=== PATIENT | female | born 1970 | race Caucasian/White ===

== ENCOUNTER 2017-04-10 01:55 | Observation (INO) ==
[2017-04-10 02:21] LABS: Bilirubin,Urine Negative (Negative); Blood,Urine Small (Negative); Color,Urine Yellow (Yellow); Glucose,Urine (UA) Normal (Normal); Ketones,Urine Negative (Negative); Leukocyte Esterase,Urine Negative (Negative); Nitrite,Urine Negative (Negative); Protein,Urine 30 mg/dL (Neg-Trace); Specific Gravity,Urine > 1.030 (1.010-1.025); Urobilinogen,Urine Normal (Normal)
[2017-04-10 02:23] LABS: Bacteria,Urine Moderate per hpf (None-Few); Hyaline Casts,Urine None Seen per lpf (None-Few); RBC,Urine 0-3 per hpf (0-3); Squamous Epithelial Cell,Urine Many per lpf (None-Few)
[2017-04-10 02:28] LABS: Clarity,Urine Hazy (Clear)
[2017-04-10 02:36] LABS: Calcium Oxalate Crystals,Urine Present
[2017-04-10 03:03] LABS: Basophils % 0.1 %; Eosinophils % 0.1 %; Hematocrit 42.7 % (35.3-44.9); Hemoglobin 14.6 g/dL (11.5-15.4); Immature Granulocytes % 0.5 % (0-4); Lymphocytes # 1.1 K/mcL (0.6-4.6); Lymphocytes % 7.9 %; Mean Corpuscular HGB Conc 34.2 g/dL (31.6-35.5); Mean Corpuscular Hemoglobin 31.7 pg (28.0-33.3); Mean Corpuscular Volume 92.8 fL (83.0-100.0); Mean Platelet Volume 10.5 fL (9.4-12.4); Monocytes # 0.6 K/mcL (0.0-1.3); Monocytes % 4.2 %; Neutrophils # 12.3 K/mcL (1.6-8.9); Platelet Count 249 K/mcL (140-400); Red Cell Distribution Width 12.9 % (11.5-14.5); Segmented Neutrophils % 87.2 %
[2017-04-10 03:20] LABS: BUN/Creatinine Ratio 25 (6-26); Blood Urea Nitrogen 19 mg/dL (6-20); Calcium 9.4 mg/dL (8.6-10.3); Carbon Dioxide 24 mEq/L (23-29); Chloride 109 mEq/L (98-107); Glucose 115 mg/dL (70-105); Osmolality,Calculated 293 (280-300); Potassium 3.5 mEq/L (3.5-5.1); Sodium 140 mEq/L (136-145); eGFR For African Americans > 60 (> 60); eGFR For Non-African Americans > 60 (> 60)
[2017-04-10 03:21] LABS: Albumin/Globulin Ratio 1.3 (1.1-2.2); Bilirubin,Direct 0.1 mg/dL (0.0-0.2); Bilirubin,Indirect 0.4 mg/dL (0.0-1.2); Bilirubin,Total 0.5 mg/dL (0.3-1.0); Globulin 3.1 g/dL (2.4-3.5); Total Protein 7.1 g/dL (6.4-8.9)
--- NOTE | 2017-04-10 04:51 | Emergency Department Note ---
Disposition Clinical Impression: Chest pain Disposition: Admitted As Inpatient Condition: Fair Referrals: Edyta Melgar CNP [Primary Care Provider] - Forms: ED Satisfaction Letter Time of Disposition: 05:32 Chest Pain HPI - General Chief Complaint: ED Chest Pain Stated Complaint: CP/epigastric pain Time Seen by Provider: 04/10/17 04:16 Source: patient Limitations: no limitations Vital Signs Reviewed: Yes Nursing Notes Reviewed: Yes - History of Present Illness HPI Narrative: Patient presenting to the ED today with the chief complaint of chest pain. Patient reports that the pain started several hours ago and has been consistent. States it feels like a knife is stabbing her in the chest and twisting and radiating through to her back. Pain radiates into her right arm and right jaw. States that she diaphoretic and nauseated with this as well. Had a few episodes of vomiting. He reports no previous history of coronary artery disease, but did have a heart catheter many years ago after a syncopal episode and collapsed while at work. She states that she twice while on the table and had to be defibrillated. She reports that recently she has been on a Medrol Dosepak for a allergic reaction, rash that has since resolved. Severity scale (1-10): 10 - Related Data Allergies Allergy/AdvReac Type Severity Reaction Status Date / Time Sulfa (Sulfonamide AdvReac See Verified 04/10/17 02:02 Antibiotics) Comments All systems ED: reviewed and negative except as stated. Constitutional: Denies: fever Cardiovascular: Reports: chest pain. Denies: dyspnea on exertion Respiratory: Denies: cough Gastrointestinal: Reports: abdominal pain (Epigastric and some right upper quadrant), nausea, vomiting Musculoskeletal: Reports: back pain (Radiating from her chest to her mid back) Neurological: Denies: headache Psychiatric: Reports: anxiety Chest Pain PMH - Past Medical History Medical history: Reports: no medical history Psychiatric history: Reports: no psych history - Social History Smoking Status: Never smoker Alcohol use: Reports: none Drug use: Reports: none Physical Exam - General Limitations: no limitations General appearance: alert, in no apparent distress - Head Head exam: atraumatic, normocephalic, normal inspection - Eye Eye exam: Present: normal appearance, PERRL, EOMI - ENT ENT exam: normal exam, normal oropharynx, mucous membranes moist - Neck Neck exam: Present: normal inspection, full ROM, trachea midline - Chest Chest inspection: Present: normal inspection, symmetric chest wall rise - Respiratory Respiratory exam: Present: normal lung sounds bilaterally - Cardiovascular Cardiovascular exam: Present: regular rate, normal rhythm, normal heart sounds - Abdominal Exam Abdominal exam: Present: soft, Non-Tender. Absent: tenderness, distention, guarding, rebound, rigidity, tenderness at McBurney's Point - Extremities Exam Extremities exam: Present: normal inspection, full ROM. Absent: tenderness, pedal edema - Expanded Lower Extremity Exam Hip/Pelvis exam: Present: pelvis stable - Back Exam Back exam: Present: normal inspection, full ROM. Absent: tenderness - Neurological Exam Neurological exam: Present: alert, oriented X3 - Psychiatric Psychiatric exam: Present: normal affect, normal mood - Skin Skin exam: Present: warm, dry, intact, normal color Course Course Narrative: Patient presenting the ED with a concerning story of chest pain. Distal having pain currently and her EKG is normal. We will try nitroglycerin and give her aspirin. Will admit to the hospitalist for further workup. Vital Signs Temperature 99.7 F H 04/10/17 01:56 Pulse Rate 92 04/10/17 01:56 Respiratory Rate 20 04/10/17 01:56 Blood Pressure 124/75 04/10/17 01:56 O2 Sat by Pulse Oximetry 96 04/10/17 01:56 Temperature 99.7 F H 04/10/17 01:56 Pulse Rate 82 04/10/17 05:53 Respiratory Rate 16 04/10/17 05:53 Blood Pressure 117/79 04/10/17 05:53 O2 Sat by Pulse Oximetry 95 04/10/17 05:53 Oxygen Delivery Oxygen Delivery Room Air Chest Pain - Medical Records Medical records reviewed: Yes I reviewed the patient's medical records. - Lab Data Lab results reviewed: Yes I reviewed the patient's lab results. Result diagrams: 04/10/17 02:52 04/10/17 02:52 Lab Results 04/10/17 04/10/17 04/10/17 Range/Units 02:00 02:51 02:52 WBC (4.3-11.1) K/mcL RBC (3.82-4.97) M/mcL Hgb (11.5-15.4) g/dL Hct (35.3-44.9) % MCV (83.0-100.0) fL MCH (28.0-33.3) pg MCHC (31.6-35.5) g/dL RDW (11.5-14.5) % Plt Count (140-400) K/mcL MPV (9.4-12.4) fL Immature Gran % (0-4) % Seg Neutrophils % % Lymphocytes % % Monocytes % % Eosinophils % % Basophils % % Neutrophils # (1.6-8.9) K/mcL Lymphocytes # (0.6-4.6) K/mcL Monocytes # (0.0-1.3) K/mcL Eosinophils # (0.0-0.6) K/mcL Basophils # (0.0-0.2) K/mcL Sodium (136-145) mEq/L Potassium (3.5-5.1) mEq/L Chloride (98-107) mEq/L Carbon Dioxide (23-29) mEq/L BUN (6-20) mg/dL Creatinine (0.60-1.20) mg/dL Est GFR ( Amer) (> 60) Est GFR (Non-Af Amer) (> 60) BUN/Creatinine Ratio (6-26) Glucose (70-105) mg/dL Calculated Osmolality (280-300) Calcium (8.6-10.3) mg/dL Total Bilirubin 0.5 (0.3-1.0) mg/dL Direct Bilirubin 0.1 (0.0-0.2) mg/dL Indirect Bilirubin 0.4 (0.0-1.2) mg/dL AST 15 (13-39) Units/L ALT 18 (7-52) Units/L Alkaline Phosphatase 60 (34-104) Units/L Troponin I < 0.03 (< 0.04) ng/mL Serum Total Protein 7.1 (6.4-8.9) g/dL Albumin 4.0 (3.5-5.7) g/dL Globulin 3.1 (2.4-3.5) g/dL Albumin/Globulin Ratio 1.3 (1.1-2.2) Lipase 26 (11-82) Units/L Urine Color Yellow (Yellow) Urine Clarity Hazy A (Clear) Urine pH 6.0 (5.0-8.0) pH Units Ur Specific [place] > 1.030 H (1.010-1.025) Urine Protein 30 H (Neg-Trace) mg/dL Urine Glucose (UA) Normal (Normal) mg/dL Urine Ketones Negative (Negative) mg/dL Urine Blood Small H (Negative) Urine Nitrite Negative (Negative) Urine Bilirubin Negative (Negative) Urine Urobilinogen Normal (Normal) mg/dL Ur Leukocyte Esterase Negative (Negative) Urine Microscopic RBC 0-3 (0-3) per hpf Urine Microscopic WBC 5-15 H (0-3) per hpf Ur Squamous Epith Cells Many H (None-Few) per lpf Calcium Oxalate Crystal Present Urine Bacteria Moderate H (None-Few) per hpf Hyaline Casts None Seen (None-Few) per lpf Ur Culture Indicated? NO (NO) 04/10/17 04/10/17 Range/Units 02:52 02:52 WBC 14.1 H (4.3-11.1) K/mcL RBC 4.60 (3.82-4.97) M/mcL Hgb 14.6 (11.5-15.4) g/dL Hct 42.7 (35.3-44.9) % MCV 92.8 (83.0-100.0) fL MCH 31.7 (28.0-33.3) pg MCHC 34.2 (31.6-35.5) g/dL RDW 12.9 (11.5-14.5) % Plt Count 249 (140-400) K/mcL MPV 10.5 (9.4-12.4) fL Immature Gran % 0.5 (0-4) % Seg Neutrophils % 87.2 % Lymphocytes % 7.9 % Monocytes % 4.2 % Eosinophils % 0.1 % Basophils % 0.1 % Neutrophils # 12.3 H (1.6-8.9) K/mcL Lymphocytes # 1.1 (0.6-4.6) K/mcL Monocytes # 0.6 (0.0-1.3) K/mcL Eosinophils # 0.0 (0.0-0.6) K/mcL Basophils # 0.0 (0.0-0.2) K/mcL Sodium 140 (136-145) mEq/L Potassium 3.5 (3.5-5.1) mEq/L Chloride 109 H (98-107) mEq/L Carbon Dioxide 24 (23-29) mEq/L BUN 19 (6-20) mg/dL Creatinine 0.76 (0.60-1.20) mg/dL Est GFR ( Amer) > 60 (> 60) Est GFR (Non-Af Amer) > 60 (> 60) BUN/Creatinine Ratio 25 (6-26) Glucose 115 H (70-105) mg/dL Calculated Osmolality 293 (280-300) Calcium 9.4 (8.6-10.3) mg/dL Total Bilirubin (0.3-1.0) mg/dL Direct Bilirubin (0.0-0.2) mg/dL Indirect Bilirubin (0.0-1.2) mg/dL AST (13-39) Units/L ALT (7-52) Units/L Alkaline Phosphatase (34-104) Units/L Troponin I (< 0.04) ng/mL Serum Total Protein (6.4-8.9) g/dL Albumin (3.5-5.7) g/dL Globulin (2.4-3.5) g/dL Albumin/Globulin Ratio (1.1-2.2) Lipase (11-82) Units/L Urine Color (Yellow) Urine Clarity (Clear) Urine pH (5.0-8.0) pH Units Ur Specific [place] (1.010-1.025) Urine Protein (Neg-Trace) mg/dL Urine Glucose (UA) (Normal) mg/dL Urine Ketones (Negative) mg/dL Urine Blood (Negative) Urine Nitrite (Negative) Urine Bilirubin (Negative) Urine Urobilinogen (Normal) mg/dL Ur Leukocyte Esterase (Negative) Urine Microscopic RBC (0-3) per hpf Urine Microscopic WBC (0-3) per hpf Ur Squamous Epith Cells (None-Few) per lpf Calcium Oxalate Crystal Urine Bacteria (None-Few) per hpf Hyaline Casts (None-Few) per lpf Ur Culture Indicated? (NO) - Radiology Data Radiology results reviewed: Yes I reviewed the patient's radiology results. Chest X-Ray 04/10/17 02:03 IMPRESSION: No acute cardiopulmonary pathology. No focal airspace consolidation. D/ / John Anderson MD / John Anderson MD Interpreting Provider: John Anderson MD - EKG Data EKG attestation: Yes I reviewed and interpreted this EKG. EKG results narrative: Sinus rhythm, rate 81, FL interval 168, QRS 104, QTC 414, normal axis, no acute ischemic changes Heart Score - Score History: Highly Suspicious EKG: Normal Age: 45-65 Risk Factors: 1-2 risk factors Troponin: Less than normal limit HEART Score Total: 4 S.B.ALaura. - S.Wallace.Jaime Situation: Demographics, MOA Background: Presenting Complaint, Relevant PMH, Meds, & Allergies Assessment: Vital Signs, Course and respsone to treatment, Exam Concerns, Patient/Family Expectation, Pertinant Lab Results, Outstanding Labs Recommendation: Recommendation based on pending studies, treatments, or consults S.B.A.RYris Report Given to: Dr. Gauri Salas Repor Time: 05:39 Attestation Statement - Attestation Attestation: I, Real Pearl MD, personally evaluated this patient and discussed their management with the resident physician. I reviewed the resident's note and agree with the documented findings, medical decision making, and plan of care. 46-year-old female presents to the emergency department with a complaint of chest pain that started about 7 PM this evening. She states the pain started in the epigastric area and radiated up into the chest in the substernal region. The pain radiates to the right shoulder and down the right arm. Also radiates to the right jaw. She complains of nausea and vomiting associated with the pain. No shortness of breath. No diaphoresis. On examination patient is a well-developed well-nourished well-appearing female in no acute distress. She is alert and oriented 3. There is no cyanosis or diaphoresis. Chest is nontender to palpation. Breath sounds are clear and equal bilaterally. Heart regular rate and rhythm. Abdomen is soft and nontender with normal bowel sounds. Labs reviewed. Chest x-ray negative. No acute changes on EKG. The hospitalist, Dr. Astorga, was consulted and accepted the admission of the patient.
[2017-04-10] MEDS: Nitroglycerin 0.4 MG TAB.SUBL SL PRN ×4 (05:46→19:55)
[2017-04-10] MEDS ORDERED: Aspirin 325 MG TABLET PO ONE (06:43)
[2017-04-10] MEDS ORDERED: Naloxone 0.4 MG/ML INJ IVP PRN (07:23)
[2017-04-10] MEDS ORDERED: Ondansetron 4 MG/2 ML VIAL IVP PRN (07:23)
[2017-04-10] MEDS ORDERED: *HR* Morphine 2 MG/ML SYRINGE IVP PRN (07:23)
--- NOTE | 2017-04-10 07:52 | Internal Med History&Physical ---
Date of Encounter: 04/10/17 Time of Encounter: 07:40 Assessment and Plan (1) Chest pain Current visit: Yes Status: Acute Atypical chest pain - rule out ACS Continue Aspirin, Simvastatin, Nitro PRN EKG - sinus rhythm with no acute ST-T changes Troponin - 0.03 Chest x-ray - no acute cardiopulmonary process Echocardiogram - pending Stress test - pending Cardiac telemetry, labs in a.m., monitor closely Qualifiers: Chest pain type: unspecified Qualified Code(s): R07.9 - Chest pain, unspecified (2) GERD (gastroesophageal reflux disease) Current visit: Yes Status: Chronic Add Pepcid, Protonix Qualifiers: Esophagitis presence: without esophagitis Qualified Code(s): K21.9 - Gastro -esophageal reflux disease without esophagitis (3) DVT prophylaxis Current visit: Yes Status: Acute Heparin subcutaneous Internal Medicine - H&P: HPI Chief complaint: Chest pain Admitted From: Emergency Dept Plans for Post Hospital Care: Home History of present illness: Ms. Will is a 46 year old female with past medical history of GERD and ?h/o SVT. Patient presents to the ED with complaints of chest pain. Examined in the room. Patient is awake and alert. Not in any distress. Able to provide all history. Family is at bedside. Patient states she developed substernal chest pain and epigastric pain about 12 hours prior to arrival in the ED. Her chest pain radiated to her right arm and right side of neck. Describes it as a burning and pressure type of pain. Rates it 7 out of 10. Improved after nitroglycerin given in the ED. Patient also complains of associated shortness of breath. Denies palpitations or diaphoresis. Denies headache or dizziness. She did have multiple episodes of vomiting and several episodes of diarrhea. Patient states her symptoms may have initially started about 2 days ago, when she developed some vomiting and diarrhea. She also had an allergy reaction about 2 days ago, and was started on Prednisone by her primary care physician. No other associated symptoms. No other acute complaints at present. Initial workup in the ED is negative. Troponin is within normal limits. EKG shows normal sinus rhythm. Patient will need echocardiogram and stress test. Aspirin has been given in the ED. Patient and family explaining about condition and plan of care in detail. They understood and agreed. No unanswered questions. CODE STATUS full code. Past Med Surg Social Fam HX - Past Medical History Medical history: no medical history Psychiatric history: no psych history - Past Surgical History Surgical History: cholecystectomy, hysterectomy - Social History Smoking Status: Never smoker Alcohol use: none Drug use: none - Family History Father Hx Family Cardiac Disorders: Yes (SD) Internal Medicine - H&P: Meds Ascorbic Acid [Vitamin C] 500 mg PO DAILY 04/10/17 [History] Cholecalciferol (D-3) [Vitamin D] 1,000 unit PO DAILY 04/10/17 [History] Cyanocobalamin (Vitamin B-12) [Vitamin B12] 1,000 mcg PO DAILY 04/10/17 [History ] Loratadine [Allergy Relief] 10 mg PO DAILY 04/10/17 [History] PredniSONE [Deltasone] See Taper PO AD 04/10/17 [History] Vitamin E (Dl,Tocopheryl Acet) [Vitamin E] 400 unit PO DAILY 04/10/17 [History] 3 Allergy/AdvReac Type Severity Reaction Status Date / Time Sulfa (Sulfonamide AdvReac Hives Verified 04/10/17 08:34 Antibiotics) All Systems PM: A 10-system review of systems was performed and is negative for pertinent findings except as documented above in the HPI. - Constitutional Constitutional: fatigue, no fever(s), no weakness - EENT Eyes: no blurry vision - Cardiovascular Cardiovascular ROS IM: chest pain, dyspnea, dyspnea on exertion, no edema, no lightheadedness, no orthopnea, no palpitations, no syncope - Respiratory Respiratory: dyspnea, dyspnea on exertion, no cough, no hemoptysis, no wheezing , no chest congestion - Gastrointestinal Gastrointestinal: abdominal pain, diarrhea, nausea, vomiting, no bloating, no constipation, no heartburn, no hematemesis, no hematochezia - Genitourinary Genitourinary: no dysuria - Neurological Neurological ROS: no abnormal gait, no confusion, no dizziness, no loss of vision, no numbness, no tingling - Constitutional Vitals: Temp Pulse Resp BP Pulse Ox 99.1 F 95 15 147/90 96 04/10/17 06:55 04/10/17 06:55 04/10/17 06:55 04/10/17 06:55 04/10/17 06:55 General appearance: Present: cooperative, A&O X 3, pleasant, no acute distress, obese, answers questions appropriately - Head Head exam: Present: atraumatic - Eye Eye exam: Present: EOMI - ENT ENT exam: Present: mucous membranes moist - Respiratory Respiratory exam: Present: CTAB. Absent: accessory muscle use, chest wall tenderness, rales, respiratory distress, wheezes, tachypnea - Cardiovascular Cardiovascular exam: Present: RRR, +S1, +S2 - GI/Abdominal GI/Abdominal exam: Present: soft, tenderness (Mild epigastric tenderness). Absent: distended, firm, guarding - Extremities Exam Extremities exam: Present: radial pulses palpable and symmetrical. Absent: calf tenderness, cyanotic, pedal edema - Neurological Exam Neurological exam: Present: alert, oriented X3, no focal deficits. Absent: facial droop, speech deficit - Skin Skin exam: Present: rash (over back) Internal Med - H&P Results - Labs CBC & Chem 7: 04/10/17 02:52 04/10/17 02:52
[2017-04-10] MEDS: *HR* Heparin 5,000 UNIT/ML VIAL SQ SCH ×2 (09:44→19:54)
[2017-04-10] MEDS: Acetaminophen 325 MG TABLET PO PRN (09:45)
[2017-04-10] MEDS: predniSONE 20 MG TABLET PO SCH (11:08)
[2017-04-10] MEDS: Loratadine 10 MG TABLET PO SCH (11:08)
[2017-04-10] MEDS: Ascorbic Acid 500 MG TABLET PO SCH (11:11)
[2017-04-10] MEDS: Cyanocobalamin (B-12) 1,000 MCG TABLET PO SCH (11:12)
[2017-04-10] MEDS: Cholecalciferol (D-3) 1,000 UNIT TABLET PO SCH (11:12)
[2017-04-10] MEDS: Famotidine 20 MG/2 ML VIAL IVP SCH ×2 (11:14→19:55)
--- NOTE | 2017-04-10 20:20 | Electrocardiograph Report ---
[place] [id number] Test Date: 2017-04-10 Pat Name: Shanell Will Department: 102 Room: 3B Gender: F [employer] Machine: : [id number] Requested By: Real Pearl Order Number: [id number] Reading MD: Gil Masters MD Measurements Intervals [place] Rate: 81 P: 41 KS: 168 QRS: 20 QRSD: 104 T: 26 QT: 376 QTc: 414 Interpretive Statements SINUS RHYTHM Electronically Signed On 04-10-2017 20:19:18 EST by Gil Masters MD
[2017-04-11] MEDS: *HR* Heparin 5,000 UNIT/ML VIAL SQ SCH ×2 (05:25→17:51)
[2017-04-11] MEDS: Famotidine 20 MG/2 ML VIAL IVP SCH ×2 (05:25→17:51)
[2017-04-11] MEDS ORDERED: Regadenoson 0.4 MG/5 ML SYRINGE IVP ONE (06:24)
[2017-04-11] MEDS ORDERED: Aspirin 81 MG TAB.CHEW PO SCH (09:00)
[2017-04-11] MEDS: Ascorbic Acid 500 MG TABLET PO SCH (09:20)
[2017-04-11] MEDS: predniSONE 20 MG TABLET PO SCH (09:20)
[2017-04-11] MEDS: Cyanocobalamin (B-12) 1,000 MCG TABLET PO SCH (09:20)
[2017-04-11] MEDS: Loratadine 10 MG TABLET PO SCH (09:20)
[2017-04-11] MEDS: Cholecalciferol (D-3) 1,000 UNIT TABLET PO SCH (09:20)
--- NOTE | 2017-04-11 13:02 | Cardiology Consult Note ---
<Pavel Earl R - Last Filed: 04/11/17 13:21> Date of Encounter: 04/11/17 Time of Encounter: 13:06 Assessment and Plan (1) Abnormal stress test Current Visit: Yes Status: Acute Stress test showed small sized, moderate intensity reversible defect involving apical lateral and apical inferior segments suggestive of ischemia. Small sized , mild intensity, reversible basal inferior defect possibly due to ischemia. Given symptoms of chest pain with radiation to right arm/shoulder/neck and into back, relieved with nitro, recommend [facility] further evaluate. R/B/S discussed. Pt agrees to proceed. Risk factors for CAD include obesity, family hx. Echo LVEF 60-65%. Normal LV chamber size, wall thickness and function. Mild LVDD. No significant valvular dysfunction. [facility] today. (2) Chest pain Current Visit: Yes Status: Acute Troponins negative x 3. No ekg changes. Abnormal stress test with plan as above. [facility] today. Qualifiers: Chest pain type: unspecified Qualified Code(s): R07.9 - Chest pain, unspecified Discussion w patient/family: The assessment and plan as outlined above was discussed with the patient and/or family members who expressed understanding and agreement. All questions were answered. Thank you for involving us in the care of your patient. Please call with any questions. I will discuss all the above with Dr. Abreu and make changes as necessary. History of Present Illness Consult date: 04/11/17 Requesting physician: Nilson Mejia Consult reason: abnormal stress Chief complaint: chest pain History of present illness: Ms. Will is a 46 year old female with past medical history of GERD and possible hx of SVT. Patient presents to the ED with complaints of chest pain. Patient states she developed midsternal chest pain Caroline night while lying in bed, radiated into her back, right arm/shoulder and neck, described as aching. It improved after nitroglycerin was given in the ED. Has had one more episode while inpt, relieved with nitro. Patient also complains of associated shortness of breath and vomiting, also had diarrhea. Patient states her symptoms may have initially started about 2 days ago, around the same time she noticed a bite on the back of her leg and an intermittent rash--was started on Prednisone by her primary care physician. Troponin negative x 3. Echo EF preserved, normal wall motion. Stress test showed small sized, moderate intensity reversible defect involving apical lateral and apical inferior segments suggestive of ischemia. Small sized, mild intensity, reversible basal inferior defect possibly due to ischemia. Cardiology consulted for further recommendations. Pt reports having LHC ~2003 without intervention. Past Med Surg Social Fam HX - Past Medical History Medical history: no medical history Psychiatric history: no psych history - Past Surgical History Surgical History: cholecystectomy, hysterectomy - Social History Smoking Status: Never smoker Alcohol use: none Drug use: none - Family History Father Hx Family Cardiac Disorders: Yes ([place]) Medications and Allergies Ascorbic Acid [Vitamin C] 500 mg PO DAILY 04/10/17 [History] Cholecalciferol (D-3) [Vitamin D] 1,000 unit PO DAILY 04/10/17 [History] Cyanocobalamin (Vitamin B-12) [Vitamin B12] 1,000 mcg PO DAILY 04/10/17 [History ] Loratadine [Allergy Relief] 10 mg PO DAILY 04/10/17 [History] PredniSONE [Deltasone] See Taper PO AD 04/10/17 [History] Vitamin E (Dl,Tocopheryl Acet) [Vitamin E] 400 unit PO DAILY 04/10/17 [History] 3 Allergy/AdvReac Type Severity Reaction Status Date / Time Sulfa (Sulfonamide AdvReac Hives Verified 04/10/17 08:34 Antibiotics) All Systems Review: A 10-system review of systems was performed and is negative for pertinent findings except as documented above in the HPI. - Cardiovascular Cardiovascular: as per HPI, chest pain at rest, dyspnea at rest, radiating jaw, neck or arm pain - Gastrointestinal Gastrointestinal: diarrhea, nausea - Integumentary Integumentary: rash Physical Examination Vital Signs, Last 4 Hours Temp Pulse Resp BP Pulse Ox 04/11/17 11:37 98.0 F 88 14 108/70 96 04/11/17 09:23 94 Vital Signs Temp Pulse Resp BP Pulse Ox 04/11/17 11:37 98.0 F 88 14 108/70 96 04/11/17 09:23 94 04/11/17 06:41 99.1 F 74 16 115/72 94 04/11/17 03:11 98.2 F 68 16 102/54 96 04/10/17 22:01 98.5 F 84 16 111/69 94 04/10/17 20:08 86 112/70 12/20/17 19:21 98.3 F 88 16 116/70 95 04/10/17 15:25 98.4 F 104 17 118/71 94 Intake and Output 04/10/17 04/11/17 04/11/17 23:59 07:59 15:59 Intake Total 120 / 120 1120 / 1120 Balance 120 / 120 1120 / 1120 Intake: Oral 120 / 120 1120 / 1120 Other: Meal Breakfast Percent of Meal Consumed 100% Weight 112.718 kg Patient Weight 04/11/17 23:59 Weight 112.718 kg General: Conversant, No Apparent Distress HEENT: Atraumatic, Normocephaly, Mucus Membranes Moist Neck: No JVD, Normal carotid pulses Cardiac: Reg Rate and Rhythm, Normal S1 and S2, No Murmur Lungs: Normal Breath Sounds, No Wheeze, Rales, Rhonchi Neuro: Alert and responsive, No focal deficits noted Abdomen: Soft, Non-Tender Skin: No rashes noted on visualized skin Musculoskeletal: No Chest Wall Tenderness Extremities: No Clubbing, No Cyanosis, No Edema, Normal Pulses Results 04/10/17 02:52 04/10/17 02:52 Lab Results 04/10/17 12:47 Troponin I < 0.03 Impressions Echocardiogram 04/10/17 07:26 Impressions: LVEF 60-65%. Normal LV chamber size, wall thickness and function. Mild left ventricular diastolic dysfunction. Normal right ventricular structure and function. No evidence of pulmonary hypertension. No significant valvular dysfunction. Left Ventricular Wall Motion: Rest Echo Findings All wall segments showed normal motion. Findings: Study Quality * Technically adequate exam. ECG Findings * Normal sinus rhythm. Left Ventricle * LVEF 60-65%. * Normal LV chamber size, wall thickness and function. * Mild left ventricular diastolic dysfunction. Right Ventricle * Normal right ventricular structure and function. Left Atrium * Normal left atrial size. Right Atrium * Normal right atrial size. Interatrial Septum * Interatrial septum not well evaluated. Aortic Valve * Trileaflet aortic valve with normal function. * No aortic stenosis. * No aortic regurgitation. Mitral Valve * Normal mitral valve structure and function. * No mitral regurgitation. * No mitral stenosis. Tricuspid Valve * Normal tricuspid valve structure and function. * Trace tricuspid regurgitation. * No evidence of pulmonary hypertension. Pulmonic Valve * Pulmonic valve not well visualized. Aorta * Normally sized aortic root. Pericardium * The pericardium appears normal. IVC * Normal IVC dimensions and inspiratory collapse. Pulmonary Artery * Normal visualized portions of the main pulmonary artery. Active Medications Acetaminophen (Tylenol) 650 mg PO Q6HR PRN PRN Reason: Mild Pain (1-3) Stop: 10/10/17 07:24 Last Admin: 04/10/17 09:45 Dose: 650 mg Ascorbic Acid (Vitamin C) 500 mg PO DAILY [facility] Stop: 10/10/17 10:16 Last Admin: 04/11/17 09:20 Dose: 500 mg Aspirin (Aspirin) 81 mg PO DAILY [facility] Stop: 10/11/17 09:01 Last Admin: 04/11/17 09:20 Dose: 81 mg Cyanocobalamin (Vitamin B12) 1,000 mcg PO DAILY [facility] Stop: 10/10/17 10:16 Last Admin: 04/11/17 09:20 Dose: 1,000 mcg Diphenhydramine HCl (Benadryl) 25 mg PO Q8HR PRN PRN Reason: Allergic Reaction Stop: 10/10/17 10:29 Famotidine (Pepcid) 20 mg IVP Q12HR [facility] PRN Reason: Protocol Stop: 10/10/17 10:31 Last Admin: 04/11/17 05:25 Dose: Not Given Heparin Sodium (Porcine) (Heparin) 5,000 unit SQ Q12HCO [facility] Stop: 10/10/17 07:31 Last Admin: 04/11/17 05:25 Dose: Not Given Loratadine (Claritin) 10 mg PO DAILY [facility] PRN Reason: Protocol Stop: 10/10/17 10:16 Last Admin: 04/11/17 09:20 Dose: 10 mg Morphine Sulfate (Morphine Sulfate) 2 mg IVP Q4HR PRN PRN Reason: Severe Pain (7-10) Stop: 10/10/17 07:24 Naloxone HCl (Narcan) 0.4 mg IVP Q2MIN PRN PRN Reason: Opioid Reversal Stop: 10/10/17 07:24 Nitroglycerin (Nitroglycerin) 0.4 mg SL Q5MIN PRN PRN Reason: Chest Pain Stop: 10/10/17 05:16 Last Admin: 04/10/17 19:55 Dose: 0.4 mg Omeprazole (Prilosec) 40 mg PO DAILY@0630 [facility] PRN Reason: Protocol Stop: 10/10/17 10:31 Last Admin: 04/11/17 09:19 Dose: 40 mg Ondansetron HCl (Zofran) 4 mg IVP Q8HR PRN PRN Reason: Nausea And Vomiting Stop: 10/10/17 07:24 Prednisone (Prednisone) 20 mg PO DAILY [facility] Stop: 10/10/17 10:31 Last Admin: 04/11/17 09:20 Dose: 20 mg Simvastatin (Zocor) 20 mg PO HS [facility] PRN Reason: Protocol Stop: 10/10/17 07:31 Last Admin: 04/10/17 19:55 Dose: Not Given Vitamin D (Vitamin D) 1,000 unit PO DAILY [facility] Stop: 10/10/17 10:16 Last Admin: 04/11/17 09:20 Dose: 1,000 unit Vitamin E (Vitamin E) 400 unit PO DAILY [facility] Stop: 10/10/17 10:16 Last Admin: 04/11/17 09:20 Dose: 400 unit - Imaging and Cardiology Stress Test: report reviewed Echo: report reviewed - EKG Interpretation EKG results cardiology: personally reviewed Consult Discharge Plan - Plan Referrals: Edyta Melgar CNP [Primary Care Provider] - 04/17/17 4:00 pm <Yolanda Abreu - Last Filed: 04/11/17 17:08> Date of Encounter: 04/11/17 - Attending Attestation I examined this patient and my medical decision-making was reviewed with the UPPER TRIMMER. I agree with the documented findings, disposition and treatment plan as described. Ms. Will presents with complaints of chest pain which appears atypical. Troponins have been negative. Echo demonstrated normal LV systolic function. She had an EKG that was not indicative of ischemia. Stress testing showed a small size, moderate intensity reversible defect involving the apical lateral and apical inferior segment suggestive of ischemia. Also possibly an inferior basal defect due to ischemia. Cardiovascular risk factors include family history and obesity. We discussed these findings with the patient. Given the presence of multiple perfusion abnormalities on stress testing in addition to patient's symptoms and risk factors, we have recommended pursuing a left heart catheterization. The risks, benefits and alternatives of the procedure were discussed extensively with the patient and her . The patient expressed understanding of the potential risks and verbalized agreement to proceed. Renal function is normal. Hgb and platelets are normal. Assessment and Plan Discussion w patient/family: The assessment and plan as outlined above was discussed with the patient and/or family members who expressed understanding and agreement. All questions were answered. Thank you for involving us in the care of your patient. Please call with any questions. History of Present Illness History of present illness: Ms. Will is a 46 year old female All Systems Review: A 10-system review of systems was performed and is negative for pertinent findings except as documented above in the HPI. Physical Examination Vital Signs, Last 4 Hours Temp Pulse Resp BP Pulse Ox 04/11/17 15:57 98.2 F 83 16 133/80 93 Results 04/10/17 02:52 04/10/17 02:52
--- NOTE | 2017-04-11 16:07 | Internal Med Progress Note ---
Date of Encounter: 04/11/17 Time of Encounter: 15:00 - Assessment and plan (1) Chest pain Current Visit: Yes Status: Acute Assessment and plan: Atypical chest pain - rule out ACS - denies shortness of breath, mild substernal chest pain present Continue Aspirin, Simvastatin, Nitro PRN EKG - sinus rhythm with no acute ST-T changes Troponin - 0.03 Chest x-ray - no acute cardiopulmonary process Echocardiogram - LVEF 60-65%, mild LV diastolic dysfunction, normal RV structure and function, no significant valvular dysfunction Stress test - reversible defect involving the apical lateral and apical inferior segments suggestive of ischemia Lipid panel - reviewed Cardiology consult - [facility] today Cardiac telemetry, labs in a.m., monitor closely Qualifiers: Chest pain type: unspecified Qualified Code(s): R07.9 - Chest pain, unspecified (2) GERD (gastroesophageal reflux disease) Current Visit: Yes Status: Chronic Assessment and plan: Continue Protonix, Pepcid Qualifiers: Esophagitis presence: without esophagitis Qualified Code(s): K21.9 - Gastro -esophageal reflux disease without esophagitis (3) DVT prophylaxis Current Visit: Yes Status: Acute Assessment and plan: Heparin subcutaneous - Time Spent With Patient 25 - 35 minutes - Subjective Interval history: Examined this afternoon. Patient is awake and alert. Not in any distress. Complains of mild chest pain which radiates to her back at times. Denies shortness of breath. No fever. Hemodynamically stable. No other acute complaints. Echocardiogram shows LVEF 60-65% with mild LV diastolic dysfunction and no other significant abnormality. Stress test done this morning, and patient has reversible defect involving the apical lateral and apical inferior segments suggestive of ischemia. Cardiology has evaluated the patient. [facility] today. - Constitutional Vitals: Temp Pulse Resp BP Pulse Ox 98.2 F 83 16 133/80 93 04/11/17 15:57 04/11/17 15:57 04/11/17 15:57 04/11/17 15:57 04/11/17 15:57 General appearance: Present: cooperative, A&O X 3, pleasant, no acute distress, obese, answers questions appropriately - Head Head exam: Present: atraumatic - Eye Eye exam: Present: EOMI - ENT ENT exam: Present: mucous membranes moist - Respiratory Respiratory exam: Present: CTAB. Absent: accessory muscle use, chest wall tenderness, rales, respiratory distress, rhonchi, wheezes, tachypnea - Cardiovascular Cardiovascular exam: Present: RRR, +S1, +S2 - GI/Abdominal GI/Abdominal exam: Present: soft. Absent: distended, firm, guarding, tenderness - Extremities Exam Extremities exam: Present: radial pulses palpable and symmetrical. Absent: calf tenderness, cyanotic, pedal edema - Neurological Exam Neurological exam: Present: alert, oriented X3, no focal deficits. Absent: facial droop, speech deficit Internal Medicine: Result - Labs CBC & Chem 7: 04/10/17 02:52 04/10/17 02:52 Consult Discharge Plan - Plan Referrals: Edyta Melgar CNP [Primary Care Provider] - 04/17/17 4:00 pm
--- NOTE | 2017-04-11 17:27 | Pre-Sedation Evaluation ---
Pre-sedation evaluation - Pre-sedation checklist Date of procedure: 04/11/17 Procedure: [facility] Recent Vitals: Last Vital Signs Temp 98.2 F 04/11/17 15:57 Pulse 83 04/11/17 15:57 Resp 16 04/11/17 15:57 BP 133/80 04/11/17 15:57 Pulse Ox 93 04/11/17 15:57 H&P (including ROS) documented in medical record: Yes Previous reaction to sedatives/anesthetics: No Dietary Status: NPO after Midnight Airway Assessment: Patient can open mouth completely, TMJ function normal ASA Classification *see protocol: CLASS II-Mild systemic disease Plan of Care: Pt appropriate candidate for procedure/moderate/conscious sedation , Risks/benefits of procedure/sedation discussed w/ patient/family
[2017-04-11] MEDS ORDERED: Verapamil 5 MG/2 ML VIAL ONE (17:29)
[2017-04-11] MEDS ORDERED: *HR* Heparin 10,000 UNIT/10 ML VIAL ONE (17:30)
[2017-04-11] MEDS ORDERED: 0.9 % Sodium Chloride 1,000 ML ONE ×2 (17:30→18:18)
[2017-04-11] MEDS ORDERED: Nitroglycerin 1,000 MCG/10 ML VIAL IV ONE (17:30)
[2017-04-11] MEDS ORDERED: *HR* Midazolam HCl 2 MG/2 ML VIAL ONE ×3 (18:17→18:41)
[2017-04-11] MEDS ORDERED: *HR* FentaNYL (PF) 100 MCG/2 ML VIAL ONE (18:17)
--- NOTE | 2017-04-11 18:32 | Electrocardiograph Report ---
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
--- NOTE | 2017-04-11 19:11 | Event Note ---
Date of Encounter: 04/11/17 Time of Encounter: 19:00 - Cardiology Event Note Minimal CAD Normal EF. Can be discharged home 10pm tonight if no other issues.
--- NOTE | 2017-04-11 19:42 | Invasive Diagnostic Lab Proc ---
Name: Shanell Will Date of Study: 04/11/2017 Date: 1970 Ht: 68.1in Medical Record#: [id number] Age: 46 Wt: 246.92lb Gender: Female BSA: 2.24 Order #: [id number] BMI: 37.42 Physicians Procedure Physician: Gil Masters MD, [facility] Referring MD: Referring MD: Indications Indication Abnormal Test - Stress Procedures Performed Procedure L HRT ARTERY/VENTRICLE ANGIO Pre-Procedure Checklist Informed consent is complete signed and on chart. H&P is on chart. ID band is on and ID verified with patient. Patient NPO for procedure The procedure was described for the patient and questions were answered. ECG is on chart. Plan of Care Patient will tolerate the procedure without complications. Adequate level of comfort will be maintained. Hemodynamics will remain stable Patient will recover from procedure without complications. Respiratory function will be maintained. Cardiac rhythm will remain stable. Patient temperature will be maintained. Patient and/or family have verbalized understanding of the procedure. Patient Education Chief Complaint/Reason for Test: Cardiac Cath Developmental Category: Adult (18-64 years) Developmentally Appropriate for Age: Yes Learning Barriers: None Education Needs: Procedure Education Method: Verbal Information Taught: Cardiac Cath Educational Evaluation: Able to repeat information Intravenous Access Time IV Size Location DC'd Fluid/Drip Rate Units RN 20g 1 /" Patent On Arrival Lt Antecubital 0.9NaCl 25 ml/hr Allergies SULFA Vital Signs Time BP (mmHg) HR (bpm) O2 Sat. RR (bpm) LOC 06:29 PM / % 5 = Fully awake and oriented or at pre-proc level 06:29 PM / % 4 = Oriented but drowsy 06:45 PM / % 4 = Oriented but drowsy 07:00 PM / % 4 = Oriented but drowsy 07:15 PM / % 5 = Fully awake and oriented or at pre-proc level 06:23 PM 143 / 89 83 94 % 10 06:28 PM 142 / 86 86 95 % 11 06:33 PM 139 / 77 91 97 % 12 06:38 PM 129 / 70 111 95 % 13 06:43 PM 134 / 94 88 93 % 15 06:48 PM 143 / 85 85 93 % 18 06:53 PM 140 / 93 88 95 % 22 06:58 PM 146 / 89 88 94 % 14 07:03 PM 140 / 88 90 95 % 18 07:08 PM 142 / 85 80 97 % 14 07:13 PM 135 / 89 73 96 % 19 07:18 PM 132 / 84 78 98 % 13 07:23 PM 144 / 92 72 97 % 32 07:16 PM / % 4 = Oriented but drowsy Procedural Medications Time Medication Dose Units Method Given By 06:21 PM Oxygen 2 L/min nasal cannula Vicky Lizarraga RN 06:21 PM Versed 2 mg Intravenous Vicky Lizarraga RN 06:21 PM Fentanyl 50 mcg Intravenous Vicky Lizarraga RN 06:34 PM Versed 2 mg Intravenous Vicky Lizarraga RN 06:34 PM Fentanyl 25 mcg Intravenous Vicky Lizarraga RN 06:34 PM Lidocaine 2% 0.5 ml Subcutaneous Gil Masters MD, [facility] 06:40 PM Lidocaine 2% 19 ml Subcutaneous Gil Masters MD, [facility] 06:41 PM Versed 2 mg Intravenous Vicky Lizarraga RN 06:41 PM Fentanyl 25 mcg Intravenous Vicky Lizarraga RN 06:46 PM Lidocaine 2% 10 ml Subcutaneous Gil Masters MD, [facility] 06:53 PM Lidocaine 2% 20 ml Subcutaneous Gil Masters MD, [facility] ASA Classification: CLASS II- Mild systemic disease (i.e. well-controlled diabetes, hypertension, asthma, cigarette smoking) Zoya Score Preprocedure Postprocedure Activity 2- Moves 4 extremities sustained head lift Activity 2- Moves 4 extremities sustained head lift Circulation 2- SBP +/= 20 points of pre-anesthetic level Circulation 2- SBP +/= 20 points of pre-anesthetic level Consciousness 2- Awake and alert oriented x 3 Consciousness 2- Awake and alert oriented x 3 O2 Saturation 2- Able to maintain O2 satruation of 92% on room air O2 Saturation 2- Able to maintain O2 satruation of 92% on room air Respiratory 2- Able to deep breathe and cough well Respiratory 2- Able to deep breathe and cough well Total Score 10 Total Score 10 Contrast Agent: Isovue Diagnostic Contrast: 57 ml Total Contrast: 57 ml Fluoro Dose: 115 mGy Procedure Log Time Note Enter By 06:20 PM Pt arrived to [facility] 2 at 18:20 tsites 06:21 PM Time: 18:21 Oxygen on at 2 L/min per nasal cannula by Vicky Lizarraga RN tsites 06:21 PM Physican paged/called 18:21. tsites 06:21 PM Physican responded and notified patient is ready 18:21 tsites 06:21 PM Physician arrived 18:21 tsites 06:21 PM Meet and greet completed tsites 06: PM Sign in performed according to hospital policy. tsites 06:21 PM Procedure start 18:21 tsites 06:21 PM Time: 18:21LOC: 5 = Fully awake and oriented or at pre-proc level tsites 06: PM Time: 18:21 Versed 2 mg Intravenous Given by Vicky Lizarraga RN tsites 06: PM Time: 18:21 Fentanyl 50 mcg Intravenous Given by Vicky Lizarraga RN tsites 06: PM Time: 18:21 Patient comfortable and pain free: Yes tsites 06:22 PM CathStat 06:23 PM Vitals capture started with the following parameters, Patient=Adult, Interval=5 min, Initial Ozlfcjpx=530 mmHg, Deflation Rate=5 mmHg, Cuff placed on Right Leg 06:23 PM HR=83 bpm, GMOI=625/89 mmhg, SpO2=94.0 %, Resp=10 B/min, Comment=nsr 06:28 PM Patient charges- Angio tray pack, Navilyst 3mm J, Pulse Oximetry and ACIST tubing and transducer tsites 06:28 PM Case Delayed no, inpatient tsites 06:28 PM HR=86 bpm, HZGN=423/86 mmhg, SpO2=95.0 %, Resp=11 B/min, Comment=nsr 06:31 PM Pressure channel 1 zero failed. 06:32 PM Pressure channel 1 zero failed. 06:32 PM Pressure channel 1 zero failed. 06:32 PM Pressure channel 1 zeroed. 06:32 PM Clinical Presentation: Unstable angina tsites 06:33 PM HR=91 bpm, FOFA=553/77 mmhg, SpO2=97.0 %, Resp=12 B/min, Comment=nsr 06:34 PM Time out performed according to hospital policy tsites 06:34 PM Time: 18:34 Versed 2 mg Intravenous Given by Vicky Lizarraga RN tsites 06:34 PM Time: 18:34 Fentanyl 25 mcg Intravenous Given by Vicky Lizarraga RN tsites 06:34 PM Time: 18:34 0.5 ml Lidocaine 2% to right radial Subcutaneous Given by Gil Masters MD, [facility] tsites 06:35 PM Access obtained by percutaneous puncture. 6Fr 11cm Terumo Glidesheath sheath placed in right Radial artery. [id number] tsites 06:37 PM 0.035 150cm VSI Kimo-Torque wire [id number] tsites 06:38 PM KG=828 bpm, RXHZ=907/70 mmhg, SpO2=95.0 %, Resp=13 B/min, Comment=nsr 06:39 PM unable to advance wire, will access groin tsites 06:40 PM Time: 18:40 19 ml Lidocaine 2% to right groin Subcutaneous Given by Gil Masters MD, [facility] tsites 06:41 PM Time: 18:41 Versed 2 mg Intravenous Given by Vicky Lizarraga RN tsites 06:41 PM Time: 18:41 Fentanyl 25 mcg Intravenous Given by Vicky Lizarraga RN tsites 06:43 PM HR=88 bpm, QLYM=616/94 mmhg, SpO2=93.0 %, Resp=15 B/min, Comment=nsr 06:44 PM Unsuccessful access attempt # 1 into the right Femoral artery. Manual pressure applied to achieve hemostasis.. tsites 06:45 PM Time: 18:29LOC: 4 = Oriented but drowsy tsites 06:45 PM Time: 18:29 Patient comfortable and pain free: Yes tsites 06:46 PM Time: 18:46 10 ml Lidocaine 2% to right groin Subcutaneous Given by Gil Masters MD, [facility] tsites 06:46 PM Unsuccessful access attempt # 2 into the right Femoral artery. Manual pressure applied to achieve hemostasis.. tsites 06:47 PM ultrasound used to obtain access tsites 06:48 PM HR=85 bpm, VHOG=724/85 mmhg, SpO2=93.0 %, Resp=18 B/min 06:52 PM unsuccessful with right groin. will attempt left groin tsites 06:53 PM Time: 18:53 20 ml Lidocaine 2% to left groin Subcutaneous Given by Gil Masters MD, [facility] tsites 06:53 PM HR=88 bpm, WPPX=864/93 mmhg, SpO2=95.0 %, Resp=22 B/min, Comment=nsr 06:57 PM Access obtained by percutaneous puncture. 5Fr 10cm Terumo [place] sheath placed in left Femoral artery. [id number] tsites 06:57 PM 5Fr FL 4 catheter inserted over the wire DNC tsites 06:57 PM Recorded Pressure: Ao, HR=85, Condition=Condition 1 (Aorta) Ao 126/89/106 06:57 PM LCA angiography performed in multiple views. tsites 06:58 PM Catheter removed tsites 06:58 PM 5Fr FR 4 catheter inserted over the wire DNC tsites 06:58 PM HR=88 bpm, DNOL=020/89 mmhg, SpO2=94.0 %, Resp=14 B/min, Comment=nsr 06:59 PM Recorded Pressure: Ao, HR=91, Condition=Condition 1 (Aorta) Ao 132/90/109 06:59 PM RCA angiography performed in multiple views. tsites 07:00 PM Recorded Pressure: LV, HR=94, Condition=Condition 1 (Left Ventricle) LV 143/4/15 07:00 PM Time: 18:45 Patient comfortable and pain free: Yes tsites 07:00 PM Time: 18:45LOC: 4 = Oriented but drowsy tsites 07:00 PM Catheter selectively placed in left ventricle tsites 07:00 PM Bolus angiogram of left Ventricle complete: 10 ml/sec for a total of 30 mls tsites 07:00 PM Recorded Pressure: LV, Ao, HR=94, Condition=Condition 1 (Left Ventricle) LV 142/2/16, (Aorta) Ao 144/90/115 07:01 PM Recorded Pressure: Ao, HR=87, Condition=Condition 1 (Aorta) Ao 122/97/110 07:01 PM Coronary Dominance: right tsites 07:01 PM Lesion found in Mid RCA. Pre Stenosis: 15 Pre CARRIE Flow: tsites 07:01 PM Catheter removed tsites 07:03 PM Bolus angiogram of left Femoral complete: 4 ml/sec for a total of 7 mls tsites 07:03 PM HR=90 bpm, KDGM=855/88 mmhg, SpO2=95.0 %, Resp=18 B/min, Comment=nsr 07:04 PM Procedure completed at 19:04 tsites 07:05 PM Sign out completed: Radiation Dose 115 mGy Fluoro Time: 1.0 Isovue 370 - 200ml contrast 57 ml given by Gil Masters MD, [facility]. Complications: NoneCardiac Rehab Consult needed: NoConfirmed administered medications: Yes tsites 07:05 PM Isovue 370 - 200ml,1 Bottle(s) used. tsites 07:05 PM Arterial sheath pulled, Vasc Band closure device used and was Successful S/N. to rt wrist tsites 07:05 PM Arterial sheath pulled using manual compression and V+ Pad for 15 minutes by Vicky Lizarraga RN tsites 07:06 PM 15 ml air in Vasc Band. tsites 07:06 PM Estimated Blood Loss: minimal tsites 07:06 PM Post ECG NSR tsites 07:08 PM HR=80 bpm, YUBC=725/85 mmhg, SpO2=97.0 %, Resp=14 B/min 07:10 PM Post Blood Pressure 142/85 tsites 07:10 PM 19:10 Post Pulses Bilateral DP & PT 2+ tsites 07:11 PM Information taught Cardiac Cath and Vasc Band tsites 07:11 PM Education needs Procedure, Plan of Care, and Responsibilities of Patient in Care tsites 07:11 PM Learning barriers :None tsites 07:11 PM Education Methods Verbal tsites 07:11 PM Education evaluation Able to repeat information tsites 07:11 PM Site status No bleeding/hematoma - Rt Wrist as reported by Sites, Angie RT (R) at 19:11 tsites 07:11 PM Plavix, Effient or Brilinta given No tsites 07:11 PM Delay to floor No tsites 07:11 PM Family placed in consult room. tsites 07:11 PM Complications: None tsites 07:11 PM Fluoro Time: 1 tsites 07:13 PM HR=73 bpm, NBFY=551/89 mmhg, SpO2=96.0 %, Resp=19 B/min, Comment=nsr 07:15 PM Time: 19:00 Patient comfortable and pain free: Yes tsites 07:16 PM Time: 19:15LOC: 5 = Fully awake and oriented or at pre-proc level tsites 07:18 PM HR=78 bpm, MOSK=585/84 mmhg, SpO2=98.0 %, Resp=13 B/min, Comment=nsr 07:23 PM HR=72 bpm, QDZD=276/92 mmhg, SpO2=97.0 %, Resp=32 B/min 07:25 PM Vitals capture stopped. 07:33 PM Time: 19:16LOC: 4 = Oriented but drowsy tsites 07:33 PM Time: 19:15 Patient comfortable and pain free: Yes tsites 07:34 PM Site status No bleeding/hematoma - Lt Groin as reported by Vicky Lizarraga RN at 19:33 tsites Complications Complication None None Hemodynamics Pressures Site Systolic/A Wave Diastolic/V Wave Mean AO 126 89 106 AO 132 90 109 LV 143 4 15 LV 142 2 16 AO 144 90 115 AO 122 97 110 Post Procedure Information Blood Pressure: 142/85 mmHg Rhythm: NSR Post procedural instructions were given Closure Device Time Device Success/Fail 04/11/2017 7:06:00 PM Mechanical Compression Successful 04/11/2017 7:34:00 PM Manual Compression Successful Site Checks Time Location Status Staff Sheath In? Note 07:11 PM Rt Wrist No bleeding/hematoma Sites, Angie RT (R) 07:33 PM Lt Groin No bleeding/hematoma Vicky Lizarraga RN Pulses Time Site Pre-Procedure Post-Procedure Note Bilateral DP & PT 2+ Bilateral radial 2+ 7:10:00 PM Bilateral DP & PT 2+ Updated by Angie Uche RT (R) on 04/11/2017 7:34:45 PM Angie Uche RT electronically signed on 04/11/2017 7:35:11 PM with status of Final
[2017-04-11] MEDS: Acetaminophen 325 MG TABLET PO PRN (20:27)
[2017-04-12] MEDS: *HR* Heparin 5,000 UNIT/ML VIAL SQ SCH (06:14)
[2017-04-12] MEDS: Famotidine 20 MG/2 ML VIAL IVP SCH (06:15)
[2017-04-12] MEDS: Acetaminophen 325 MG TABLET PO PRN (06:19)
[2017-04-12 07:10] VITALS: BP 118/77
--- NOTE | 2017-04-12 08:34 | Discharge Summary ---
Date of Encounter: 04/12/17 Time of Encounter: 08:15 - Discharge Diagnosis (1) Chest pain Priority: Primary Status: Acute Comments: Atypical chest pain - rule out ACS - symptoms now resolved Continue Aspirin, Simvastatin, Nitro PRN EKG - sinus rhythm with no acute ST-T changes Troponin - 0.03 Chest x-ray - no acute cardiopulmonary process Echocardiogram - LVEF 60-65%, mild LV diastolic dysfunction, normal RV structure and function, no significant valvular dysfunction Stress test - reversible defect involving the apical lateral and apical inferior segments suggestive of ischemia Lipid panel - reviewed Cardiology consult - [facility] revealed minimal CAD with normal EF Stable for discharge today, advised to return if symptoms worsen Follow-up with PCP Qualifiers: Chest pain type: unspecified Qualified Code(s): R07.9 - Chest pain, unspecified (2) GERD (gastroesophageal reflux disease) Priority: Primary Status: Chronic Comments: Continue Protonix Qualifiers: Esophagitis presence: without esophagitis Qualified Code(s): K21.9 - Gastro -esophageal reflux disease without esophagitis - Discharge Medications Prescriptions: Nitroglycerin 0.4 mg SL Q5MIN PRN #14 tab.subl PRN Reason: Chest Pain Aspirin 81 mg PO DAILY #30 tab.chew Simvastatin [Zocor] 10 mg PO HS #30 tablet Home Medications: Ascorbic Acid [Vitamin C] 500 mg PO DAILY 04/10/17 [History] Cholecalciferol (D-3) [Vitamin D] 1,000 unit PO DAILY 04/10/17 [History] Cyanocobalamin (Vitamin B-12) [Vitamin B12] 1,000 mcg PO DAILY 04/10/17 [History ] Loratadine [Allergy Relief] 10 mg PO DAILY 04/10/17 [History] PredniSONE [Deltasone] See Taper PO AD 04/10/17 [History] Vitamin E (Dl,Tocopheryl Acet) [Vitamin E] 400 unit PO DAILY 04/10/17 [History] Aspirin 81 mg PO DAILY #30 tab.chew 04/12/17 [Rx] Nitroglycerin 0.4 mg SL Q5MIN PRN #14 tab.subl 04/12/17 [Rx] Simvastatin [Zocor] 10 mg PO HS #30 tablet 04/12/17 [Rx] Allergies/Adverse Reactions: 3 Allergy/AdvReac Type Severity Reaction Status Date / Time Sulfa (Sulfonamide AdvReac Hives Verified 04/10/17 08:34 Antibiotics) Procedures/tests Complete & Pending: Procedures Performed prior 72 hours Category Date Time Status CL Cardiac Catheterization [CL] Routine [employer] 04/11/17 14:00 Ordered NM lana perf SPECT multi [NM] Routine Exams 04/10/17 07:26 Taken ECG 12 lead ECG [ECG] Routine Y 04/10/17 07:23 Ordered EKG [ECG 12 lead ECG] [ECG] Routine Y 04/11/17 10:22 Completed EV echocardiogram Routine Y 04/10/17 07:26 Completed SP pharm nuclear stress Routine Y 04/10/17 07:26 Completed Date of admission: 04/10/17 06:06 Primary care physician: Edyta Melgar CNP Consults: 04/11/17 11:49 Consult to Cardiology [CONS] Routine Comment: Consulting Provider: Cardiology Vandana Reason for Consult: abnormal stress test Call Completed: Yes Anticipated date of discharge: 04/12/17 - Patient Status Disposition: Home, Self-Care Condition: Good Functional capacity at discharge: independent ambulation Overall status at discharge: patient is back to baseline - Discharge Instructions Follow Up With: Edyta Melgar CNP [Primary Care Provider] - 04/17/17 4:00 pm Additional Instructions: - Continue all meds as per discharge instructions - Continue home dose of prednisone and loratadine for rash - Return if symptoms worsen - Follow up with PCP - Diet and Activity Activity: increase activity as tolerated, resume usual activities as tolerated Diet: advance to your usual diet Hospital course: Ms. Will is a 46 year old female with past medical history of GERD and ?h/o SVT. Patient presented to the ED with complaints of chest pain. Patient stated that her chest pain initially radiated to right arm and right side of neck. She described it as a burning and pressure type of pain. She also complained of multiple episodes of vomiting and diarrhea. Patient has been on prednisone which was prescribed by her primary care physician for a allergic reaction that started a few days prior to admission. Initial workup including EKG was within normal limits. Normal sinus rhythm with no acute ST-T changes. Troponin is within normal limits. Chest x-ray does not show any acute cardiopulmonary process. Echocardiogram revealed LVEF 60-65% with mild LV diastolic dysfunction and no significant valvular dysfunction. Stress test revealed small sized moderate intensity reversible defect involving the apical lateral and apical inferior segments suggestive of ischemia. Cardiology was consulted. Patient underwent LHC which revealed minimal CAD with a normal EF. Patient tolerated procedure well and had no complications. Patient has been advised to continue aspirin and simvastatin on discharge. Advised to return if symptoms worsen. At the time of discharge patient denies any complaints. She denies chest pain or shortness of breath. States she feels better and wants to go home today. She is tolerating oral diet well and ambulating well. Left groin cath site looks okay with no bleeding or tenderness, distal pulses palpable. Right groin and right radial attempted cath site looked okay with no bleeding or tenderness, distal pulses palpable. No other acute events or complications during her stay in the hospital. Patient has also been advised to continue her home dose of prednisone which is prescribed by PCP. Patient has been explained about her condition and plan of care in detail. She understood and agreed. No unanswered questions. Advised to return if symptoms worsen. Follow up with PCP. - Time Spent with Patient Total time spent providing and/or coordinating discharge services: Less than 30 minutes - Constitutional Vitals: Temp Pulse Resp BP Pulse Ox 97.7 F 83 20 118/77 95 04/12/17 07:07 04/12/17 07:07 04/12/17 07:07 04/12/17 07:07 04/12/17 07:07 General appearance: Present: cooperative, A&O X 3, pleasant, no acute distress, obese, answers questions appropriately - Head Head exam: Present: atraumatic - Eye Eye exam: Present: EOMI - ENT ENT exam: Present: mucous membranes moist - Respiratory Respiratory exam: Present: CTAB. Absent: accessory muscle use, chest wall tenderness, rales, respiratory distress, rhonchi, wheezes, tachypnea - Cardiovascular Cardiovascular exam: Present: RRR, +S1, +S2 - GI/Abdominal GI/Abdominal exam: Present: soft. Absent: distended, firm, guarding, tenderness - Extremities Exam Extremities exam: Present: radial pulses palpable and symmetrical. Absent: calf tenderness, cyanotic, pedal edema Additional comments: Right radial attempted cath site looks okay, no bleeding or bruising, minimal tenderness. Left groin catheter site with no bleeding or tenderness, distal pulses palpable Right groin attempted cath site with no bleeding or tenderness, distal pulses palpable - Neurological Exam Neurological exam: Present: alert, oriented X3, no focal deficits. Absent: facial droop, speech deficit
== END 2017-04-12 09:10 | disposition home or self-care (01) ==
LOC: 3BNU 01:55 → EMEROO 01:55 → 3BNU 06:34
PROVIDERS: ADMIT Family Medicine; ATTEND Registered Nurse

== ENCOUNTER 2017-08-09 08:56 | Inpatient (IN) ==
[2017-08-09] MEDS ORDERED: cefOXitin 2,000 MG in Water for inj. (sterile) 20 ML 10 ML IVP ONE (09:12)
[2017-08-09] MEDS ORDERED: Plasma-Lyte A (PH 7.4) 1,000 ML IVC SCH (09:15)
[2017-08-09] MEDS ORDERED: *HR* Propofol 200 MG/20 ML VIAL IVP ONE (09:41)
[2017-08-09] MEDS ORDERED: Ondansetron 4 MG/2 ML VIAL ONE (09:41)
[2017-08-09] MEDS ORDERED: *HR* FentaNYL (PF) 100 MCG/2 ML VIAL ONE ×2 (09:41→14:55)
[2017-08-09] MEDS ORDERED: *HR* Rocuronium Bromide 50 MG/5 ML VIAL ONE (09:41)
[2017-08-09] MEDS ORDERED: Neostigmine Methylsulfate 3 MG/3 ML SYRINGE ONE (09:41)
[2017-08-09] MEDS ORDERED: Lidocaine -MPF 2% 2 ML VIAL ONE (09:41)
[2017-08-09] MEDS ORDERED: *HR* Midazolam HCl 5 MG/5 ML VIAL IVP ONE (09:44)
[2017-08-09] MEDS ORDERED: *HR* Succinylcholine 200 MG/10 ML VIAL IVP ONE (09:49)
[2017-08-09] MEDS ORDERED: Famotidine 20 MG/2 ML VIAL IVP ONE (10:01)
[2017-08-09] MEDS ORDERED: Pregabalin 75 MG CAPSULE PO ONE (10:04)
[2017-08-09] MEDS ORDERED: Acetaminophen IV 1,000 MG/100 ML INFUS..BTL IVPB ONE ×2 (10:04→16:46)
[2017-08-09] MEDS ORDERED: *HR* LORazepam 1 MG TABLET PO ONE (10:04)
[2017-08-09] MEDS ORDERED: MORPHINE SUL Oral CONC 10 MG/0.5 ML ORAL.SYG SL PRN (10:05)
[2017-08-09] MEDS ORDERED: *HR* Promethazine 25 MG/ML VIAL IVP PRN (10:05)
[2017-08-09] MEDS ORDERED: *HR* HYDROcodone/Acet 10/325 mg TABLET PO PRN (10:05)
[2017-08-09] MEDS ORDERED: *HR* OxyCODONE Immed Rel 5 MG TABLET PO PRN (10:05)
[2017-08-09] MEDS ORDERED: *HR* HYDROmorphone 2 MG TABLET PO PRN (10:05)
[2017-08-09] MEDS ORDERED: *HR* Labetalol 20 MG/4 ML SYRINGE IVP PRN (10:05)
[2017-08-09] MEDS ORDERED: Scopolamine Patch 1.5 MG PATCH.TD72 TD ONE (10:07)
--- NOTE | 2017-08-09 10:14 | Anesthesia Evaluation PreOp ---
Date of Encounter: 08/09/17 Time of Encounter: 10:09 - Past History Planned Operation: [employer] Cardiac History: Hyperlipidemia (maintained on Pravastatin,), Arrhythmia (Hx of palpitations [ST & SVT noted on Event monitor 06/2017 - NO medications]), Other ( Cardiac Cath 03/2017 - clean cath 03/2017. Maintained on baby ASA) Pulmonary History: KYLE Dx (Dx recently no CPAP machine yet [CPAP = 7mm Hg]) MANAGER BEAUTY History: Other (Anxiety/depression ?) Other Medical History: Thyroid (Hypothyroidism - TSH now WNL; levels fluctuate and pt NOT on any medications), GERD (maintained on Famotidine) Anesthesia History: No Prior Anesthetic Complications, Past Anesthesia (Bee, Tubal, T&A, Partial Hyster, Sinus surgery, Cardiac cath 03/2017, EGD) Alcohol Use: none Drug use: none Medications and Allergies Cholecalciferol (D-3) [Vitamin D] 1,000 unit PO DAILY 04/10/17 [History] Vitamin E (Dl,Tocopheryl Acet) [Vitamin E] 400 unit PO DAILY 04/10/17 [History] Aspirin 81 mg PO DAILY #30 tab.chew 04/12/17 [Rx] Nitroglycerin 0.4 mg SL Q5MIN PRN #14 tab.subl 04/12/17 [Rx] Famotidine [Heartburn Prevention] 20 mg PO DAILY 06/17/17 [History] Pravastatin Sodium [Pravachol] 20 mg PO DAILY 06/17/17 [History] Ascorbic Acid [Vitamin C] 100 mg PO DAILY 08/09/17 [History] Loratadine [Claritin] 10 mg PO DAILY 08/09/17 [History] 3 Allergy/AdvReac Type Severity Reaction Status Date / Time Sulfa (Sulfonamide Allergy Anaphylaxis Verified 08/09/17 09:33 Antibiotics) - Meds/Allergy Pre-op Review Medications Reviewed: Yes Allergies Reviewed: Yes Beta Blockers on Current Med List: No Anesthesia Results - Labs Laboratory Tests 04/17/17 07/18/17 07/18/17 17:00 10:55 10:55 WBC 5.3 Hgb 14.4 Hct 42.7 Plt Count 184 Sodium 137 Potassium 3.7 Chloride 105 Carbon Dioxide 24 BUN 23 H Creatinine 0.75 Est GFR (Non-Af Amer) > 60 Glucose 136 H Laboratory Tests 06/14/17 09:18 TSH 2.953 - Imaging EKG: image reviewed Additional studies: ECHO 03/2017 EV/EV echocardiogram Impressions: LVEF 60-65%. Normal LV chamber size, wall thickness and function. Mild left ventricular diastolic dysfunction. Normal right ventricular structure and function. No evidence of pulmonary hypertension. No significant valvular dysfunction. Left Ventricular Wall Motion: Rest Echo Findings All wall segments showed normal motion. Findings: Study Quality * Technically adequate exam. ECG Findings * Normal sinus rhythm. Left Ventricle * LVEF 60-65%. * Normal LV chamber size, wall thickness and function. * Mild left ventricular diastolic dysfunction. Right Ventricle * Normal right ventricular structure and function. Left Atrium * Normal left atrial size. Right Atrium * Normal right atrial size. Interatrial Septum * Interatrial septum not well evaluated. Aortic Valve * Trileaflet aortic valve with normal function. * No aortic stenosis. * No aortic regurgitation. Mitral Valve * Normal mitral valve structure and function. * No mitral regurgitation. * No mitral stenosis. Tricuspid Valve * Normal tricuspid valve structure and function. * Trace tricuspid regurgitation. * No evidence of pulmonary hypertension. Pulmonic Valve * Pulmonic valve not well visualized. Aorta * Normally sized aortic root. Pericardium * The pericardium appears normal. IVC * Normal IVC dimensions and inspiratory collapse. Pulmonary Artery * Normal visualized portions of the main pulmonary artery. CARDIAC CATH 03/2017 Lesion Findings/Interventions * Left Main Coronary Artery The LMCA is angiographically free of disease. * Left Anterior Descending The LAD is angiographically free of disease. The 1st Diagonal is angiographically free of disease. * Circumflex The Circumflex is angiographically free of disease. The 1st Marginal is angiographically free of disease. * Right Coronary Artery There is a 15% stenosis in the Mid RCA. Left iliofemoral angiography - no significant disease Anesthesia Exam O2 Sat Height 1.7 m Height 1.7 m Height 1.7 m Weight 108.862 kg Weight 108.862 kg Weight 108.862 kg O2 Sat by Pulse Oximetry 94 Vital Signs Temp Pulse Resp BP Pulse Ox 98.5 F 87 18 119/81 94 08/09/17 09:38 08/09/17 09:38 08/09/17 09:38 08/09/17 09:38 08/09/17 09:38 Height: 5'7" Weight: 340# bmi = 38 NPO (# of Hours): mNOC - HEENT Pupil (Motor): Pupils equal, EOMI Mallampati: II Teeth: Normal Oral Opening: Greater than 3 - MANAGER BEAUTY LOC: Oriented MANAGER BEAUTY Motor: Normal RUE, Normal LUE, Normal RLE, Normal LLE, Normal Face MANAGER BEAUTY Sensory: Normal: RUE, LUE, RLE, LLE, Face - Cardiac Rhythm: Regular Murmur: None - Pulmonary Breath Sounds: bilateral Clear Respiratory Effort: Symmetrical Anesthesia Assess/Plan ASA Score: 3 (Obesity, Chol, intemmittent Hypothyroidism, GERD, KYLE, Palpitations) Modified Shailesh Scale for Level of Consciousness: Cooperative, oriented, and tranquil Anesthetic Plan: General Monitoring Plan: Standard Monitors Recovery Plan: PACU Anes Supervising Prov Stmt: Pt seen/evaluated, R&B Discussed, questions answered and consent obtained. Jackie Byrnes MD
--- NOTE | 2017-08-09 11:50 | History & Physical Report ---
Date of Encounter: 08/09/17 Time of Encounter: 11:49 24 Hour HP Update - Instructions Instructions: If the History and Physical is less than 30 days old and was completed prior to A.M. admission and or procedure and has NOT been updated on calendar day of procedure please complete this update prior to performing procedure. - Update Patient reports changes in Medical Condition: No Changes in examination, assessment, or condition: No Changes in Medication: No Preop tests/diagnostics Reviewed: Yes Surgery Remains Indicated: Yes Consent for Planned Operative Procedure(s) Verified: Yes - Pre-Operative Checklist Preoperative Checklist Indicated: Yes Prophylactic Antibiotic Ordered: Yes Home Medications Include Beta Alfonzo: No
--- NOTE | 2017-08-09 11:56 | Discharge Summary ---
Outpatient Proc Discharge Plan - Plan Additional Instructions: Surgical instructions: #1 may shower starting 08/10/17, no tub bath for 2 weeks #2 wash incisions with soap and water and pat dry daily #3 no lifting, pushing, pulling more than 15 pounds for the next 4 weeks #4 no driving until off narcotics for 24 hours and able to safely react in the car #5 may climb stairs Follow-up appointment: Sunday, August 20, 2017 with Sonia Joe CNP in the outpatient surgical office (Medical office building, [address]) [place] [facility] Diet After Saravanan Fundoplication Surgery This diet information is for patients who have recently had Saravanan Fundoplication Surgery to correct reflux disease or to repair various types of hernias, such as hiatal hernia and intrathoracic stomach. This diet may also be used for other gastrointestinal surgeries, such as Heller myotomy and repair of achalasia. The diet will help control diarrhea, excess gas and swallowing problems, which may occur after this type of surgery. Important Steps to Keep Your Stomach From Stretching Eat small, frequent meals (six to eight per day). This will help you consume the majority of the nutrients you need without causing your stomach to feel full or distended. Drinking large amounts of fluids with meals can stretch your stomach. You may drink fluids between meals as often as you like, but limit fluids to 1/2 cup (4 fluid ounces) with meals and one cup (8 fluid ounces) with snacks. Sit upright while eating and stay upright for 30 minutes after each meal. [place] can help food move through your digestive tract. Do not lie down after eating. Sit upright for 2 hours after your last meal or snack of the day. Eat very slowly. Take your time when eating. Take small bites and chew your food well to blaster helper in swallowing and digestion. Avoid crusty breads and sticky, gummy foods, such as bananas, fresh doughy breads, rolls and doughnuts. These types of foods become sticky and difficult to swallow. Toasted breads tend to be better tolerated. Lastly, if you eat sweets, consume them at the end of your meal to avoid a group of symptoms referred to as dumping syndrome. This describes the rapid emptying of foods from the stomach to the small intestine. Sweetened beverages, candy and desserts move more rapidly and dump quickly into the intestines. This can cause symptoms of nausea, weakness, cold sweats, cramps, diarrhea and dizzy spells. Important Steps to Avoid Gas Do not drink through a straw, chew gum, or chew tobacco. These actions cause you to swallow air, which will produce excess gas in your stomach. Chew with your mouth closed and chew your food thoroughly. Avoid foods that cause stomach gas and distention. The foods include corn, dried beans, peas, lentils, onions, broccoli, cauliflower, and any food item from the cabbage family. Do not drink carbonated drinks, alcohol, citrus, or tomato products. What Will I Be Able To Eat and Drink After Surgery After Saravanan Fundoplication Surgery, your diet will be advanced slowly by your surgeon. Generally, you will be on a thin/clear liquid diet for the first 10 days. Then you will advance to the full liquid diet for 4 days and eventually to a Saravanan soft diet for 7 days. After any surgery, protein consumption is important for healing. To get enough protein, drink 3-4 [place] Instant Breakfast, Ensure, or equivalent daily. Reminder: carbonated beverages (such as sodas, energy drinks, flavored carbonated water), and alcohol are not permitted for the 1st 6 to 8 weeks after surgery. After this time you may attempt to reintroduce them in small amounts. Please note: dairy products such as milk, ice cream, and putting may cause diarrhea and some people after surgery. He may need to avoid milk products. If so you may substitute them with lactose free beverages, such as soy, rice, lactate, or almond milk. Please be aware that each patient's tolerance to food is different. Your doctor will advance your diet depending on how well you progress after surgery. Thin Liquid Diet The first diet after Saravanan Fundoplication Surgery is the thin liquids diet. Follow this diet for postoperative days 1-10 08/10/2017 - 08/19/2017. Thin liquids include: Apple, Cranberry, or Grape Juice (no citrus juice) Chicken Broth Beef Broth Flavored Gelatin (Jell-O) Decaffeinated Tea or Coffee Popsicles or [place] Ice Caffeinated Beverages Will Be Permitted Based upon Tolerance Dairy Thin Milkshakes (strawberry or vanilla flavored- No chocolate) Drink 3-4 [place] instant breakfast, Ensure, or equivalent daily. May be mixed with dairy for thin milkshakes Full Liquid Diet Follow this diet for postoperative days 11-14 08/20/2017- 08/23/2017. Full liquid diet includes anything in the thin liquid diet plus: Milk, Soy, Rice, and [place] (No Chocolate) Cream of Wheat, Cream of Rice, Grits Strained Creamed Soups (No Tomato Water Broccoli) Vanilla and [place] Flavored Ice Cream Sherbet Vanilla and Butterscotch Pudding (No Chocolate or Coconut) Continue 3-4 [place] Instant Breakfast, Ensure, or an Equivalent Daily. Maybe Next with Dairy for Thin Milkshakes. Saravanan Soft Diet Follow this diet for postoperative days 15-20 08/24/2017- 08/30/2017. (If you are consuming enough protein, you may stop the protein supplements). See Saravanan Diet handout for more specific information Prescriptions: Ibuprofen [Motrin] 600 mg PO Q6HR #40 tab Ondansetron ODT [Zofran ODT] 4 mg SL Q6HR PRN #30 tab.rapdis PRN Reason: Nausea OxyCODONE/APAP 5/325 [Percocet 5/325 MG] 1 each PO Q6HR PRN 5 Days #20 tablet PRN Reason: Pain Docusate [Colace] 100 mg PO BID PRN #30 capsule PRN Reason: Constipation Home Medications: Cholecalciferol (D-3) [Vitamin D] 1,000 unit PO DAILY 04/10/17 [History] Vitamin E (Dl,Tocopheryl Acet) [Vitamin E] 400 unit PO DAILY 04/10/17 [History] Aspirin 81 mg PO DAILY #30 tab.chew 04/12/17 [Rx] Nitroglycerin 0.4 mg SL Q5MIN PRN #14 tab.subl 04/12/17 [Rx] Famotidine [Heartburn Prevention] 20 mg PO DAILY 06/17/17 [History] Pravastatin Sodium [Pravachol] 20 mg PO DAILY 06/17/17 [History] Ascorbic Acid [Vitamin C] 100 mg PO DAILY 08/09/17 [History] Docusate [Colace] 100 mg PO BID PRN #30 capsule 08/09/17 [Rx] Ibuprofen [Motrin] 600 mg PO Q6HR #40 tab 08/09/17 [Rx] Loratadine [Claritin] 10 mg PO DAILY 08/09/17 [History] Ondansetron ODT [Zofran ODT] 4 mg SL Q6HR PRN #30 tab.rapdis 08/09/17 [Rx] OxyCODONE/APAP 5/325 [Percocet 5/325 MG] 1 each PO Q6HR PRN 5 Days #20 tablet [Rx]
[2017-08-09] MEDS ORDERED: Dexamethasone 4 MG/ML VIAL ONE ×2 (12:16→15:29)
[2017-08-09] MEDS ORDERED: Lidocaine -MPF 4% 5 ML AMPUL ONE (12:51)
[2017-08-09] MEDS ORDERED: Ketorolac 30 MG/ML VIAL ONE (13:20)
[2017-08-09] MEDS ORDERED: *HR* OxyCODONE/APAP 5/325 TABLET PO PRN (13:22)
--- NOTE | 2017-08-09 13:22 | Operative Note ---
Date of procedure: 08/09/17 Pre-op diagnosis: reflux esophagitis Post-op diagnosis: same Procedure: Robotic Hiatal hernia repair with Saravanan fundoplication Anesthesia: MAYA Surgeon: Juno La Was there an psychiatric nursing assistant present: Yes Strip Cleaner: Jennie Acharya Estimated blood loss (cc): 5 Specimen: 0 Condition: stable Disposition: same day Procedure in Detail: After informed consent this patient was taken the operating room placed supine position. After adequate sedation anesthesia and was prepped and draped. A proper timeout was then performed. Two towel clamps were placed the umbilicus and a Veres needle was inserted. Incision was made between the umbilicus and subxiphoid port just left of the midline. Under direct visualization a 12 mm cannula was then placed into the abdomen. An 8 mm cannula was placed in left upper quadrant to individual 8 mm cannulas were placed in the right upper quadrant at the subxiphoid region and in the midclavicular line. Another 5 mm cannula was placed in the right lower quadrant. Once this port was placed a pretzel retractor was placed underneath of the left lobe of the liver and it was retracted anteriorly. An additional 5 mm cannulas placed in the left lower quadrant. Once all ports were in place robotic was docked over the patient's head. The stomach was delivered out of the hernia. A grasper was then able to identify the pars flaccida and it was opened with a vessel sealer. The right jaime was then identified and the peritoneum was incised again with the vessel sealer. Posterior to the stomach a window was created. The esophagus was easily identified with the lighted bougie. The hiatal hernia defect was then sutured with 0 Ethibond sutures in U stitch type fashion utilizing a pledget. At this point the short gastrics were taken down on the greater curvature stomach and fundus. The fundus was then passed through the retroesophageal window. 3 individual 0 Ethibond sutures were placed in U stitch type fashion in the fundus and the body of the stomach to create short floppy Saravanan was created. The bougie was removed and found to have no blood. Once completed the ports are removed and pneumoperitoneum was evacuated. The 12 mm cannula site was closed with an 0 Vicryl suture. Skin incisions were closed with 4-0 Vicryl suture and Dermabond.
[2017-08-09] MEDS ORDERED: *HR* PHENYLEPHRINE 1,000 MCG/10 ML SYRINGE IVP ONE (13:23)
[2017-08-09] MEDS ORDERED: Famotidine 20 MG/2 ML VIAL ONE (13:40)
[2017-08-09] MEDS ORDERED: *HR* EPINEPHrine 1 MG/ML AMPUL ONE (13:41)
[2017-08-09] MEDS ORDERED: Heparin 1,000 UNITS/500 mL 500 ML ONE (13:54)
[2017-08-09] MEDS ORDERED: *HR* Midazolam HCl 2 MG/2 ML VIAL ONE (13:58)
[2017-08-09 14:51] LABS: BUN/Creatinine Ratio 16 (6-26); Blood Urea Nitrogen 10 mg/dL (6-20); Calcium 6.8 mg/dL (8.6-10.3); Carbon Dioxide 17 mEq/L (23-29); Chloride 109 mEq/L (98-107); Glucose 228 mg/dL (70-105); Magnesium 1.5 mg/dL (1.6-2.6); Osmolality,Calculated 284 (280-300); Phosphorous 3.1 mg/dL (2.7-4.5); Potassium 4.3 mEq/L (3.5-5.1); Sodium 134 mEq/L (136-145); eGFR For African Americans > 60 (> 60); eGFR For Non-African Americans > 60 (> 60)
[2017-08-09] MEDS ORDERED: SUGAMMADEX SODIUM 500 MG/5 ML VIAL IV ONE (15:23)
[2017-08-09] MEDS ORDERED: Lacri-Lube 3.5 GM TUBE ONE (15:29)
[2017-08-09 15:44] LABS: Basophils % 0.2 %; Eosinophils # 0.4 K/mcL (0.0-0.6); Eosinophils % 1.8 %; Hematocrit 26.5 % (35.3-44.9); Immature Granulocytes % 3.7 % (0-4); Lymphocytes # 2.6 K/mcL (0.6-4.6); Lymphocytes % 11.1 %; Mean Corpuscular HGB Conc 32.1 g/dL (31.6-35.5); Mean Corpuscular Hemoglobin 31.6 pg (28.0-33.3); Mean Corpuscular Volume 98.5 fL (83.0-100.0); Mean Platelet Volume 10.9 fL (9.4-12.4); Monocytes # 0.4 K/mcL (0.0-1.3); Monocytes % 1.7 %; Platelet Count 124 K/mcL (140-400); Red Blood Count 2.69 M/mcL (3.82-4.97); Red Cell Distribution Width 13.3 % (11.5-14.5); Segmented Neutrophils % 81.5 %
[2017-08-09 15:45] LABS: Basophils # 0.1 K/mcL (0.0-0.2); Hemoglobin 8.5 g/dL (11.5-15.4); Neutrophils # 18.8 K/mcL (1.6-8.9)
[2017-08-09 15:47] LABS: VBG HCO3 17 mEq/L (21-27); VBG PCO2 72 mmHg (41-51); VBG PH 6.98 pH Units (7.32-7.42); VBG PO2 31 mmHg (25-50)
[2017-08-09 15:49] LABS: INR 1.5; Prothrombin Time 16.5 Seconds (9.4-12.1)
[2017-08-09] MEDS ORDERED: Ondansetron 4 MG/2 ML VIAL IVP PRN (16:06)
[2017-08-09] MEDS ORDERED: 0.9 % Sodium Chloride 1,000 ML IVC SCH (16:15)
--- NOTE | 2017-08-09 16:38 | Operative Note ---
Date of procedure: 08/09/17 Pre-op diagnosis: Hypotension Post-op diagnosis: other (Bleeding from the hepatic and splenic veins) Procedure: Expiratory laparotomy with oversewing of the hepatic and splenic veins Anesthesia: GETA Surgeon: Juno La Was there an certified surgical assistant present: Yes Field Sales Manager: Jennie Acharya Estimated blood loss (cc): 2,000 Specimen: 0 Condition: stable Disposition: same day Procedure in Detail: The patient had completed the release operation. I was then called back to the operating room due to an acute drop in her blood pressure. She was examined and found to be pale with white conjunctiva. At this point I was concerned that she had a postoperative hemorrhage. Therefore her abdomen was prepped and draped. A midline incision was made dissection was carried down through the subcutaneous days tissues and the linea alba was opened. There was significant blood within the abdomen. Multiple laparotomy packs were placed within the abdomen to pack the area. We continued to infuse crystalloid and ordered trauma blood due to her hypotension. This is being infused simultaneously. The packs were then removed and a Book[place]ter retractor had been placed. I was able to visualize the Saravanan fundoplication. The stomach was then rolled laterally and there was a 4 mm vein which was bleeding. This was oversewn with a 2-0 silk suture. Once that was completed packs were placed back within the abdomen. Clot had been evacuated. We allowed anesthesia to continue the resuscitation. Her blood pressure was then stabilized and began to increase with a systolic pressure around 90-100. 10 minutes elapsed and the packs were removed. There was no further bleeding identified. The spleen was inspected and found to be normal. The clot was evacuated from around the liver. Once this is completed the midline was closed with loop PDS suture 2. Skin aren used to close the skin. The patient was extubated in the operating room once her blood pressure was found to be reasonable. She was transferred to the ICU.
[2017-08-09] MEDS: Plasma-Lyte A (PH 7.4) 1,000 ML IVC SCH (17:23)
[2017-08-09] MEDS ORDERED: 0.9 % Sodium Chloride 250 ML ONE ×2 (17:35→19:23)
[2017-08-09] MEDS: Norepinephrine 4 MG in D5% in Water 250 ML IVC SCH (18:03)
[2017-08-09] MEDS: MORPHINE SUL Oral CONC 10 MG/0.5 ML ORAL.SYG PO PRN (23:33)
[2017-08-10] MEDS: *HR* FentaNYL (PF) 100 MCG/2 ML VIAL IVP PRN ×9 (00:10→19:35)
[2017-08-10 03:30] LABS: Hematocrit 44.8 % (35.3-44.9); Hemoglobin 15.6 g/dL (11.5-15.4); Immature Granulocytes % 0.8 % (0-4); Lymphocytes % 3.5 %; Mean Corpuscular HGB Conc 34.8 g/dL (31.6-35.5); Mean Corpuscular Hemoglobin 29.9 pg (28.0-33.3); Mean Platelet Volume 10.4 fL (9.4-12.4); Red Blood Count 5.21 M/mcL (3.82-4.97); Red Cell Distribution Width 15.7 % (11.5-14.5)
[2017-08-10 03:31] LABS: Basophils % 0.1 %; Lymphocytes # 0.8 K/mcL (0.6-4.6); Monocytes # 1.1 K/mcL (0.0-1.3); Monocytes % 4.6 %; Neutrophils # 21.6 K/mcL (1.6-8.9); Nucleated Red Blood Cells 0.1 /100 WBC (0); Platelet Count 93 K/mcL (140-400)
[2017-08-10 03:50] LABS: Platelet Estimate Decreased (Normal); Reactive Lymphocytes Present (Not Present)
[2017-08-10] MEDS ORDERED: 0.9 % Sodium Chloride 1,000 ML ONE (04:39)
[2017-08-10] MEDS: 0.9 % Sodium Chloride 1,000 ML IVC SCH ×4 (04:53→19:30)
[2017-08-10] MEDS: MORPHINE SUL Oral CONC 10 MG/0.5 ML ORAL.SYG PO PRN ×4 (06:40→23:55)
[2017-08-10] MEDS ORDERED: Pantoprazole 40 MG VIAL IVP SCH (09:00)
--- NOTE | 2017-08-10 09:50 | General Surgery Progress Note ---
Date of Encounter: 08/10/17 Time of Encounter: 08:15 Objective Vital Signs - Last 8 Hours Temp Pulse Resp BP Pulse Ox 08/10/17 09:10 136 16 113/86 95 08/10/17 07:57 98.5 F 08/10/17 07:33 130 16 119/89 95 08/10/17 06:00 132 22 109/83 96 08/10/17 05:00 134 20 116/88 97 08/10/17 04:36 98.7 F 08/10/17 04:00 98.9 F 133 24 107/85 97 08/10/17 03:00 133 24 115/84 96 08/10/17 02:00 123 18 112/86 98 Intake and Output 08/09/17 08/10/17 08/10/17 23:59 07:59 15:59 Intake Total 324 / 324 335 / 335 Output Total 2400 / 2400 434 / 434 Balance -2076 / -2076 -99 / -99 Intake: IV Fluids 124 / 124 Levophed 4 MG In Dextrose 5% 250 ML @ 5 MCG/MIN 19.05 mls/hr IVC CONT APRIL Rx#:[id number] Ofirmev 1,000 mg/100 ml 1,000 100 / 100 mg In 100 ml @ 400 mls/hr IVPB ONCE ONE Rx#:[id number] Oral 0 / 0 Blood Product 200 / 200 335 / 335 Rbcs Leuko Poor As-1 Unit 0 / 0 335 / 335 [id number] Rbcs Leuko Poor As-1 Unit 200 / 200 [id number] Output: Urine 0 / 0 Estimated Blood Loss 1999 Catheter 400 / 400 434 / 434 Urethral ([place]) 50 / 50 92 / 92 Other: Weight 112.1 kg Blood Glucose* 271 Patient Weight 08/10/17 23:59 Weight 112.1 kg - Labs 08/10/17 03:15 08/09/17 14:12 Diabetes panel 08/09/17 Range/Units 14:12 Sodium 134 L (136-145) mEq/L Potassium 4.3 (3.5-5.1) mEq/L Chloride 109 H (98-107) mEq/L Carbon Dioxide 17 L (23-29) mEq/L BUN 10 (6-20) mg/dL Creatinine 0.62 (0.60-1.20) mg/dL Glucose 228 H (70-105) mg/dL Calcium 6.8 L (8.6-10.3) mg/dL Calcium panel 08/09/17 Range/Units 14:12 Calcium 6.8 L (8.6-10.3) mg/dL Phosphorus 3.1 (2.7-4.5) mg/dL Pituitary panel 08/09/17 Range/Units 14:12 Sodium 134 L (136-145) mEq/L Potassium 4.3 (3.5-5.1) mEq/L Chloride 109 H (98-107) mEq/L Carbon Dioxide 17 L (23-29) mEq/L BUN 10 (6-20) mg/dL Creatinine 0.62 (0.60-1.20) mg/dL Glucose 228 H (70-105) mg/dL Calcium 6.8 L (8.6-10.3) mg/dL Adrenal panel 08/09/17 Range/Units 14:12 Sodium 134 L (136-145) mEq/L Potassium 4.3 (3.5-5.1) mEq/L Chloride 109 H (98-107) mEq/L Carbon Dioxide 17 L (23-29) mEq/L BUN 10 (6-20) mg/dL Creatinine 0.62 (0.60-1.20) mg/dL Glucose 228 H (70-105) mg/dL Calcium 6.8 L (8.6-10.3) mg/dL - VTE Documentation of Mechanical Device: Intermittent pneumatic compression device Consult Discharge Plan - Plan Additional Instructions: Surgical instructions: #1 may shower starting 08/10/17, no tub bath for 2 weeks #2 wash incisions with soap and water and pat dry daily #3 no lifting, pushing, pulling more than 15 pounds for the next 4 weeks #4 no driving until off narcotics for 24 hours and able to safely react in the car #5 may climb stairs Follow-up appointment: Sunday, August 20, 2017 with Sonia Joe CNP in the outpatient surgical office (Medical office building, [address]) [place] [facility] Diet After Saravanan Fundoplication Surgery This diet information is for patients who have recently had Saravanan Fundoplication Surgery to correct reflux disease or to repair various types of hernias, such as hiatal hernia and intrathoracic stomach. This diet may also be used for other gastrointestinal surgeries, such as Heller myotomy and repair of achalasia. The diet will help control diarrhea, excess gas and swallowing problems, which may occur after this type of surgery. Important Steps to Keep Your Stomach From Stretching Eat small, frequent meals (six to eight per day). This will help you consume the majority of the nutrients you need without causing your stomach to feel full or distended. Drinking large amounts of fluids with meals can stretch your stomach. You may drink fluids between meals as often as you like, but limit fluids to 1/2 cup (4 fluid ounces) with meals and one cup (8 fluid ounces) with snacks. Sit upright while eating and stay upright for 30 minutes after each meal. [place] can help food move through your digestive tract. Do not lie down after eating. Sit upright for 2 hours after your last meal or snack of the day. Eat very slowly. Take your time when eating. Take small bites and chew your food well to abrasive grader helper in swallowing and digestion. Avoid crusty breads and sticky, gummy foods, such as bananas, fresh doughy breads, rolls and doughnuts. These types of foods become sticky and difficult to swallow. Toasted breads tend to be better tolerated. Lastly, if you eat sweets, consume them at the end of your meal to avoid a group of symptoms referred to as dumping syndrome. This describes the rapid emptying of foods from the stomach to the small intestine. Sweetened beverages, candy and desserts move more rapidly and dump quickly into the intestines. This can cause symptoms of nausea, weakness, cold sweats, cramps, diarrhea and dizzy spells. Important Steps to Avoid Gas Do not drink through a straw, chew gum, or chew tobacco. These actions cause you to swallow air, which will produce excess gas in your stomach. Chew with your mouth closed and chew your food thoroughly. Avoid foods that cause stomach gas and distention. The foods include corn, dried beans, peas, lentils, onions, broccoli, cauliflower, and any food item from the cabbage family. Do not drink carbonated drinks, alcohol, citrus, or tomato products. What Will I Be Able To Eat and Drink After Surgery After Saravanan Fundoplication Surgery, your diet will be advanced slowly by your surgeon. Generally, you will be on a thin/clear liquid diet for the first 10 days. Then you will advance to the full liquid diet for 4 days and eventually to a Saravanan soft diet for 7 days. After any surgery, protein consumption is important for healing. To get enough protein, drink 3-4 [place] Instant Breakfast, Ensure, or equivalent daily. Reminder: carbonated beverages (such as sodas, energy drinks, flavored carbonated water), and alcohol are not permitted for the 1st 6 to 8 weeks after surgery. After this time you may attempt to reintroduce them in small amounts. Please note: dairy products such as milk, ice cream, and putting may cause diarrhea and some people after surgery. He may need to avoid milk products. If so you may substitute them with lactose free beverages, such as soy, rice, lactate, or almond milk. Please be aware that each patient's tolerance to food is different. Your doctor will advance your diet depending on how well you progress after surgery. Thin Liquid Diet The first diet after Saravanan Fundoplication Surgery is the thin liquids diet. Follow this diet for postoperative days 1-10 08/10/2017 - 08/19/2017. Thin liquids include: Apple, Cranberry, or Grape Juice (no citrus juice) Chicken Broth Beef Broth Flavored Gelatin (Jell-O) Decaffeinated Tea or Coffee Popsicles or [place] Ice Caffeinated Beverages Will Be Permitted Based upon Tolerance Dairy Thin Milkshakes (strawberry or vanilla flavored- No chocolate) Drink 3-4 [place] instant breakfast, Ensure, or equivalent daily. May be mixed with dairy for thin milkshakes Full Liquid Diet Follow this diet for postoperative days 11-14 08/20/2017- 08/23/2017. Full liquid diet includes anything in the thin liquid diet plus: Milk, Soy, Rice, and [place] (No Chocolate) Cream of Wheat, Cream of Rice, Grits Strained Creamed Soups (No Tomato Water Broccoli) Vanilla and [place] Flavored Ice Cream Sherbet Vanilla and Butterscotch Pudding (No Chocolate or Coconut) Continue 3-4 [place] Instant Breakfast, Ensure, or an Equivalent Daily. Maybe Next with Dairy for Thin Milkshakes. Saravanan Soft Diet Follow this diet for postoperative days 15-20 08/24/2017- 08/30/2017. (If you are consuming enough protein, you may stop the protein supplements). See Saravanan Diet handout for more specific information Referrals: Edyta Melgar, BEE TENDER [Primary Care Provider] -
[2017-08-10 10:02] LABS: INR 1.3
[2017-08-10 10:20] LABS: Albumin/Globulin Ratio 1.4 (1.1-2.2); Bilirubin,Total 0.9 mg/dL (0.3-1.0); Calcium 7.9 mg/dL (8.6-10.3); Globulin 2.1 g/dL (2.4-3.5); Potassium 4.8 mEq/L (3.5-5.1); Total Protein 5.1 g/dL (6.4-8.9)
[2017-08-10] MEDS ORDERED: Ondansetron 4 MG/2 ML VIAL IVP PRN (11:09)
--- NOTE | 2017-08-10 12:55 | General Surgery Progress Note ---
Date of Encounter: 08/10/17 Time of Encounter: 13:25 - Assessment and Plan (1) GERD (gastroesophageal reflux disease) Current Visit: No Status: Chronic Seems to be resuscitated. Still has incisional pain. WIll add toradol tomorrow if creatnine is below 1. Qualifiers: Esophagitis presence: without esophagitis Qualified Code(s): K21.9 - Gastro -esophageal reflux disease without esophagitis Subjective Patient reports: feels better (c/o pain at her upper incision) Objective Vital Signs - Last 8 Hours Temp Pulse Resp BP Pulse Ox 08/10/17 12:08 97.9 F 08/10/17 11:18 141 16 113/86 91 08/10/17 09:10 136 16 113/86 95 08/10/17 07:57 98.5 F 08/10/17 07:33 130 16 119/89 95 08/10/17 06:00 132 22 109/83 96 08/10/17 05:00 134 20 116/88 97 Intake and Output 08/09/17 08/10/17 08/10/17 23:59 07:59 15:59 Intake Total 324 / 324 335 / 335 1000 / 1000 Output Total 2400 / 2400 434 / 434 50 / 50 Balance -2076 / -2076 -99 / -99 950 / 950 Intake: IV Fluids 124 / 124 1000 / 1000 0.9 % Sodium Chloride 1,000 ML 1000 / 1000 @ 125 mls/hr IVC .Q8H [facility] Rx#: [id number] Levophed 4 MG In Dextrose 5% 24 / 24 250 ML @ 5 MCG/MIN 19.05 mls/hr IVC CONT APRIL Rx#:[id number] Ofirmev 1,000 mg/100 ml 1,000 100 / 100 mg In 100 ml @ 400 mls/hr IVPB ONCE ONE Rx#:[id number] Oral 0 / 0 Blood Product 200 / 200 335 / 335 Rbcs Leuko Poor As-1 Unit 0 / 0 335 / 335 [id number] Rbcs Leuko Poor As-1 Unit 200 / 200 [id number] Output: Urine 0 / 0 Estimated Blood Loss 1999 / 1999 Catheter 400 / 400 434 / 434 50 / 50 Urethral (Mahoney) 50 / 50 92 / 92 Other: Weight 112.1 kg Blood Glucose* 271 Patient Weight 08/10/17 23:59 Weight 112.1 kg - General physical appearance well developed, well nourished - Eyes PERRL - Respiratory other (poor effort) - Cardiovascular Cardiovascular exam: Present: tachycardia - Abdomen Abdomen: Present: tender, surgical scars Abdominal Tenderness: epigastic - Incision Incision: Present: clean and dry, intact - Neurologic CN 2-12 grossly intact, normal coordination, normal sensation - Labs 08/10/17 03:15 08/10/17 09:43 Diabetes panel 08/09/17 08/10/17 Range/Units 14:12 09:43 Sodium 134 L 135 L (136-145) mEq/L Potassium 4.3 4.8 (3.5-5.1) mEq/L Chloride 109 H 110 H (98-107) mEq/L Carbon Dioxide 17 L 19 L (23-29) mEq/L BUN 10 31 H (6-20) mg/dL Creatinine 0.62 1.29 H (0.60-1.20) mg/dL Glucose 228 H 174 H (70-105) mg/dL Calcium 6.8 L 7.9 L (8.6-10.3) mg/dL AST 114 H (13-39) Units/L ALT 93 H (7-52) Units/L Alkaline Phosphatase 46 (34-104) Units/L Albumin 3.0 L (3.5-5.7) g/dL Calcium panel 08/09/17 08/10/17 08/10/17 Range/Units 14:12 09:43 09:43 Calcium 6.8 L 7.9 L (8.6-10.3) mg/dL Phosphorus 3.1 3.6 (2.7-4.5) mg/dL Albumin 3.0 L (3.5-5.7) g/dL Pituitary panel 08/09/17 08/10/17 Range/Units 14:12 09:43 Sodium 134 L 135 L (136-145) mEq/L Potassium 4.3 4.8 (3.5-5.1) mEq/L Chloride 109 H 110 H (98-107) mEq/L Carbon Dioxide 17 L 19 L (23-29) mEq/L BUN 10 31 H (6-20) mg/dL Creatinine 0.62 1.29 H (0.60-1.20) mg/dL Glucose 228 H 174 H (70-105) mg/dL Calcium 6.8 L 7.9 L (8.6-10.3) mg/dL Adrenal panel 08/09/17 08/10/17 Range/Units 14:12 09:43 Sodium 134 L 135 L (136-145) mEq/L Potassium 4.3 4.8 (3.5-5.1) mEq/L Chloride 109 H 110 H (98-107) mEq/L Carbon Dioxide 17 L 19 L (23-29) mEq/L BUN 10 31 H (6-20) mg/dL Creatinine 0.62 1.29 H (0.60-1.20) mg/dL Glucose 228 H 174 H (70-105) mg/dL Calcium 6.8 L 7.9 L (8.6-10.3) mg/dL Total Bilirubin 0.9 (0.3-1.0) mg/dL AST 114 H (13-39) Units/L ALT 93 H (7-52) Units/L Alkaline Phosphatase 46 (34-104) Units/L Albumin 3.0 L (3.5-5.7) g/dL - VTE Documentation of Mechanical Device: Intermittent pneumatic compression device Consult Discharge Plan - Plan Additional Instructions: Surgical instructions: #1 may shower starting 08/10/17, no tub bath for 2 weeks #2 wash incisions with soap and water and pat dry daily #3 no lifting, pushing, pulling more than 15 pounds for the next 4 weeks #4 no driving until off narcotics for 24 hours and able to safely react in the car #5 may climb stairs Follow-up appointment: Sunday, August 20, 2017 with Sonia Joe CNP in the outpatient surgical office (Medical office building, [address]) [facility] Surgical Diet After Saravanan Fundoplication Surgery This diet information is for patients who have recently had Saravanan Fundoplication Surgery to correct reflux disease or to repair various types of hernias, such as hiatal hernia and intrathoracic stomach. This diet may also be used for other gastrointestinal surgeries, such as Heller myotomy and repair of achalasia. The diet will help control diarrhea, excess gas and swallowing problems, which may occur after this type of surgery. Important Steps to Keep Your Stomach From Stretching Eat small, frequent meals (six to eight per day). This will help you consume the majority of the nutrients you need without causing your stomach to feel full or distended. Drinking large amounts of fluids with meals can stretch your stomach. You may drink fluids between meals as often as you like, but limit fluids to 1/2 cup (4 fluid ounces) with meals and one cup (8 fluid ounces) with snacks. Sit upright while eating and stay upright for 30 minutes after each meal. [place] can help food move through your digestive tract. Do not lie down after eating. Sit upright for 2 hours after your last meal or snack of the day. Eat very slowly. Take your time when eating. 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 Avoid crusty breads and sticky, gummy foods, such as bananas, fresh doughy breads, rolls and doughnuts. These types of foods become sticky and difficult to swallow. Toasted breads tend to be better tolerated. Lastly, if you eat sweets, consume them at the end of your meal to avoid a group of symptoms referred to as dumping syndrome. This describes the rapid emptying of foods from the stomach to the small intestine. Sweetened beverages, candy and desserts move more rapidly and dump quickly into the intestines. This can cause symptoms of nausea, weakness, cold sweats, cramps, diarrhea and dizzy spells. Important Steps to Avoid Gas Do not drink through a straw, chew gum, or chew tobacco. These actions cause you to swallow air, which will produce excess gas in your stomach. Chew with your mouth closed and chew your food thoroughly. Avoid foods that cause stomach gas and distention. The foods include corn, dried beans, peas, lentils, onions, broccoli, cauliflower, and any food item from the cabbage family. Do not drink carbonated drinks, alcohol, citrus, or tomato products. What Will I Be Able To Eat and Drink After Surgery After Saravanan Fundoplication Surgery, your diet will be advanced slowly by your surgeon. Generally, you will be on a thin/clear liquid diet for the first 10 days. Then you will advance to the full liquid diet for 4 days and eventually to a Saravanan soft diet for 7 days. After any surgery, protein consumption is important for healing. To get enough protein, drink 3-4 [place] Instant Breakfast, Ensure, or equivalent daily. Reminder: carbonated beverages (such as sodas, energy drinks, flavored carbonated water), and alcohol are not permitted for the 1st 6 to 8 weeks after surgery. After this time you may attempt to reintroduce them in small amounts. Please note: dairy products such as milk, ice cream, and putting may cause diarrhea and some people after surgery. He may need to avoid milk products. If so you may substitute them with lactose free beverages, such as soy, rice, lactate, or almond milk. Please be aware that each patient's tolerance to food is different. Your doctor will advance your diet depending on how well you progress after surgery. Thin Liquid Diet The first diet after Saravanan Fundoplication Surgery is the thin liquids diet. Follow this diet for postoperative days 1-10 08/10/2017 - 08/19/2017. Thin liquids include: Apple, Cranberry, or Grape Juice (no citrus juice) Chicken Broth Beef Broth Flavored Gelatin (Jell-O) Decaffeinated Tea or Coffee Popsicles or [place] Ice Caffeinated Beverages Will Be Permitted Based upon Tolerance Dairy Thin Milkshakes (strawberry or vanilla flavored- No chocolate) Drink 3-4 [place] instant breakfast, Ensure, or equivalent daily. May be mixed with dairy for thin milkshakes Full Liquid Diet Follow this diet for postoperative days 11-14 08/20/2017- 08/23/2017. Full liquid diet includes anything in the thin liquid diet plus: Milk, Soy, Rice, and [place] (No Chocolate) Cream of Wheat, Cream of Rice, Grits Strained Creamed Soups (No Tomato Water Broccoli) Vanilla and [place] Flavored Ice Cream Sherbet Vanilla and Butterscotch Pudding (No Chocolate or Coconut) Continue 3-4 [place] Instant Breakfast, Ensure, or an Equivalent Daily. Maybe Next with Dairy for Thin Milkshakes. Saravanan Soft Diet Follow this diet for postoperative days 15-20 08/24/2017- 08/30/2017. (If you are consuming enough protein, you may stop the protein supplements). See Saravanan Diet handout for more specific information Referrals: Edyta Melgar, [employer]DAIN[employer] MINISTER [Primary Care Provider] -
[2017-08-10] MEDS: Plasma-Lyte A (PH 7.4) 1,000 ML IVC SCH (14:13)
[2017-08-10] MEDS: Norepinephrine 4 MG in D5% in Water 250 ML IVC SCH (14:13)
[2017-08-10] MEDS ORDERED: 0.9 % Sodium Chloride 2,000 ML ONE (15:55)
[2017-08-10 16:30] LABS: Mean Platelet Volume 11.5 fL (9.4-12.4); Red Cell Distribution Width 15.9 % (11.5-14.5)
[2017-08-10 16:32] LABS: Hematocrit 39.3 % (35.3-44.9); Hemoglobin 13.4 g/dL (11.5-15.4); Mean Corpuscular HGB Conc 34.1 g/dL (31.6-35.5); Mean Corpuscular Hemoglobin 29.8 pg (28.0-33.3); Mean Corpuscular Volume 87.3 fL (83.0-100.0)
[2017-08-10 16:42] LABS: Platelet Count 86 K/mcL (140-400)
[2017-08-10 16:46] LABS: Albumin 2.9 g/dL (3.5-5.7); Albumin/Globulin Ratio 1.4 (1.1-2.2); Bilirubin,Total 1.1 mg/dL (0.3-1.0); Calcium 7.3 mg/dL (8.6-10.3); Globulin 2.1 g/dL (2.4-3.5); Magnesium 1.6 mg/dL (1.6-2.6); Phosphorous 3.6 mg/dL (2.7-4.5); Potassium 4.9 mEq/L (3.5-5.1)
[2017-08-10 17:15] LABS: Lymphocytes # 2.3 K/mcL (0.6-4.6); Monocytes # 0.6 K/mcL (0.0-1.3); Neutrophils # 25.7 K/mcL (1.6-8.9); Platelet Estimate Decreased (Normal); Reactive Lymphocytes Present (Not Present)
[2017-08-10] MEDS: *HR* Metoprolol 5 MG/5 ML VIAL IVP PRN ×2 (18:11→23:44)
[2017-08-10] MEDS ORDERED: 0.45 % Sodium Chloride 500 ML IV.SOLN IVC ONE (22:00)
[2017-08-10 22:31] LABS: Hematocrit 42.2 % (35.3-44.9); Hemoglobin 14.7 g/dL (11.5-15.4)
[2017-08-11] MEDS: *HR* FentaNYL (PF) 100 MCG/2 ML VIAL IVP PRN ×3 (01:22→12:10)
[2017-08-11 01:26] LABS: Basophils % 0.2 %
[2017-08-11 01:28] LABS: Basophils # 0.1 K/mcL (0.0-0.2); Hematocrit 40.8 % (35.3-44.9); Hemoglobin 13.5 g/dL (11.5-15.4); Immature Granulocytes % 0.5 % (0-4); Lymphocytes # 1.3 K/mcL (0.6-4.6); Lymphocytes % 4.4 %; Mean Corpuscular HGB Conc 33.1 g/dL (31.6-35.5); Mean Corpuscular Volume 90.7 fL (83.0-100.0); Mean Platelet Volume 12.4 fL (9.4-12.4); Monocytes # 1.6 K/mcL (0.0-1.3); Monocytes % 5.7 %; Neutrophils # 25.2 K/mcL (1.6-8.9); Platelet Count 119 K/mcL (140-400); Red Cell Distribution Width 16.1 % (11.5-14.5); Segmented Neutrophils % 89.2 %
[2017-08-11 01:46] LABS: Albumin 2.9 g/dL (3.5-5.7); Albumin/Globulin Ratio 1.4 (1.1-2.2); Bilirubin,Total 1.3 mg/dL (0.3-1.0); Calcium 7.4 mg/dL (8.6-10.3); Globulin 2.1 g/dL (2.4-3.5); Potassium 5.2 mEq/L (3.5-5.1)
[2017-08-11 01:50] LABS: Platelet Estimate Normal (Normal)
[2017-08-11] MEDS: *HR* Metoprolol 5 MG/5 ML VIAL IVP PRN ×2 (05:14→12:10)
[2017-08-11 06:32] LABS: Hematocrit 38.2 % (35.3-44.9); Hemoglobin 13.1 g/dL (11.5-15.4)
[2017-08-11] MEDS: 0.9 % Sodium Chloride 1,000 ML IVC SCH ×3 (07:47→09:26)
--- NOTE | 2017-08-11 07:58 | Anesthesia Evaluation Post Op ---
Date of Encounter: 08/09/17 Time of Encounter: 16:00 - Vital Signs Vital Signs: Vital Signs (72 hours) 08/09/17 09:38 08/09/17 16:06 08/09/17 16:11 Temperature 98.5 F 94.4 F L 94.4 F L Pulse Rate 87 106 Respiratory Rate 18 20 Blood Pressure 119/81 101/60 O2 Sat by Pulse Oximetry 94 100 - Lungs Lungs: Clear Ascult./Percussion - Airway Airway: Intubated - Cardiovascular Regular Rate - Mental Status Mental Status: Asleep with brisk response to light stimulation - Pain Pain Scale used: Unable to assess - Nausea Vomiting Nausea Vomiting: Not Present - Hydration Hydration: NPO, Mahoney catheter Notes: 08/11/17 08:00 Upon initial attempt to extubate at end of procedure pt maintained appropriate SV but demonstrated an acute and decrease in BP & simultaneous brief drop in Pulse Ox witnessed by URIEL Tinsley. Immediately after this event, I entered the OR and began cooperative efforts w/ URIEL to treat and determine etiology of Hypotension which was resistant to initial interventions. Pt had not been extubated and appeared pale and tachycardic - but with well maintained O2 Sats and Equal Bilateral Breath sounds. Dr. La was summoned to return to OR and after brief discussion regarding the pts immediate post-op course made the decision to re-explore the abdomen as intra-abdominal bleeding seemed the most likely possibility. Upon re-entry of the abdomen, Pt was noted to have a significant amount of blood which Dr. La evacuated and stopped the bleeding at the source. Pt received 4units pRBCS Trauma Blood, 5 L crystalloid and 1 bottle of Albumin during the course of the re-exploration. At the conclusion of the re- exploration pt was strong and was able to meet extubation criteria prior to transport to ICU8. Jackie Byrnes MD - Discharge PostOp Status: Transfer Patient to floor Anes Supervising Prov Stmt: Pt remained stable immediately prior to extubation for >15 minutes and remained stable in the OR >10minutes after extubation. Pt was fully monitored and remained stable during transport to ICU8. Jackie Byrnes MD
[2017-08-11] MEDS: MORPHINE SUL Oral CONC 10 MG/0.5 ML ORAL.SYG PO PRN (08:43)
[2017-08-11] MEDS: Pantoprazole 40 MG VIAL IVP SCH (11:18)
--- NOTE | 2017-08-11 11:20 | General Surgery Progress Note ---
<Donald Woo - Last Filed: 08/11/17 15:31> Date of Encounter: 08/11/17 Time of Encounter: 10:30 - Assessment and Plan (1) GERD (gastroesophageal reflux disease) Current Visit: No Status: Chronic 46 yo F POD #2 s/p Saravanan Fundoplication and subsequent ex lap with oversewing of hepatic and splenic veins. Patient reports still having considerable pain. Patient is still HTN and Tachycardic, some work up by carmalachi in past with halter monitor in May per out patient records, no follow up with cards since then. Patient reprots Hx of Tachycardia and HTN Patient still has elevated Cr. and is Hyperkalemic today. Plan: Consult to Nephrology placed for assistance in managing patient's elevated creatinine, fluid and electrolyte balances. Tachycardia and HTN likely secondary to pain. Will start [employer] Will check TSH and free T4 for other possible causes of tachycardia, HTN Start IV protonix Pt allowed 250ccs clears per shift continue supportive care Continue IS continue metoprolol prn Qualifiers: Esophagitis presence: without esophagitis Qualified Code(s): K21.9 - Gastro -esophageal reflux disease without esophagitis (2) DVT prophylaxis Current Visit: No Status: Acute Start Heparin SQ Q8H Subjective Patient reports: still having pain, no bowel movement, afebrile Narrative: 46 yo F POD #2 s/p Saravanan Fundoplication and subsequent ex lap with oversewing of hepatic and splenic veins. Patient reports still having considerable pain. Mahoney in place. No BM or Flatus , but is burping. Patient is still HTN and Tachycardic Patient still has elevated Cr. and is Hyperkalemic today. Objective Vital Signs - Last 8 Hours Temp Pulse Resp BP Pulse Ox 08/11/17 10:05 137 24 109/71 93 08/11/17 09:23 130 24 104/60 94 08/11/17 07:47 98.0 F 08/11/17 07:35 98 F 126 24 110/70 95 08/11/17 06:00 124 20 104/54 93 08/11/17 05:00 142 20 95/71 91 08/11/17 04:26 99.3 F 08/11/17 04:00 141 22 88/59 91 Intake and Output 08/10/17 08/11/17 08/11/17 23:59 07:59 15:59 Intake Total 4720 / 4720 1000 / 1000 1240 / 1240 Output Total 120 / 120 82 / 82 60 / 60 Balance 4600 / 4600 918 / 918 1180 / 1180 Intake: IV Fluids 4000 / 4000 1000 / 1000 1000 / 1000 0.45% Sodium Chloride 1000 Ml 2000 / 2000 1000 / 1000 1000 Ml 1,000 ML @ 90 mls/hr IVC .Q11H7M APRIL Rx#:[id number] 0.9 % Sodium Chloride 1,000 ML 2000 / 2000 1000 / 1000 @ 500 mls/hr IVC .Q2H APRIL Rx#: [id number] Oral 720 / 720 240 / 240 Output: Urine 65 / 65 29 / 29 60 / 60 Catheter 55 / 55 53 / 53 Other: Weight 118.4 kg - General physical appearance well developed, well nourished, moderate pain - Eyes normal ocular movement - ENT normal nares - Neck Neck exam: trachea midline - Respiratory normal expansion, normal respiratory effort, clear to auscultation - Cardiovascular Cardiovascular exam: Present: tachycardia, regular rhythm, no murmurs/rubs/ gallops - Abdomen Abdomen: Present: bowel sounds present (hypoactive), soft, tender Abdominal Tenderness: diffusely - Incision Incision: Present: clean and dry, intact - Integumentary no abnormal pigmentation - Neurologic CN 2-12 grossly intact - Musculoskeletal normal posture - Psychiatric oriented to time, oriented to person, oriented to place, speech is normal, memory intact - Labs 08/11/17 06:08 08/11/17 01:15 Diabetes panel 08/10/17 08/11/17 Range/Units 16:16 01:15 Sodium 135 L 136 (136-145) mEq/L Potassium 4.9 5.2 H (3.5-5.1) mEq/L Chloride 111 H 108 H (98-107) mEq/L Carbon Dioxide 17 L 17 L (23-29) mEq/L BUN 34 H 41 H (6-20) mg/dL Creatinine 1.41 H 1.82 H (0.60-1.20) mg/dL Glucose 152 H 148 H (70-105) mg/dL Calcium 7.3 L 7.4 L (8.6-10.3) mg/dL AST 100 H 82 H (13-39) Units/L ALT 81 H 68 H (7-52) Units/L Alkaline Phosphatase 48 47 (34-104) Units/L Albumin 2.9 L 2.9 L (3.5-5.7) g/dL Calcium panel 08/10/17 08/11/17 Range/Units 16:16 01:15 Calcium 7.3 L 7.4 L (8.6-10.3) mg/dL Phosphorus 3.6 (2.7-4.5) mg/dL Albumin 2.9 L 2.9 L (3.5-5.7) g/dL Pituitary panel 08/10/17 08/11/17 Range/Units 16:16 01:15 Sodium 135 L 136 (136-145) mEq/L Potassium 4.9 5.2 H (3.5-5.1) mEq/L Chloride 111 H 108 H (98-107) mEq/L Carbon Dioxide 17 L 17 L (23-29) mEq/L BUN 34 H 41 H (6-20) mg/dL Creatinine 1.41 H 1.82 H (0.60-1.20) mg/dL Glucose 152 H 148 H (70-105) mg/dL Calcium 7.3 L 7.4 L (8.6-10.3) mg/dL Adrenal panel 08/10/17 08/11/17 Range/Units 16:16 01:15 Sodium 135 L 136 (136-145) mEq/L Potassium 4.9 5.2 H (3.5-5.1) mEq/L Chloride 111 H 108 H (98-107) mEq/L Carbon Dioxide 17 L 17 L (23-29) mEq/L BUN 34 H 41 H (6-20) mg/dL Creatinine 1.41 H 1.82 H (0.60-1.20) mg/dL Glucose 152 H 148 H (70-105) mg/dL Calcium 7.3 L 7.4 L (8.6-10.3) mg/dL Total Bilirubin 1.1 H 1.3 H (0.3-1.0) mg/dL AST 100 H 82 H (13-39) Units/L ALT 81 H 68 H (7-52) Units/L Alkaline Phosphatase 48 47 (34-104) Units/L Albumin 2.9 L 2.9 L (3.5-5.7) g/dL - VTE Documentation of Mechanical Device: Intermittent pneumatic compression device Consult Discharge Plan - Plan Additional Instructions: Surgical instructions: #1 may shower starting 08/10/17, no tub bath for 2 weeks #2 wash incisions with soap and water and pat dry daily #3 no lifting, pushing, pulling more than 15 pounds for the next 4 weeks #4 no driving until off narcotics for 24 hours and able to safely react in the car #5 may climb stairs Follow-up appointment: Sunday, August 20, 2017 with Sonia Joe CNP in the outpatient surgical office (Medical office building, [address]) [facility] Diet After Saravanan Fundoplication Surgery This diet information is for patients who have recently had Saravanan Fundoplication Surgery to correct reflux disease or to repair various types of hernias, such as hiatal hernia and intrathoracic stomach. This diet may also be used for other gastrointestinal surgeries, such as Heller myotomy and repair of achalasia. The diet will help control diarrhea, excess gas and swallowing problems, which may occur after this type of surgery. Important Steps to Keep Your Stomach From Stretching Eat small, frequent meals (six to eight per day). This will help you consume the majority of the nutrients you need without causing your stomach to feel full or distended. Drinking large amounts of fluids with meals can stretch your stomach. You may drink fluids between meals as often as you like, but limit fluids to 1/2 cup (4 fluid ounces) with meals and one cup (8 fluid ounces) with snacks. Sit upright while eating and stay upright for 30 minutes after each meal. [place] can help food move through your digestive tract. Do not lie down after eating. Sit upright for 2 hours after your last meal or snack of the day. Eat very slowly. Take your time when eating. Take small bites and chew your food well to grease press helper in swallowing and digestion. Avoid crusty breads and sticky, gummy foods, such as bananas, fresh doughy breads, rolls and doughnuts. These types of foods become sticky and difficult to swallow. Toasted breads tend to be better tolerated. Lastly, if you eat sweets, consume them at the end of your meal to avoid a group of symptoms referred to as dumping syndrome. This describes the rapid emptying of foods from the stomach to the small intestine. Sweetened beverages, candy and desserts move more rapidly and dump quickly into the intestines. This can cause symptoms of nausea, weakness, cold sweats, cramps, diarrhea and dizzy spells. Important Steps to Avoid Gas Do not drink through a straw, chew gum, or chew tobacco. These actions cause you to swallow air, which will produce excess gas in your stomach. Chew with your mouth closed and chew your food thoroughly. Avoid foods that cause stomach gas and distention. The foods include corn, dried beans, peas, lentils, onions, broccoli, cauliflower, and any food item from the cabbage family. Do not drink carbonated drinks, alcohol, citrus, or tomato products. What Will I Be Able To Eat and Drink After Surgery After Saravanan Fundoplication Surgery, your diet will be advanced slowly by your surgeon. Generally, you will be on a thin/clear liquid diet for the first 10 days. Then you will advance to the full liquid diet for 4 days and eventually to a Saravanan soft diet for 7 days. After any surgery, protein consumption is important for healing. To get enough protein, drink 3-4 [place] Instant Breakfast, Ensure, or equivalent daily. Reminder: carbonated beverages (such as sodas, energy drinks, flavored carbonated water), and alcohol are not permitted for the 1st 6 to 8 weeks after surgery. After this time you may attempt to reintroduce them in small amounts. Please note: dairy products such as milk, ice cream, and putting may cause diarrhea and some people after surgery. He may need to avoid milk products. If so you may substitute them with lactose free beverages, such as soy, rice, lactate, or almond milk. Please be aware that each patient's tolerance to food is different. Your doctor will advance your diet depending on how well you progress after surgery. Thin Liquid Diet The first diet after Saravanan Fundoplication Surgery is the thin liquids diet. Follow this diet for postoperative days 1-10 08/10/2017 - 08/19/2017. Thin liquids include: Apple, Cranberry, or Grape Juice (no citrus juice) Chicken Broth Beef Broth Flavored Gelatin (Jell-O) Decaffeinated Tea or Coffee Popsicles or [place] Ice Caffeinated Beverages Will Be Permitted Based upon Tolerance Dairy Thin Milkshakes (strawberry or vanilla flavored- No chocolate) Drink 3-4 [place] instant breakfast, Ensure, or equivalent daily. May be mixed with dairy for thin milkshakes Full Liquid Diet Follow this diet for postoperative days 11-14 08/20/2017- 08/23/2017. Full liquid diet includes anything in the thin liquid diet plus: Milk, Soy, Rice, and [place] (No Chocolate) Cream of Wheat, Cream of Rice, Grits Strained Creamed Soups (No Tomato Water Broccoli) Vanilla and [place] Flavored Ice Cream Sherbet Vanilla and Butterscotch Pudding (No Chocolate or Coconut) Continue 3-4 [place] Instant Breakfast, Ensure, or an Equivalent Daily. Maybe Next with Dairy for Thin Milkshakes. Saravanan Soft Diet Follow this diet for postoperative days 15-20 08/24/2017- 08/30/2017. (If you are consuming enough protein, you may stop the protein supplements). See Saravanan Diet handout for more specific information Referrals: Edyta Melgar, [employer] CONSULTANT [Primary Care Provider] - <Sreekanth Mejia - Last Filed: 08/11/17 16:04> Date of Encounter: 08/11/17 Objective Vital Signs - Last 8 Hours Temp Pulse Resp BP Pulse Ox 08/11/17 16:00 97.7 F 08/11/17 14:31 135 20 105/76 94 08/11/17 13:05 124 20 109/70 90 08/11/17 12:09 98.0 F 117 20 98/68 94 08/11/17 11:16 134 24 107/65 94 08/11/17 10:05 137 24 109/71 93 08/11/17 09:23 130 24 104/60 94 Intake and Output 08/11/17 08/11/17 08/11/17 07:59 15:59 23:59 Intake Total 1000 / 1000 1490 / 1490 Output Total 82 / 82 157 / 157 Balance 918 / 918 1333 / 1333 Intake: IV Fluids 1000 / 1000 1000 / 1000 0.45% Sodium Chloride 1000 Ml 1000 / 1000 1000 Ml 1,000 ML @ 90 mls/hr IVC .Q11H7M APRIL Rx#:[id number] 0.9 % Sodium Chloride 1,000 ML 1000 / 1000 @ 500 mls/hr IVC .Q2H APRIL Rx#: [id number] Oral 490 / 490 Output: Urine 157 / 157 Catheter 53 / 53 - Labs 08/11/17 06:08 08/11/17 01:15 Diabetes panel 08/10/17 08/11/17 Range/Units 16:16 01:15 Sodium 135 L 136 (136-145) mEq/L Potassium 4.9 5.2 H (3.5-5.1) mEq/L Chloride 111 H 108 H (98-107) mEq/L Carbon Dioxide 17 L 17 L (23-29) mEq/L BUN 34 H 41 H (6-20) mg/dL Creatinine 1.41 H 1.82 H (0.60-1.20) mg/dL Glucose 152 H 148 H (70-105) mg/dL Calcium 7.3 L 7.4 L (8.6-10.3) mg/dL AST 100 H 82 H (13-39) Units/L ALT 81 H 68 H (7-52) Units/L Alkaline Phosphatase 48 47 (34-104) Units/L Albumin 2.9 L 2.9 L (3.5-5.7) g/dL Thyroid panel 08/11/17 Range/Units 11:00 TSH 3.862 (0.340-5.600) mcIU/mL Calcium panel 08/10/17 08/11/17 Range/Units 16:16 01:15 Calcium 7.3 L 7.4 L (8.6-10.3) mg/dL Phosphorus 3.6 (2.7-4.5) mg/dL Albumin 2.9 L 2.9 L (3.5-5.7) g/dL Pituitary panel 08/10/17 08/11/17 08/11/17 Range/Units 16:16 01:15 11:00 Sodium 135 L 136 (136-145) mEq/L Potassium 4.9 5.2 H (3.5-5.1) mEq/L Chloride 111 H 108 H (98-107) mEq/L Carbon Dioxide 17 L 17 L (23-29) mEq/L BUN 34 H 41 H (6-20) mg/dL Creatinine 1.41 H 1.82 H (0.60-1.20) mg/dL Glucose 152 H 148 H (70-105) mg/dL Calcium 7.3 L 7.4 L (8.6-10.3) mg/dL TSH 3.862 (0.340-5.600) mcIU/mL Adrenal panel 08/10/17 08/11/17 Range/Units 16:16 01:15 Sodium 135 L 136 (136-145) mEq/L Potassium 4.9 5.2 H (3.5-5.1) mEq/L Chloride 111 H 108 H (98-107) mEq/L Carbon Dioxide 17 L 17 L (23-29) mEq/L BUN 34 H 41 H (6-20) mg/dL Creatinine 1.41 H 1.82 H (0.60-1.20) mg/dL Glucose 152 H 148 H (70-105) mg/dL Calcium 7.3 L 7.4 L (8.6-10.3) mg/dL Total Bilirubin 1.1 H 1.3 H (0.3-1.0) mg/dL AST 100 H 82 H (13-39) Units/L ALT 81 H 68 H (7-52) Units/L Alkaline Phosphatase 48 47 (34-104) Units/L Albumin 2.9 L 2.9 L (3.5-5.7) g/dL - Attending Attestation I have personally seen and examined the patient. I have reviewed pertinent labs , imaging, progress notes, including this one. I agree with the above assessment and plan
[2017-08-11] MEDS: *HR* Heparin 5,000 UNIT/ML VIAL SQ SCH ×2 (14:33→20:11)
[2017-08-11] MEDS ORDERED: 0.9 % Sodium Chloride 1,000 ML IVC ONE (16:12)
[2017-08-11] MEDS: Norepinephrine 4 MG in D5% in Water 250 ML IVC SCH (16:35)
[2017-08-11] MEDS: *HR* Morphine 30 MG/ 30 ML PCA IVC PRN (17:30)
[2017-08-11] MEDS: *HR* Metoprolol 5 MG/5 ML VIAL IVP SCH (20:11)
[2017-08-12] MEDS ORDERED: Furosemide 20 MG/2 ML VIAL IVP ONE (00:03)
[2017-08-12] MEDS: *HR* Metoprolol 5 MG/5 ML VIAL IVP SCH ×4 (04:27→20:16)
[2017-08-12] MEDS: *HR* Heparin 5,000 UNIT/ML VIAL SQ SCH ×3 (04:31→20:16)
[2017-08-12 05:09] LABS: Hematocrit 35.2 % (35.3-44.9); Mean Corpuscular HGB Conc 32.4 g/dL (31.6-35.5); Mean Corpuscular Hemoglobin 30.2 pg (28.0-33.3); Mean Corpuscular Volume 93.4 fL (83.0-100.0); Platelet Count 118 K/mcL (140-400); Red Blood Count 3.77 M/mcL (3.82-4.97); Red Cell Distribution Width 15.9 % (11.5-14.5)
[2017-08-12 05:20] LABS: Hemoglobin 11.4 g/dL (11.5-15.4)
[2017-08-12 05:30] LABS: Albumin 2.7 g/dL (3.5-5.7); Albumin/Globulin Ratio 1.2 (1.1-2.2); Bilirubin,Total 1.2 mg/dL (0.3-1.0); Globulin 2.2 g/dL (2.4-3.5); Potassium 4.9 mEq/L (3.5-5.1); Total Protein 4.9 g/dL (6.4-8.9)
[2017-08-12 05:48] LABS: Lymphocytes # 0.8 K/mcL (0.6-4.6); Monocytes # 0.8 K/mcL (0.0-1.3); Neutrophils # 17.9 K/mcL (1.6-8.9); Platelet Estimate Slight Decrease (Normal); Toxic Granulation Present (Not Present)
[2017-08-12 05:49] LABS: Reactive Lymphocytes Present (Not Present)
[2017-08-12] MEDS: Pantoprazole 40 MG VIAL IVP SCH (08:01)
--- NOTE | 2017-08-12 08:34 | Nephrology Consult Note ---
Date of Encounter: 08/12/17 Time of Encounter: 08:32 Assessment and Plan (1) Acute kidney failure, unspecified Current Visit: Yes Status: Acute The patient has nonoliguric acute kidney injury in the setting of hypotension related to postoperative bleeding. Her serum creatinine appears to be reaching a plateau in her urine output appears to be increasing today. Hopefully she is starting to enter the recovery phase. She does have shortness of breath as well as decreased breath sounds on physical exam. I would suggest doing a chest x-ray to evaluate the patient for pleural effusions versus atelectasis. I am going to give her 1 dose of Lasix to stimulate her urine output. I am going to reduce her maintenance IV and change it to normal saline. We will continue to monitor her renal function. All nephrotoxins should be avoided. There is no acute indication for dialysis. I did review the situation with the patient and . Qualifiers: Acute renal failure type: unspecified Qualified Code(s): N17.9 - Acute kidney failure, unspecified (2) GERD (gastroesophageal reflux disease) Current Visit: No Status: Chronic Qualifiers: Esophagitis presence: without esophagitis Qualified Code(s): K21.9 - Gastro -esophageal reflux disease without esophagitis History of Present Illness - History of Present Illness This is a 46-year-old female who underwent an elective robotic-assisted hiatal hernia repair with Saravanan fundoplication on August 09. Apparently following the initial procedure the patient became hypotensive. She developed some bleeding from the hepatic and splenic veins. She subsequently required an open procedure for repair. Subsequently she has developed acute kidney injury. Preoperative serum creatinine was normal at 0.62. Patient denies any previous history of renal disease. Patient's creatinine today is 1.80. Yesterday was 1.8 to the previous day it was 1.41. Patient's urine output yesterday was 517 mL. She had intake of 3.7 L. Blood pressure currently is 113/64 with a heart rate of 137. Previous blood pressures have been recorded as low as 88/59. Urine output this morning appears to be increasing. Patient's main complaint is that of some shortness of breath as well as some postoperative pain. She does have a Mahoney catheter in place. Patient's hemoglobin at the end of the day on August 09 was 8.5. She apparently received packed red blood cell transfusions. The next day she was up to 14. Hemoglobin today is 11.4. Past Med Surg Social Fam HX - Past Medical History Medical history: GERD, thyroid disease, other Psychiatric history: no psych history - Past Surgical History Surgical History: cholecystectomy, hysterectomy, other - Social History Smoking Status: Never smoker Smokeless Tobacco Status: No Alcohol use: none Drug use: none - Family History Father Hx Family Cardiac Disorders: Yes ([place]) Medications and Allergies Cholecalciferol (D-3) [Vitamin D] 1,000 unit PO DAILY 04/10/17 [History] Vitamin E (Dl,Tocopheryl Acet) [Vitamin E] 400 unit PO DAILY 04/10/17 [History] Aspirin 81 mg PO DAILY #30 tab.chew 04/12/17 [Rx] Nitroglycerin 0.4 mg SL Q5MIN PRN #14 tab.subl 04/12/17 [Rx] Famotidine [Heartburn Prevention] 20 mg PO DAILY 06/17/17 [History] Pravastatin Sodium [Pravachol] 20 mg PO DAILY 06/17/17 [History] Ascorbic Acid [Vitamin C] 100 mg PO DAILY 08/09/17 [History] Docusate [Colace] 100 mg PO BID PRN #30 capsule 08/09/17 [Rx] Ibuprofen [Motrin] 600 mg PO Q6HR #40 tab 08/09/17 [Rx] Loratadine [Claritin] 10 mg PO DAILY 08/09/17 [History] Ondansetron ODT [Zofran ODT] 4 mg SL Q6HR PRN #30 tab.rapdis 08/09/17 [Rx] OxyCODONE/APAP 5/325 [Percocet 5/325 MG] 1 each PO Q6HR PRN 5 Days #20 tablet [Rx] 3 Allergy/AdvReac Type Severity Reaction Status Date / Time Sulfa (Sulfonamide Allergy Anaphylaxis Verified 08/09/17 09:33 Antibiotics) Review of Systems Constitutional: as per HPI Eyes: bilateral: blurred vision (patient denies), diplopia (patient denies) Nose, mouth and throat: no dizziness, no headache(s) Cardiovascular: dyspnea, dyspnea on exertion, no chest pain, no palpitations Respiratory: dyspnea on exertion Gastrointestinal: abdominal pain Musculoskeletal: no muscle weakness, no numbness Integumentary: no hirsutism, no striae Neurological: as per HPI Psychiatric: no depression, no difficulty concentrating Endocrine: as per HPI Hematologic/Lymphatic: no easy bruising, no lymphadenopathy Exam - Vital Signs Vital signs: Initial Vital Signs Temp Pulse Resp BP Pulse Ox 98.5 F 87 18 119/81 94 08/09/17 09:38 08/09/17 09:38 08/09/17 09:38 08/09/17 09:38 08/09/17 09:38 Vital Signs - Last 8 Hours Temp Pulse Resp BP Pulse Ox 08/12/17 08:17 127 26 114/65 95 08/12/17 07:46 137 20 113/64 91 08/12/17 06:00 130 20 103/70 94 08/12/17 05:00 130 22 110/79 93 08/12/17 04:26 135 20 107/75 94 08/12/17 03:35 136 08/12/17 03:28 99.5 F 137 20 107/69 92 08/12/17 02:00 136 20 99/69 94 08/12/17 01:00 142 24 101/71 96 Intake and Output 08/11/17 08/12/17 08/12/17 23:59 07:59 15:59 Intake Total 1250 / 1250 1250 / 1250 480 / 480 Output Total 248 / 248 523 / 523 70 / 70 Balance 1002 / 1002 727 / 727 410 / 410 Intake: IV Fluids 1000 / 1000 1000 / 1000 0.45% Sodium Chloride 1000 Ml 1000 / 1000 1000 / 1000 1000 Ml 1,000 ML @ 90 mls/hr [facility]C [facility]H7[facility] Rx#:[id number] Oral 250 / 250 250 / 250 480 / 480 Output: Urine 40 / 40 70 / 70 Catheter 208 / 208 523 / 523 - General Appearance Exam: Patient is sitting up in a chair. She appears to be alert and oriented. She appears to be acutely ill. Blood pressure 113/64. Lungs diminished breath sounds in the bases possibly related to bilateral pleural effusions. Heart regular rate and rhythm. Abdomen demonstrates postoperative tenderness. There is minimal swelling of the lower extremities. A Mahoney catheter is in place. Results - Lab Results 08/12/17 04:46 08/12/17 04:46 Most recent lab results Calcium 7.0 mg/dL (8.6-10.3) L 08/12/17 04:46 Phosphorus 3.6 mg/dL (2.7-4.5) 08/10/17 16:16 Magnesium 1.6 mg/dL (1.6-2.6) 08/10/17 16:16 Consult Discharge Plan - Plan Additional Instructions: Surgical instructions: #1 may shower starting 08/10/17, no tub bath for 2 weeks #2 wash incisions with soap and water and pat dry daily #3 no lifting, pushing, pulling more than 15 pounds for the next 4 weeks #4 no driving until off narcotics for 24 hours and able to safely react in the car #5 may climb stairs Follow-up appointment: Sunday, August 20, 2017 with Sonia Joe CNP in the outpatient surgical office (Medical office building, [address]) [place] [facility] Diet After Saravanan Fundoplication Surgery This diet information is for patients who have recently had Saravanan Fundoplication Surgery to correct reflux disease or to repair various types of hernias, such as hiatal hernia and intrathoracic stomach. This diet may also be used for other gastrointestinal surgeries, such as Heller myotomy and repair of achalasia. The diet will help control diarrhea, excess gas and swallowing problems, which may occur after this type of surgery. Important Steps to Keep Your Stomach From Stretching Eat small, frequent meals (six to eight per day). This will help you consume the majority of the nutrients you need without causing your stomach to feel full or distended. Drinking large amounts of fluids with meals can stretch your stomach. You may drink fluids between meals as often as you like, but limit fluids to 1/2 cup (4 fluid ounces) with meals and one cup (8 fluid ounces) with snacks. Sit upright while eating and stay upright for 30 minutes after each meal. [place] can help food move through your digestive tract. Do not lie down after eating. Sit upright for 2 hours after your last meal or snack of the day. Eat very slowly. Take your time when eating. Take small bites and chew your food well to gas meter installer helper in swallowing and digestion. Avoid crusty breads and sticky, gummy foods, such as bananas, fresh doughy breads, rolls and doughnuts. These types of foods become sticky and difficult to swallow. Toasted breads tend to be better tolerated. Lastly, if you eat sweets, consume them at the end of your meal to avoid a group of symptoms referred to as dumping syndrome. This describes the rapid emptying of foods from the stomach to the small intestine. Sweetened beverages, candy and desserts move more rapidly and dump quickly into the intestines. This can cause symptoms of nausea, weakness, cold sweats, cramps, diarrhea and dizzy spells. Important Steps to Avoid Gas Do not drink through a straw, chew gum, or chew tobacco. These actions cause you to swallow air, which will produce excess gas in your stomach. Chew with your mouth closed and chew your food thoroughly. Avoid foods that cause stomach gas and distention. The foods include corn, dried beans, peas, lentils, onions, broccoli, cauliflower, and any food item from the cabbage family. Do not drink carbonated drinks, alcohol, citrus, or tomato products. What Will I Be Able To Eat and Drink After Surgery After Saravanan Fundoplication Surgery, your diet will be advanced slowly by your surgeon. Generally, you will be on a thin/clear liquid diet for the first 10 days. Then you will advance to the full liquid diet for 4 days and eventually to a Saravanan soft diet for 7 days. After any surgery, protein consumption is important for healing. To get enough protein, drink 3-4 [place] Instant Breakfast, Ensure, or equivalent daily. Reminder: carbonated beverages (such as sodas, energy drinks, flavored carbonated water), and alcohol are not permitted for the 1st 6 to 8 weeks after surgery. After this time you may attempt to reintroduce them in small amounts. Please note: dairy products such as milk, ice cream, and putting may cause diarrhea and some people after surgery. He may need to avoid milk products. If so you may substitute them with lactose free beverages, such as soy, rice, lactate, or almond milk. Please be aware that each patient's tolerance to food is different. Your doctor will advance your diet depending on how well you progress after surgery. Thin Liquid Diet The first diet after Saravanan Fundoplication Surgery is the thin liquids diet. Follow this diet for postoperative days 1-10 08/10/2017 - 08/19/2017. Thin liquids include: Apple, Cranberry, or Grape Juice (no citrus juice) Chicken Broth Beef Broth Flavored Gelatin (Jell-O) Decaffeinated Tea or Coffee Popsicles or [place] Ice Caffeinated Beverages Will Be Permitted Based upon Tolerance Dairy Thin Milkshakes (strawberry or vanilla flavored- No chocolate) Drink 3-4 [place] instant breakfast, Ensure, or equivalent daily. May be mixed with dairy for thin milkshakes Full Liquid Diet Follow this diet for postoperative days 11-14 08/20/2017- 08/23/2017. Full liquid diet includes anything in the thin liquid diet plus: Milk, Soy, Rice, and [place] (No Chocolate) Cream of Wheat, Cream of Rice, Grits Strained Creamed Soups (No Tomato Water Broccoli) Vanilla and [place] Flavored Ice Cream Sherbet Vanilla and Butterscotch Pudding (No Chocolate or Coconut) Continue 3-4 [place] Instant Breakfast, Ensure, or an Equivalent Daily. Maybe Next with Dairy for Thin Milkshakes. Saravanan Soft Diet Follow this diet for postoperative days 15-20 08/24/2017- 08/30/2017. (If you are consuming enough protein, you may stop the protein supplements). See Saravanan Diet handout for more specific information Referrals: Edyta Melgar, [employer] ARCHITECT [Primary Care Provider] -
[2017-08-12] MEDS ORDERED: Furosemide 40 MG/4 ML VIAL IVP ONE (08:39)
--- NOTE | 2017-08-12 08:48 | General Surgery Progress Note ---
Date of Encounter: 08/12/17 Time of Encounter: 08:15 - Assessment and Plan (1) GERD (gastroesophageal reflux disease) Current Visit: No Status: Chronic 46 yo F POD #3 s/p Saravanan Fundoplication and subsequent ex lap with oversewing of hepatic and splenic veins. Patient reports still having considerable pain. Patient is still HTN and Tachycardic, some work up by carido in past with halter monitor in May per out patient records, no follow up with cards since then. Patient reprots Hx of Tachycardia and HTN, TSH normal Patient still has elevated Cr. and is Hyperkalemic today. Consult to Nephrology placed for assistance in managing patient's elevated creatinine, fluid and electrolyte balances. Nephrology evaluated today appreciate their recommendations. Urinary out put increasing, Cr has plateaued Plan: Stat CXR continue CRM COORDINATOR Start carafate QID Stop IV protonix Pt allowed 250ccs clears per shift continue supportive care Continue IS continue metoprolol prn Consult to Cardiology for Tachycardia placed. Appreciate recommendations. Qualifiers: Esophagitis presence: without esophagitis Qualified Code(s): K21.9 - Gastro -esophageal reflux disease without esophagitis (2) DVT prophylaxis Current Visit: No Status: Acute continue Heparin SQ Q8H Subjective Patient reports: still having pain, no bowel movement, shortness of breath, afebrile Narrative: Pt reports increased SOB. Nursing reports patient is not breathign as deeply and not able to get the IS up very high. Patient report continued pain. Objective Vital Signs - Last 8 Hours Temp Pulse Resp BP Pulse Ox 08/12/17 08:17 127 26 114/65 95 08/12/17 07:46 137 20 113/64 91 08/12/17 06:00 130 20 103/70 94 08/12/17 05:00 130 22 110/79 93 08/12/17 04:26 135 20 107/75 94 08/12/17 03:35 136 08/12/17 03:28 99.5 F 137 20 107/69 92 08/12/17 02:00 136 20 99/69 94 08/12/17 01:00 142 24 101/71 96 Intake and Output 08/11/17 08/12/17 08/12/17 23:59 07:59 15:59 Intake Total 1250 / 1250 1250 / 1250 1480 / 1480 Output Total 248 / 248 523 / 523 70 / 70 Balance 1002 / 1002 727 / 727 1410 / 1410 Intake: IV Fluids 1000 / 1000 1000 / 1000 1000 / 1000 0.45% Sodium Chloride 1000 Ml 1000 / 1000 1000 / 1000 1000 / 1000 1000 Ml 1,000 ML @ 90 mls/hr IVC .Q11H7M [facility] Rx#:[id number] Oral 250 / 250 250 / 250 480 / 480 Output: Urine 40 / 40 70 / 70 Catheter 208 / 208 523 / 523 - General physical appearance well developed, well nourished, moderate pain - Eyes normal ocular movement - ENT normal nares - Neck Neck exam: trachea midline - Respiratory other (decreased breath sounds b/l bases, poor respiratory effort) - Cardiovascular Cardiovascular exam: Present: tachycardia, no murmurs/rubs/gallops - Abdomen Abdomen: Present: bowel sounds present, soft, tender Abdominal Tenderness: diffusely - Incision Incision: Present: clean and dry, intact - Genitourinary other (mckinnon in place.) - Integumentary no growths - Neurologic CN 2-12 grossly intact - Musculoskeletal normal posture - Psychiatric oriented to time, oriented to person, oriented to place, speech is normal, memory intact - Labs 08/12/17 04:46 08/12/17 04:46 Diabetes panel 08/12/17 Range/Units 04:46 Sodium 133 L (136-145) mEq/L Potassium 4.9 (3.5-5.1) mEq/L Chloride 107 (98-107) mEq/L Carbon Dioxide 15 L (23-29) mEq/L BUN 50 H (6-20) mg/dL Creatinine 1.80 H (0.60-1.20) mg/dL Glucose 127 H (70-105) mg/dL Calcium 7.0 L (8.6-10.3) mg/dL AST 52 H (13-39) Units/L ALT 42 (7-52) Units/L Alkaline Phosphatase 50 (34-104) Units/L Albumin 2.7 L (3.5-5.7) g/dL Thyroid panel 08/11/17 Range/Units 11:00 TSH 3.862 (0.340-5.600) mcIU/mL Calcium panel 08/12/17 Range/Units 04:46 Calcium 7.0 L (8.6-10.3) mg/dL Albumin 2.7 L (3.5-5.7) g/dL Pituitary panel 08/11/17 08/12/17 Range/Units 11:00 04:46 Sodium 133 L (136-145) mEq/L Potassium 4.9 (3.5-5.1) mEq/L Chloride 107 (98-107) mEq/L Carbon Dioxide 15 L (23-29) mEq/L BUN 50 H (6-20) mg/dL Creatinine 1.80 H (0.60-1.20) mg/dL Glucose 127 H (70-105) mg/dL Calcium 7.0 L (8.6-10.3) mg/dL TSH 3.862 (0.340-5.600) mcIU/mL Adrenal panel 08/12/17 Range/Units 04:46 Sodium 133 L (136-145) mEq/L Potassium 4.9 (3.5-5.1) mEq/L Chloride 107 (98-107) mEq/L Carbon Dioxide 15 L (23-29) mEq/L BUN 50 H (6-20) mg/dL Creatinine 1.80 H (0.60-1.20) mg/dL Glucose 127 H (70-105) mg/dL Calcium 7.0 L (8.6-10.3) mg/dL Total Bilirubin 1.2 H (0.3-1.0) mg/dL AST 52 H (13-39) Units/L ALT 42 (7-52) Units/L Alkaline Phosphatase 50 (34-104) Units/L Albumin 2.7 L (3.5-5.7) g/dL - VTE Documentation of Mechanical Device: Intermittent pneumatic compression device Consult Discharge Plan - Plan Additional Instructions: Surgical instructions: #1 may shower starting 08/10/17, no tub bath for 2 weeks #2 wash incisions with soap and water and pat dry daily #3 no lifting, pushing, pulling more than 15 pounds for the next 4 weeks #4 no driving until off narcotics for 24 hours and able to safely react in the car #5 may climb stairs Follow-up appointment: Sunday, August 20, 2017 with Sonia Joe CNP in the outpatient surgical office (Medical office building, [address]) [place] Surgical Diet After Saravanan Fundoplication Surgery This diet information is for patients who have recently had Sarvaanan Fundoplication Surgery to correct reflux disease or to repair various types of hernias, such as hiatal hernia and intrathoracic stomach. This diet may also be used for other gastrointestinal surgeries, such as Heller myotomy and repair of achalasia. The diet will help control diarrhea, excess gas and swallowing problems, which may occur after this type of surgery. Important Steps to Keep Your Stomach From Stretching Eat small, frequent meals (six to eight per day). This will help you consume the majority of the nutrients you need without causing your stomach to feel full or distended. Drinking large amounts of fluids with meals can stretch your stomach. You may drink fluids between meals as often as you like, but limit fluids to 1/2 cup (4 fluid ounces) with meals and one cup (8 fluid ounces) with snacks. Sit upright while eating and stay upright for 30 minutes after each meal. [place] can help food move through your digestive tract. Do not lie down after eating. Sit upright for 2 hours after your last meal or snack of the day. Eat very slowly. Take your time when eating. Take small bites and chew your food well to firer helper in swallowing and digestion. Avoid crusty breads and sticky, gummy foods, such as bananas, fresh doughy breads, rolls and doughnuts. These types of foods become sticky and difficult to swallow. Toasted breads tend to be better tolerated. Lastly, if you eat sweets, consume them at the end of your meal to avoid a group of symptoms referred to as dumping syndrome. This describes the rapid emptying of foods from the stomach to the small intestine. Sweetened beverages, candy and desserts move more rapidly and dump quickly into the intestines. This can cause symptoms of nausea, weakness, cold sweats, cramps, diarrhea and dizzy spells. Important Steps to Avoid Gas Do not drink through a straw, chew gum, or chew tobacco. These actions cause you to swallow air, which will produce excess gas in your stomach. Chew with your mouth closed and chew your food thoroughly. Avoid foods that cause stomach gas and distention. The foods include corn, dried beans, peas, lentils, onions, broccoli, cauliflower, and any food item from the cabbage family. Do not drink carbonated drinks, alcohol, citrus, or tomato products. What Will I Be Able To Eat and Drink After Surgery After Saravanan Fundoplication Surgery, your diet will be advanced slowly by your surgeon. Generally, you will be on a thin/clear liquid diet for the first 10 days. Then you will advance to the full liquid diet for 4 days and eventually to a Saravanan soft diet for 7 days. After any surgery, protein consumption is important for healing. To get enough protein, drink 3-4 [place] Instant Breakfast, Ensure, or equivalent daily. Reminder: carbonated beverages (such as sodas, energy drinks, flavored carbonated water), and alcohol are not permitted for the 1st 6 to 8 weeks after surgery. After this time you may attempt to reintroduce them in small amounts. Please note: dairy products such as milk, ice cream, and putting may cause diarrhea and some people after surgery. He may need to avoid milk products. If so you may substitute them with lactose free beverages, such as soy, rice, lactate, or almond milk. Please be aware that each patient's tolerance to food is different. Your doctor will advance your diet depending on how well you progress after surgery. Thin Liquid Diet The first diet after Saravanan Fundoplication Surgery is the thin liquids diet. Follow this diet for postoperative days 1-10 08/10/2017 - 08/19/2017. Thin liquids include: Apple, Cranberry, or Grape Juice (no citrus juice) Chicken Broth Beef Broth Flavored Gelatin (Jell-O) Decaffeinated Tea or Coffee Popsicles or [place] Ice Caffeinated Beverages Will Be Permitted Based upon Tolerance Dairy Thin Milkshakes (strawberry or vanilla flavored- No chocolate) Drink 3-4 [place] instant breakfast, Ensure, or equivalent daily. May be mixed with dairy for thin milkshakes Full Liquid Diet Follow this diet for postoperative days 11-14 08/20/2017- 08/23/2017. Full liquid diet includes anything in the thin liquid diet plus: Milk, Soy, Rice, and [place] (No Chocolate) Cream of Wheat, Cream of Rice, Grits Strained Creamed Soups (No Tomato Water Broccoli) Vanilla and [place] Flavored Ice Cream Sherbet Vanilla and Butterscotch Pudding (No Chocolate or Coconut) Continue 3-4 [place] Instant Breakfast, Ensure, or an Equivalent Daily. Maybe Next with Dairy for Thin Milkshakes. Saravanan Soft Diet Follow this diet for postoperative days 15-20 08/24/2017- 08/30/2017. (If you are consuming enough protein, you may stop the protein supplements). See Saravanan Diet handout for more specific information Referrals: Edyta Melgar, RESIN REMOVER [Primary Care Provider] -
[2017-08-12] MEDS: 0.9 % Sodium Chloride 1,000 ML IVC SCH ×2 (09:42→20:17)
--- NOTE | 2017-08-12 11:08 | Cardiology Consult Note ---
Addendum entered and electronically signed by Rachna Peraza DO 08/12/17 14 :32: Please add the following to assessment and plan 2. Anemia Concern for small continual bleed at this time 3. Elevated troponin Will continue to trend q6hr at this time and perform echo Original Note: <Rachna Peraza - Last Filed: 08/12/17 11:49> Date of Encounter: 08/12/17 Time of Encounter: 11:08 Assessment and Plan (1) Tachycardia Current Visit: Yes Status: Acute Patient has known history of tachycardia with previous work up. Patient 140 BPM in room. Will order troponin and echo to determine further steps. Patient denies chest pain or palpitations. Otherwise vital signs stable at this time. Discussion w patient/family: The assessment and plan as outlined above was discussed with the patient and/or family members who expressed understanding and agreement. All questions were answered. Thank you for involving us in the care of your patient. Please call with any questions. History of Present Illness Consult date: 08/12/17 Consult reason: Tachycardia History of present illness: Ms. Will is a 46 year old female with known baseline tachycardia but unsure of her normal rate in ICU after post-surgical bleeding. Patient had Saravanan Fundoplication and subsequent ex lap with oversewing of hepatic and splenic veins. Patient has remained tachycardic in the 130s-140s since being resuscitated bother with fluids and blood. Patient states she feels tired but denies any chest pain, dizziness, or palpitations. 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 Patient has denied any exertional chest pain since this cath. Denies being on beta blockers at home. Does state she wore a holter monitor that showed sinus tachycardia but other within normal limits. Denies any stents. Does take a daily aspirin. Past Med Surg Social Fam HX - Past Medical History Attestation: Yes The following information was validated with the patient. Medical history: GERD, thyroid disease, other Psychiatric history: no psych history - Past Surgical History Surgical History: cholecystectomy, hysterectomy, other - Social History Smoking Status: Never smoker Smokeless Tobacco Status: No Alcohol use: none Drug use: none - Family History Father Hx Family Cardiac Disorders: Yes (NM) Medications and Allergies Cholecalciferol (D-3) [Vitamin D] 1,000 unit PO DAILY 04/10/17 [History] Vitamin E (Dl,Tocopheryl Acet) [Vitamin E] 400 unit PO DAILY 04/10/17 [History] Aspirin 81 mg PO DAILY #30 tab.chew 04/12/17 [Rx] Nitroglycerin 0.4 mg SL Q5MIN PRN #14 tab.subl 04/12/17 [Rx] Famotidine [Heartburn Prevention] 20 mg PO DAILY 06/17/17 [History] Pravastatin Sodium [Pravachol] 20 mg PO DAILY 06/17/17 [History] Ascorbic Acid [Vitamin C] 100 mg PO DAILY 08/09/17 [History] Docusate [Colace] 100 mg PO BID PRN #30 capsule 08/09/17 [Rx] Ibuprofen [Motrin] 600 mg PO Q6HR #40 tab 08/09/17 [Rx] Loratadine [Claritin] 10 mg PO DAILY 08/09/17 [History] Ondansetron ODT [Zofran ODT] 4 mg SL Q6HR PRN #30 tab.rapdis 08/09/17 [Rx] OxyCODONE/APAP 5/325 [Percocet 5/325 MG] 1 each PO Q6HR PRN 5 Days #20 tablet [Rx] 3 Allergy/AdvReac Type Severity Reaction Status Date / Time Sulfa (Sulfonamide Allergy Anaphylaxis Verified 08/09/17 09:33 Antibiotics) All Systems Review: The remainder of the systems were reviewed and are negative - Constitutional Constitutional: no fever(s), no headache(s) - EENT Eyes: no blurred vision - Cardiovascular Cardiovascular: as per HPI - Respiratory Respiratory: no cough, no dyspnea - Gastrointestinal Gastrointestinal: no hematemesis, no hematochezia - Integumentary Integumentary: no rash - Neurological Neurological: no abnormal speech, no focal weakness Physical Examination Vital Signs, Last 4 Hours Temp Pulse Resp BP Pulse Ox 08/12/17 10:05 134 20 106/79 96 08/12/17 09:22 136 26 122/107 93 08/12/17 08:17 127 26 114/65 95 08/12/17 08:00 97.7 F 08/12/17 07:46 137 20 113/64 91 General: Conversant, No Apparent Distress HEENT: Atraumatic, Normocephaly, Mucus Membranes Moist Neck: No JVD, Normal carotid pulses Cardiac: Normal S1 and S2, No Murmur, Other (tachycardia) Lungs: Normal Breath Sounds, No Wheeze, Rales, Rhonchi Neuro: Alert and responsive, No focal deficits noted Abdomen: Soft, Other (surgical site covered in clean dressing, mild tenderness around the surgical site but no rigidity ) Skin: No rashes noted on visualized skin Musculoskeletal: No Chest Wall Tenderness Extremities: No Clubbing, No Cyanosis, Normal Pulses Results 08/12/17 04:46 08/12/17 04:46 Lab Results 08/11/17 08/12/17 08/12/17 11:00 04:46 04:46 WBC 20.8 H Hgb 11.4 L D Hct 35.2 L Plt Count 118 L Sodium 133 L Potassium 4.9 Chloride 107 Carbon Dioxide 15 L BUN 50 H Creatinine 1.80 H Glucose 127 H Calcium 7.0 L Total Bilirubin 1.2 H AST 52 H ALT 42 Alkaline Phosphatase 50 TSH 3.862 Consult Discharge Plan - Plan Additional Instructions: Surgical instructions: #1 may shower starting 08/10/17, no tub bath for 2 weeks #2 wash incisions with soap and water and pat dry daily #3 no lifting, pushing, pulling more than 15 pounds for the next 4 weeks #4 no driving until off narcotics for 24 hours and able to safely react in the car #5 may climb stairs Follow-up appointment: Sunday, August 20, 2017 with Sonia Joe CNP in the outpatient surgical office (Medical office building, [address]) [place] [facility] Diet After Saravanan Fundoplication Surgery This diet information is for patients who have recently had Saravanan Fundoplication Surgery to correct reflux disease or to repair various types of hernias, such as hiatal hernia and intrathoracic stomach. This diet may also be used for other gastrointestinal surgeries, such as Heller myotomy and repair of achalasia. The diet will help control diarrhea, excess gas and swallowing problems, which may occur after this type of surgery. Important Steps to Keep Your Stomach From Stretching Eat small, frequent meals (six to eight per day). This will help you consume the majority of the nutrients you need without causing your stomach to feel full or distended. Drinking large amounts of fluids with meals can stretch your stomach. You may drink fluids between meals as often as you like, but limit fluids to 1/2 cup (4 fluid ounces) with meals and one cup (8 fluid ounces) with snacks. Sit upright while eating and stay upright for 30 minutes after each meal. [place] can help food move through your digestive tract. Do not lie down after eating. Sit upright for 2 hours after your last meal or snack of the day. Eat very slowly. Take your time when eating. Take small bites and chew your food well to setter helper in swallowing and digestion. Avoid crusty breads and sticky, gummy foods, such as bananas, fresh doughy breads, rolls and doughnuts. These types of foods become sticky and difficult to swallow. Toasted breads tend to be better tolerated. Lastly, if you eat sweets, consume them at the end of your meal to avoid a group of symptoms referred to as dumping syndrome. This describes the rapid emptying of foods from the stomach to the small intestine. Sweetened beverages, candy and desserts move more rapidly and dump quickly into the intestines. This can cause symptoms of nausea, weakness, cold sweats, cramps, diarrhea and dizzy spells. Important Steps to Avoid Gas Do not drink through a straw, chew gum, or chew tobacco. These actions cause you to swallow air, which will produce excess gas in your stomach. Chew with your mouth closed and chew your food thoroughly. Avoid foods that cause stomach gas and distention. The foods include corn, dried beans, peas, lentils, onions, broccoli, cauliflower, and any food item from the cabbage family. Do not drink carbonated drinks, alcohol, citrus, or tomato products. What Will I Be Able To Eat and Drink After Surgery After Saravanan Fundoplication Surgery, your diet will be advanced slowly by your surgeon. Generally, you will be on a thin/clear liquid diet for the first 10 days. Then you will advance to the full liquid diet for 4 days and eventually to a Saravanan soft diet for 7 days. After any surgery, protein consumption is important for healing. To get enough protein, drink 3-4 [place] Instant Breakfast, Ensure, or equivalent daily. Reminder: carbonated beverages (such as sodas, energy drinks, flavored carbonated water), and alcohol are not permitted for the 1st 6 to 8 weeks after surgery. After this time you may attempt to reintroduce them in small amounts. Please note: dairy products such as milk, ice cream, and putting may cause diarrhea and some people after surgery. He may need to avoid milk products. If so you may substitute them with lactose free beverages, such as soy, rice, lactate, or almond milk. Please be aware that each patient's tolerance to food is different. Your doctor will advance your diet depending on how well you progress after surgery. Thin Liquid Diet The first diet after Saravanan Fundoplication Surgery is the thin liquids diet. Follow this diet for postoperative days 1-10 08/10/2017 - 08/19/2017. Thin liquids include: Apple, Cranberry, or Grape Juice (no citrus juice) Chicken Broth Beef Broth Flavored Gelatin (Jell-O) Decaffeinated Tea or Coffee Popsicles or [place] Ice Caffeinated Beverages Will Be Permitted Based upon Tolerance Dairy Thin Milkshakes (strawberry or vanilla flavored- No chocolate) Drink 3-4 [place] instant breakfast, Ensure, or equivalent daily. May be mixed with dairy for thin milkshakes Full Liquid Diet Follow this diet for postoperative days 11-14 08/20/2017- 08/23/2017. Full liquid diet includes anything in the thin liquid diet plus: Milk, Soy, Rice, and [place] (No Chocolate) Cream of Wheat, Cream of Rice, Grits Strained Creamed Soups (No Tomato Water Broccoli) Vanilla and [place] Flavored Ice Cream Sherbet Vanilla and Butterscotch Pudding (No Chocolate or Coconut) Continue 3-4 [place] Instant Breakfast, Ensure, or an Equivalent Daily. Maybe Next with Dairy for Thin Milkshakes. Saravanan Soft Diet Follow this diet for postoperative days 15-20 08/24/2017- 08/30/2017. (If you are consuming enough protein, you may stop the protein supplements). See Saravanan Diet handout for more specific information Referrals: Edyta Melgar, [facility] [Primary Care Provider] - <Tyler Lara - Last Filed: 08/12/17 17:41> Date of Encounter: 08/12/17 - Attending Attestation I examined this patient and my medical decision-making was reviewed with the Resident Physician. I agree with the documented findings, disposition and treatment plan as described except to the extent set forth below. CC: Chest pain, palpitations Pt complains of sever adominal pain, midline, and at incision site. Pt reports no pain if stays still, but reports pain is 10/10 with movement, cough or deep inspiration. She underwent elective Saravanan Fundoplication 08/09/2017, complicated by post op bleeding, transient hypotension with fluid ressuscitation in the OR. She has been monitored in the ICU post op, with intermittant sinus tachycardia, which see feels as palpitations, on and off. She notes palpitations are provoked by movement, but occur spontaneously. She is comfortable at present, HR 88, sinus. PMHx: reviewed PE; pt seen and examined, agree with documentation IMP/Plan: 1. Sinus tach: multifactorial, pt has hx SVT, has undergone previous eval as outpatient for same, with no definitive etiology determined. Heart rate is currently controlled with metoprolol 5 mg IV q 6 hours. She has not yet been able fully take oral tablets. Current sinus tach multifactorial, will order echo to eval wall motion, pericardium, continue metoprolol, will switch to po when able to take orals. 2. Elevated troponin: Suspect due to demand ischemia, previous normal LHC, will continue to trend 3. Abdominal pain: post op pian slowly improving. 4. Anemia: H&H continues to drift down, not clear she does not continue slow blood loss contributing to physiologic tachycardia, continue to monitor. Assessment and Plan Discussion w patient/family: The assessment and plan as outlined above was discussed with the patient and/or family members who expressed understanding and agreement. All questions were answered. Thank you for involving us in the care of your patient. Please call with any questions. History of Present Illness History of present illness: Ms. Will is a 46 year old female All Systems Review: The remainder of the systems were reviewed and are negative Physical Examination Vital Signs, Last 4 Hours Temp Pulse Resp BP Pulse Ox 08/12/17 17:09 144 24 98/77 90 08/12/17 16:11 125 24 110/68 93 08/12/17 16:00 99.0 F 08/12/17 15:26 127 20 98/66 92 08/12/17 14:20 142 20 103/74 90 08/12/17 13:38 130 20 106/86 92 Results 08/12/17 04:46 08/12/17 04:46 Lab Results 08/12/17 08/12/17 08/12/17 04:46 04:46 11:26 WBC 20.8 H Hgb 11.4 L D Hct 35.2 L Plt Count 118 L Sodium 133 L Potassium 4.9 Chloride 107 Carbon Dioxide 15 L BUN 50 H Creatinine 1.80 H Glucose 127 H Calcium 7.0 L Total Bilirubin 1.2 H AST 52 H ALT 42 Alkaline Phosphatase 50 Troponin I 0.13 H*
[2017-08-12] MEDS: Norepinephrine 4 MG in D5% in Water 250 ML IVC SCH (17:24)
[2017-08-13] MEDS: *HR* Metoprolol 5 MG/5 ML VIAL IVP SCH ×4 (02:32→20:53)
[2017-08-13] MEDS: *HR* Morphine 30 MG/ 30 ML PCA IVC PRN (02:32)
[2017-08-13 04:49] LABS: Basophils # 0.1 K/mcL (0.0-0.2); Basophils % 0.6 %; Hematocrit 31.4 % (35.3-44.9); Hemoglobin 10.4 g/dL (11.5-15.4); Immature Granulocytes % 2.8 % (0-4); Lymphocytes # 0.5 K/mcL (0.6-4.6); Lymphocytes % 2.8 %; Mean Corpuscular HGB Conc 33.1 g/dL (31.6-35.5); Mean Corpuscular Volume 93.5 fL (83.0-100.0); Mean Platelet Volume 11.8 fL (9.4-12.4); Monocytes # 1.7 K/mcL (0.0-1.3); Monocytes % 9.4 %; Nucleated Red Blood Cells 0.5 /100 WBC (0); Platelet Count 132 K/mcL (140-400); Red Blood Count 3.36 M/mcL (3.82-4.97); Red Cell Distribution Width 15.9 % (11.5-14.5); Segmented Neutrophils % 84.4 %
[2017-08-13 05:02] LABS: Albumin 2.6 g/dL (3.5-5.7); Albumin/Globulin Ratio 1.1 (1.1-2.2); Calcium 7.4 mg/dL (8.6-10.3); Globulin 2.3 g/dL (2.4-3.5); Potassium 4.7 mEq/L (3.5-5.1); Total Protein 4.9 g/dL (6.4-8.9)
[2017-08-13 05:24] LABS: Neutrophils # 14.9 K/mcL (1.6-8.9)
[2017-08-13] MEDS: *HR* Heparin 5,000 UNIT/ML VIAL SQ SCH ×3 (05:34→20:53)
[2017-08-13] MEDS: 0.9 % Sodium Chloride 1,000 ML IVC SCH ×2 (05:35→08:28)
[2017-08-13 05:49] LABS: Platelet Estimate Slight Decrease (Normal); Reactive Lymphocytes Present (Not Present)
--- NOTE | 2017-08-13 05:50 | Electrocardiograph Report ---
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
--- NOTE | 2017-08-13 08:14 | Nephrology Progress Note ---
Date of Encounter: 08/13/17 Time of Encounter: 08:13 - Assessment and Plan (1) Acute kidney failure, unspecified Current Visit: Yes Status: Acute Patient has acute kidney injury in the setting of postoperative bleeding and hypotension. Her renal function is starting to improve. She has had continued positive fluid balance with bilateral pleural effusions. Reduce her maintenance IV fluid rate and also give her an additional dose of Lasix today. Qualifiers: Acute renal failure type: unspecified Qualified Code(s): N17.9 - Acute kidney failure, unspecified (2) GERD (gastroesophageal reflux disease) Current Visit: No Status: Chronic Qualifiers: Esophagitis presence: without esophagitis Qualified Code(s): K21.9 - Gastro -esophageal reflux disease without esophagitis Subjective Interval history: The patient continues to complain of postoperative pain. From a renal perspective her creatinine is starting to improve. Urine output is 1.3 L. Chest x-ray does show pleural effusions. Objective - Vital Signs Vital signs: Vital Signs Temp Pulse Resp BP Pulse Ox 08/13/17 08:03 98.3 F 08/13/17 06:00 130 24 106/72 91 08/13/17 05:00 141 26 112/75 88 08/13/17 04:00 132 22 120/78 91 08/13/17 03:00 126 22 109/69 94 08/13/17 02:30 134 24 111/69 91 08/13/17 01:00 136 22 122/59 90 08/13/17 00:39 99.4 F 08/13/17 00:00 130 22 105/67 91 08/12/17 23:30 130 22 117/75 91 08/12/17 22:00 133 22 103/66 92 08/12/17 21:00 127 20 101/64 94 08/12/17 20:51 100.3 F H 08/12/17 20:20 124 20 110/68 92 08/12/17 19:30 135 22 107/67 93 08/12/17 18:06 143 24 92 08/12/17 17:09 144 24 98/77 90 08/12/17 16:11 125 24 110/68 93 08/12/17 16:00 99.0 F 08/12/17 15:26 127 20 98/66 92 08/12/17 14:20 142 20 103/74 90 08/12/17 13:38 130 20 106/86 92 08/12/17 12:06 137 24 107/66 91 08/12/17 12:00 98.2 F 08/12/17 11:27 141 24 92/66 92 08/12/17 10:05 134 20 106/79 96 08/12/17 09:22 136 26 122/107 93 08/12/17 08:17 127 26 114/65 95 Intake and Output 08/12/17 08/13/17 08/13/17 23:59 07:59 15:59 Intake Total 1000 / 1000 1250 / 1250 Output Total 165 / 165 550 / 550 200 / 200 Balance 835 / 835 700 / 700 -200 / -200 Intake: IV Fluids 1000 / 1000 1000 / 1000 0.9 % Sodium Chloride 1,000 ML 1000 / 1000 1000 / 1000 @ 100 mls/hr IVC .Q10H APRIL Rx#: [id number] Oral 250 / 250 Output: Urine 65 / 65 Catheter 100 / 100 550 / 550 200 / 200 Other: Weight 128.3 kg Patient Weight 08/13/17 23:59 Weight 128.3 kg - General Appearance Exam: Patient is alert. Lungs demonstrate diminished breath sounds in the bases. Heart regular rate and rhythm. Heart rate is about 140. Rhythm is sinus tachycardia. Abdomen is tender around the incision. There is minimal lower extremity swelling. - Lab 08/13/17 04:05 08/13/17 04:05 Most recent lab results Calcium 7.4 mg/dL (8.6-10.3) L 08/13/17 04:05 Phosphorus 3.6 mg/dL (2.7-4.5) 08/10/17 16:16 Magnesium 1.6 mg/dL (1.6-2.6) 08/10/17 16:16 - VTE Documentation of Mechanical Device: Intermittent pneumatic compression device Consult Discharge Plan - Plan Additional Instructions: Surgical instructions: #1 may shower starting 08/10/17, no tub bath for 2 weeks #2 wash incisions with soap and water and pat dry daily #3 no lifting, pushing, pulling more than 15 pounds for the next 4 weeks #4 no driving until off narcotics for 24 hours and able to safely react in the car #5 may climb stairs Follow-up appointment: Sunday, August 20, 2017 with Sonia Joe CNP in the outpatient surgical office (Medical office building, [address]) [place] [facility] Diet After Saravanan Fundoplication Surgery This diet information is for patients who have recently had Saravanan Fundoplication Surgery to correct reflux disease or to repair various types of hernias, such as hiatal hernia and intrathoracic stomach. This diet may also be used for other gastrointestinal surgeries, such as Heller myotomy and repair of achalasia. The diet will help control diarrhea, excess gas and swallowing problems, which may occur after this type of surgery. Important Steps to Keep Your Stomach From Stretching Eat small, frequent meals (six to eight per day). This will help you consume the majority of the nutrients you need without causing your stomach to feel full or distended. Drinking large amounts of fluids with meals can stretch your stomach. You may drink fluids between meals as often as you like, but limit fluids to 1/2 cup (4 fluid ounces) with meals and one cup (8 fluid ounces) with snacks. Sit upright while eating and stay upright for 30 minutes after each meal. [place] can help food move through your digestive tract. Do not lie down after eating. Sit upright for 2 hours after your last meal or snack of the day. Eat very slowly. Take your time when eating. Take small bites and chew your food well to bag machine operator helper in swallowing and digestion. Avoid crusty breads and sticky, gummy foods, such as bananas, fresh doughy breads, rolls and doughnuts. These types of foods become sticky and difficult to swallow. Toasted breads tend to be better tolerated. Lastly, if you eat sweets, consume them at the end of your meal to avoid a group of symptoms referred to as dumping syndrome. This describes the rapid emptying of foods from the stomach to the small intestine. Sweetened beverages, candy and desserts move more rapidly and dump quickly into the intestines. This can cause symptoms of nausea, weakness, cold sweats, cramps, diarrhea and dizzy spells. Important Steps to Avoid Gas Do not drink through a straw, chew gum, or chew tobacco. These actions cause you to swallow air, which will produce excess gas in your stomach. Chew with your mouth closed and chew your food thoroughly. Avoid foods that cause stomach gas and distention. The foods include corn, dried beans, peas, lentils, onions, broccoli, cauliflower, and any food item from the cabbage family. Do not drink carbonated drinks, alcohol, citrus, or tomato products. What Will I Be Able To Eat and Drink After Surgery After Saravanan Fundoplication Surgery, your diet will be advanced slowly by your surgeon. Generally, you will be on a thin/clear liquid diet for the first 10 days. Then you will advance to the full liquid diet for 4 days and eventually to a Saravanan soft diet for 7 days. After any surgery, protein consumption is important for healing. To get enough protein, drink 3-4 [place] Instant Breakfast, Ensure, or equivalent daily. Reminder: carbonated beverages (such as sodas, energy drinks, flavored carbonated water), and alcohol are not permitted for the 1st 6 to 8 weeks after surgery. After this time you may attempt to reintroduce them in small amounts. Please note: dairy products such as milk, ice cream, and putting may cause diarrhea and some people after surgery. He may need to avoid milk products. If so you may substitute them with lactose free beverages, such as soy, rice, lactate, or almond milk. Please be aware that each patient's tolerance to food is different. Your doctor will advance your diet depending on how well you progress after surgery. Thin Liquid Diet The first diet after Saravanan Fundoplication Surgery is the thin liquids diet. Follow this diet for postoperative days 1-10 08/10/2017 - 08/19/2017. Thin liquids include: Apple, Cranberry, or Grape Juice (no citrus juice) Chicken Broth Beef Broth Flavored Gelatin (Jell-O) Decaffeinated Tea or Coffee Popsicles or [place] Ice Caffeinated Beverages Will Be Permitted Based upon Tolerance Dairy Thin Milkshakes (strawberry or vanilla flavored- No chocolate) Drink 3-4 [place] instant breakfast, Ensure, or equivalent daily. May be mixed with dairy for thin milkshakes Full Liquid Diet Follow this diet for postoperative days 11-14 08/20/2017- 08/23/2017. Full liquid diet includes anything in the thin liquid diet plus: Milk, Soy, Rice, and [place] (No Chocolate) Cream of Wheat, Cream of Rice, Grits Strained Creamed Soups (No Tomato Water Broccoli) Vanilla and [place] Flavored Ice Cream Sherbet Vanilla and Butterscotch Pudding (No Chocolate or Coconut) Continue 3-4 [place] Instant Breakfast, Ensure, or an Equivalent Daily. Maybe Next with Dairy for Thin Milkshakes. Saravanan Soft Diet Follow this diet for postoperative days 15-20 08/24/2017- 08/30/2017. (If you are consuming enough protein, you may stop the protein supplements). See Saravanan Diet handout for more specific information Referrals: Edyta Melgar, [facility]ILY [facility]ACTICE MEDICAL DOCTOR [Primary Care Provider] -
[2017-08-13] MEDS ORDERED: Furosemide 20 MG/2 ML VIAL IVP ONE (08:15)
[2017-08-13] MEDS ORDERED: Simethicone 80 MG TAB.CHEW PO PRN (09:57)
[2017-08-13] MEDS ORDERED: *HR* Midazolam HCl 5 MG/5 ML VIAL IVP ONE (09:57)
[2017-08-13] MEDS ORDERED: *HR* LORazepam 2 MG/ML VIAL IVP PRN (10:15)
[2017-08-13] MEDS ORDERED: Isovue-370 500 ML INFUS..BTL IV ONE (10:19)
--- NOTE | 2017-08-13 10:27 | General Surgery Progress Note ---
Date of Encounter: 08/13/17 Time of Encounter: 09:30 - Assessment and Plan (1) GERD (gastroesophageal reflux disease) Current Visit: No Status: Chronic POD # 4 s/p Saravanan Fundoplication and subsequent ex lap with oversewing of hepatic and splenic veins with Dr. Abhinav SMITH IV fluids- 50ml/hour Consider TPN in the next 48 hours if unable to take thin liquids with protein supplements Supportive care and pain control- NAIL SETTER Stat CT scan of chest/abdomen/pelvis with IV contrast for new onset hypoxia and RUQ abdominal pain Continue incentive spirometer every 1 hour while awake Continue carafate QID PPI therapy stopped 08/12/17 No concern for ongoing bleeding from a surgical standpoint Qualifiers: Esophagitis presence: without esophagitis Qualified Code(s): K21.9 - Gastro -esophageal reflux disease without esophagitis (2) Acute respiratory failure Current Visit: Yes Status: Acute Stat CT of chest- PE protocol Oxygen via non-rebreather mask Stat ABG Add Duonebs every 4 hours Incentive Spirometer every 1 hour while awake Consult to pulmonary/critical care team- discussed with Dr. Mullen Qualifiers: Respiratory failure complication: hypoxia Qualified Code(s): J96.01 - Acute respiratory failure with hypoxia (3) Chest pain Current Visit: No Status: Acute Stat EKG complete Cardiology following Appreciate recommendations Echo complete- LVEF 70% Qualifiers: Chest pain type: unspecified Qualified Code(s): R07.9 - Chest pain, unspecified (4) Acute kidney failure, unspecified Current Visit: Yes Status: Acute Qualifiers: Acute renal failure type: unspecified Qualified Code(s): N17.9 - Acute kidney failure, unspecified (5) Tachycardia Current Visit: Yes Status: Acute Continue metoprolol scheduled every 6 hours Cardiology following for recommendations (6) DVT prophylaxis Current Visit: No Status: Acute Heparin 5,000 units SQ TID for DVT prophylaxis Subjective Patient reports: still having pain (complaint of worsening pain in the RUQ- difficult to take a deep breath.), no flatus, no bowel movement, fever (Tmax- 100.3; Tcurrent- 98.3), other (Patient supplmental oxygen demand has increased this morning and currently on 100% nonrebreather mask saturating 88%) Objective Vital Signs - Last 8 Hours Temp Pulse Resp BP Pulse Ox 08/13/17 10:00 141 28 106/73 87 08/13/17 09:00 134 22 124/79 92 08/13/17 08:12 139 08/13/17 08:03 98.3 F 08/13/17 08:00 128 24 115/61 93 08/13/17 07:00 143 22 111/71 93 08/13/17 06:00 130 24 106/72 91 08/13/17 05:00 141 26 112/75 88 08/13/17 04:00 132 22 120/78 91 08/13/17 03:00 126 22 109/69 94 08/13/17 02:30 134 24 111/69 91 Intake and Output 08/12/17 08/13/17 08/13/17 23:59 07:59 15:59 Intake Total 1000 / 1000 1250 / 1250 Output Total 165 / 165 550 / 550 200 / 200 Balance 835 / 835 700 / 700 -200 / -200 Intake: IV Fluids 1000 / 1000 1000 / 1000 0.9 % Sodium Chloride 1,000 ML 1000 / 1000 1000 / 1000 @ 100 mls/hr IVC .Q10H [facility] Rx#: [id number] Oral 250 / 250 Output: Urine 65 / 65 Catheter 100 / 100 550 / 550 200 / 200 Other: Weight 128.3 kg Patient Weight 08/13/17 23:59 Weight 128.3 kg - General physical appearance well developed, moderate distress, moderate pain - Eyes normal ocular movement - ENT normal mucosa, atraumatic, normocephalic - Neck Neck exam: trachea midline - Respiratory clear to auscultation, other (patient respirations are shallow and she is tachypnic; diminished breath sounds bibasilar bases) - Cardiovascular Cardiovascular exam: Present: tachycardia - Abdomen Abdomen: Present: bowel sounds present (hypoactive), soft, tender Abdominal Tenderness: RUQ - Incision Incision: Present: clean and dry, intact - Genitourinary other (mckinnon catheter to SD with clear, yellow urine noted (approximately 850ml noted since midnight)) - Neurologic CN 2-12 grossly intact - Musculoskeletal other (physical deconditioning) - Psychiatric oriented to time, oriented to person, oriented to place - Labs 08/13/17 04:05 08/13/17 04:05 Diabetes panel 08/13/17 Range/Units 04:05 Sodium 131 L (136-145) mEq/L Potassium 4.7 (3.5-5.1) mEq/L Chloride 107 (98-107) mEq/L Carbon Dioxide 16 L (23-29) mEq/L BUN 47 H (6-20) mg/dL Creatinine 1.38 H (0.60-1.20) mg/dL Glucose 114 H (70-105) mg/dL Calcium 7.4 L (8.6-10.3) mg/dL AST 35 (13-39) Units/L ALT 31 (7-52) Units/L Alkaline Phosphatase 54 (34-104) Units/L Albumin 2.6 L (3.5-5.7) g/dL Calcium panel 08/13/17 Range/Units 04:05 Calcium 7.4 L (8.6-10.3) mg/dL Albumin 2.6 L (3.5-5.7) g/dL Pituitary panel 08/13/17 Range/Units 04:05 Sodium 131 L (136-145) mEq/L Potassium 4.7 (3.5-5.1) mEq/L Chloride 107 (98-107) mEq/L Carbon Dioxide 16 L (23-29) mEq/L BUN 47 H (6-20) mg/dL Creatinine 1.38 H (0.60-1.20) mg/dL Glucose 114 H (70-105) mg/dL Calcium 7.4 L (8.6-10.3) mg/dL Adrenal panel 08/13/17 Range/Units 04:05 Sodium 131 L (136-145) mEq/L Potassium 4.7 (3.5-5.1) mEq/L Chloride 107 (98-107) mEq/L Carbon Dioxide 16 L (23-29) mEq/L BUN 47 H (6-20) mg/dL Creatinine 1.38 H (0.60-1.20) mg/dL Glucose 114 H (70-105) mg/dL Calcium 7.4 L (8.6-10.3) mg/dL Total Bilirubin 1.0 (0.3-1.0) mg/dL AST 35 (13-39) Units/L ALT 31 (7-52) Units/L Alkaline Phosphatase 54 (34-104) Units/L Albumin 2.6 L (3.5-5.7) g/dL - VTE Documentation of Mechanical Device: Intermittent pneumatic compression device Consult Discharge Plan - Plan Additional Instructions: Surgical instructions: #1 may shower starting 08/10/17, no tub bath for 2 weeks #2 wash incisions with soap and water and pat dry daily #3 no lifting, pushing, pulling more than 15 pounds for the next 4 weeks #4 no driving until off narcotics for 24 hours and able to safely react in the car #5 may climb stairs Follow-up appointment: Sunday, August 20, 2017 with Sonia Joe CNP in the outpatient surgical office (Medical office building, [address]) [place] Surgical Diet After Saravanan Fundoplication Surgery This diet information is for patients who have recently had Saravanan Fundoplication Surgery to correct reflux disease or to repair various types of hernias, such as hiatal hernia and intrathoracic stomach. This diet may also be used for other gastrointestinal surgeries, such as Heller myotomy and repair of achalasia. The diet will help control diarrhea, excess gas and swallowing problems, which may occur after this type of surgery. Important Steps to Keep Your Stomach From Stretching Eat small, frequent meals (six to eight per day). This will help you consume the majority of the nutrients you need without causing your stomach to feel full or distended. Drinking large amounts of fluids with meals can stretch your stomach. You may drink fluids between meals as often as you like, but limit fluids to 1/2 cup (4 fluid ounces) with meals and one cup (8 fluid ounces) with snacks. Sit upright while eating and stay upright for 30 minutes after each meal. [place] can help food move through your digestive tract. Do not lie down after eating. Sit upright for 2 hours after your last meal or snack of the day. Eat very slowly. Take your time when eating. Take small bites and chew your food well to carpenter helper in swallowing and digestion. Avoid crusty breads and sticky, gummy foods, such as bananas, fresh doughy breads, rolls and doughnuts. These types of foods become sticky and difficult to swallow. Toasted breads tend to be better tolerated. Lastly, if you eat sweets, consume them at the end of your meal to avoid a group of symptoms referred to as dumping syndrome. This describes the rapid emptying of foods from the stomach to the small intestine. Sweetened beverages, candy and desserts move more rapidly and dump quickly into the intestines. This can cause symptoms of nausea, weakness, cold sweats, cramps, diarrhea and dizzy spells. Important Steps to Avoid Gas Do not drink through a straw, chew gum, or chew tobacco. These actions cause you to swallow air, which will produce excess gas in your stomach. Chew with your mouth closed and chew your food thoroughly. Avoid foods that cause stomach gas and distention. The foods include corn, dried beans, peas, lentils, onions, broccoli, cauliflower, and any food item from the cabbage family. Do not drink carbonated drinks, alcohol, citrus, or tomato products. What Will I Be Able To Eat and Drink After Surgery After Saravanan Fundoplication Surgery, your diet will be advanced slowly by your surgeon. Generally, you will be on a thin/clear liquid diet for the first 10 days. Then you will advance to the full liquid diet for 4 days and eventually to a Saravanan soft diet for 7 days. After any surgery, protein consumption is important for healing. To get enough protein, drink 3-4 [place] Instant Breakfast, Ensure, or equivalent daily. Reminder: carbonated beverages (such as sodas, energy drinks, flavored carbonated water), and alcohol are not permitted for the 1st 6 to 8 weeks after surgery. After this time you may attempt to reintroduce them in small amounts. Please note: dairy products such as milk, ice cream, and putting may cause diarrhea and some people after surgery. He may need to avoid milk products. If so you may substitute them with lactose free beverages, such as soy, rice, lactate, or almond milk. Please be aware that each patient's tolerance to food is different. Your doctor will advance your diet depending on how well you progress after surgery. Thin Liquid Diet The first diet after Saravanan Fundoplication Surgery is the thin liquids diet. Follow this diet for postoperative days 1-10 08/10/2017 - 08/19/2017. Thin liquids include: Apple, Cranberry, or Grape Juice (no citrus juice) Chicken Broth Beef Broth Flavored Gelatin (Jell-O) Decaffeinated Tea or Coffee Popsicles or [place] Ice Caffeinated Beverages Will Be Permitted Based upon Tolerance Dairy Thin Milkshakes (strawberry or vanilla flavored- No chocolate) Drink 3-4 [place] instant breakfast, Ensure, or equivalent daily. May be mixed with dairy for thin milkshakes Full Liquid Diet Follow this diet for postoperative days 11-14 08/20/2017- 08/23/2017. Full liquid diet includes anything in the thin liquid diet plus: Milk, Soy, Rice, and [place] (No Chocolate) Cream of Wheat, Cream of Rice, Grits Strained Creamed Soups (No Tomato Water Broccoli) Vanilla and [place] Flavored Ice Cream Sherbet Vanilla and Butterscotch Pudding (No Chocolate or Coconut) Continue 3-4 [place] Instant Breakfast, Ensure, or an Equivalent Daily. Maybe Next with Dairy for Thin Milkshakes. Saravanan Soft Diet Follow this diet for postoperative days 15-20 08/24/2017- 08/30/2017. (If you are consuming enough protein, you may stop the protein supplements). See Saravanan Diet handout for more specific information Referrals: Edyta Melgar, FOUNDATION DIRECTOR [Primary Care Provider] - - Attending Attestation For this encounter, I have reviewed the HUMAN CAPITAL MANAGER or PA documentation, treatment plan, and medical decision making; and I have had face to face time with this patient.
[2017-08-13 11:33] LABS: ABG Base Excess -11 mEq/L (-2 to 3); ABG HCO3 15 mEq/L (21-27); ABG Oxygen Saturation 89 % (95-98); ABG PCO2 35 mmHg (35-45); ABG PH 7.26 pH Units (7.32-7.45); ABG PO2 64 mmHg (85-104); ABG TCO2 16 mEq/L (20-26)
[2017-08-13] MEDS ORDERED: Propofol 500 MG/50 ML INFUS..BTL ONE (11:47)
[2017-08-13] MEDS ORDERED: Lacri-Lube 3.5 GM TUBE BOTH EYES PRN (11:58)
[2017-08-13] MEDS ORDERED: Lidocaine -MPF 1% 5 ML AMPUL INFILT ONE (12:00)
[2017-08-13] MEDS: Lacri-Lube 3.5 GM TUBE BOTH EYES SCH ×3 (13:28→20:53)
[2017-08-13] MEDS: Piperacillin/Tazobactam 3.375 GM in 0.9 % Sodium Chloride Mini Bag 100 ML IVPB SCH ×2 (13:39→17:03)
--- NOTE | 2017-08-13 13:49 | Cardiology Progress Note ---
<Rachna Peraza - Last Filed: 08/13/17 13:59> Date of Encounter: 08/13/17 Time of Encounter: 13:47 Assessment and Plan (1) Tachycardia Current Visit: Yes Status: Acute Patient remains tachycaridc in the 130s. Patient's echo yesterday completed and showed hyperdynamic LV and RV. Concern this is due to intravascular dehydration. Defer fluid resuscitation to nephrology and critical care physician. (2) Elevated troponin Current Visit: Yes Status: Acute Patient's troponin elevated at .13 and repeat at .1. Most likely from demand ischemia due to prolonged hypotension. Repeat EKG completed and shows no new changes. (3) Anemia Current Visit: Yes Status: Acute Hemoglobin continues to decrease. Now at 10.4 Qualifiers: Anemia type: unspecified type Qualified Code(s): D64.9 - Anemia, unspecified Discussion w patient/family: The assessment and plan as outlined above was discussed with the patient and/or family members who expressed understanding and agreement. All questions were answered. Thank you for involving us in the care of your patient. Please call with any questions. Subjective Principal diagnosis: Tachycardia Interval history: Patient now intubated at this time. Patient had Echo completed yesterday that showed hyperdynamic RV and LV with EF 70%. Patient continues to have fluids maintained by nephrology. CTA completed showed no PE. Objective Vital Signs, Last 4 Hours Temp Pulse Resp BP Pulse Ox 08/13/17 13:39 24 85/53 97 08/13/17 13:00 132 22 85/53 98 08/13/17 12:00 141 26 83/54 89 08/13/17 11:23 147 08/13/17 11:00 99.4 F 147 28 107/75 88 08/13/17 10:00 141 28 106/73 87 General: Other (Intubated) HEENT: Atraumatic, Normocephaly Neck: No JVD Cardiac: Normal S1 and S2, No Murmur, Other (Tachycardia, regular rhythm) Lungs: Other (decreased breath sound bilaterally ) Neuro: Other (Intubated) Abdomen: Other (Non-rigid abdomen, midline vertical incision draped in clean covering) Skin: Other (Ecchymosis noted on bilateral antecubital fossas and small ecchymosis noted on the bilateral lower extremities) Extremities: Normal Pulses, Other (edema noted in all extremities) Results 08/13/17 04:05 08/13/17 04:05 Lab Results 08/12/17 08/13/17 08/13/17 17:15 04:05 04:05 WBC 17.6 H Hgb 10.4 L Hct 31.4 L Plt Count 132 L Sodium 131 L Potassium 4.7 Chloride 107 Carbon Dioxide 16 L BUN 47 H Creatinine 1.38 H Glucose 114 H Calcium 7.4 L Total Bilirubin 1.0 AST 35 ALT 31 Alkaline Phosphatase 54 Troponin I 0.10 H* - VTE Documentation of Mechanical Device: Intermittent pneumatic compression device Consult Discharge Plan - Plan Additional Instructions: Surgical instructions: #1 may shower starting 08/10/17, no tub bath for 2 weeks #2 wash incisions with soap and water and pat dry daily #3 no lifting, pushing, pulling more than 15 pounds for the next 4 weeks #4 no driving until off narcotics for 24 hours and able to safely react in the car #5 may climb stairs Follow-up appointment: Sunday, August 20, 2017 with Sonia Joe CNP in the outpatient surgical office (Medical office building, [address]) [place] Surgical Diet After Saravanan Fundoplication Surgery This diet information is for patients who have recently had Saravanan Fundoplication Surgery to correct reflux disease or to repair various types of hernias, such as hiatal hernia and intrathoracic stomach. This diet may also be used for other gastrointestinal surgeries, such as Heller myotomy and repair of achalasia. The diet will help control diarrhea, excess gas and swallowing problems, which may occur after this type of surgery. Important Steps to Keep Your Stomach From Stretching Eat small, frequent meals (six to eight per day). This will help you consume the majority of the nutrients you need without causing your stomach to feel full or distended. Drinking large amounts of fluids with meals can stretch your stomach. You may drink fluids between meals as often as you like, but limit fluids to 1/2 cup (4 fluid ounces) with meals and one cup (8 fluid ounces) with snacks. Sit upright while eating and stay upright for 30 minutes after each meal. [place] can help food move through your digestive tract. Do not lie down after eating. Sit upright for 2 hours after your last meal or snack of the day. Eat very slowly. Take your time when eating. Take small bites and chew your food well to well drill operator helper cable tool in swallowing and digestion. Avoid crusty breads and sticky, gummy foods, such as bananas, fresh doughy breads, rolls and doughnuts. These types of foods become sticky and difficult to swallow. Toasted breads tend to be better tolerated. Lastly, if you eat sweets, consume them at the end of your meal to avoid a group of symptoms referred to as dumping syndrome. This describes the rapid emptying of foods from the stomach to the small intestine. Sweetened beverages, candy and desserts move more rapidly and dump quickly into the intestines. This can cause symptoms of nausea, weakness, cold sweats, cramps, diarrhea and dizzy spells. Important Steps to Avoid Gas Do not drink through a straw, chew gum, or chew tobacco. These actions cause you to swallow air, which will produce excess gas in your stomach. Chew with your mouth closed and chew your food thoroughly. Avoid foods that cause stomach gas and distention. The foods include corn, dried beans, peas, lentils, onions, broccoli, cauliflower, and any food item from the cabbage family. Do not drink carbonated drinks, alcohol, citrus, or tomato products. What Will I Be Able To Eat and Drink After Surgery After Saravanan Fundoplication Surgery, your diet will be advanced slowly by your surgeon. Generally, you will be on a thin/clear liquid diet for the first 10 days. Then you will advance to the full liquid diet for 4 days and eventually to a Saravanan soft diet for 7 days. After any surgery, protein consumption is important for healing. To get enough protein, drink 3-4 [place] Instant Breakfast, Ensure, or equivalent daily. Reminder: carbonated beverages (such as sodas, energy drinks, flavored carbonated water), and alcohol are not permitted for the 1st 6 to 8 weeks after surgery. After this time you may attempt to reintroduce them in small amounts. Please note: dairy products such as milk, ice cream, and putting may cause diarrhea and some people after surgery. He may need to avoid milk products. If so you may substitute them with lactose free beverages, such as soy, rice, lactate, or almond milk. Please be aware that each patient's tolerance to food is different. Your doctor will advance your diet depending on how well you progress after surgery. Thin Liquid Diet The first diet after Saravanan Fundoplication Surgery is the thin liquids diet. Follow this diet for postoperative days 1-10 08/10/2017 - 08/19/2017. Thin liquids include: Apple, Cranberry, or Grape Juice (no citrus juice) Chicken Broth Beef Broth Flavored Gelatin (Jell-O) Decaffeinated Tea or Coffee Popsicles or [place] Ice Caffeinated Beverages Will Be Permitted Based upon Tolerance Dairy Thin Milkshakes (strawberry or vanilla flavored- No chocolate) Drink 3-4 [place] instant breakfast, Ensure, or equivalent daily. May be mixed with dairy for thin milkshakes Full Liquid Diet Follow this diet for postoperative days 11-14 08/20/2017- 08/23/2017. Full liquid diet includes anything in the thin liquid diet plus: Milk, Soy, Rice, and [place] (No Chocolate) Cream of Wheat, Cream of Rice, Grits Strained Creamed Soups (No Tomato Water Broccoli) Vanilla and [place] Flavored Ice Cream Sherbet Vanilla and Butterscotch Pudding (No Chocolate or Coconut) Continue 3-4 [place] Instant Breakfast, Ensure, or an Equivalent Daily. Maybe Next with Dairy for Thin Milkshakes. Saravanan Soft Diet Follow this diet for postoperative days 15-20 08/24/2017- 08/30/2017. (If you are consuming enough protein, you may stop the protein supplements). See Saravanan Diet handout for more specific information Referrals: Edyta Melgar, STUBBER [Primary Care Provider] - <Tyler Lara - Last Filed: 08/15/17 08:31> Date of Encounter: 08/13/17 Time of Encounter: 16:00 Assessment and Plan Discussion w patient/family: The assessment and plan as outlined above was discussed with the patient and/or family members who expressed understanding and agreement. All questions were answered. Thank you for involving us in the care of your patient. Please call with any questions. Objective Vital Signs, Last 4 Hours Temp Pulse Resp BP Pulse Ox 08/15/17 08:23 26 90/52 94 08/15/17 07:00 90.3 F L 63 26 90/52 93 08/15/17 06:43 63 26 87/52 93 08/15/17 06:05 26 92/56 93 08/15/17 06:00 64 26 90/54 99 08/15/17 05:00 65 26 88/53 100 Results 08/15/17 03:20 08/15/17 03:20 Lab Results 08/14/17 08/14/17 08/15/17 09:41 09:41 03:20 WBC 41.0 H* Hgb 8.9 L Hct 27.7 L Plt Count 115 L Sodium 129 L Potassium 5.0 Chloride 102 Carbon Dioxide 18 L BUN 57 H Creatinine 1.97 H Glucose 238 H Calcium 6.6 L Magnesium 2.1 2.0 Total Bilirubin 1.2 H AST 59 H ALT 19 Alkaline Phosphatase 19 L 08/15/17 08/15/17 03:20 03:20 WBC 40.9 H* Hgb 9.2 L Hct 27.7 L Plt Count 48 L D Sodium 130 L Potassium 4.0 Chloride 100 Carbon Dioxide 20 L BUN 44 H Creatinine 1.55 H Glucose 214 H Calcium 6.5 L Magnesium Total Bilirubin AST ALT Alkaline Phosphatase - Attending Attestation I examined this patient and my medical decision-making was reviewed with the Resident Physician. I agree with the documented findings, disposition and treatment plan as described except to the extent set forth below. CC: palpitations Pt developed increased respiratory difficulty last PM, was intubated, now intubated and sedated. PE: reviewed, agree with findings as documented IMP: 1. Sinus tachycardia - appropriate for hemodynamic demands, echocardiogram demonstrates hyperactive LV, suspect may be somewhat invascularly underfilled. Discussed echo results with pts at bedside. Will sign off, please recontact if can be of assistance.
[2017-08-13 14:01] LABS: ABG Base Excess -11 mEq/L (-2 to 3); ABG HCO3 15 mEq/L (21-27); ABG Oxygen Saturation 94 % (95-98); ABG PCO2 31 mmHg (35-45); ABG PH 7.28 pH Units (7.32-7.45); ABG PO2 78 mmHg (85-104); ABG TCO2 16 mEq/L (20-26); Blood Gas Modality VC; Blood Gas PEEP 10 cm H2O; Blood Gas Respiration Rate 14; Blood Gas VT 450 cc
[2017-08-13] MEDS: FentaNYL (PF) 1,000 MCG in 0.9 % Sodium Chloride 80 ML IVC SCH (14:03)
[2017-08-13] MEDS: Dexmedetomidine HCl 400 MCG/100 ML MLS IVC SCH ×2 (14:03→21:01)
--- NOTE | 2017-08-13 14:30 | Pulmonology Consult Note ---
<Yonatan Basurto - Last Filed: 08/13/17 18:29> Date of Encounter: 08/13/17 Time of Encounter: 14:29 Assessment and Plan (1) GERD (gastroesophageal reflux disease) Current Visit: No Status: Chronic POD # 4 s/p Saravanan Fundoplication and subsequent ex lap with oversewing of hepatic and splenic veins with Dr. La - NPO - IV fluids- 50ml/hour - Consider TPN in the next 48 hours if unable to take thin liquids with protein supplements - Zosyn 3.375 IV every 8 - Vancomycin 2 g IV every 12 - Zofran 4 mg IV every 6 when necessary - Morphine 30 mg Qualifiers: Esophagitis presence: without esophagitis Qualified Code(s): K21.9 - Gastro -esophageal reflux disease without esophagitis (2) Acute respiratory failure with hypoxia Current Visit: Yes Status: Acute - On 08/13/17, patient developed respiratory distress - ABG demonstrated the followin.26/35/64/15/16/89 - Patient had diminished breath sounds in the bilateral lower lobes - Was placed on oxygen mask 15 L, then to a nonrebreather - Patient was satting at 89% on a nonrebreather - Decision was made to intubate patient - Patient was given 2 mg Versed, etomidate 10 mg - Patient was successfully intubated; was then started on propofol and fentanyl drip - Currently on fentanyl and Precedex for sedation (3) Abnormal chest CT Current Visit: Yes Status: Acute Chest CT was obtained for the possibility of pulmonary embolism; demonstrated the following 1. No evidence of pulmonary embolism. 2. Small b/l pleural effusions with extensive lower lobe atelectasis and/or consolidation. 3. Suspected partial SBO, with transition point along the RLQ. 4. Small to moderate amount of ascites. Organized clot is seen along the low pelvis and the L pericolic gutter, without definite evidence of acute hemoperitoneum. 5. Heterogeneous enhancement of the spleen, particularly along its superior and inferior poles. This is favored to be related to a splenic infarct, with splenic laceration a less likely possibility. 6. Postoperative changes about the GE junction with complex fluid adjacent to the distal esophagus. No definite free intraperitoneal air. 7. Mild thickening of the peritoneal lining, which can be seen with peritonitis. 8. Diffuse anasarca. (4) Chest pain Current Visit: No Status: Acute Stat EKG complete - Cardiology following - Appreciate recommendations - Echo complete- LVEF 70% Qualifiers: Chest pain type: unspecified Qualified Code(s): R07.9 - Chest pain, unspecified (5) Acute kidney failure, unspecified Current Visit: Yes Status: Acute Patient has a LLOYD the setting of postoperative bleeding and hypotension - Patients kidney function is improving; creatinine has decreased from 1.80- 1.38 - Patient has positive fluid balance with bilateral pleural effusions - Nephrology is on board; would appreciate further recommendations Qualifiers: Acute renal failure type: unspecified Qualified Code(s): N17.9 - Acute kidney failure, unspecified (6) Hypotension Current Visit: Yes Status: Acute Levophed has been ordered per surgery recommendations - Normal saline bolus - Continue to monitor vital signs Qualifiers: Qualified Code(s): I95.9 - Hypotension, unspecified (7) Tachycardia Current Visit: Yes Status: Acute - Continue metoprolol scheduled every 6 hours - Cardiology following for recommendations (8) Anemia Current Visit: Yes Status: Acute - Concern for small continual GIB at this time - Continue to monitor Hb; transfuse if <7 Qualifiers: Qualified Code(s): D64.9 - Anemia, unspecified (9) DVT prophylaxis Current Visit: No Status: Acute - SCDs History of Present Illness Consult date: 08/13/17 Chief complaint: Shortness of breath History of present illness: Patient is a 46-year-old female who recently underwent an elective robotic- assisted hiatal hernia repair with Saravanan fundoplication. Following the initial procedure, patient became hypotensive. Developed bleeding from the hepatic and splenic veins. Required an open procedure for repair. She subsequently developed YOJANA. Has been on TPN, and has been followed by cardiology for volume overload. On the morning of 08/13/17, patient developed respiratory distress. ABG that morning demonstrated the followin.26/35/64/ //. Patient had diminished breath sounds at the bilateral lower lobes. She was placed on oxygen mask 15 L, and was placed on a nonrebreather. She was satting at 89% on the nonrebreather. The decision at this time was to intubate the patient. She was intubated and successfully intubated. She was then placed on a propofol and fentanyl drip. Precedex was added later. Patient has been tachycardic during her stay, with her heart rate in the 130s. Patient developed hypotension, for which Levaquin was started. Patient initially was given normal saline, which she responded to, but this was subsequently stopped due to concern of volume overload. Past Med Surg Social Fam HX - Past Medical History Medical history: GERD, thyroid disease, other Psychiatric history: no psych history - Past Surgical History Surgical History: cholecystectomy, hysterectomy, other - Social History Smoking Status: Never smoker Smokeless Tobacco Status: No Alcohol use: none Drug use: none - Family History Father Hx Family Cardiac Disorders: Yes ([place]) Medications and Allergies Cholecalciferol (D-3) [Vitamin D] 1,000 unit PO DAILY 04/10/17 [History] Vitamin E (Dl,Tocopheryl Acet) [Vitamin E] 400 unit PO DAILY 04/10/17 [History] Aspirin 81 mg PO DAILY #30 tab.chew 04/12/17 [Rx] Nitroglycerin 0.4 mg SL Q5MIN PRN #14 tab.subl 04/12/17 [Rx] Famotidine [Heartburn Prevention] 20 mg PO DAILY 06/17/17 [History] Pravastatin Sodium [Pravachol] 20 mg PO DAILY 06/17/17 [History] Ascorbic Acid [Vitamin C] 100 mg PO DAILY 08/09/17 [History] Docusate [Colace] 100 mg PO BID PRN #30 capsule 08/09/17 [Rx] Ibuprofen [Motrin] 600 mg PO Q6HR #40 tab 08/09/17 [Rx] Loratadine [Claritin] 10 mg PO DAILY 08/09/17 [History] Ondansetron ODT [Zofran ODT] 4 mg SL Q6HR PRN #30 tab.rapdis 08/09/17 [Rx] OxyCODONE/APAP 5/325 [Percocet 5/325 MG] 1 each PO Q6HR PRN 5 Days #20 tablet [Rx] 3 Allergy/AdvReac Type Severity Reaction Status Date / Time Sulfa (Sulfonamide Allergy Anaphylaxis Verified 08/09/17 09:33 Antibiotics) ROS unobtainable: due to endotracheal tube All Systems: The remainder of the systems were reviewed and are negative Physical Examination Vital Signs: Vital Signs, Last 4 Hours Temp Pulse Resp BP Pulse Ox 08/13/17 14:00 141 22 101/67 98 08/13/17 13:39 24 85/53 97 08/13/17 13:00 132 22 85/53 98 08/13/17 12:00 141 26 83/54 89 08/13/17 11:23 147 08/13/17 11:00 99.4 F 147 28 107/75 88 General appearance: asleep Eyes: nonicteric ENT: oropharynx moist Neck: supple Effort: normal Inspection: normal Auscultation: bilateral: clear Percussion: bilateral: not dull Tactile fremitus: bilateral: normal Cardiovascular: regular rate and rhythm Gastrointestinal: normoactive bowel sounds, non-distended Integumentary: normal Extremities: no cyanosis, no edema, no clubbing Musculoskeletal: no deformities, ROM normal normal mental status, non-focal exam mood appropriate, affect normal Ventilator Settings Ventilator Settings: Ventilator Settings, Last 8 Hours Ventilator Mode VC+ Ventilator Mode VC+ Ventilator Mode VC+ Ventilator Mode VC+ Ventilator Tidal Volume 450 Setting Ventilator Tidal Volume 450 Setting Ventilator Tidal Volume 450 Setting Ventilator Tidal Volume 450 Setting Ventilator Respiratory Rate 12 Setting Ventilator Respiratory Rate 12 Setting Ventilator Respiratory Rate 12 Setting Ventilator Respiratory Rate 12 Setting Actual Respiratory Rate 23 Actual Respiratory Rate 23 Actual Respiratory Rate 24 Positive End Expiratory 10 Pressure Positive End Expiratory 10 Pressure Positive End Expiratory 10 Pressure Positive End Expiratory 8 Pressure Peak Inspiratory Airway 28 Pressure Peak Inspiratory Airway 27 Pressure Peak Inspiratory Airway 23 Pressure Results - Laboratory Findings CBC and BMP: 08/13/17 16:38 08/13/17 04:05 ABG ABG pH 7.28 pH Units (7.32-7.45) L 08/13/17 13:59 ABG pCO2 31 mmHg (35-45) L 08/13/17 13:59 ABG pO2 78 mmHg (85-104) L 08/13/17 13:59 ABG O2 Saturation 94 % (95-98) L 08/13/17 13:59 PT/INR, D-dimer PT 14.0 Seconds (9.4-12.1) H 08/10/17 09:43 Abnormal lab findings: Abnormal lab results WBC 17.6 K/mcL (4.3-11.1) H 08/13/17 04:05 RBC 3.36 M/mcL (3.82-4.97) L 08/13/17 04:05 Hgb 10.4 g/dL (11.5-15.4) L 08/13/17 04:05 Hct 31.4 % (35.3-44.9) L 08/13/17 04:05 RDW 15.9 % (11.5-14.5) H 08/13/17 04:05 Plt Count 132 K/mcL (140-400) L 08/13/17 04:05 Band Neutrophils % 16.0 % (0-4) H 08/12/17 04:46 Metamyelocytes % 6.0 % (0) H 08/12/17 04:46 Neutrophils # 14.9 K/mcL (1.6-8.9) H 08/13/17 04:05 Lymphocytes # 0.5 K/mcL (0.6-4.6) L 08/13/17 04:05 Monocytes # 1.7 K/mcL (0.0-1.3) H 08/13/17 04:05 Nucleated RBCs/100 WBC 0.5 /100 WBC (0) H 08/13/17 04:05 Reactive Lymphocytes Present (Not Present) A 08/13/17 04:05 Toxic Granulation Present (Not Present) A 08/12/17 04:46 Platelet Estimate Slight Decrease (Normal) L 08/13/17 04:05 PT 14.0 Seconds (9.4-12.1) H 08/10/17 09:43 ABG pH 7.28 pH Units (7.32-7.45) L 08/13/17 13:59 ABG pCO2 31 mmHg (35-45) L 08/13/17 13:59 ABG pO2 78 mmHg (85-104) L 08/13/17 13:59 ABG HCO3 15 mEq/L (21-27) L 08/13/17 13:59 ABG Total CO2 16 mEq/L (20-26) L 08/13/17 13:59 ABG O2 Saturation 94 % (95-98) L 08/13/17 13:59 ABG Base Excess -11 mEq/L (-2 to 3) L 08/13/17 13:59 VBG pH 6.98 pH Units (7.32-7.42) L* 08/09/17 15:43 VBG pCO2 72 mmHg (41-51) H* 08/09/17 15:43 VBG HCO3 17 mEq/L (21-27) L 08/09/17 15:43 Sodium 131 mEq/L (136-145) L 08/13/17 04:05 Carbon Dioxide 16 mEq/L (23-29) L 08/13/17 04:05 BUN 47 mg/dL (6-20) H 08/13/17 04:05 Creatinine 1.38 mg/dL (0.60-1.20) H 08/13/17 04:05 Est GFR ( Amer) 50 (> 60) L 08/13/17 04:05 Est GFR (Non-Af Amer) 41 (> 60) L 08/13/17 04:05 BUN/Creatinine Ratio 34 (6-26) H 08/13/17 04:05 Glucose 114 mg/dL (70-105) H 08/13/17 04:05 POC Glucose 164 mg/dL (70-99) H 08/09/17 20:41 Calcium 7.4 mg/dL (8.6-10.3) L 08/13/17 04:05 Troponin I 0.10 ng/mL (< 0.04) H* 08/12/17 17:15 Serum Total Protein 4.9 g/dL (6.4-8.9) L 08/13/17 04:05 Albumin 2.6 g/dL (3.5-5.7) L 08/13/17 04:05 Globulin 2.3 g/dL (2.4-3.5) L 08/13/17 04:05 - Clinical Findings Intake & Output: Intake & Output 08/12/17 08/13/17 08/13/17 23:59 07:59 15:59 Intake Total 1000 / 1000 1250 / 1250 Output Total 165 / 165 550 / 550 475 / 475 Balance 835 / 835 700 / 700 -475 / -475 Weight 128.3 kg Consult Discharge Plan - Plan Additional Instructions: Surgical instructions: #1 may shower starting 08/10/17, no tub bath for 2 weeks #2 wash incisions with soap and water and pat dry daily #3 no lifting, pushing, pulling more than 15 pounds for the next 4 weeks #4 no driving until off narcotics for 24 hours and able to safely react in the car #5 may climb stairs Follow-up appointment: Sunday, August 20, 2017 with Soina Joe CNP in the outpatient surgical office (Medical office building, [address]) [facility] Diet After Saravanan Fundoplication Surgery This diet information is for patients who have recently had Saravanan Fundoplication Surgery to correct reflux disease or to repair various types of hernias, such as hiatal hernia and intrathoracic stomach. This diet may also be used for other gastrointestinal surgeries, such as Heller myotomy and repair of achalasia. The diet will help control diarrhea, excess gas and swallowing problems, which may occur after this type of surgery. Important Steps to Keep Your Stomach From Stretching Eat small, frequent meals (six to eight per day). This will help you consume the majority of the nutrients you need without causing your stomach to feel full or distended. Drinking large amounts of fluids with meals can stretch your stomach. You may drink fluids between meals as often as you like, but limit fluids to 1/2 cup (4 fluid ounces) with meals and one cup (8 fluid ounces) with snacks. Sit upright while eating and stay upright for 30 minutes after each meal. Hester can help food move through your digestive tract. Do not lie down after eating. Sit upright for 2 hours after your last meal or snack of the day. Eat very slowly. Take your time when eating. Take small bites and chew your food well to stained glass glazier helper in swallowing and digestion. Avoid crusty breads and sticky, gummy foods, such as bananas, fresh doughy breads, rolls and doughnuts. These types of foods become sticky and difficult to swallow. Toasted breads tend to be better tolerated. Lastly, if you eat sweets, consume them at the end of your meal to avoid a group of symptoms referred to as dumping syndrome. This describes the rapid emptying of foods from the stomach to the small intestine. Sweetened beverages, candy and desserts move more rapidly and dump quickly into the intestines. This can cause symptoms of nausea, weakness, cold sweats, cramps, diarrhea and dizzy spells. Important Steps to Avoid Gas Do not drink through a straw, chew gum, or chew tobacco. These actions cause you to swallow air, which will produce excess gas in your stomach. Chew with your mouth closed and chew your food thoroughly. Avoid foods that cause stomach gas and distention. The foods include corn, dried beans, peas, lentils, onions, broccoli, cauliflower, and any food item from the cabbage family. Do not drink carbonated drinks, alcohol, citrus, or tomato products. What Will I Be Able To Eat and Drink After Surgery After Saravanan Fundoplication Surgery, your diet will be advanced slowly by your surgeon. Generally, you will be on a thin/clear liquid diet for the first 10 days. Then you will advance to the full liquid diet for 4 days and eventually to a Saravanan soft diet for 7 days. After any surgery, protein consumption is important for healing. To get enough protein, drink 3-4 [place] Instant Breakfast, Ensure, or equivalent daily. Reminder: carbonated beverages (such as sodas, energy drinks, flavored carbonated water), and alcohol are not permitted for the 1st 6 to 8 weeks after surgery. After this time you may attempt to reintroduce them in small amounts. Please note: dairy products such as milk, ice cream, and putting may cause diarrhea and some people after surgery. He may need to avoid milk products. If so you may substitute them with lactose free beverages, such as soy, rice, lactate, or almond milk. Please be aware that each patient's tolerance to food is different. Your doctor will advance your diet depending on how well you progress after surgery. Thin Liquid Diet The first diet after Saravanan Fundoplication Surgery is the thin liquids diet. Follow this diet for postoperative days 1-10 08/10/2017 - 08/19/2017. Thin liquids include: Apple, Cranberry, or Grape Juice (no citrus juice) Chicken Broth Beef Broth Flavored Gelatin (Jell-O) Decaffeinated Tea or Coffee Popsicles or [place] Ice Caffeinated Beverages Will Be Permitted Based upon Tolerance Dairy Thin Milkshakes (strawberry or vanilla flavored- No chocolate) Drink 3-4 [place] instant breakfast, Ensure, or equivalent daily. May be mixed with dairy for thin milkshakes Full Liquid Diet Follow this diet for postoperative days 11-14 08/20/2017- 08/23/2017. Full liquid diet includes anything in the thin liquid diet plus: Milk, Soy, Rice, and [place] (No Chocolate) Cream of Wheat, Cream of Rice, Grits Strained Creamed Soups (No Tomato Water Broccoli) Vanilla and [place] Flavored Ice Cream Sherbet Vanilla and Butterscotch Pudding (No Chocolate or Coconut) Continue 3-4 [place] Instant Breakfast, Ensure, or an Equivalent Daily. Maybe Next with Dairy for Thin Milkshakes. Saravanan Soft Diet Follow this diet for postoperative days 15-20 08/24/2017- 08/30/2017. (If you are consuming enough protein, you may stop the protein supplements). See Saravanan Diet handout for more specific information Referrals: Edyta Melgar CNP [Primary Care Provider] - <Rosa Mullen - Last Filed: 08/14/17 06:30> Date of Encounter: 08/14/17 All Systems: The remainder of the systems were reviewed and are negative Physical Examination Vital Signs: Vital Signs, Last 4 Hours Temp Pulse Resp BP Pulse Ox 08/13/17 17:07 23 66/30 94 08/13/17 17:00 120 31 106/82 89 08/13/17 16:00 125 23 80/51 95 08/13/17 15:45 23 74/56 91 08/13/17 15:19 126 08/13/17 15:00 98.6 F 126 24 83/46 97 Ventilator Settings Ventilator Settings: Ventilator Settings, Last 8 Hours Ventilator Mode VC+ Ventilator Mode VC+ Ventilator Mode VC+ Ventilator Mode VC+ Ventilator Mode VC+ Ventilator Mode VC+ Ventilator Mode VC+ Ventilator Tidal Volume 500 Setting Ventilator Tidal Volume 500 Setting Ventilator Tidal Volume 450 Setting Ventilator Tidal Volume 450 Setting Ventilator Tidal Volume 450 Setting Ventilator Tidal Volume 450 Setting Ventilator Tidal Volume 450 Setting Ventilator Respiratory Rate 14 Setting Ventilator Respiratory Rate 14 Setting Ventilator Respiratory Rate 12 Setting Ventilator Respiratory Rate 12 Setting Ventilator Respiratory Rate 12 Setting Ventilator Respiratory Rate 12 Setting Ventilator Respiratory Rate 12 Setting Actual Respiratory Rate 22 Actual Respiratory Rate 23 Actual Respiratory Rate 23 Actual Respiratory Rate 23 Actual Respiratory Rate 23 Actual Respiratory Rate 24 Positive End Expiratory 10 Pressure Positive End Expiratory 10 Pressure Positive End Expiratory 10 Pressure Positive End Expiratory 10 Pressure Positive End Expiratory 10 Pressure Positive End Expiratory 10 Pressure Positive End Expiratory 8 Pressure Peak Inspiratory Airway 31 Pressure Peak Inspiratory Airway 30 Pressure Peak Inspiratory Airway 28 Pressure Peak Inspiratory Airway 28 Pressure Peak Inspiratory Airway 27 Pressure Peak Inspiratory Airway 23 Pressure Results - Laboratory Findings CBC and BMP: 08/14/17 03:00 08/14/17 03:00 ABG ABG pH 7.28 pH Units (7.32-7.45) L 08/13/17 13:59 ABG pCO2 31 mmHg (35-45) L 08/13/17 13:59 ABG pO2 78 mmHg (85-104) L 08/13/17 13:59 ABG O2 Saturation 94 % (95-98) L 08/13/17 13:59 PT/INR, D-dimer PT 13.8 Seconds (9.4-12.1) H 08/13/17 14:45 Abnormal lab findings: Abnormal lab results WBC 17.6 K/mcL (4.3-11.1) H 08/13/17 04:05 RBC 3.36 M/mcL (3.82-4.97) L 08/13/17 04:05 Hgb 10.2 g/dL (11.5-15.4) L 08/13/17 16:38 Hct 31.2 % (35.3-44.9) L 08/13/17 16:38 RDW 15.9 % (11.5-14.5) H 08/13/17 04:05 Plt Count 132 K/mcL (140-400) L 08/13/17 04:05 Band Neutrophils % 16.0 % (0-4) H 08/12/17 04:46 Metamyelocytes % 6.0 % (0) H 08/12/17 04:46 Neutrophils # 14.9 K/mcL (1.6-8.9) H 08/13/17 04:05 Lymphocytes # 0.5 K/mcL (0.6-4.6) L 08/13/17 04:05 Monocytes # 1.7 K/mcL (0.0-1.3) H 08/13/17 04:05 Nucleated RBCs/100 WBC 0.5 /100 WBC (0) H 08/13/17 04:05 Reactive Lymphocytes Present (Not Present) A 08/13/17 04:05 Toxic Granulation Present (Not Present) A 08/12/17 04:46 Platelet Estimate Slight Decrease (Normal) L 08/13/17 04:05 PT 13.8 Seconds (9.4-12.1) H 08/13/17 14:45 ABG pH 7.28 pH Units (7.32-7.45) L 08/13/17 13:59 ABG pCO2 31 mmHg (35-45) L 08/13/17 13:59 ABG pO2 78 mmHg (85-104) L 08/13/17 13:59 ABG HCO3 15 mEq/L (21-27) L 08/13/17 13:59 ABG Total CO2 16 mEq/L (20-26) L 08/13/17 13:59 ABG O2 Saturation 94 % (95-98) L 08/13/17 13:59 ABG Base Excess -11 mEq/L (-2 to 3) L 08/13/17 13:59 VBG pH 6.98 pH Units (7.32-7.42) L* 08/09/17 15:43 VBG pCO2 72 mmHg (41-51) H* 08/09/17 15:43 VBG HCO3 17 mEq/L (21-27) L 08/09/17 15:43 Sodium 131 mEq/L (136-145) L 08/13/17 04:05 Carbon Dioxide 16 mEq/L (23-29) L 08/13/17 04:05 BUN 47 mg/dL (6-20) H 08/13/17 04:05 Creatinine 1.38 mg/dL (0.60-1.20) H 08/13/17 04:05 Est GFR ( Amer) 50 (> 60) L 08/13/17 04:05 Est GFR (Non-Af Amer) 41 (> 60) L 08/13/17 04:05 BUN/Creatinine Ratio 34 (6-26) H 08/13/17 04:05 Glucose 114 mg/dL (70-105) H 08/13/17 04:05 POC Glucose 164 mg/dL (70-99) H 08/09/17 20:41 Lactic Acid 2.3 mmol/L (0.5-2.2) H 08/13/17 16:45 Calcium 7.4 mg/dL (8.6-10.3) L 08/13/17 04:05 Troponin I 0.10 ng/mL (< 0.04) H* 08/12/17 17:15 Serum Total Protein 4.9 g/dL (6.4-8.9) L 08/13/17 04:05 Albumin 2.6 g/dL (3.5-5.7) L 08/13/17 04:05 Globulin 2.3 g/dL (2.4-3.5) L 08/13/17 04:05 - Clinical Findings Intake & Output: Intake & Output 08/13/17 08/13/17 08/13/17 07:59 15:59 23:59 Intake Total 1250 / 1250 504 / 504 1255 / 1255 Output Total 550 / 550 925 / 925 Balance 700 / 700 -421 / -421 1255 / 1255 Weight 128.3 kg - Attending Attestation I examined this patient and my medical decision-making was reviewed with the Resident Physician. I agree with the documented findings, disposition and treatment plan as described except to the extent set forth below. Patient seen and examined. Labs, radiology, chart personally reviewed. 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 Subsequently patient was placed on the mechanical ventilator. I reviewed her CT chest and due to her dense atelectasis patient required relatively high PEEP and also high FiO2. There is a potential her condition could deteriorate and at this time she has evidence of fluid overload, however ARDS picture and difficult to diuresis because of her hypertension. Cardiovascular: Patient is in shock requiring vasopressor and it is not entirely clear at this time. Discussed differential diagnosis of shock in general with Dr. La and will continue supportive care she already had fluid resuscitation and overall she is fluid positive and she has evidence of metabolic acidosis with a mildly elevated lactic acid. Her hemoglobin remained relatively stable. It is possible postoperative vasodilatory shock and continue monitor and surgeon is closely monitor as well. Multiple discussion with the family at the bedside. GI: Nutrition per dietary and GI prophylaxis per routine Heme: DVT prophylaxis per routine ID: Continue antibiotics and plan to de-escalation. Even though there is no clear source of sepsis, however overall picture behaving like sepsis-like picture and vasodilatory shock. Other factors could play a full for her deterioration such as blood transfusion as well as surgery. Renal; urine out put and renal funtion reviewed. They suspect she might need renal replacement in the future. Endorcine: blood glucose is monitored. We will consider systemic steroid if no improvement in the blood pressure. Lines: all lines checked and no evidence of infections Skin: skin care to prevent pressure ulcers per nursing routine care I spent 80 min of Critical Care time with this patient. It involved decision making of high complexity to assess, manipulate, and support vital organ system failure and/or to prevent further life threatening deterioration of the patient' s condition. The time involved in the performance of separately reportable procedures was not counted toward critical care time.
[2017-08-13] MEDS: Norepinephrine 4 MG in D5% in Water 250 ML IVC SCH ×2 (15:00→19:00)
[2017-08-13 15:01] LABS: INR 1.3; Prothrombin Time 13.8 Seconds (9.4-12.1)
[2017-08-13] MEDS ORDERED: Albumin 25% 25gram/100mL 25 GM/100 ML IV.SOLN IVPB ONE (16:39)
[2017-08-13 17:00] LABS: Hematocrit 31.2 % (35.3-44.9); Hemoglobin 10.2 g/dL (11.5-15.4)
--- NOTE | 2017-08-13 18:20 | Procedure Note ---
Date of procedure: 08/13/17 Pre-op diagnosis: Acute hypoxic respiratory failure Post-op diagnosis: same Procedure: Patient was found in acute hypoxic respiratory failure and I have explained to the family at the bedside as well as to the patient that she needs invasive mechanical ventilation and consent was obtained verbally in the presence of the nurse. Patient was given 10 mg of etomidate and 5 mg of Versed then with CMAC she was intubated without immediate complication with visualization of vocal cord an ET tube 7.5 and the level of 22 at the lip. ET tube position was confirmed with changing color capnometer as well as condensation in the ET tube and bilateral breath sounds. Chest x-ray subsequently confirmed the appropriate position of ET tube as well. No immediate complications. Surgeon: Rosa Mullen Was there an research assistant member present: No Estimated blood loss (cc): 0 Specimen: 0 Disposition: ICU
[2017-08-13] MEDS: Chlorhexidine Rinse 15 ML MOUTHWASH MM SCH (20:53)
[2017-08-13] MEDS: Norepinephrine 16 MG in D5% in Water 500 ML IVC SCH (21:01)
[2017-08-13] MEDS: Vasopressin 40 UNIT in D5% in Water 100 ML IV SCH (21:39)
[2017-08-13 23:45] LABS: ABG Base Excess -13 mEq/L (-2 to 3); ABG HCO3 12 mEq/L (21-27); ABG Oxygen Saturation 84 % (95-98); ABG PCO2 26 mmHg (35-45); ABG PH 7.27 pH Units (7.32-7.45); ABG PO2 53 mmHg (85-104); ABG TCO2 13 mEq/L (20-26); Blood Gas Modality ASSIST CONTROL; Blood Gas PEEP 10 cm H2O; Blood Gas Respiration Rate 14; Blood Gas VT 500 cc
[2017-08-13] MEDS ORDERED: Furosemide 40 MG/4 ML VIAL IVP ONE (23:51)
--- NOTE | 2017-08-13 23:54 | Event Note ---
<Nick Owens - Last Filed: 08/13/17 23:54> Date of Encounter: 08/13/17 Time of Encounter: 23:52 In brief the patient is here postoperative from a Saravanan fundoplication. She was intubated today. This evening she became hypoxic despite being on 100% FiO2 with increasing PEEP. Pulse oximetry in the high 70s to low 80s. During this time she also worsened in terms of her hemodynamics with hypotension as low as 50/30. During this timeframe and arterial line was attempted in the right groin 3 times and once in the left groin. Although able to puncture the femoral artery with pulsatile flow the guidewire was unable to be advanced and would kink every time it was advanced. At this point vasopressin was added as well as Howard-Synephrine once she remained refractory. At this point I spoke with the on-call pizza delivery who recommended to change her vent settings with a tidal volume of 400 and a respiratory rate to 22. We will also paralyze the patient was cisatracurium, begin Solu-Cortef at 50 mg every 6 hours and diurese her with 80 mg of Lasix 1. Prognosis remains critical. <Marcos Willoughby - Last Filed: 08/14/17 01:09> Date of Encounter: 08/14/17
[2017-08-14] MEDS: Phenylephrine 50 MG in D5% in Water 250 ML IVC SCH ×3 (00:02→10:33)
[2017-08-14] MEDS: Hydrocortisone Sodium Succ 100 MG/2 ML VIAL IVP SCH ×5 (00:10→23:38)
[2017-08-14] MEDS: Piperacillin/Tazobactam 3.375 GM in 0.9 % Sodium Chloride Mini Bag 100 ML IVPB SCH ×3 (00:10→16:14)
[2017-08-14] MEDS: Lacri-Lube 3.5 GM TUBE BOTH EYES SCH ×7 (00:11→23:38)
[2017-08-14] MEDS: Sodium Bicarbonate 100 MEQ in D5% in Water 1,000 ML IVC SCH ×3 (00:36→15:48)
[2017-08-14] MEDS: Cisatracurium 200 MG in 0.9 % Sodium Chloride 180 ML IVC SCH ×4 (00:50→23:03)
[2017-08-14 01:14] LABS: Basophils % 0.2 %; Eosinophils % 0.1 %; Hemoglobin 9.7 g/dL (11.5-15.4); Immature Granulocytes % 8.4 % (0-4); Lymphocytes # 0.7 K/mcL (0.6-4.6); Lymphocytes % 2.7 %; Mean Corpuscular HGB Conc 32.3 g/dL (31.6-35.5); Mean Corpuscular Hemoglobin 30.2 pg (28.0-33.3); Mean Corpuscular Volume 93.5 fL (83.0-100.0); Mean Platelet Volume 11.4 fL (9.4-12.4); Monocytes % 8.3 %; Nucleated Red Blood Cells 9.1 /100 WBC (0); Platelet Count 151 K/mcL (140-400); Red Blood Count 3.21 M/mcL (3.82-4.97); Segmented Neutrophils % 80.3 %
[2017-08-14] MEDS: FentaNYL (PF) 1,000 MCG in 0.9 % Sodium Chloride 80 ML IVC SCH ×4 (01:15→22:04)
[2017-08-14 01:16] LABS: Basophils # 0.1 K/mcL (0.0-0.2); Neutrophils # 19.5 K/mcL (1.6-8.9)
[2017-08-14] MEDS: Dexmedetomidine HCl 400 MCG/100 ML MLS IVC SCH ×5 (01:49→20:00)
--- NOTE | 2017-08-14 02:04 | Event Note ---
<Nick Owens - Last Filed: 08/14/17 02:01> Date of Encounter: 08/14/17 Time of Encounter: 02:01 Patient currently being treated with concern for ARDS with poor oxygenation. Previously received a one-time dose of Lasix as well as ventilatory adjustment decreasing tidal volume to 400 and rate increased to 22. The patient remains hypoxic at around 80%. Lactic acid of 2.6. She is currently maxed out on Levophed, vasopressin and Howard-Synephrine. She was started on cisatracurium. Intra-abdominal pressures were measured at 20-25. Dr. La was paged and made aware of her intra-abdominal pressure at 02:02. No new orders advised. Patient 's status remains critical. <Marcos Willoughby - Last Filed: 08/14/17 21:08> Date of Encounter: 08/14/17
[2017-08-14] MEDS: *HR* Metoprolol 5 MG/5 ML VIAL IVP SCH ×2 (02:18→08:47)
[2017-08-14 03:06] LABS: Platelet Estimate Slight Decrease (Normal); Toxic Granulation Present (Not Present)
[2017-08-14] MEDS: 0.9 % Sodium Chloride 1,000 ML IVC SCH (03:24)
[2017-08-14 03:25] LABS: Mean Corpuscular HGB Conc 31.9 g/dL (31.6-35.5)
[2017-08-14 03:27] LABS: Hematocrit 29.5 % (35.3-44.9); Hemoglobin 9.4 g/dL (11.5-15.4); Mean Corpuscular Volume 94.2 fL (83.0-100.0); Mean Platelet Volume 11.4 fL (9.4-12.4); Nucleated Red Blood Cells 8.6 /100 WBC (0); Platelet Count 153 K/mcL (140-400); Red Blood Count 3.13 M/mcL (3.82-4.97)
[2017-08-14 03:36] LABS: Magnesium 2.1 mg/dL (1.6-2.6); Phosphorous 4.3 mg/dL (2.7-4.5)
[2017-08-14 03:38] LABS: Calcium 7.1 mg/dL (8.6-10.3); Potassium 4.8 mEq/L (3.5-5.1)
[2017-08-14 04:55] LABS: Eosinophils # 1.2 K/mcL (0.0-0.6); Lymphocytes # 2.4 K/mcL (0.6-4.6); Neutrophils # 21.8 K/mcL (1.6-8.9)
[2017-08-14 04:56] LABS: Platelet Estimate Slight Decrease (Normal); Toxic Granulation Present (Not Present)
[2017-08-14] MEDS: Norepinephrine 16 MG in D5% in Water 500 ML IVC SCH ×2 (05:08→15:26)
[2017-08-14] MEDS: *HR* Heparin 5,000 UNIT/ML VIAL SQ SCH ×3 (05:13→20:23)
--- NOTE | 2017-08-14 06:19 | Pulmonology Progress Note ---
<Nick Owens - Last Filed: 08/14/17 06:30> Date of Encounter: 08/14/17 Time of Encounter: 06:17 Assessment and Plan (1) Acute respiratory failure with hypoxia Current Visit: Yes Status: Acute Acute hypoxic respiratory failure on 08/13/17 necessitating intubation. Severe ARDS pathology with most recent PaO2/FiO2 53 Continue mechanical ventilation with permissive hypercapnia. 6cc/kg volume strategy however decreased tidal volume today given elevated plateau pressure. Currently prone due to difficulty oxygenating. Villarreal chest x-ray while prone. (2) Shock Current Visit: Yes Status: Acute Hemodynamic instability with tachycardia into the 140s and blood pressure declining to as low as 50/30. Suspect vasodilatory shock in the setting of systemic inflammatory response and ARDS. Currently on Levophed, Howard-Synephrine and vasopressin. Goal map greater than 60. Wean vasopressor agents as tolerated. Previous echo demonstrating an EF 70%. (3) GERD (gastroesophageal reflux disease) Current Visit: No Status: Chronic POD #5 Nisson fundoplication, exploratory laparotomy with oversewing hepatic and splenic veins. NPO Continue Carafate mIVF at 50 mL/hr Qualifiers: Esophagitis presence: without esophagitis Qualified Code(s): K21.9 - Gastro -esophageal reflux disease without esophagitis (4) Tachycardia Current Visit: Yes Status: Acute EKG was sinus tachycardia up to 140 overnight. Prior echo demonstrating EF of 70%. Troponins downtrending. Cardiology consulted. (5) Acute kidney failure, unspecified Current Visit: Yes Status: Acute Serum creatinine 1.96. Potassium normal. Likely secondary to vasodilatory shock with pressor requirement. Continue maintenance IV fluids. Daily BMP. Qualifiers: Acute renal failure type: unspecified Qualified Code(s): N17.9 - Acute kidney failure, unspecified (6) Anemia Current Visit: Yes Status: Acute Hemoglobin 9.4, previously 9.7. Daily CBC Qualifiers: Anemia type: unspecified type Qualified Code(s): D64.9 - Anemia, unspecified (7) Elevated troponin Current Visit: Yes Status: Acute Troponins downtrending. Likely demand ischemia secondary to shock, tachycardia as well as renal insufficiency. Cardiology consulted. (8) DVT prophylaxis Current Visit: No Status: Acute Heparin 5000 units every 8 hours. Subjective Principal diagnosis: Tachycardia Interval history: Patient had a complicated course overnight including hypoxia to 75% despite FiO2 of 100%. Repeat was escalated to 16 however she remained hypoxic. She was given a one-time dose of Lasix, started on Solu-Cortef every 6 hours and was paralyzed with cisatracurium for ARDS picture. Her intra-abdominal pressures were measured as 20-25. General surgery was contacted who had no new orders are management. Patient is currently proned with improvement in her oxygenation. Her blood pressure has remained labile and attempts at arterial line placement have been unsuccessful. Her Lopressor require escalated overnight and is currently maxed out on Levophed, Howard-Synephrine and vasopressin. Objective PUL Vital signs: Last Vital Signs Temp 100.1 F H 08/14/17 03:51 Pulse 103 08/14/17 06:00 Resp 22 08/14/17 06:00 BP 74/44 08/14/17 06:00 Pulse Ox 94 08/14/17 06:00 General appearance: other (Intubated and sedated) Eyes: nonicteric ENT: other (ET tube in place) Neck: supple Effort: other (Mechanically ventilated) Auscultation: bilateral: diminished breath sounds Cardiovascular: other (Tachycardia with regular rhythm.) Gastrointestinal: soft, non-distended Integumentary: normal Extremities: no cyanosis, edema (Bilateral lower extremity) Musculoskeletal: no deformities other (Sedated) Ventilator Settings Ventilator Settings: Ventilator Settings, Last 8 Hours Ventilator Mode VC+ Ventilator Mode VC+ Ventilator Mode VC+ Ventilator Mode VC+ Ventilator Mode VC+ Ventilator Mode VC+ Ventilator Mode VC+ Ventilator Mode VC+ Ventilator Mode VC+ Ventilator Mode VC+ Ventilator Mode VC+ Ventilator Mode VC+ Ventilator Tidal Volume 380 Setting Ventilator Tidal Volume 400 Setting Ventilator Tidal Volume 400 Setting Ventilator Tidal Volume 400 Setting Ventilator Tidal Volume 400 Setting Ventilator Tidal Volume 400 Setting Ventilator Tidal Volume 400 Setting Ventilator Tidal Volume 400 Setting Ventilator Tidal Volume 400 Setting Ventilator Tidal Volume 400 Setting Ventilator Tidal Volume 500 Setting Ventilator Tidal Volume 500 Setting Ventilator Respiratory Rate 24 Setting Ventilator Respiratory Rate 22 Setting Ventilator Respiratory Rate 22 Setting Ventilator Respiratory Rate 22 Setting Ventilator Respiratory Rate 22 Setting Ventilator Respiratory Rate 22 Setting Ventilator Respiratory Rate 22 Setting Ventilator Respiratory Rate 22 Setting Ventilator Respiratory Rate 22 Setting Ventilator Respiratory Rate 22 Setting Ventilator Respiratory Rate 14 Setting Ventilator Respiratory Rate 14 Setting Actual Respiratory Rate 24 Actual Respiratory Rate 22 Actual Respiratory Rate 22 Actual Respiratory Rate 22 Actual Respiratory Rate 22 Actual Respiratory Rate 22 Actual Respiratory Rate 22 Actual Respiratory Rate 22 Actual Respiratory Rate 22 Actual Respiratory Rate 32 Actual Respiratory Rate 30 Positive End Expiratory 18 Pressure Positive End Expiratory 16 Pressure Positive End Expiratory 16 Pressure Positive End Expiratory 16 Pressure Positive End Expiratory 16 Pressure Positive End Expiratory 16 Pressure Positive End Expiratory 12 Pressure Positive End Expiratory 10 Pressure Positive End Expiratory 10 Pressure Positive End Expiratory 10 Pressure Positive End Expiratory 10 Pressure Positive End Expiratory 10 Pressure Peak Inspiratory Airway 41 Pressure Peak Inspiratory Airway 39 Pressure Peak Inspiratory Airway 37 Pressure Peak Inspiratory Airway 37 Pressure Peak Inspiratory Airway 38 Pressure Peak Inspiratory Airway 38 Pressure Peak Inspiratory Airway 30 Pressure Peak Inspiratory Airway 30 Pressure Peak Inspiratory Airway 30 Pressure Peak Inspiratory Airway 26 Pressure Peak Inspiratory Airway 30 Pressure Results - Laboratory Findings CBC and BMP: 08/14/17 03:00 08/14/17 03:00 ABG ABG pH 7.27 pH Units (7.32-7.45) L 08/13/17 23:39 ABG pCO2 26 mmHg (35-45) L 08/13/17 23:39 ABG pO2 53 mmHg (85-104) L 08/13/17 23:39 ABG O2 Saturation 84 % (95-98) L 08/13/17 23:39 PT/INR, D-dimer PT 13.8 Seconds (9.4-12.1) H 08/13/17 14:45 Abnormal lab findings: Abnormal lab results WBC 29.5 K/mcL (4.3-11.1) H 08/14/17 03:00 RBC 3.13 M/mcL (3.82-4.97) L 08/14/17 03:00 Hgb 9.4 g/dL (11.5-15.4) L 08/14/17 03:00 Hct 29.5 % (35.3-44.9) L 08/14/17 03:00 RDW 16.0 % (11.5-14.5) H 08/14/17 03:00 Immature Gran % 8.4 % (0-4) H 08/14/17 00:56 Band Neutrophils % 18.0 % (0-4) H 08/14/17 03:00 Metamyelocytes % 6.0 % (0) H 08/12/17 04:46 Blast Cells % 4.0 % (0) H 08/14/17 03:00 Neutrophils # 21.8 K/mcL (1.6-8.9) H 08/14/17 03:00 Monocytes # 3.0 K/mcL (0.0-1.3) H 08/14/17 03:00 Eosinophils # 1.2 K/mcL (0.0-0.6) H 08/14/17 03:00 Nucleated RBCs/100 WBC 8.6 /100 WBC (0) H 08/14/17 03:00 Reactive Lymphocytes Present (Not Present) A 08/13/17 04:05 Toxic Granulation Present (Not Present) A 08/14/17 03:00 Platelet Estimate Slight Decrease (Normal) L 08/14/17 03:00 PT 13.8 Seconds (9.4-12.1) H 08/13/17 14:45 ABG pH 7.27 pH Units (7.32-7.45) L 08/13/17 23:39 ABG pCO2 26 mmHg (35-45) L 08/13/17 23:39 ABG pO2 53 mmHg (85-104) L 08/13/17 23:39 ABG HCO3 12 mEq/L (21-27) L 08/13/17 23:39 ABG Total CO2 13 mEq/L (20-26) L 08/13/17 23:39 ABG O2 Saturation 84 % (95-98) L 08/13/17 23:39 ABG Base Excess -13 mEq/L (-2 to 3) L 08/13/17 23:39 VBG pH 6.98 pH Units (7.32-7.42) L* 08/09/17 15:43 VBG pCO2 72 mmHg (41-51) H* 08/09/17 15:43 VBG HCO3 17 mEq/L (21-27) L 08/09/17 15:43 Sodium 127 mEq/L (136-145) L 08/14/17 03:00 Carbon Dioxide 16 mEq/L (23-29) L 08/14/17 03:00 BUN 56 mg/dL (6-20) H 08/14/17 03:00 Creatinine 1.96 mg/dL (0.60-1.20) H 08/14/17 03:00 Est GFR ( Amer) 33 (> 60) L 08/14/17 03:00 Est GFR (Non-Af Amer) 27 (> 60) L 08/14/17 03:00 BUN/Creatinine Ratio 29 (6-26) H 08/14/17 03:00 Glucose 191 mg/dL (70-105) H 08/14/17 03:00 POC Glucose 122 mg/dL (70-99) H 08/14/17 00:17 Lactic Acid 2.6 mmol/L (0.5-2.2) H 08/14/17 00:56 Calcium 7.1 mg/dL (8.6-10.3) L 08/14/17 03:00 Troponin I 0.07 ng/mL (< 0.04) H* 08/13/17 22:10 Serum Total Protein 4.9 g/dL (6.4-8.9) L 08/13/17 04:05 Albumin 2.6 g/dL (3.5-5.7) L 08/13/17 04:05 Globulin 2.3 g/dL (2.4-3.5) L 08/13/17 04:05 Prealbumin < 3.0 mg/dL (17.0-34.0) L 08/14/17 03:00 - Clinical Findings Intake & Output: Intake & Output 08/13/17 08/13/17 08/14/17 15:59 23:59 07:59 Intake Total 504 / 504 1978 / 1978 1576 / 1576 Output Total 925 / 925 300 / 300 113 / 113 Balance -421 / -421 1679 / 1679 1463 / 1463 Weight 135 kg - VTE Documentation of Mechanical Device: Intermittent pneumatic compression device Consult Discharge Plan - Plan Additional Instructions: Surgical instructions: #1 may shower starting 08/10/17, no tub bath for 2 weeks #2 wash incisions with soap and water and pat dry daily #3 no lifting, pushing, pulling more than 15 pounds for the next 4 weeks #4 no driving until off narcotics for 24 hours and able to safely react in the car #5 may climb stairs Follow-up appointment: Sunday, August 20, 2017 with Sonia Joe CNP in the outpatient surgical office (Medical office building, [address]) [place] [facility] Diet After Saravanan Fundoplication Surgery This diet information is for patients who have recently had Saravanan Fundoplication Surgery to correct reflux disease or to repair various types of hernias, such as hiatal hernia and intrathoracic stomach. This diet may also be used for other gastrointestinal surgeries, such as Heller myotomy and repair of achalasia. The diet will help control diarrhea, excess gas and swallowing problems, which may occur after this type of surgery. Important Steps to Keep Your Stomach From Stretching Eat small, frequent meals (six to eight per day). This will help you consume the majority of the nutrients you need without causing your stomach to feel full or distended. Drinking large amounts of fluids with meals can stretch your stomach. You may drink fluids between meals as often as you like, but limit fluids to 1/2 cup (4 fluid ounces) with meals and one cup (8 fluid ounces) with snacks. Sit upright while eating and stay upright for 30 minutes after each meal. [place] can help food move through your digestive tract. Do not lie down after eating. Sit upright for 2 hours after your last meal or snack of the day. Eat very slowly. Take your time when eating. Take small bites and chew your food well to laminating machine operator helper in swallowing and digestion. Avoid crusty breads and sticky, gummy foods, such as bananas, fresh doughy breads, rolls and doughnuts. These types of foods become sticky and difficult to swallow. Toasted breads tend to be better tolerated. Lastly, if you eat sweets, consume them at the end of your meal to avoid a group of symptoms referred to as dumping syndrome. This describes the rapid emptying of foods from the stomach to the small intestine. Sweetened beverages, candy and desserts move more rapidly and dump quickly into the intestines. This can cause symptoms of nausea, weakness, cold sweats, cramps, diarrhea and dizzy spells. Important Steps to Avoid Gas Do not drink through a straw, chew gum, or chew tobacco. These actions cause you to swallow air, which will produce excess gas in your stomach. Chew with your mouth closed and chew your food thoroughly. Avoid foods that cause stomach gas and distention. The foods include corn, dried beans, peas, lentils, onions, broccoli, cauliflower, and any food item from the cabbage family. Do not drink carbonated drinks, alcohol, citrus, or tomato products. What Will I Be Able To Eat and Drink After Surgery After Saravanan Fundoplication Surgery, your diet will be advanced slowly by your surgeon. Generally, you will be on a thin/clear liquid diet for the first 10 days. Then you will advance to the full liquid diet for 4 days and eventually to a Saravanan soft diet for 7 days. After any surgery, protein consumption is important for healing. To get enough protein, drink 3-4 [place] Instant Breakfast, Ensure, or equivalent daily. Reminder: carbonated beverages (such as sodas, energy drinks, flavored carbonated water), and alcohol are not permitted for the 1st 6 to 8 weeks after surgery. After this time you may attempt to reintroduce them in small amounts. Please note: dairy products such as milk, ice cream, and putting may cause diarrhea and some people after surgery. He may need to avoid milk products. If so you may substitute them with lactose free beverages, such as soy, rice, lactate, or almond milk. Please be aware that each patient's tolerance to food is different. Your doctor will advance your diet depending on how well you progress after surgery. Thin Liquid Diet The first diet after Saravanan Fundoplication Surgery is the thin liquids diet. Follow this diet for postoperative days 1-10 08/10/2017 - 08/19/2017. Thin liquids include: Apple, Cranberry, or Grape Juice (no citrus juice) Chicken Broth Beef Broth Flavored Gelatin (Jell-O) Decaffeinated Tea or Coffee Popsicles or [place] Ice Caffeinated Beverages Will Be Permitted Based upon Tolerance Dairy Thin Milkshakes (strawberry or vanilla flavored- No chocolate) Drink 3-4 [place] instant breakfast, Ensure, or equivalent daily. May be mixed with dairy for thin milkshakes Full Liquid Diet Follow this diet for postoperative days 11-14 08/20/2017- 08/23/2017. Full liquid diet includes anything in the thin liquid diet plus: Milk, Soy, Rice, and [place] (No Chocolate) Cream of Wheat, Cream of Rice, Grits Strained Creamed Soups (No Tomato Water Broccoli) Vanilla and [place] Flavored Ice Cream Sherbet Vanilla and Butterscotch Pudding (No Chocolate or Coconut) Continue 3-4 Wells Instant Breakfast, Ensure, or an Equivalent Daily. Maybe Next with Dairy for Thin Milkshakes. Saravanan Soft Diet Follow this diet for postoperative days 15-20 08/24/2017- 08/30/2017. (If you are consuming enough protein, you may stop the protein supplements). See Saravanan Diet handout for more specific information Referrals: Edyta Melgar, POWER MULE OPERATOR [Primary Care Provider] - <Rosa Mullen - Last Filed: 08/14/17 08:14> Date of Encounter: 08/14/17 Objective PUL Vital signs: Last Vital Signs Temp 98.9 F 08/14/17 07:36 Pulse 108 08/14/17 08:00 Resp 26 08/14/17 07:40 BP 93/57 08/14/17 07:00 Pulse Ox 91 08/14/17 07:40 Ventilator Settings Ventilator Settings: Ventilator Settings, Last 8 Hours Ventilator Mode A/C Ventilator Mode VC+ Ventilator Mode VC+ Ventilator Mode VC+ Ventilator Mode VC+ Ventilator Mode VC+ Ventilator Mode VC+ Ventilator Mode VC+ Ventilator Mode VC+ Ventilator Mode VC+ Ventilator Mode VC+ Ventilator Tidal Volume 380 Setting Ventilator Tidal Volume 380 Setting Ventilator Tidal Volume 380 Setting Ventilator Tidal Volume 400 Setting Ventilator Tidal Volume 400 Setting Ventilator Tidal Volume 400 Setting Ventilator Tidal Volume 400 Setting Ventilator Tidal Volume 400 Setting Ventilator Tidal Volume 400 Setting Ventilator Tidal Volume 400 Setting Ventilator Tidal Volume 400 Setting Ventilator Respiratory Rate 26 Setting Ventilator Respiratory Rate 24 Setting Ventilator Respiratory Rate 24 Setting Ventilator Respiratory Rate 22 Setting Ventilator Respiratory Rate 22 Setting Ventilator Respiratory Rate 22 Setting Ventilator Respiratory Rate 22 Setting Ventilator Respiratory Rate 22 Setting Ventilator Respiratory Rate 22 Setting Ventilator Respiratory Rate 22 Setting Ventilator Respiratory Rate 22 Setting Actual Respiratory Rate 26 Actual Respiratory Rate 24 Actual Respiratory Rate 24 Actual Respiratory Rate 22 Actual Respiratory Rate 22 Actual Respiratory Rate 22 Actual Respiratory Rate 22 Actual Respiratory Rate 22 Actual Respiratory Rate 22 Actual Respiratory Rate 22 Actual Respiratory Rate 22 Positive End Expiratory 18 Pressure Positive End Expiratory 18 Pressure Positive End Expiratory 18 Pressure Positive End Expiratory 16 Pressure Positive End Expiratory 16 Pressure Positive End Expiratory 16 Pressure Positive End Expiratory 16 Pressure Positive End Expiratory 16 Pressure Positive End Expiratory 12 Pressure Positive End Expiratory 10 Pressure Positive End Expiratory 10 Pressure Peak Inspiratory Airway 43 Pressure Peak Inspiratory Airway 41 Pressure Peak Inspiratory Airway 41 Pressure Peak Inspiratory Airway 39 Pressure Peak Inspiratory Airway 37 Pressure Peak Inspiratory Airway 37 Pressure Peak Inspiratory Airway 38 Pressure Peak Inspiratory Airway 38 Pressure Peak Inspiratory Airway 30 Pressure Peak Inspiratory Airway 30 Pressure Peak Inspiratory Airway 30 Pressure Results - Laboratory Findings CBC and BMP: 08/14/17 03:00 08/14/17 03:00 ABG ABG pH 7.27 pH Units (7.32-7.45) L 04/24/18 23:39 ABG pCO2 26 mmHg (35-45) L 08/13/17 23:39 ABG pO2 53 mmHg (85-104) L 08/13/17 23:39 ABG O2 Saturation 84 % (95-98) L 08/13/17 23:39 PT/INR, D-dimer PT 13.8 Seconds (9.4-12.1) H 08/13/17 14:45 Abnormal lab findings: Abnormal lab results WBC 29.5 K/mcL (4.3-11.1) H 08/14/17 03:00 RBC 3.13 M/mcL (3.82-4.97) L 08/14/17 03:00 Hgb 9.4 g/dL (11.5-15.4) L 08/14/17 03:00 Hct 29.5 % (35.3-44.9) L 08/14/17 03:00 RDW 16.0 % (11.5-14.5) H 08/14/17 03:00 Immature Gran % 8.4 % (0-4) H 08/14/17 00:56 Band Neutrophils % 18.0 % (0-4) H 08/14/17 03:00 Metamyelocytes % 6.0 % (0) H 08/12/17 04:46 Blast Cells % 4.0 % (0) H 08/14/17 03:00 Neutrophils # 21.8 K/mcL (1.6-8.9) H 08/14/17 03:00 Monocytes # 3.0 K/mcL (0.0-1.3) H 08/14/17 03:00 Eosinophils # 1.2 K/mcL (0.0-0.6) H 08/14/17 03:00 Nucleated RBCs/100 WBC 8.6 /100 WBC (0) H 08/14/17 03:00 Reactive Lymphocytes Present (Not Present) A 08/13/17 04:05 Toxic Granulation Present (Not Present) A 08/14/17 03:00 Platelet Estimate Slight Decrease (Normal) L 08/14/17 03:00 PT 13.8 Seconds (9.4-12.1) H 08/13/17 14:45 ABG pH 7.27 pH Units (7.32-7.45) L 08/13/17 23:39 ABG pCO2 26 mmHg (35-45) L 08/13/17 23:39 ABG pO2 53 mmHg (85-104) L 08/13/17 23:39 ABG HCO3 12 mEq/L (21-27) L 08/13/17 23:39 ABG Total CO2 13 mEq/L (20-26) L 08/13/17 23:39 ABG O2 Saturation 84 % (95-98) L 08/13/17 23:39 ABG Base Excess -13 mEq/L (-2 to 3) L 08/13/17 23:39 VBG pH 7.13 pH Units (7.32-7.42) L* 08/14/17 06:33 VBG pO2 141 mmHg (25-50) H 08/14/17 06:33 VBG HCO3 16 mEq/L (21-27) L 08/14/17 06:33 Sodium 127 mEq/L (136-145) L 08/14/17 03:00 Carbon Dioxide 16 mEq/L (23-29) L 08/14/17 03:00 BUN 56 mg/dL (6-20) H 08/14/17 03:00 Creatinine 1.96 mg/dL (0.60-1.20) H 08/14/17 03:00 Est GFR ( Amer) 33 (> 60) L 08/14/17 03:00 Est GFR (Non-Af Amer) 27 (> 60) L 08/14/17 03:00 BUN/Creatinine Ratio 29 (6-26) H 08/14/17 03:00 Glucose 191 mg/dL (70-105) H 08/14/17 03:00 POC Glucose 122 mg/dL (70-99) H 08/14/17 00:17 Lactic Acid 2.6 mmol/L (0.5-2.2) H 08/14/17 00:56 Calcium 7.1 mg/dL (8.6-10.3) L 08/14/17 03:00 Troponin I 0.07 ng/mL (< 0.04) H* 08/13/17 22:10 Serum Total Protein 4.9 g/dL (6.4-8.9) L 08/13/17 04:05 Albumin 2.6 g/dL (3.5-5.7) L 08/13/17 04:05 Globulin 2.3 g/dL (2.4-3.5) L 08/13/17 04:05 Prealbumin < 3.0 mg/dL (17.0-34.0) L 08/14/17 03:00 - Clinical Findings Intake & Output: Intake & Output 08/13/17 08/14/17 08/14/17 23:59 07:59 15:59 Intake Total 1978 / 1978 1776 / 1776 Output Total 300 / 300 168 / 168 Balance 1679 / 1679 1608 / 1608 Weight 135 kg - Attending Attestation I examined this patient and my medical decision-making was reviewed with the Resident Physician. I agree with the documented findings, disposition and treatment plan as described except to the extent set forth below. Patient seen and examined. Labs, radiology, chart personally reviewed. Agree with resident's history and physical, assessment, plan with following comments: INTAKE CLINICIAN: Patient does not follows commands, patient is on sedation and paralytics. We will make sure patient is sedated. Pulmonary: There is significant worsening of patient's chest x-ray as well as picture of ARDS and patient requiring high PEEP. Due to worsening oxygenation and we have decided to prone patient with some improvement in oxygenation. I have also checked her plateau pressure which is around 33, however I suspect some intra-abdominal pressure contributing to that. Tidal volume lowered more with increasing respiratory rate and permissive hypercapnia. It has been difficult to get serial ABG and for now we will monitor pH was VBG. I would also think of using medication such as Flolan if continued worsening of hypoxemia. Patient is on paralytics for oxygenation and also continue sedation. Cardiovascular: Unstable patient has been in shock which is reduced to me is vasodilatory with possible inflammation post surgery and also blood transfusion and continue vasopressors. GI: Nutrition per dietary and GI prophylaxis per routine Heme: DVT prophylaxis per routine ID: Continue antibiotics and plan to de-escalation Renal; urine out put and renal funtion reviewed. Have consulted nephrology for possible renal replacement therapy. Endorcine: blood glucose is monitored. Hydrocortisone was added to the treatment. Lines: all lines checked and no evidence of infections Skin: skin care to prevent pressure ulcers per nursing routine care I have discussed with the surgeon and patient remain critically ill with high mortality rate. I spent 90 min of Critical Care time with this patient. It involved decision making of high complexity to assess, manipulate, and support vital organ system failure and/or to prevent further life threatening deterioration of the patient' s condition. The time involved in the performance of separately reportable procedures was not counted toward critical care time.
[2017-08-14 06:41] LABS: VBG HCO3 16 mEq/L (21-27); VBG PCO2 46 mmHg (41-51); VBG PH 7.13 pH Units (7.32-7.42); VBG PO2 141 mmHg (25-50)
[2017-08-14] MEDS: Chlorhexidine Rinse 15 ML MOUTHWASH MM SCH ×2 (08:49→20:23)
[2017-08-14 09:01] LABS: VBG HCO3 16 mEq/L (21-27); VBG PCO2 49 mmHg (41-51); VBG PH 7.13 pH Units (7.32-7.42); VBG PO2 172 mmHg (25-50)
[2017-08-14] MEDS ORDERED: Dextrose Gel 15 GM/37.5 ML TUBE PO PRN ×2 (09:27)
[2017-08-14] MEDS ORDERED: D5% in Water 1,000 ML IVC PRN (09:27)
[2017-08-14] MEDS ORDERED: Pantoprazole 40 MG VIAL IVP SCH (09:30)
--- NOTE | 2017-08-14 09:53 | General Surgery Progress Note ---
Date of Encounter: 08/14/17 Time of Encounter: 09:30 - Assessment and Plan (1) GERD (gastroesophageal reflux disease) Current Visit: No Status: Chronic POD # 5 s/p Saravanan Fundoplication and subsequent ex lap with oversewing of hepatic and splenic veins with Dr. Abhinav SMITH IV fluids- Bicarb gtt currently at 150ml/hour Consider TPN in the next 48 hours when patient is more hemodynamically stable Supportive care and pain control- fentanyl and precedex gtt Stop carafate PPI added today due to risk for stress ulcer No concern for ongoing bleeding from a surgical standpoint Qualifiers: Esophagitis presence: without esophagitis Qualified Code(s): K21.9 - Gastro -esophageal reflux disease without esophagitis (2) ARDS (adult respiratory distress syndrome) Current Visit: Yes Status: Acute Patient on ventilator support Now requiring 100% FiO2 and PEEP of 18 Patient is in the prone position Management per pulmonary/critical care team- discussed with Dr. Mullen (3) Acute respiratory failure Current Visit: Yes Status: Acute Patient on ventilator support Concern for severe ARDS Now requiring 100% FiO2 and PEEP of 18 Patient is in the prone position Management per pulmonary/critical care team- discussed with Dr. Mullen Continue Zosyn and Vancomycin Qualifiers: Respiratory failure complication: hypoxia Qualified Code(s): J96.01 - Acute respiratory failure with hypoxia (4) Chest pain Current Visit: No Status: Acute Cardiology following Appreciate recommendations Echo complete- LVEF 70% Qualifiers: Chest pain type: unspecified Qualified Code(s): R07.9 - Chest pain, unspecified (5) Acute kidney failure, unspecified Current Visit: Yes Status: Acute Nephrology following Plan for placement of temporary dialysis catheter per Interventional Radiology this morning Start LYNN today- management per pulmonary/critical and nephrology Qualifiers: Acute renal failure type: unspecified Qualified Code(s): N17.9 - Acute kidney failure, unspecified (6) Tachycardia Current Visit: Yes Status: Acute Stop metoprolol Cardiology following for recommendations (7) Anemia Current Visit: Yes Status: Acute Hgb- 11.4>10.2>9.7 No concern for ongoing bleeding from a surgical standpoint Continue to monitor Qualifiers: Anemia type: unspecified type Qualified Code(s): D64.9 - Anemia, unspecified (8) DVT prophylaxis Current Visit: No Status: Acute Heparin 5,000 units SQ TID for DVT prophylaxis EPCDs to bilateral lower extremities for DVT prophylaxis Subjective Patient reports: fever (Tmax- 100.2; Tcurrent- 98.8), other (Patient paralyzed on ventilator support; decompensated last evening/night and now requiring 100% FiO2 and on maximum pressor support (levophed, neosynephrine, vasopressin); patient is currently in the prone position) Objective Vital Signs - Last 8 Hours Temp Pulse Resp BP Pulse Ox 08/14/17 09:07 26 89 08/14/17 09:00 107 26 113/45 89 08/14/17 08:00 98.8 F 108 26 114/47 90 08/14/17 07:58 108 08/14/17 07:40 26 91 08/14/17 07:36 98.9 F 08/14/17 07:00 112 24 93/57 92 08/14/17 06:00 103 24 74/44 94 08/14/17 05:36 22 83/52 93 08/14/17 05:00 114 22 96/70 94 08/14/17 04:00 119 22 102/38 95 08/14/17 03:51 100.1 F H 08/14/17 03:30 22 87/64 78 08/14/17 03:00 117 22 102/56 75 08/14/17 02:00 117 22 91/60 78 Intake and Output 08/13/17 08/14/17 08/14/17 23:59 07:59 15:59 Intake Total 1978 2976 / 2976 230 / 230 Output Total 300 / 300 168 / 168 Balance 1679 / 1679 2808 / 2808 230 / 230 Intake: IV Fluids 1978 2976 / 2976 230 / 230 Vasostrict 40 UNIT In Dextrose 0 / 0 5% 100 ML @ 0.03 UNIT/MIN 4.59 mls/hr IV .[id number] APRIL Rx#: [id number] 0.9 % Sodium Chloride 1,000 ML 1000 / 1000 @ 50 mls/hr IVC .Q20H APRIL Rx#: [id number] Nimbex 200 MG In 0.9 % Sodium 200 / 200 Chloride 180 ML @ 3 MCG/KG/MIN 23.09 mls/hr IVC CONT APRIL Rx#: [id number] PRECEDEX Premix 400 mcg In 100 100 / 100 200 / 200 ml @ 0.2 MCG/KG/HR 6.415 mls/hr IVC .[id number] APRIL Rx#: [id number] FentaNYL (PF) 1,000 MCG In 0.9 95 / 95 105 / 105 % Sodium Chloride 80 ML @ 50 MCG/HR 5 mls/hr IVC CONT APRIL Rx #:[id number] Levophed 4 MG In Dextrose 5% 504 / 504 250 ML @ 5 MCG/MIN 19.05 mls/hr IVC CONT APRIL Rx#:[id number] Levophed 16 MG In Dextrose 5% 516 / 516 500 ML @ 5 MCG/MIN 9.67 mls/hr IVC CONT APRIL Rx#:[id number] Phenylephrine 50 MG In Dextrose 255 / 255 230 / 230 5% 250 ML @ 40 MCG/MIN 12.24 mls/hr IVC CONT APRIL Rx#: [id number] Diprivan 1,000 mg In 100 ml @ 5 80 / 80 MCG/KG/MIN 3.849 mls/hr IVC . Q24H APRIL Rx#:[id number] Sodium Bicarbonate 100 MEQ In 1100 / 1100 Dextrose 5% 1,000 ML @ 150 mls/ hr IVC .[id number] APRIL Rx#: [id number] Zosyn 3.375 GM In 0.9 % Sodium 200 / 200 100 / 100 Chloride (Mini-Bag +) 100 ML @ 25 mls/hr IVPB Q8HR APRIL Rx#: [id number] Vancocin 2,000 MG In 0.9 % 500 / 500 Sodium Chloride 500 ML @ 250 mls/hr IVPB Q12H APRIL Rx#: [id number] Output: Catheter 50 / 50 93 / 93 Gastric Drainage 250 / 250 75 / 75 Other: Weight 135 kg Blood Glucose* 164 Patient Weight 08/14/17 23:59 Weight 135 kg - General physical appearance other (Patient paralyzed on ventilator support) - Eyes PERRL (2mm, sluggish to react) - ENT dry mucosa, atraumatic, normocephalic - Neck Neck exam: trachea midline - Respiratory clear to auscultation, other (Ventilator support- requiring 100% FiO2 and PEEP is at 18) - Cardiovascular Cardiovascular exam: Present: tachycardia - Abdomen Abdomen: Present: soft - Incision Incision: Present: clean and dry, intact - Genitourinary other (mckinnon catheter to SD with clear yellow urine noted (243ml since midnight) ) - Neurologic other (Unable to assess) - Musculoskeletal other (Unable to assess) - Psychiatric other (Unable to assess) - Labs 08/14/17 03:00 08/14/17 03:00 Diabetes panel 08/14/17 Range/Units 03:00 Sodium 127 L (136-145) mEq/L Potassium 4.8 (3.5-5.1) mEq/L Chloride 105 (98-107) mEq/L Carbon Dioxide 16 L (23-29) mEq/L BUN 56 H (6-20) mg/dL Creatinine 1.96 H (0.60-1.20) mg/dL Glucose 191 H (70-105) mg/dL Calcium 7.1 L (8.6-10.3) mg/dL Calcium panel 08/14/17 08/14/17 Range/Units 03:00 03:00 Calcium 7.1 L (8.6-10.3) mg/dL Phosphorus 4.3 (2.7-4.5) mg/dL Pituitary panel 08/14/17 Range/Units 03:00 Sodium 127 L (136-145) mEq/L Potassium 4.8 (3.5-5.1) mEq/L Chloride 105 (98-107) mEq/L Carbon Dioxide 16 L (23-29) mEq/L BUN 56 H (6-20) mg/dL Creatinine 1.96 H (0.60-1.20) mg/dL Glucose 191 H (70-105) mg/dL Calcium 7.1 L (8.6-10.3) mg/dL Adrenal panel 08/14/17 Range/Units 03:00 Sodium 127 L (136-145) mEq/L Potassium 4.8 (3.5-5.1) mEq/L Chloride 105 (98-107) mEq/L Carbon Dioxide 16 L (23-29) mEq/L BUN 56 H (6-20) mg/dL Creatinine 1.96 H (0.60-1.20) mg/dL Glucose 191 H (70-105) mg/dL Calcium 7.1 L (8.6-10.3) mg/dL - VTE Documentation of Mechanical Device: Intermittent pneumatic compression device Consult Discharge Plan - Plan Additional Instructions: Surgical instructions: #1 may shower starting 08/10/17, no tub bath for 2 weeks #2 wash incisions with soap and water and pat dry daily #3 no lifting, pushing, pulling more than 15 pounds for the next 4 weeks #4 no driving until off narcotics for 24 hours and able to safely react in the car #5 may climb stairs Follow-up appointment: Sunday, August 20, 2017 with Sonia Joe CNP in the outpatient surgical office (Medical office building, [address]) [facility] After Saravanan Fundoplication Surgery This diet information is for patients who have recently had Saravanan Fundoplication Surgery to correct reflux disease or to repair various types of hernias, such as hiatal hernia and intrathoracic stomach. This diet may also be used for other gastrointestinal surgeries, such as Heller myotomy and repair of achalasia. The diet will help control diarrhea, excess gas and swallowing problems, which may occur after this type of surgery. Important Steps to Keep Your Stomach From Stretching Eat small, frequent meals (six to eight per day). This will help you consume the majority of the nutrients you need without causing your stomach to feel full or distended. Drinking large amounts of fluids with meals can stretch your stomach. You may drink fluids between meals as often as you like, but limit fluids to 1/2 cup (4 fluid ounces) with meals and one cup (8 fluid ounces) with snacks. Sit upright while eating and stay upright for 30 minutes after each meal. [place] can help food move through your digestive tract. Do not lie down after eating. Sit upright for 2 hours after your last meal or snack of the day. Eat very slowly. Take your time when eating. Take small bites and chew your food well to cook helper preserves in swallowing and digestion. Avoid crusty breads and sticky, gummy foods, such as bananas, fresh doughy breads, rolls and doughnuts. These types of foods become sticky and difficult to swallow. Toasted breads tend to be better tolerated. Lastly, if you eat sweets, consume them at the end of your meal to avoid a group of symptoms referred to as dumping syndrome. This describes the rapid emptying of foods from the stomach to the small intestine. Sweetened beverages, candy and desserts move more rapidly and dump quickly into the intestines. This can cause symptoms of nausea, weakness, cold sweats, cramps, diarrhea and dizzy spells. Important Steps to Avoid Gas Do not drink through a straw, chew gum, or chew tobacco. These actions cause you to swallow air, which will produce excess gas in your stomach. Chew with your mouth closed and chew your food thoroughly. Avoid foods that cause stomach gas and distention. The foods include corn, dried beans, peas, lentils, onions, broccoli, cauliflower, and any food item from the cabbage family. Do not drink carbonated drinks, alcohol, citrus, or tomato products. What Will I Be Able To Eat and Drink After Surgery After Saravanan Fundoplication Surgery, your diet will be advanced slowly by your surgeon. Generally, you will be on a thin/clear liquid diet for the first 10 days. Then you will advance to the full liquid diet for 4 days and eventually to a Saravanan soft diet for 7 days. After any surgery, protein consumption is important for healing. To get enough protein, drink 3-4 [place] Instant Breakfast, Ensure, or equivalent daily. Reminder: carbonated beverages (such as sodas, energy drinks, flavored carbonated water), and alcohol are not permitted for the 1st 6 to 8 weeks after surgery. After this time you may attempt to reintroduce them in small amounts. Please note: dairy products such as milk, ice cream, and putting may cause diarrhea and some people after surgery. He may need to avoid milk products. If so you may substitute them with lactose free beverages, such as soy, rice, lactate, or almond milk. Please be aware that each patient's tolerance to food is different. Your doctor will advance your diet depending on how well you progress after surgery. Thin Liquid Diet The first diet after Saravanan Fundoplication Surgery is the thin liquids diet. Follow this diet for postoperative days 1-10 08/10/2017 - 08/19/2017. Thin liquids include: Apple, Cranberry, or Grape Juice (no citrus juice) Chicken Broth Beef Broth Flavored Gelatin (Jell-O) Decaffeinated Tea or Coffee Popsicles or [place] Ice Caffeinated Beverages Will Be Permitted Based upon Tolerance Dairy Thin Milkshakes (strawberry or vanilla flavored- No chocolate) Drink 3-4 [place] instant breakfast, Ensure, or equivalent daily. May be mixed with dairy for thin milkshakes Full Liquid Diet Follow this diet for postoperative days 11-14 08/20/2017- 08/23/2017. Full liquid diet includes anything in the thin liquid diet plus: Milk, Soy, Rice, and [place] (No Chocolate) Cream of Wheat, Cream of Rice, Grits Strained Creamed Soups (No Tomato Water Broccoli) Vanilla and [place] Flavored Ice Cream Sherbet Vanilla and Butterscotch Pudding (No Chocolate or Coconut) Continue 3-4 [place] Instant Breakfast, Ensure, or an Equivalent Daily. Maybe Next with Dairy for Thin Milkshakes. Saravanan Soft Diet Follow this diet for postoperative days 15-20 08/24/2017- 08/30/2017. (If you are consuming enough protein, you may stop the protein supplements). See Saravanan Diet handout for more specific information Referrals: Edyta Melgar, LEAD AUDITOR [Primary Care Provider] - - Attending Attestation For this encounter, I have reviewed the MANAGER BAR or PA documentation, treatment plan, and medical decision making; and I have had face to face time with this patient.
--- NOTE | 2017-08-14 10:13 | Nephrology Progress Note ---
Date of Encounter: 08/14/17 Time of Encounter: 09:00 Subjective Principal diagnosis: Tachycardia Interval history: A/P- Events noted. Critically ill. Recurrent YOJANA R/T respiratory failure, hypotension, acidisis, oliguric. For these reasons will start CVVH. Discussed with ICU team and Dr. Funes. CVVH orders per Dr. Funes. IR consulted for line placement. Intubated, sedated, 3 pressors. FIO2 100/peep 18. Prone position. Critically ill. Objective - Vital Signs Vital signs: Vital Signs Temp Pulse Resp BP Pulse Ox 08/14/17 10:00 112 26 107/49 88 08/14/17 09:07 26 89 08/14/17 09:00 107 26 113/45 89 08/14/17 08:00 98.8 F 108 26 114/47 90 08/14/17 07:58 108 08/14/17 07:40 26 91 08/14/17 07:36 98.9 F 08/14/17 07:00 112 24 93/57 92 08/14/17 06:00 103 24 74/44 94 08/14/17 05:36 22 83/52 93 08/14/17 05:00 114 22 96/70 94 08/14/17 04:00 119 22 102/38 95 08/14/17 03:51 100.1 F H 08/14/17 03:30 22 87/64 78 08/14/17 03:00 117 22 102/56 75 08/14/17 02:00 117 22 91/60 78 08/14/17 01:19 22 105/63 82 08/14/17 01:00 116 22 65/26 82 08/14/17 00:22 100.1 F H 08/14/17 00:00 138 33 96/60 91 08/13/17 23:00 134 30 70/56 79 08/13/17 22:00 119 21 74/42 83 08/13/17 21:32 21 95/58 92 08/13/17 21:00 108 24 89/64 92 08/13/17 20:00 125 24 87/65 91 08/13/17 19:56 24 94/47 91 08/13/17 19:00 100.2 F H 127 24 79/35 93 08/13/17 18:00 137 26 109/89 91 08/13/17 17:07 23 66/30 94 08/13/17 17:00 120 31 106/82 89 08/13/17 16:00 125 23 80/51 95 08/13/17 15:45 23 74/56 91 08/13/17 15:19 126 08/13/17 15:00 98.6 F 126 24 83/46 97 08/13/17 14:00 141 22 101/67 98 08/13/17 13:39 24 85/53 97 08/13/17 13:00 132 22 85/53 98 08/13/17 12:00 141 26 83/54 89 08/13/17 11:23 147 08/13/17 11:00 99.4 F 147 28 107/75 88 Intake and Output 08/13/17 08/14/17 08/14/17 23:59 07:59 15:59 Intake Total 1978 2976 / 2976 230 / 230 Output Total 300 / 300 168 / 168 150 / 150 Balance 1679 / 1679 2808 / 2808 80 / 80 Intake: IV Fluids 1978 2976 / 2976 230 / 230 Vasostrict 40 UNIT In Dextrose 0 / 0 5% 100 ML @ 0.03 UNIT/MIN 4.59 mls/hr IV .[id number] APRIL Rx#: [id number] 0.9 % Sodium Chloride 1,000 ML 1000 / 1000 @ 50 mls/hr IVC .Q20H APRIL Rx#: [id number] Nimbex 200 MG In 0.9 % Sodium 200 / 200 Chloride 180 ML @ 3 MCG/KG/MIN 23.09 mls/hr IVC CONT APRIL Rx#: [id number] PRECEDEX Premix 400 mcg In 100 100 / 100 200 / 200 ml @ 0.2 MCG/KG/HR 6.415 mls/hr IVC .[id number] APRIL Rx#: [id number] FentaNYL (PF) 1,000 MCG In 0.9 95 / 95 105 / 105 % Sodium Chloride 80 ML @ 50 MCG/HR 5 mls/hr IVC CONT APRIL Rx #:[id number] Levophed 4 MG In Dextrose 5% 504 / 504 250 ML @ 5 MCG/MIN 19.05 mls/hr IVC CONT APRIL Rx#:[id number] Levophed 16 MG In Dextrose 5% 516 / 516 500 ML @ 5 MCG/MIN 9.67 mls/hr IVC CONT [facility] Rx#:[id number] Phenylephrine 50 MG In Dextrose 255 / 255 230 / 230 5% 250 ML @ 40 MCG/MIN 12.24 mls/hr IVC CONT [facility] Rx#: [id number] Diprivan 1,000 mg In 100 ml @ 5 80 / 80 MCG/KG/MIN 3.849 mls/hr IVC . Q24H APRIL Rx#:[id number] Sodium Bicarbonate 100 MEQ In 1100 / 1100 Dextrose 5% 1,000 ML @ 150 mls/ hr IVC .[id number] APRIL Rx#: [id number] Zosyn 3.375 GM In 0.9 % Sodium 200 / 200 100 / 100 Chloride (Mini-Bag +) 100 ML @ 25 mls/hr IVPB Q8HR APRIL Rx#: [id number] Vancocin 2,000 MG In 0.9 % 500 / 500 Sodium Chloride 500 ML @ 250 mls/hr IVPB Q12H APRIL Rx#: [id number] Tube Feeding 0 / 0 Output: Catheter 50 / 50 93 / 93 150 / 150 Gastric Drainage 250 / 250 75 / 75 Other: Weight 135 kg Blood Glucose* 164 Patient Weight 08/14/17 23:59 Weight 135 kg - General Appearance General appearance: Present: well-developed, well-nourished, appears started age , sedated on ventilator, intubated EENT: Present: mucous membranes moist Respiratory: Present: course breath sounds Cardiology: Present: edema, regular rate, regular rhythm Additional Comments: generalized edema, non pitting. Tachycardic. - Lab 08/14/17 03:00 08/14/17 03:00 Most recent lab results ABG pH 7.27 pH Units (7.32-7.45) L 08/13/17 23:39 ABG pCO2 26 mmHg (35-45) L 08/13/17 23:39 ABG pO2 53 mmHg (85-104) L 08/13/17 23:39 ABG HCO3 12 mEq/L (21-27) L 08/13/17 23:39 ABG O2 Saturation 84 % (95-98) L 08/13/17 23:39 Calcium 7.1 mg/dL (8.6-10.3) L 08/14/17 03:00 Phosphorus 4.3 mg/dL (2.7-4.5) 08/14/17 03:00 Magnesium 2.1 mg/dL (1.6-2.6) 08/14/17 03:00 - VTE Documentation of Mechanical Device: Intermittent pneumatic compression device Consult Discharge Plan - Plan Additional Instructions: Surgical instructions: #1 may shower starting 08/10/17, no tub bath for 2 weeks #2 wash incisions with soap and water and pat dry daily #3 no lifting, pushing, pulling more than 15 pounds for the next 4 weeks #4 no driving until off narcotics for 24 hours and able to safely react in the car #5 may climb stairs Follow-up appointment: Sunday, August 20, 2017 with Sonia Joe CNP in the outpatient surgical office (Medical office building, [address]) [place] [facility] Diet After Saravanan Fundoplication Surgery This diet information is for patients who have recently had Saravanan Fundoplication Surgery to correct reflux disease or to repair various types of hernias, such as hiatal hernia and intrathoracic stomach. This diet may also be used for other gastrointestinal surgeries, such as Heller myotomy and repair of achalasia. The diet will help control diarrhea, excess gas and swallowing problems, which may occur after this type of surgery. Important Steps to Keep Your Stomach From Stretching Eat small, frequent meals (six to eight per day). This will help you consume the majority of the nutrients you need without causing your stomach to feel full or distended. Drinking large amounts of fluids with meals can stretch your stomach. You may drink fluids between meals as often as you like, but limit fluids to 1/2 cup (4 fluid ounces) with meals and one cup (8 fluid ounces) with snacks. Sit upright while eating and stay upright for 30 minutes after each meal. [place] can help food move through your digestive tract. Do not lie down after eating. Sit upright for 2 hours after your last meal or snack of the day. Eat very slowly. Take your time when eating. Take small bites and chew your food well to caterers helper in swallowing and digestion. Avoid crusty breads and sticky, gummy foods, such as bananas, fresh doughy breads, rolls and doughnuts. These types of foods become sticky and difficult to swallow. Toasted breads tend to be better tolerated. Lastly, if you eat sweets, consume them at the end of your meal to avoid a group of symptoms referred to as dumping syndrome. This describes the rapid emptying of foods from the stomach to the small intestine. Sweetened beverages, candy and desserts move more rapidly and dump quickly into the intestines. This can cause symptoms of nausea, weakness, cold sweats, cramps, diarrhea and dizzy spells. Important Steps to Avoid Gas Do not drink through a straw, chew gum, or chew tobacco. These actions cause you to swallow air, which will produce excess gas in your stomach. Chew with your mouth closed and chew your food thoroughly. Avoid foods that cause stomach gas and distention. The foods include corn, dried beans, peas, lentils, onions, broccoli, cauliflower, and any food item from the cabbage family. Do not drink carbonated drinks, alcohol, citrus, or tomato products. What Will I Be Able To Eat and Drink After Surgery After Saravanan Fundoplication Surgery, your diet will be advanced slowly by your surgeon. Generally, you will be on a thin/clear liquid diet for the first 10 days. Then you will advance to the full liquid diet for 4 days and eventually to a Saravanan soft diet for 7 days. After any surgery, protein consumption is important for healing. To get enough protein, drink 3-4 [place] Instant Breakfast, Ensure, or equivalent daily. Reminder: carbonated beverages (such as sodas, energy drinks, flavored carbonated water), and alcohol are not permitted for the 1st 6 to 8 weeks after surgery. After this time you may attempt to reintroduce them in small amounts. Please note: dairy products such as milk, ice cream, and putting may cause diarrhea and some people after surgery. He may need to avoid milk products. If so you may substitute them with lactose free beverages, such as soy, rice, lactate, or almond milk. Please be aware that each patient's tolerance to food is different. Your doctor will advance your diet depending on how well you progress after surgery. Thin Liquid Diet The first diet after Saravanan Fundoplication Surgery is the thin liquids diet. Follow this diet for postoperative days 1-10 08/10/2017 - 08/19/2017. Thin liquids include: Apple, Cranberry, or Grape Juice (no citrus juice) Chicken Broth Beef Broth Flavored Gelatin (Jell-O) Decaffeinated Tea or Coffee Popsicles or [place] Ice Caffeinated Beverages Will Be Permitted Based upon Tolerance Dairy Thin Milkshakes (strawberry or vanilla flavored- No chocolate) Drink 3-4 [place] instant breakfast, Ensure, or equivalent daily. May be mixed with dairy for thin milkshakes Full Liquid Diet Follow this diet for postoperative days 11-14 08/20/2017- 08/23/2017. Full liquid diet includes anything in the thin liquid diet plus: Milk, Soy, Rice, and [place] (No Chocolate) Cream of Wheat, Cream of Rice, Grits Strained Creamed Soups (No Tomato Water Broccoli) Vanilla and [place] Flavored Ice Cream Sherbet Vanilla and Butterscotch Pudding (No Chocolate or Coconut) Continue 3-4 [place] Instant Breakfast, Ensure, or an Equivalent Daily. Maybe Next with Dairy for Thin Milkshakes. Saravanan Soft Diet Follow this diet for postoperative days 15-20 08/24/2017- 08/30/2017. (If you are consuming enough protein, you may stop the protein supplements). See Saravanan Diet handout for more specific information Referrals: Edyta Melgar, SEMIAUTOMATIC TAPER OPERATOR [Primary Care Provider] -
[2017-08-14] MEDS ORDERED: 0.9 % Sodium Chloride 500 ML ONE (10:57)
[2017-08-14 11:43] LABS: ABG Base Excess -13 mEq/L (-2 to 3); ABG HCO3 17 mEq/L (21-27); ABG Oxygen Saturation 88 % (95-98); ABG PCO2 59 mmHg (35-45); ABG PH 7.08 pH Units (7.32-7.45); ABG PO2 76 mmHg (85-104); ABG TCO2 19 mEq/L (20-26); Blood Gas Modality ASSIST CONTROL; Blood Gas PEEP 18 cm H2O; Blood Gas Respiration Rate 26; Blood Gas VT 380 cc
[2017-08-14 12:54] LABS: Hematocrit 27.7 % (35.3-44.9); Hemoglobin 8.9 g/dL (11.5-15.4); Mean Corpuscular HGB Conc 32.1 g/dL (31.6-35.5); Mean Corpuscular Hemoglobin 29.6 pg (28.0-33.3); Mean Platelet Volume 11.4 fL (9.4-12.4); Nucleated Red Blood Cells 5.3 /100 WBC (0); Platelet Count 115 K/mcL (140-400); Red Blood Count 3.01 M/mcL (3.82-4.97); Red Cell Distribution Width 16.1 % (11.5-14.5)
[2017-08-14] MEDS ORDERED: Vancomycin 1 EACH in EMPTY BAG 1 EACH IVPB SCH (13:00)
[2017-08-14] MEDS: PrismaSATE BGK 4/2.5 5,000 ML CRRT SCH ×5 (13:33→21:05)
[2017-08-14] MEDS: 0.9 % Sodium Chloride 1,000 ML PRIME SCH ×3 (13:34→23:28)
[2017-08-14 13:39] LABS: Albumin 2.2 g/dL (3.5-5.7); Albumin/Globulin Ratio 1.5 (1.1-2.2); Bilirubin,Direct 0.6 mg/dL (0.0-0.2); Bilirubin,Indirect 0.6 mg/dL (0.0-1.2); Bilirubin,Total 1.2 mg/dL (0.3-1.0); Calcium 6.6 mg/dL (8.6-10.3); Globulin 1.5 g/dL (2.4-3.5); Magnesium 2.1 mg/dL (1.6-2.6); Phosphorous 5.8 mg/dL (2.7-4.5); Total Protein 3.7 g/dL (6.4-8.9)
[2017-08-14] MEDS: Insulin LISPRO 300 UNITS/3 ML VIAL SQ SCH ×3 (13:40→23:38)
[2017-08-14 13:45] LABS: ABG Base Excess -11 mEq/L (-2 to 3); ABG HCO3 18 mEq/L (21-27); ABG Oxygen Saturation 89 % (95-98); ABG PCO2 54 mmHg (35-45); ABG PH 7.12 pH Units (7.32-7.45); ABG PO2 76 mmHg (85-104); ABG TCO2 19 mEq/L (20-26); Blood Gas Modality ASSIST CONTROL; Blood Gas PEEP 18 cm H2O; Blood Gas Respiration Rate 26; Blood Gas VT 380 cc
[2017-08-14 14:03] LABS: Dohle Bodies Present (Not Present); Lymphocytes # 3.7 K/mcL (0.6-4.6); Monocytes # 0.4 K/mcL (0.0-1.3); Neutrophils # 30.3 K/mcL (1.6-8.9); Toxic Granulation Present (Not Present)
[2017-08-14 14:04] LABS: Platelet Estimate Slight Decrease (Normal)
[2017-08-14] MEDS: Levalbuterol Neb 1.25 MG/3 ML IH SCH ×2 (16:07→23:27)
[2017-08-14] MEDS: Vasopressin 40 UNIT in D5% in Water 100 ML IV SCH (19:54)
[2017-08-14] MEDS: Famotidine 20 MG/2 ML VIAL IVP SCH (20:23)
[2017-08-14] MEDS: *HR* Heparin 5,000 UNIT/ML VIAL IV PRN (23:26)
[2017-08-15] MEDS: Sodium Bicarbonate 100 MEQ in D5% in Water 1,000 ML IVC SCH ×2 (00:11→06:47)
[2017-08-15] MEDS: Piperacillin/Tazobactam 3.375 GM in 0.9 % Sodium Chloride Mini Bag 100 ML IVPB SCH ×3 (00:15→16:14)
[2017-08-15] MEDS: 0.9 % Sodium Chloride 1,000 ML IVC SCH ×2 (00:21→19:46)
[2017-08-15] MEDS: PrismaSATE BGK 4/2.5 5,000 ML CRRT SCH ×9 (01:24→20:13)
[2017-08-15 01:42] LABS: ABG Base Excess -7 mEq/L (-2 to 3); ABG HCO3 21 mEq/L (21-27); ABG Oxygen Saturation 100 % (95-98); ABG PCO2 54 mmHg (35-45); ABG PO2 300 mmHg (85-104); ABG TCO2 23 mEq/L (20-26); Blood Gas Modality ASSIST CONTROL; Blood Gas PEEP 18 cm H2O; Blood Gas Respiration Rate 26; Blood Gas VT 380 cc
--- NOTE | 2017-08-15 01:53 | Pulmonology Progress Note ---
<Nick Owens - Last Filed: 08/15/17 07:28> Date of Encounter: 08/15/17 Time of Encounter: 02:52 Assessment and Plan (1) Acute respiratory failure with hypoxia Current Visit: Yes Status: Acute Acute hypoxic respiratory failure on 08/13/17 necessitating intubation. Mod ARDS PaO2/FiO2 ~180s FiO2 weaned from 100% to 60%. Continue mechanical ventilation with permissive hypercapnia. Consider transitioning back to supine position today. Wean ventilatory settings as tolerated. Daily chest x-ray. (2) Shock Current Visit: Yes Status: Acute Hemodynamically improving. Suspect vasodilatory shock in the setting of systemic inflammatory response and ARDS. Off Howard-Synephrine and vasopressin. Remains on Levophed. Goal MAP>60 Previous echo demonstrating an EF 70%. (3) GERD (gastroesophageal reflux disease) Current Visit: No Status: Chronic POD #6 Nisson fundoplication, exploratory laparotomy with oversewing hepatic and splenic veins. NPO Protonix daily Carafate discontinued mIVF w/ bicarb gtt Qualifiers: Esophagitis presence: without esophagitis Qualified Code(s): K21.9 - Gastro -esophageal reflux disease without esophagitis (4) Acute kidney failure, unspecified Current Visit: Yes Status: Acute Serum creatinine 1.55. Likely secondary to vasodilatory shock with pressor requirement. Nephrology consulted Currently on CRRT Daily BMP. Qualifiers: Acute renal failure type: unspecified Qualified Code(s): N17.9 - Acute kidney failure, unspecified (5) Tachycardia Current Visit: Yes Status: Resolved Resolved Prior echo demonstrating EF of 70%. Troponins downtrending. Cardiology consulted. (6) Anemia Current Visit: Yes Status: Acute Hemoglobin 9.2 , previously 8.9. Surgery following, not concerned for surgical bleeding Daily CBC Qualifiers: Anemia type: unspecified type Qualified Code(s): D64.9 - Anemia, unspecified (7) Elevated troponin Current Visit: Yes Status: Acute Troponins downtrending. Likely demand ischemia secondary to shock, tachycardia as well as renal insufficiency. Cardiology consulted. (8) Thrombocytopenia Current Visit: Yes Status: Acute Platelets 48 this AM No obvious bleeding Hold Heparin prophylaxis (9) DVT prophylaxis Current Visit: No Status: Acute Hold heparin due to thrombocytopenia. Subjective Principal diagnosis: Tachycardia Interval history: As of this morning the patient has been weaned solely to Levophed. Her tachycardia has resolved. Her repeat ABG overnight demonstrated a PaO2 to FiO2 ratio of 300. This is significantly improved from previous. She remained prone overnight. Objective PUL Vital signs: Last Vital Signs Temp 96.2 F L 08/15/17 01:00 Pulse 66 08/15/17 01:00 Resp 26 08/15/17 01:15 BP 100/60 08/15/17 01:00 Pulse Ox 91 08/15/17 01:00 General appearance: other (Intubated and sedated. Paralyzed. Prone.) Eyes: other (Left periorbital edema) ENT: other (ET tube) Effort: other (Mechanically ventilated) Auscultation: bilateral: rhonchi Cardiovascular: regular rate and rhythm Gastrointestinal: other (Unable to palpate the abdomen as the patient is prone.) Extremities: no cyanosis Musculoskeletal: no deformities other (Intubated, sedated and paralyzed.) Ventilator Settings Ventilator Settings: Ventilator Settings, Last 8 Hours Ventilator Mode A/C Ventilator Mode VC+ Ventilator Mode VC+ Ventilator Mode VC+ Ventilator Mode VC+ Ventilator Mode VC+ Ventilator Mode VC+ Ventilator Mode VC+ Ventilator Mode VC+ Ventilator Mode VC+ Ventilator Mode VC+ Ventilator Tidal Volume 380 Setting Ventilator Tidal Volume 380 Setting Ventilator Tidal Volume 380 Setting Ventilator Tidal Volume 380 Setting Ventilator Tidal Volume 380 Setting Ventilator Tidal Volume 380 Setting Ventilator Tidal Volume 380 Setting Ventilator Tidal Volume 380 Setting Ventilator Tidal Volume 380 Setting Ventilator Tidal Volume 380 Setting Ventilator Tidal Volume 380 Setting Ventilator Respiratory Rate 26 Setting Ventilator Respiratory Rate 26 Setting Ventilator Respiratory Rate 26 Setting Ventilator Respiratory Rate 26 Setting Ventilator Respiratory Rate 26 Setting Ventilator Respiratory Rate 26 Setting Ventilator Respiratory Rate 26 Setting Ventilator Respiratory Rate 26 Setting Ventilator Respiratory Rate 26 Setting Ventilator Respiratory Rate 26 Setting Ventilator Respiratory Rate 26 Setting Actual Respiratory Rate 26 Actual Respiratory Rate 26 Actual Respiratory Rate 26 Actual Respiratory Rate 26 Actual Respiratory Rate 26 Actual Respiratory Rate 26 Actual Respiratory Rate 26 Actual Respiratory Rate 26 Actual Respiratory Rate 26 Actual Respiratory Rate 26 Positive End Expiratory 18 Pressure Positive End Expiratory 18 Pressure Positive End Expiratory 18 Pressure Positive End Expiratory 18 Pressure Positive End Expiratory 18 Pressure Positive End Expiratory 18 Pressure Positive End Expiratory 18 Pressure Positive End Expiratory 18 Pressure Positive End Expiratory 18 Pressure Positive End Expiratory 18 Pressure Positive End Expiratory 18 Pressure Peak Inspiratory Airway 41 Pressure Peak Inspiratory Airway 45 Pressure Peak Inspiratory Airway 45 Pressure Peak Inspiratory Airway 45 Pressure Peak Inspiratory Airway 40 Pressure Peak Inspiratory Airway 40 Pressure Peak Inspiratory Airway 40 Pressure Peak Inspiratory Airway 43 Pressure Peak Inspiratory Airway 43 Pressure Peak Inspiratory Airway 44 Pressure Results - Laboratory Findings CBC and BMP: 08/15/17 03:20 08/15/17 03:20 ABG ABG pH 7.20 pH Units (7.32-7.45) L* 08/15/17 01:38 ABG pCO2 54 mmHg (35-45) H 08/15/17 01:38 ABG pO2 300 mmHg (85-104) H 08/15/17 01:38 ABG O2 Saturation 100 % (95-98) H 08/15/17 01:38 PT/INR, D-dimer PT 13.8 Seconds (9.4-12.1) H 08/13/17 14:45 Abnormal lab findings: Abnormal lab results WBC 41.0 K/mcL (4.3-11.1) H* 08/14/17 09:41 RBC 3.01 M/mcL (3.82-4.97) L 08/14/17 09:41 Hgb 8.9 g/dL (11.5-15.4) L 08/14/17 09:41 Hct 27.7 % (35.3-44.9) L 08/14/17 09:41 RDW 16.1 % (11.5-14.5) H 08/14/17 09:41 Plt Count 115 K/mcL (140-400) L 08/14/17 09:41 Immature Gran % 8.4 % (0-4) H 08/14/17 00:56 Band Neutrophils % 39.0 % (0-4) H 08/14/17 09:41 Metamyelocytes % 8.0 % (0) H 08/14/17 09:41 Myelocytes % 6.0 % (0) H 08/14/17 09:41 Promyelocytes % 2.0 % (0) H 08/14/17 09:41 Blast Cells % 4.0 % (0) H 08/14/17 03:00 Neutrophils # 30.3 K/mcL (1.6-8.9) H 08/14/17 09:41 Eosinophils # 1.2 K/mcL (0.0-0.6) H 08/14/17 03:00 Nucleated RBCs/100 WBC 5.3 /100 WBC (0) H 08/14/17 09:41 Reactive Lymphocytes Present (Not Present) A 08/13/17 04:05 Toxic Granulation Present (Not Present) A 08/14/17 09:41 Dohle Bodies Present (Not Present) A 08/14/17 09:41 Platelet Estimate Slight Decrease (Normal) L 08/14/17 09:41 PT 13.8 Seconds (9.4-12.1) H 08/13/17 14:45 ABG pH 7.20 pH Units (7.32-7.45) L* 08/15/17 01:38 ABG pCO2 54 mmHg (35-45) H 08/15/17 01:38 ABG pO2 300 mmHg (85-104) H 08/15/17 01:38 ABG O2 Saturation 100 % (95-98) H 08/15/17 01:38 ABG Base Excess -7 mEq/L (-2 to 3) L 08/15/17 01:38 VBG pH 7.13 pH Units (7.32-7.42) L* 08/14/17 08:55 VBG pO2 172 mmHg (25-50) H 08/14/17 08:55 VBG HCO3 16 mEq/L (21-27) L 08/14/17 08:55 Sodium 129 mEq/L (136-145) L 08/14/17 09:41 Carbon Dioxide 18 mEq/L (23-29) L 08/14/17 09:41 BUN 57 mg/dL (6-20) H 08/14/17 09:41 Creatinine 1.97 mg/dL (0.60-1.20) H 08/14/17 09:41 Est GFR ( Amer) 33 (> 60) L 08/14/17 09:41 Est GFR (Non-Af Amer) 27 (> 60) L 08/14/17 09:41 BUN/Creatinine Ratio 29 (6-26) H 08/14/17 09:41 Glucose 238 mg/dL (70-105) H 08/14/17 09:41 POC Glucose 122 mg/dL (70-99) H 08/14/17 00:17 Lactic Acid 2.9 mmol/L (0.5-2.2) H 08/14/17 12:30 Calcium 6.6 mg/dL (8.6-10.3) L 08/14/17 09:41 Phosphorus 5.8 mg/dL (2.7-4.5) H 08/14/17 09:41 Total Bilirubin 1.2 mg/dL (0.3-1.0) H 08/14/17 09:41 Direct Bilirubin 0.6 mg/dL (0.0-0.2) H 08/14/17 09:41 AST 59 Units/L (13-39) H 08/14/17 09:41 Alkaline Phosphatase 19 Units/L (34-104) L 08/14/17 09:41 Troponin I 0.07 ng/mL (< 0.04) H* 08/13/17 22:10 Serum Total Protein 3.7 g/dL (6.4-8.9) L 08/14/17 09:41 Albumin 2.2 g/dL (3.5-5.7) L 08/14/17 09:41 Globulin 1.5 g/dL (2.4-3.5) L 08/14/17 09:41 Prealbumin < 3.0 mg/dL (17.0-34.0) L 08/14/17 03:00 Vancomycin Trough 26 mcg/mL (5-10) H 08/14/17 12:00 - Clinical Findings Intake & Output: Intake & Output 08/14/17 08/14/17 08/15/17 15:59 23:59 07:59 Intake Total 2603 / 2603 1940.0 / 1940.0 459.4 / 459.4 Output Total 713 / 713 2182 / 2182 598 / 598 Balance 1890 / 1890 -242.0 / -242.0 -138.6 / -138.6 - VTE Documentation of Mechanical Device: Intermittent pneumatic compression device Consult Discharge Plan - Plan Additional Instructions: Surgical instructions: #1 may shower starting 08/10/17, no tub bath for 2 weeks #2 wash incisions with soap and water and pat dry daily #3 no lifting, pushing, pulling more than 15 pounds for the next 4 weeks #4 no driving until off narcotics for 24 hours and able to safely react in the car #5 may climb stairs Follow-up appointment: Sunday, August 20, 2017 with Sonia Joe CNP in the outpatient surgical office (Medical office building, [address]) [facility] Diet After Saravanan Fundoplication Surgery This diet information is for patients who have recently had Saravanan Fundoplication Surgery to correct reflux disease or to repair various types of hernias, such as hiatal hernia and intrathoracic stomach. This diet may also be used for other gastrointestinal surgeries, such as Heller myotomy and repair of achalasia. The diet will help control diarrhea, excess gas and swallowing problems, which may occur after this type of surgery. Important Steps to Keep Your Stomach From Stretching Eat small, frequent meals (six to eight per day). This will help you consume the majority of the nutrients you need without causing your stomach to feel full or distended. Drinking large amounts of fluids with meals can stretch your stomach. You may drink fluids between meals as often as you like, but limit fluids to 1/2 cup (4 fluid ounces) with meals and one cup (8 fluid ounces) with snacks. Sit upright while eating and stay upright for 30 minutes after each meal. [place] can help food move through your digestive tract. Do not lie down after eating. Sit upright for 2 hours after your last meal or snack of the day. Eat very slowly. Take your time when eating. Take small bites and chew your food well to mold capper helper in swallowing and digestion. Avoid crusty breads and sticky, gummy foods, such as bananas, fresh doughy breads, rolls and doughnuts. These types of foods become sticky and difficult to swallow. Toasted breads tend to be better tolerated. Lastly, if you eat sweets, consume them at the end of your meal to avoid a group of symptoms referred to as dumping syndrome. This describes the rapid emptying of foods from the stomach to the small intestine. Sweetened beverages, candy and desserts move more rapidly and dump quickly into the intestines. This can cause symptoms of nausea, weakness, cold sweats, cramps, diarrhea and dizzy spells. Important Steps to Avoid Gas Do not drink through a straw, chew gum, or chew tobacco. These actions cause you to swallow air, which will produce excess gas in your stomach. Chew with your mouth closed and chew your food thoroughly. Avoid foods that cause stomach gas and distention. The foods include corn, dried beans, peas, lentils, onions, broccoli, cauliflower, and any food item from the cabbage family. Do not drink carbonated drinks, alcohol, citrus, or tomato products. What Will I Be Able To Eat and Drink After Surgery After Saravanan Fundoplication Surgery, your diet will be advanced slowly by your surgeon. Generally, you will be on a thin/clear liquid diet for the first 10 days. Then you will advance to the full liquid diet for 4 days and eventually to a Saravanan soft diet for 7 days. After any surgery, protein consumption is important for healing. To get enough protein, drink 3-4 [place] Instant Breakfast, Ensure, or equivalent daily. Reminder: carbonated beverages (such as sodas, energy drinks, flavored carbonated water), and alcohol are not permitted for the 1st 6 to 8 weeks after surgery. After this time you may attempt to reintroduce them in small amounts. Please note: dairy products such as milk, ice cream, and putting may cause diarrhea and some people after surgery. He may need to avoid milk products. If so you may substitute them with lactose free beverages, such as soy, rice, lactate, or almond milk. Please be aware that each patient's tolerance to food is different. Your doctor will advance your diet depending on how well you progress after surgery. Thin Liquid Diet The first diet after Saravanan Fundoplication Surgery is the thin liquids diet. Follow this diet for postoperative days 1-10 08/10/2017 - 08/19/2017. Thin liquids include: Apple, Cranberry, or Grape Juice (no citrus juice) Chicken Broth Beef Broth Flavored Gelatin (Jell-O) Decaffeinated Tea or Coffee Popsicles or [place] Ice Caffeinated Beverages Will Be Permitted Based upon Tolerance Dairy Thin Milkshakes (strawberry or vanilla flavored- No chocolate) Drink 3-4 [place] instant breakfast, Ensure, or equivalent daily. May be mixed with dairy for thin milkshakes Full Liquid Diet Follow this diet for postoperative days 11-14 08/20/2017- 08/23/2017. Full liquid diet includes anything in the thin liquid diet plus: Milk, Soy, Rice, and [place] (No Chocolate) Cream of Wheat, Cream of Rice, Grits Strained Creamed Soups (No Tomato Water Broccoli) Vanilla and [place] Flavored Ice Cream Sherbet Vanilla and Butterscotch Pudding (No Chocolate or Coconut) Continue 3-4 [place] Instant Breakfast, Ensure, or an Equivalent Daily. Maybe Next with Dairy for Thin Milkshakes. Saravanan Soft Diet Follow this diet for postoperative days 15-20 08/24/2017- 08/30/2017. (If you are consuming enough protein, you may stop the protein supplements). See Saravanan Diet handout for more specific information Referrals: Edyta Melgar, [employer] ADDED ASSESSOR [Primary Care Provider] - <Rosa Mullen - Last Filed: 08/15/17 08:02> Date of Encounter: 08/15/17 Objective PUL Vital signs: Last Vital Signs Temp 96.2 F L 08/15/17 01:00 Pulse 63 08/15/17 06:43 Resp 26 08/15/17 06:43 BP 87/52 08/15/17 06:43 Pulse Ox 93 08/15/17 06:43 Ventilator Settings Ventilator Settings: Ventilator Settings, Last 8 Hours Ventilator Mode A/C Ventilator Mode A/C Ventilator Mode A/C Ventilator Mode A/C Ventilator Mode A/C Ventilator Mode A/C Ventilator Mode A/C Ventilator Mode A/C Ventilator Mode A/C Ventilator Mode VC+ Ventilator Mode VC+ Ventilator Tidal Volume 380 Setting Ventilator Tidal Volume 380 Setting Ventilator Tidal Volume 380 Setting Ventilator Tidal Volume 380 Setting Ventilator Tidal Volume 380 Setting Ventilator Tidal Volume 380 Setting Ventilator Tidal Volume 380 Setting Ventilator Tidal Volume 380 Setting Ventilator Tidal Volume 380 Setting Ventilator Tidal Volume 380 Setting Ventilator Tidal Volume 380 Setting Ventilator Respiratory Rate 26 Setting Ventilator Respiratory Rate 26 Setting Ventilator Respiratory Rate 26 Setting Ventilator Respiratory Rate 26 Setting Ventilator Respiratory Rate 26 Setting Ventilator Respiratory Rate 26 Setting Ventilator Respiratory Rate 26 Setting Ventilator Respiratory Rate 26 Setting Ventilator Respiratory Rate 26 Setting Ventilator Respiratory Rate 26 Setting Ventilator Respiratory Rate 26 Setting Actual Respiratory Rate 26 Actual Respiratory Rate 26 Actual Respiratory Rate 26 Actual Respiratory Rate 26 Actual Respiratory Rate 26 Actual Respiratory Rate 26 Actual Respiratory Rate 26 Actual Respiratory Rate 26 Actual Respiratory Rate 26 Actual Respiratory Rate 26 Positive End Expiratory 18 Pressure Positive End Expiratory 18 Pressure Positive End Expiratory 18 Pressure Positive End Expiratory 18 Pressure Positive End Expiratory 18 Pressure Positive End Expiratory 18 Pressure Positive End Expiratory 18 Pressure Positive End Expiratory 18 Pressure Positive End Expiratory 18 Pressure Positive End Expiratory 18 Pressure Positive End Expiratory 18 Pressure Peak Inspiratory Airway 43 Pressure Peak Inspiratory Airway 43 Pressure Peak Inspiratory Airway 43 Pressure Peak Inspiratory Airway 38 Pressure Peak Inspiratory Airway 38 Pressure Peak Inspiratory Airway 38 Pressure Peak Inspiratory Airway 39 Pressure Peak Inspiratory Airway 39 Pressure Peak Inspiratory Airway 41 Pressure Peak Inspiratory Airway 45 Pressure Results - Laboratory Findings CBC and BMP: 08/15/17 03:20 08/15/17 03:20 ABG ABG pH 7.22 pH Units (7.32-7.45) L 08/15/17 06:01 ABG pCO2 54 mmHg (35-45) H 08/15/17 06:01 ABG pO2 112 mmHg (85-104) H D 08/15/17 06:01 ABG O2 Saturation 97 % (95-98) 08/15/17 06:01 PT/INR, D-dimer PT 13.8 Seconds (9.4-12.1) H 08/13/17 14:45 Abnormal lab findings: Abnormal lab results WBC 40.9 K/mcL (4.3-11.1) H* 08/15/17 03:20 RBC 3.04 M/mcL (3.82-4.97) L 08/15/17 03:20 Hgb 9.2 g/dL (11.5-15.4) L 08/15/17 03:20 Hct 27.7 % (35.3-44.9) L 08/15/17 03:20 RDW 15.8 % (11.5-14.5) H 08/15/17 03:20 Plt Count 48 K/mcL (140-400) L D 08/15/17 03:20 Immature Gran % 8.4 % (0-4) H 08/14/17 00:56 Band Neutrophils % 18.0 % (0-4) H 08/15/17 03:20 Metamyelocytes % 2.0 % (0) H 08/15/17 03:20 Myelocytes % 6.0 % (0) H 08/14/17 09:41 Promyelocytes % 2.0 % (0) H 08/14/17 09:41 Blast Cells % 4.0 % (0) H 08/14/17 03:00 Neutrophils # 36.8 K/mcL (1.6-8.9) H 08/15/17 03:20 Eosinophils # 1.2 K/mcL (0.0-0.6) H 08/14/17 03:00 Nucleated RBCs/100 WBC 2.7 /100 WBC (0) H 08/15/17 03:20 Reactive Lymphocytes Present (Not Present) A 08/13/17 04:05 Toxic Granulation Present (Not Present) A 08/14/17 09:41 Dohle Bodies Present (Not Present) A 08/14/17 09:41 Platelet Estimate Decreased (Normal) L 08/15/17 03:20 Immature Plt Fraction 13.8 % (1.1-6.1) H 08/15/17 03:20 Polychromasia 1+ (Not Present) A 08/15/17 03:20 PT 13.8 Seconds (9.4-12.1) H 08/13/17 14:45 ABG pH 7.22 pH Units (7.32-7.45) L 08/15/17 06:01 ABG pCO2 54 mmHg (35-45) H 08/15/17 06:01 ABG pO2 112 mmHg (85-104) H D 08/15/17 06:01 ABG Base Excess -6 mEq/L (-2 to 3) L 08/15/17 06:01 VBG pH 7.13 pH Units (7.32-7.42) L* 08/14/17 08:55 VBG pO2 172 mmHg (25-50) H 08/14/17 08:55 VBG HCO3 16 mEq/L (21-27) L 08/14/17 08:55 Sodium 130 mEq/L (136-145) L 08/15/17 03:20 Carbon Dioxide 20 mEq/L (23-29) L 08/15/17 03:20 BUN 44 mg/dL (6-20) H 08/15/17 03:20 Creatinine 1.55 mg/dL (0.60-1.20) H 08/15/17 03:20 Est GFR ( Amer) 43 (> 60) L 08/15/17 03:20 Est GFR (Non-Af Amer) 36 (> 60) L 08/15/17 03:20 BUN/Creatinine Ratio 28 (6-26) H 08/15/17 03:20 Glucose 214 mg/dL (70-105) H 08/15/17 03:20 POC Glucose 177 mg/dL (70-99) H 08/14/17 23:37 Lactic Acid 2.9 mmol/L (0.5-2.2) H 08/14/17 12:30 Calcium 6.5 mg/dL (8.6-10.3) L 08/15/17 03:20 Total Bilirubin 1.2 mg/dL (0.3-1.0) H 08/14/17 09:41 Direct Bilirubin 0.6 mg/dL (0.0-0.2) H 08/14/17 09:41 AST 59 Units/L (13-39) H 08/14/17 09:41 Alkaline Phosphatase 19 Units/L (34-104) L 08/14/17 09:41 Troponin I 0.07 ng/mL (< 0.04) H* 08/13/17 22:10 Serum Total Protein 3.7 g/dL (6.4-8.9) L 08/14/17 09:41 Albumin 2.2 g/dL (3.5-5.7) L 08/14/17 09:41 Globulin 1.5 g/dL (2.4-3.5) L 08/14/17 09:41 Prealbumin < 3.0 mg/dL (17.0-34.0) L 08/14/17 03:00 Vancomycin Trough 26 mcg/mL (5-10) H 08/14/17 12:00 - Clinical Findings Intake & Output: Intake & Output 08/14/17 08/15/17 08/15/17 23:59 07:59 15:59 Intake Total 1940.0 / 1940.0 1974.4 / 1974.4 Output Total 2182 / 2182 2412 / 2412 Balance -242.0 / -242.0 -437.6 / -437.6 - Attending Attestation I examined this patient and my medical decision-making was reviewed with the Resident Physician. I agree with the documented findings, disposition and treatment plan as described except to the extent set forth below. Patient seen and examined. Labs, radiology, chart personally reviewed. 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 Pulmonary: There is some improvement in oxygenation and plateau pressure around 32 and lowered PEEP to 16 and if SPO2 remained within acceptable range, we will plan to supine her position. Cardiovascular: Patient remained in shock at this time, however requiring less vasopressors. GI: Nutrition per dietary and GI prophylaxis per routine Heme: DVT prophylaxis per routine ID: Continue antibiotics and plan to de-escalation Renal; continue CVVH and fluid removal gently. Endorcine: blood glucose is monitored Lines: all lines checked and no evidence of infections Skin: skin care to prevent pressure ulcers per nursing routine care I spent 40 min of Critical Care time with this patient. It involved decision making of high complexity to assess, manipulate, and support vital organ system failure and/or to prevent further life threatening deterioration of the patient' s condition. The time involved in the performance of separately reportable procedures was not counted toward critical care time.
[2017-08-15] MEDS: Dexmedetomidine HCl 400 MCG/100 ML MLS IVC SCH ×4 (03:06→18:25)
[2017-08-15] MEDS: Lacri-Lube 3.5 GM TUBE BOTH EYES SCH ×5 (03:11→21:17)
[2017-08-15 03:33] LABS: Hematocrit 27.7 % (35.3-44.9); Hemoglobin 9.2 g/dL (11.5-15.4); Immature Platelets 13.8 % (1.1-6.1); Lymphocytes # 0.8 K/mcL (0.6-4.6); Mean Corpuscular HGB Conc 33.2 g/dL (31.6-35.5); Mean Corpuscular Hemoglobin 30.3 pg (28.0-33.3); Mean Corpuscular Volume 91.1 fL (83.0-100.0); Nucleated Red Blood Cells 2.7 /100 WBC (0); Red Blood Count 3.04 M/mcL (3.82-4.97); Red Cell Distribution Width 15.8 % (11.5-14.5)
[2017-08-15 03:35] LABS: Platelet Count 48 K/mcL (140-400)
[2017-08-15 03:52] LABS: Calcium 6.5 mg/dL (8.6-10.3); Phosphorous 3.9 mg/dL (2.7-4.5)
[2017-08-15 04:03] LABS: Neutrophils # 36.8 K/mcL (1.6-8.9); Platelet Estimate Decreased (Normal)
[2017-08-15 04:04] LABS: Polychromasia 1+ (Not Present)
[2017-08-15] MEDS: FentaNYL (PF) 1,000 MCG in 0.9 % Sodium Chloride 80 ML IVC SCH ×4 (04:56→22:04)
[2017-08-15] MEDS: Norepinephrine 16 MG in D5% in Water 500 ML IVC SCH ×2 (05:53→18:18)
[2017-08-15] MEDS: Insulin LISPRO 300 UNITS/3 ML VIAL SQ SCH ×3 (06:00→18:26)
[2017-08-15 06:04] LABS: ABG Base Excess -6 mEq/L (-2 to 3); ABG HCO3 22 mEq/L (21-27); ABG Oxygen Saturation 97 % (95-98); ABG PCO2 54 mmHg (35-45); ABG PH 7.22 pH Units (7.32-7.45); ABG PO2 112 mmHg (85-104); ABG TCO2 24 mEq/L (20-26); Blood Gas Modality ASSIST CONTROL; Blood Gas PEEP 18 cm H2O; Blood Gas Respiration Rate 26; Blood Gas VT 380 cc
[2017-08-15] MEDS: Hydrocortisone Sodium Succ 100 MG/2 ML VIAL IVP SCH ×3 (06:13→18:32)
[2017-08-15] MEDS: Cisatracurium 200 MG in 0.9 % Sodium Chloride 180 ML IVC SCH ×2 (07:33→17:24)
[2017-08-15] MEDS: Famotidine 20 MG/2 ML VIAL IVP SCH ×2 (07:34→21:17)
[2017-08-15] MEDS: Chlorhexidine Rinse 15 ML MOUTHWASH MM SCH ×2 (07:35→21:17)
[2017-08-15] MEDS: Levalbuterol Neb 1.25 MG/3 ML IH SCH ×3 (08:22→23:18)
--- NOTE | 2017-08-15 08:25 | Nephrology Progress Note ---
Date of Encounter: 08/15/17 Time of Encounter: 08:22 - Assessment and Plan (1) Acute kidney failure, unspecified Current Visit: Yes Status: Acute Patient has acute kidney injury. This is her second episode. Second episode has occurred in the setting of septic shock and acute respiratory failure. Patient continues to be critically ill. She continues to require vasopressors for blood pressure support although that requirement has decreased. Her going to attempt to increase the fluid removal rate was CVVH. Ideally it would be beneficial to get a repeat CAT scan of the patient to reassess findings were noted on the previous CAT scan. The patient is clinically too unstable to transport to the CT scanner at this point in time. I updated the patient's with regards to her status. I also discussed the case with Dr. Mullen Qualifiers: Acute renal failure type: unspecified Qualified Code(s): N17.9 - Acute kidney failure, unspecified (2) GERD (gastroesophageal reflux disease) Current Visit: No Status: Chronic Qualifiers: Esophagitis presence: without esophagitis Qualified Code(s): K21.9 - Gastro -esophageal reflux disease without esophagitis Subjective Principal diagnosis: Tachycardia Interval history: The patient remains critically ill. She is on levo fed at 16 mics per minute for blood pressure support. 2 of the vasopressors have been stopped. Oxygenation is somewhat better. FiO2 requirements have decreased to 60%. Urine output is 683 mL. She was started on CVVH yesterday. Fluid removal currently is -50 mL per hour. Azotemia is controlled. Potassium is 4.0. Acid- base status is satisfactory. She does have a mild respiratory acidosis. Objective - Vital Signs Vital signs: Vital Signs Temp Pulse Resp BP Pulse Ox 08/15/17 06:43 63 26 87/52 93 08/15/17 06:05 26 92/56 93 08/15/17 06:00 64 26 90/54 99 08/15/17 05:00 65 26 88/53 100 08/15/17 03:59 64 26 94/58 100 08/15/17 03:51 26 93/58 100 08/15/17 03:00 64 26 102/62 100 08/15/17 02:00 66 26 95/58 100 08/15/17 01:15 26 08/15/17 01:00 96.2 F L 66 26 100/60 91 08/15/17 00:00 66 26 102/63 91 08/14/17 23:27 26 103/61 91 08/14/17 23:00 66 26 87/55 93 08/14/17 22:00 66 26 101/66 99 08/14/17 21:25 26 90/59 99 08/14/17 21:00 97.4 F L 69 26 98/65 99 08/14/17 20:00 80 26 108/59 99 08/14/17 19:48 26 99 08/14/17 19:00 82 26 100/55 97 08/14/17 18:00 81 26 92/55 96 08/14/17 17:02 26 94 08/14/17 17:00 89 26 89/53 94 08/14/17 16:08 26 89 08/14/17 16:00 93 26 88/55 90 08/14/17 15:00 97.6 F 99 26 105/62 93 08/14/17 14:00 103 26 104/63 84 08/14/17 13:30 26 80 08/14/17 13:00 110 26 142/70 81 08/14/17 12:00 109 26 138/65 82 08/14/17 11:49 26 88 08/14/17 11:40 111 08/14/17 11:00 98.5 F 119 26 166/69 88 08/14/17 10:00 112 26 107/49 88 08/14/17 09:07 26 89 08/14/17 09:00 107 26 113/45 89 Intake and Output 08/14/17 08/15/17 08/15/17 23:59 07:59 15:59 Intake Total 194.0 / 1940.0 1973. Output Total 2182 / 2182 2412 / 2412 Balance -242.0 / -242.0 -437.6 / -437.6 Intake: IV Fluids 1940.0 / 1940.0 PrismaSATE BGK 4/2.5 5,000 ML @ 0 / 0 0 / 0 2000 mls/hr CRRT CONT APRIL Rx#: [id number] Nimbex 200 MG In 0.9 % Sodium 195.1 / 195.1 200.0 / 200.0 Chloride 180 ML @ 3 MCG/KG/MIN 23.09 mls/hr IVC CONT APRIL Rx#: [id number] PRECEDEX Premix 400 mcg In 100 156.2 / 156.2 162.9 / 162.9 ml @ 0.2 MCG/KG/HR 6.415 mls/hr IVC .[id number] APRIL Rx#: [id number] FentaNYL (PF) 1,000 MCG In 0.9 110.0 / 110.0 135.4 / 135.4 % Sodium Chloride 80 ML @ 50 MCG/HR 5 mls/hr IVC CONT APRIL Rx #:[id number] Levophed 16 MG In Dextrose 5% 329.7 / 329.7 218.1 / 218.1 500 ML @ 5 MCG/MIN 9.67 mls/hr IVC CONT APRIL Rx#:[id number] Diprivan 1,000 mg In 100 ml @ 5 0 / 0 MCG/KG/MIN 3.849 mls/hr IVC . Q24H APRIL Rx#:[id number] Sodium Bicarbonate 100 MEQ In 1049 / 1049 1158 / 1158 Dextrose 5% 1,000 ML @ 150 mls/ hr IVC .[id number] APRIL Rx#: [id number] Zosyn 3.375 GM In 0.9 % Sodium 100 / 100 100 / 100 Chloride (Mini-Bag +) 100 ML @ 25 mls/hr IVPB Q8HR APRIL Rx#: [id number] Oral 0 / 0 0 / 0 Tube Feeding 0 / 0 Output: Xochitl 2117 / 2117 2392 / 2392 Catheter 65 / 65 20 / 20 Gastric Drainage 0 / 0 0 / 0 Other: Blood Glucose* 177 - General Appearance Exam: Patient is currently prone. She is intubated and sedated. Blood pressure is 87 /52. Temperature is 96.2. Lungs demonstrate bilateral coarse breath sounds posteriorly. She does have some lower extremity swelling. Abdominal exam and cardiac exam cannot be done because the patient is prone. - Lab 08/15/17 03:20 08/15/17 03:20 Most recent lab results ABG pH 7.22 pH Units (7.32-7.45) L 08/15/17 06:01 ABG pCO2 54 mmHg (35-45) H 08/15/17 06:01 ABG pO2 112 mmHg (85-104) H D 08/15/17 06:01 ABG HCO3 22 mEq/L (21-27) 08/15/17 06:01 ABG O2 Saturation 97 % (95-98) 08/15/17 06:01 Calcium 6.5 mg/dL (8.6-10.3) L 08/15/17 03:20 Phosphorus 3.9 mg/dL (2.7-4.5) 08/15/17 03:20 Magnesium 2.0 mg/dL (1.6-2.6) 08/15/17 03:20 - VTE Documentation of Mechanical Device: Intermittent pneumatic compression device Consult Discharge Plan - Plan Additional Instructions: Surgical instructions: #1 may shower starting 08/10/17, no tub bath for 2 weeks #2 wash incisions with soap and water and pat dry daily #3 no lifting, pushing, pulling more than 15 pounds for the next 4 weeks #4 no driving until off narcotics for 24 hours and able to safely react in the car #5 may climb stairs Follow-up appointment: Sunday, August 20, 2017 with Sonia Joe CNP in the outpatient surgical office (Medical office building, [address]) [place] [facility] Diet After Saravanan Fundoplication Surgery This diet information is for patients who have recently had Saravanan Fundoplication Surgery to correct reflux disease or to repair various types of hernias, such as hiatal hernia and intrathoracic stomach. This diet may also be used for other gastrointestinal surgeries, such as Heller myotomy and repair of achalasia. The diet will help control diarrhea, excess gas and swallowing problems, which may occur after this type of surgery. Important Steps to Keep Your Stomach From Stretching Eat small, frequent meals (six to eight per day). This will help you consume the majority of the nutrients you need without causing your stomach to feel full or distended. Drinking large amounts of fluids with meals can stretch your stomach. You may drink fluids between meals as often as you like, but limit fluids to 1/2 cup (4 fluid ounces) with meals and one cup (8 fluid ounces) with snacks. Sit upright while eating and stay upright for 30 minutes after each meal. [place] can help food move through your digestive tract. Do not lie down after eating. Sit upright for 2 hours after your last meal or snack of the day. Eat very slowly. Take your time when eating. Take small bites and chew your food well to brass molder helper in swallowing and digestion. Avoid crusty breads and sticky, gummy foods, such as bananas, fresh doughy breads, rolls and doughnuts. These types of foods become sticky and difficult to swallow. Toasted breads tend to be better tolerated. Lastly, if you eat sweets, consume them at the end of your meal to avoid a group of symptoms referred to as dumping syndrome. This describes the rapid emptying of foods from the stomach to the small intestine. Sweetened beverages, candy and desserts move more rapidly and dump quickly into the intestines. This can cause symptoms of nausea, weakness, cold sweats, cramps, diarrhea and dizzy spells. Important Steps to Avoid Gas Do not drink through a straw, chew gum, or chew tobacco. These actions cause you to swallow air, which will produce excess gas in your stomach. Chew with your mouth closed and chew your food thoroughly. Avoid foods that cause stomach gas and distention. The foods include corn, dried beans, peas, lentils, onions, broccoli, cauliflower, and any food item from the cabbage family. Do not drink carbonated drinks, alcohol, citrus, or tomato products. What Will I Be Able To Eat and Drink After Surgery After Saravanan Fundoplication Surgery, your diet will be advanced slowly by your surgeon. Generally, you will be on a thin/clear liquid diet for the first 10 days. Then you will advance to the full liquid diet for 4 days and eventually to a Saravanan soft diet for 7 days. After any surgery, protein consumption is important for healing. To get enough protein, drink 3-4 [place] Instant Breakfast, Ensure, or equivalent daily. Reminder: carbonated beverages (such as sodas, energy drinks, flavored carbonated water), and alcohol are not permitted for the 1st 6 to 8 weeks after surgery. After this time you may attempt to reintroduce them in small amounts. Please note: dairy products such as milk, ice cream, and putting may cause diarrhea and some people after surgery. He may need to avoid milk products. If so you may substitute them with lactose free beverages, such as soy, rice, lactate, or almond milk. Please be aware that each patient's tolerance to food is different. Your doctor will advance your diet depending on how well you progress after surgery. Thin Liquid Diet The first diet after Saravanan Fundoplication Surgery is the thin liquids diet. Follow this diet for postoperative days 1-10 08/10/2017 - 08/19/2017. Thin liquids include: Apple, Cranberry, or Grape Juice (no citrus juice) Chicken Broth Beef Broth Flavored Gelatin (Jell-O) Decaffeinated Tea or Coffee Popsicles or [place] Ice Caffeinated Beverages Will Be Permitted Based upon Tolerance Dairy Thin Milkshakes (strawberry or vanilla flavored- No chocolate) Drink 3-4 [place] instant breakfast, Ensure, or equivalent daily. May be mixed with dairy for thin milkshakes Full Liquid Diet Follow this diet for postoperative days 11-14 08/20/2017- 08/23/2017. Full liquid diet includes anything in the thin liquid diet plus: Milk, Soy, Rice, and [place] (No Chocolate) Cream of Wheat, Cream of Rice, Grits Strained Creamed Soups (No Tomato Water Broccoli) Vanilla and [place] Flavored Ice Cream Sherbet Vanilla and Butterscotch Pudding (No Chocolate or Coconut) Continue 3-4 [place] Instant Breakfast, Ensure, or an Equivalent Daily. Maybe Next with Dairy for Thin Milkshakes. Saravanan Soft Diet Follow this diet for postoperative days 15-20 08/24/2017- 08/30/2017. (If you are consuming enough protein, you may stop the protein supplements). See Saravanan Diet handout for more specific information Referrals: Edyta Melgar, [employer] [Primary Care Provider] -
--- NOTE | 2017-08-15 10:06 | General Surgery Progress Note ---
Date of Encounter: 08/15/17 Time of Encounter: 10:06 - Assessment and Plan (1) GERD (gastroesophageal reflux disease) Current Visit: Yes Status: Chronic s/p Saravanan fundoplication and subsequent ex-lap with overwsewing of the hepatic and splenic veins by Dr. La on 08/09/2017; POD#6 as above. Unable to assess abdomen and or abdominal incisions due to prone positioning. Plan: NPO Critical care support per critical care and nephrology Ok to start TPN from a surgical standpoint. Total fluid status per pulmonology or nephrology given critical status, YOJANA, and mohamud Carafate stopped 08/14/2017 Continue IV PPI No concern for continued bleeding at this time. Hgb stable Continue DVT prophylaxis Qualifiers: Esophagitis presence: without esophagitis Qualified Code(s): K21.9 - Gastro -esophageal reflux disease without esophagitis (2) ARDS (adult respiratory distress syndrome) Current Visit: Yes Status: Acute PVentilator support. PEEP 15, Fio2 60%, Prone, Mohamud. Pressors weaned to Levophed only Management per critical care (3) Acute respiratory failure with hypoxia Current Visit: Yes Status: Acute (4) Anemia Current Visit: Yes Status: Acute Stable at 9.2 today. See A/P above Qualifiers: Anemia type: other cause Other causes of anemia: acute posthemorrhagic Qualified Code(s): D62 - Acute posthemorrhagic anemia Subjective Narrative: Unable to obtain subjective information. Pt is intubated and sedated. RN reports she is attempting to wean levophed Objective Vital Signs - Last 8 Hours Temp Pulse Resp BP Pulse Ox 08/15/17 09:00 66 26 95/57 95 08/15/17 08:23 26 90/52 94 08/15/17 08:00 90.3 F L 63 26 97/56 100 08/15/17 07:00 90.3 F L 63 26 90/52 93 08/15/17 06:43 63 26 87/52 93 08/15/17 06:05 26 92/56 93 08/15/17 06:00 64 26 90/54 99 08/15/17 05:00 65 26 88/53 100 08/15/17 03:59 64 26 94/58 100 08/15/17 03:51 26 93/58 100 08/15/17 03:00 64 26 102/62 100 Intake and Output 08/14/17 08/15/17 08/15/17 23:59 07:59 15:59 Intake Total 1940.0 / 1940.0 1973.4 / 1973.4 0 / 0 Output Total 2182 / 2182 2412 / 2412 593 / 593 Balance -242.0 / -242.0 -437.6 / -437.6 -593 / -593 Intake: IV Fluids 1940.0 / 1940.0 1973.4 / 1973.4 0 / 0 PrismaSATE BGK 4/2.5 5,000 ML @ 0 / 0 0 / 0 0 / 0 2000 mls/hr CRRT CONT APRIL Rx#: [id number] Nimbex 200 MG In 0.9 % Sodium 195.1 / 195.1 200.0 / 200.0 Chloride 180 ML @ 3 MCG/KG/MIN 23.09 mls/hr IVC CONT APRIL Rx#: [id number] PRECEDEX Premix 400 mcg In 100 156.2 / 156.2 162.9 / 162.9 ml @ 0.2 MCG/KG/HR 6.415 mls/hr IVC .[id number] APRIL Rx#: [id number] FentaNYL (PF) 1,000 MCG In 0.9 110.0 / 110.0 135.4 / 135.4 % Sodium Chloride 80 ML @ 50 MCG/HR 5 mls/hr IVC CONT APRIL Rx #:[id number] Levophed 16 MG In Dextrose 5% 329.7 / 329.7 218.1 / 218.1 500 ML @ 5 MCG/MIN 9.67 mls/hr IVC CONT APRIL Rx#:[id number] Diprivan 1,000 mg In 100 ml @ 5 0 / 0 MCG/KG/MIN 3.849 mls/hr IVC . Q24H APRIL Rx#:[id number] Sodium Bicarbonate 100 MEQ In 1049 / 1049 1158 / 1158 Dextrose 5% 1,000 ML @ 150 mls/ hr IVC .[id number] APRIL Rx#: [id number] Zosyn 3.375 GM In 0.9 % Sodium 100 / 100 100 / 100 Chloride (Mini-Bag +) 100 ML @ 25 mls/hr IVPB Q8HR APRIL Rx#: [id number] Oral 0 / 0 0 / 0 Tube Feeding 0 / 0 Output: Mohamud 2117 / 2117 2392 / 2392 593 / 593 Catheter 65 / 65 20 / 20 Gastric Drainage 0 / 0 0 / 0 Other: Blood Glucose* 177 - Labs 08/15/17 03:20 08/15/17 03:20 Diabetes panel 08/14/17 08/15/17 08/15/17 Range/Units 09:41 03:20 03:20 Sodium 129 L 130 L (136-145) mEq/L Potassium 5.0 4.0 (3.5-5.1) mEq/L Chloride 102 100 (98-107) mEq/L Carbon Dioxide 18 L 20 L (23-29) mEq/L BUN 57 H 44 H (6-20) mg/dL Creatinine 1.97 H 1.55 H (0.60-1.20) mg/dL Glucose 238 H 214 H (70-105) mg/dL Calcium 6.6 L 6.5 L (8.6-10.3) mg/dL AST 59 H (13-39) Units/L ALT 19 (7-52) Units/L Alkaline Phosphatase 19 L (34-104) Units/L Albumin 2.2 L (3.5-5.7) g/dL Triglycerides 122 (< 150) mg/dL Calcium panel 08/14/17 08/15/17 08/15/17 Range/Units 09:41 03:20 03:20 Calcium 6.6 L 6.5 L (8.6-10.3) mg/dL Phosphorus 5.8 H 3.9 (2.7-4.5) mg/dL Albumin 2.2 L (3.5-5.7) g/dL Pituitary panel 08/14/17 08/15/17 Range/Units 09:41 03:20 Sodium 129 L 130 L (136-145) mEq/L Potassium 5.0 4.0 (3.5-5.1) mEq/L Chloride 102 100 (98-107) mEq/L Carbon Dioxide 18 L 20 L (23-29) mEq/L BUN 57 H 44 H (6-20) mg/dL Creatinine 1.97 H 1.55 H (0.60-1.20) mg/dL Glucose 238 H 214 H (70-105) mg/dL Calcium 6.6 L 6.5 L (8.6-10.3) mg/dL Adrenal panel 08/14/17 08/15/17 Range/Units 09:41 03:20 Sodium 129 L 130 L (136-145) mEq/L Potassium 5.0 4.0 (3.5-5.1) mEq/L Chloride 102 100 (98-107) mEq/L Carbon Dioxide 18 L 20 L (23-29) mEq/L BUN 57 H 44 H (6-20) mg/dL Creatinine 1.97 H 1.55 H (0.60-1.20) mg/dL Glucose 238 H 214 H (70-105) mg/dL Calcium 6.6 L 6.5 L (8.6-10.3) mg/dL Total Bilirubin 1.2 H (0.3-1.0) mg/dL AST 59 H (13-39) Units/L ALT 19 (7-52) Units/L Alkaline Phosphatase 19 L (34-104) Units/L Albumin 2.2 L (3.5-5.7) g/dL - VTE Documentation of Mechanical Device: Intermittent pneumatic compression device Consult Discharge Plan - Plan Additional Instructions: Surgical instructions: #1 may shower starting 08/10/17, no tub bath for 2 weeks #2 wash incisions with soap and water and pat dry daily #3 no lifting, pushing, pulling more than 15 pounds for the next 4 weeks #4 no driving until off narcotics for 24 hours and able to safely react in the car #5 may climb stairs Follow-up appointment: Sunday, August 20, 2017 with Sonia Joe CNP in the outpatient surgical office (Medical office building, [address]) [place] [facility] Diet After Saravanan Fundoplication Surgery This diet information is for patients who have recently had Saravanan Fundoplication Surgery to correct reflux disease or to repair various types of hernias, such as hiatal hernia and intrathoracic stomach. This diet may also be used for other gastrointestinal surgeries, such as Heller myotomy and repair of achalasia. The diet will help control diarrhea, excess gas and swallowing problems, which may occur after this type of surgery. Important Steps to Keep Your Stomach From Stretching Eat small, frequent meals (six to eight per day). This will help you consume the majority of the nutrients you need without causing your stomach to feel full or distended. Drinking large amounts of fluids with meals can stretch your stomach. You may drink fluids between meals as often as you like, but limit fluids to 1/2 cup (4 fluid ounces) with meals and one cup (8 fluid ounces) with snacks. Sit upright while eating and stay upright for 30 minutes after each meal. [place] can help food move through your digestive tract. Do not lie down after eating. Sit upright for 2 hours after your last meal or snack of the day. Eat very slowly. Take your time when eating. Take small bites and chew your food well to industrial gas service helper in swallowing and digestion. Avoid crusty breads and sticky, gummy foods, such as bananas, fresh doughy breads, rolls and doughnuts. These types of foods become sticky and difficult to swallow. Toasted breads tend to be better tolerated. Lastly, if you eat sweets, consume them at the end of your meal to avoid a group of symptoms referred to as dumping syndrome. This describes the rapid emptying of foods from the stomach to the small intestine. Sweetened beverages, candy and desserts move more rapidly and dump quickly into the intestines. This can cause symptoms of nausea, weakness, cold sweats, cramps, diarrhea and dizzy spells. Important Steps to Avoid Gas Do not drink through a straw, chew gum, or chew tobacco. These actions cause you to swallow air, which will produce excess gas in your stomach. Chew with your mouth closed and chew your food thoroughly. Avoid foods that cause stomach gas and distention. The foods include corn, dried beans, peas, lentils, onions, broccoli, cauliflower, and any food item from the cabbage family. Do not drink carbonated drinks, alcohol, citrus, or tomato products. What Will I Be Able To Eat and Drink After Surgery After Saravanan Fundoplication Surgery, your diet will be advanced slowly by your surgeon. Generally, you will be on a thin/clear liquid diet for the first 10 days. Then you will advance to the full liquid diet for 4 days and eventually to a Saravanan soft diet for 7 days. After any surgery, protein consumption is important for healing. To get enough protein, drink 3-4 [place] Instant Breakfast, Ensure, or equivalent daily. Reminder: carbonated beverages (such as sodas, energy drinks, flavored carbonated water), and alcohol are not permitted for the 1st 6 to 8 weeks after surgery. After this time you may attempt to reintroduce them in small amounts. Please note: dairy products such as milk, ice cream, and putting may cause diarrhea and some people after surgery. He may need to avoid milk products. If so you may substitute them with lactose free beverages, such as soy, rice, lactate, or almond milk. Please be aware that each patient's tolerance to food is different. Your doctor will advance your diet depending on how well you progress after surgery. Thin Liquid Diet The first diet after Saravanan Fundoplication Surgery is the thin liquids diet. Follow this diet for postoperative days 1-10 08/10/2017 - 08/19/2017. Thin liquids include: Apple, Cranberry, or Grape Juice (no citrus juice) Chicken Broth Beef Broth Flavored Gelatin (Jell-O) Decaffeinated Tea or Coffee Popsicles or [place] Ice Caffeinated Beverages Will Be Permitted Based upon Tolerance Dairy Thin Milkshakes (strawberry or vanilla flavored- No chocolate) Drink 3-4 [place] instant breakfast, Ensure, or equivalent daily. May be mixed with dairy for thin milkshakes Full Liquid Diet Follow this diet for postoperative days 11-14 08/20/2017- 08/23/2017. Full liquid diet includes anything in the thin liquid diet plus: Milk, Soy, Rice, and [place] (No Chocolate) Cream of Wheat, Cream of Rice, Grits Strained Creamed Soups (No Tomato Water Broccoli) Vanilla and [place] Flavored Ice Cream Sherbet Vanilla and Butterscotch Pudding (No Chocolate or Coconut) Continue 3-4 [place] Instant Breakfast, Ensure, or an Equivalent Daily. Maybe Next with Dairy for Thin Milkshakes. Saravanan Soft Diet Follow this diet for postoperative days 15-20 08/24/2017- 08/30/2017. (If you are consuming enough protein, you may stop the protein supplements). See Saravanan Diet handout for more specific information Referrals: Edyta Melgar, MANAGER [employer] [Primary Care Provider] -
[2017-08-15] MEDS: Sodium Bicarbonate 150 MEQ in D5% in Water 1,000 ML IVC SCH (11:19)
[2017-08-15] MEDS ORDERED: D10% in Water 500 ML IVC PRN (11:20)
[2017-08-15 16:08] LABS: ABG Base Excess -6 mEq/L (-2 to 3); ABG HCO3 23 mEq/L (21-27); ABG Oxygen Saturation 86 % (95-98); ABG PCO2 57 mmHg (35-45); ABG PH 7.21 pH Units (7.32-7.45); ABG PO2 64 mmHg (85-104); ABG TCO2 24 mEq/L (20-26); Blood Gas Modality ASSIST CONTROL; Blood Gas PEEP 16 cm H2O; Blood Gas Respiration Rate 26; Blood Gas VT 380 cc
[2017-08-15] MEDS: 0.9 % Sodium Chloride 1,000 ML PRIME SCH (16:11)
[2017-08-15] MEDS: Vasopressin 40 UNIT in D5% in Water 100 ML IV SCH (16:11)
[2017-08-15] MEDS ORDERED: Clinimix E 5%-15% SOLUTION 2,000 ML with MVI, adult with vitamin K 10 ML IVC SCH (17:00)
[2017-08-15] MEDS ORDERED: *HR* Heparin 5,000 UNIT/ML VIAL ONE (21:11)
[2017-08-16] MEDS: Dexmedetomidine HCl 400 MCG/100 ML MLS IVC SCH ×4 (00:01→21:18)
[2017-08-16] MEDS: *HR* Heparin 5,000 UNIT/ML VIAL IV PRN (00:09)
[2017-08-16] MEDS: 0.9 % Sodium Chloride 1,000 ML PRIME SCH ×3 (00:15→21:02)
[2017-08-16] MEDS: Piperacillin/Tazobactam 3.375 GM in 0.9 % Sodium Chloride Mini Bag 100 ML IVPB SCH ×4 (00:19→23:38)
[2017-08-16] MEDS: Lacri-Lube 3.5 GM TUBE BOTH EYES SCH ×7 (00:20→23:39)
[2017-08-16] MEDS: Insulin LISPRO 300 UNITS/3 ML VIAL SQ SCH ×7 (00:20→23:43)
[2017-08-16] MEDS: Hydrocortisone Sodium Succ 100 MG/2 ML VIAL IVP SCH ×5 (00:20→23:39)
[2017-08-16] MEDS: Sodium Bicarbonate 150 MEQ in D5% in Water 1,000 ML IVC SCH ×3 (02:07→20:58)
[2017-08-16] MEDS: PrismaSATE BGK 4/2.5 5,000 ML CRRT SCH ×8 (03:53→22:16)
[2017-08-16] MEDS: Norepinephrine 16 MG in D5% in Water 500 ML IVC SCH ×2 (04:04→15:11)
[2017-08-16] MEDS: Cisatracurium 200 MG in 0.9 % Sodium Chloride 180 ML IVC SCH ×2 (04:05→23:35)
[2017-08-16 04:14] LABS: VBG Ionized Calcium 0.91 mmol/L (1.15-1.35); VBG PH 7.17 pH Units (7.32-7.42)
[2017-08-16 04:14] LABS: Nucleated Red Blood Cells 4.9 /100 WBC (0)
[2017-08-16 04:15] LABS: Hematocrit 25.7 % (35.3-44.9); Hemoglobin 8.2 g/dL (11.5-15.4); Mean Corpuscular HGB Conc 31.9 g/dL (31.6-35.5); Mean Corpuscular Hemoglobin 29.8 pg (28.0-33.3); Mean Corpuscular Volume 93.5 fL (83.0-100.0); Red Blood Count 2.75 M/mcL (3.82-4.97); Red Cell Distribution Width 16.7 % (11.5-14.5)
[2017-08-16 04:24] LABS: Platelet Count 27 K/mcL (140-400)
[2017-08-16 04:32] LABS: Calcium 6.7 mg/dL (8.6-10.3); Magnesium 2.2 mg/dL (1.6-2.6); Phosphorous 3.8 mg/dL (2.7-4.5); Potassium 4.7 mEq/L (3.5-5.1)
[2017-08-16 04:47] LABS: Large Platelets Present (Not Present); Lymphocytes # 2.5 K/mcL (0.6-4.6); Neutrophils # 49.6 K/mcL (1.6-8.9); Platelet Estimate Marked Decrease (Normal); Toxic Granulation Present (Not Present)
[2017-08-16] MEDS: FentaNYL (PF) 1,000 MCG in 0.9 % Sodium Chloride 80 ML IVC SCH ×3 (05:00→20:08)
[2017-08-16 05:20] LABS: ABG Base Excess -6 mEq/L (-2 to 3); ABG HCO3 23 mEq/L (21-27); ABG Oxygen Saturation 89 % (95-98); ABG PCO2 65 mmHg (35-45); ABG PH 7.16 pH Units (7.32-7.45); ABG PO2 73 mmHg (85-104); ABG TCO2 25 mEq/L (20-26); Blood Gas Modality ASSIST CONTROL; Blood Gas PEEP 16 cm H2O; Blood Gas Respiration Rate 26; Blood Gas VT 380 cc
[2017-08-16 06:35] LABS: ABG Base Excess -5 mEq/L (-2 to 3); ABG HCO3 24 mEq/L (21-27); ABG Oxygen Saturation 93 % (95-98); ABG PCO2 67 mmHg (35-45); ABG PH 7.17 pH Units (7.32-7.45); ABG PO2 85 mmHg (85-104); ABG TCO2 26 mEq/L (20-26); Blood Gas Modality ASSIST CONTROL; Blood Gas PEEP 16 cm H2O; Blood Gas Respiration Rate 26; Blood Gas VT 380 cc
[2017-08-16] MEDS: Levalbuterol Neb 1.25 MG/3 ML IH SCH ×3 (07:46→23:13)
[2017-08-16] MEDS ORDERED: 0.9 % Sodium Chloride 250 ML ONE ×2 (07:56→13:20)
[2017-08-16] MEDS: Famotidine 20 MG/2 ML VIAL IVP SCH ×2 (08:15→21:04)
[2017-08-16] MEDS: Chlorhexidine Rinse 15 ML MOUTHWASH MM SCH ×2 (08:15→20:58)
--- NOTE | 2017-08-16 08:23 | Pulmonology Progress Note ---
Date of Encounter: 08/16/17 Time of Encounter: 07:05 Assessment and Plan (1) ARDS (adult respiratory distress syndrome) Current Visit: Yes Status: Acute Patient's oxygenation remained within acceptable and trying to wean off FiO2 and keep PEEP at this time due to the atelectasis and blood pressure remained around 30 which is acceptable at this time. Continue fluid removal as much as possible. Discussed with primary team. Discussed with the family at the bedside. Patient remain critically ill and with high mortality rate. (2) Acute respiratory failure with hypoxia Current Visit: Yes Status: Acute (3) Shock Current Visit: Yes Status: Acute Patient required more vasopressors and fortunately subsequently need for vasopressors decreased and platelets were transfused which could be due to have systemic inflammatory response syndrome and will consider transfusion of packed RBC if needed. Patient is unstable for any images and transportation. If we get to the point she would be candidate for transportation we will need to reimage. Will keep patient in supine position at this time. The high probability of a clinically significant, sudden or life threatening deterioration of the patient's condition required my full and direct attention, intervention and personal management. Critical care time 40 minutes. Subjective Principal diagnosis: Tachycardia Interval history: Patient remain sedated and worsening her shock in the past 24 hours. She has been in the supine position. Objective PUL Vital signs: Last Vital Signs Temp 98.0 F 08/16/17 08:00 Pulse 103 08/16/17 08:00 Resp 26 08/16/17 08:00 BP 112/51 08/16/17 08:00 Pulse Ox 96 08/16/17 08:00 General appearance: no acute distress Neck: no lymphadenopathy, no JVD Effort: normal Auscultation: bilateral: clear (in the upper zone), rhonchi (scattered) Percussion: bilateral: not dull Cardiovascular: regular rate and rhythm Gastrointestinal: soft, other (surgical abdomen) Extremities: edema unable to assess due to mental status (Patient is sedated and paralysis) Ventilator Settings Ventilator Settings: Ventilator Settings, Last 8 Hours Ventilator Mode A/C Ventilator Mode A/C Ventilator Mode A/C Ventilator Mode A/C Ventilator Mode A/C Ventilator Mode A/C Ventilator Mode A/C Ventilator Mode A/C Ventilator Mode A/C Ventilator Mode A/C Ventilator Mode A/C Ventilator Mode A/C Ventilator Mode A/C Ventilator Mode A/C Ventilator Tidal Volume 380 Setting Ventilator Tidal Volume 380 Setting Ventilator Tidal Volume 380 Setting Ventilator Tidal Volume 380 Setting Ventilator Tidal Volume 380 Setting Ventilator Tidal Volume 380 Setting Ventilator Tidal Volume 380 Setting Ventilator Tidal Volume 380 Setting Ventilator Tidal Volume 380 Setting Ventilator Tidal Volume 380 Setting Ventilator Tidal Volume 380 Setting Ventilator Tidal Volume 380 Setting Ventilator Tidal Volume 380 Setting Ventilator Tidal Volume 380 Setting Ventilator Respiratory Rate 26 Setting Ventilator Respiratory Rate 26 Setting Ventilator Respiratory Rate 26 Setting Ventilator Respiratory Rate 26 Setting Ventilator Respiratory Rate 26 Setting Ventilator Respiratory Rate 26 Setting Ventilator Respiratory Rate 26 Setting Ventilator Respiratory Rate 26 Setting Ventilator Respiratory Rate 26 Setting Ventilator Respiratory Rate 26 Setting Ventilator Respiratory Rate 26 Setting Ventilator Respiratory Rate 26 Setting Ventilator Respiratory Rate 26 Setting Ventilator Respiratory Rate 26 Setting Actual Respiratory Rate 26 Actual Respiratory Rate 26 Actual Respiratory Rate 26 Actual Respiratory Rate 26 Actual Respiratory Rate 26 Actual Respiratory Rate 26 Actual Respiratory Rate 26 Actual Respiratory Rate 26 Actual Respiratory Rate 26 Actual Respiratory Rate 26 Actual Respiratory Rate 26 Actual Respiratory Rate 26 Positive End Expiratory 16 Pressure Positive End Expiratory 16 Pressure Positive End Expiratory 16 Pressure Positive End Expiratory 16 Pressure Positive End Expiratory 16 Pressure Positive End Expiratory 16 Pressure Positive End Expiratory 16 Pressure Positive End Expiratory 16 Pressure Positive End Expiratory 16 Pressure Positive End Expiratory 16 Pressure Positive End Expiratory 16 Pressure Positive End Expiratory 16 Pressure Positive End Expiratory 16 Pressure Positive End Expiratory 16 Pressure Peak Inspiratory Airway 37 Pressure Peak Inspiratory Airway 36 Pressure Peak Inspiratory Airway 36 Pressure Peak Inspiratory Airway 36 Pressure Peak Inspiratory Airway 36 Pressure Peak Inspiratory Airway 36 Pressure Peak Inspiratory Airway 36 Pressure Peak Inspiratory Airway 36 Pressure Peak Inspiratory Airway 35 Pressure Peak Inspiratory Airway 35 Pressure Peak Inspiratory Airway 35 Pressure Peak Inspiratory Airway 36 Pressure Results - Laboratory Findings CBC and BMP: 08/16/17 11:35 08/16/17 11:35 ABG ABG pH 7.17 pH Units (7.32-7.45) L* 08/16/17 06:31 ABG pCO2 67 mmHg (35-45) H 08/16/17 06:31 ABG pO2 85 mmHg (85-104) 08/16/17 06:31 ABG O2 Saturation 93 % (95-98) L 08/16/17 06:31 PT/INR, D-dimer PT 13.8 Seconds (9.4-12.1) H 08/13/17 14:45 Abnormal lab findings: Abnormal lab results WBC 62.0 K/mcL (4.3-11.1) H* D 08/16/17 03:50 RBC 2.75 M/mcL (3.82-4.97) L 08/16/17 03:50 Hgb 8.2 g/dL (11.5-15.4) L 08/16/17 03:50 Hct 25.7 % (35.3-44.9) L 08/16/17 03:50 RDW 16.7 % (11.5-14.5) H 08/16/17 03:50 Plt Count 27 K/mcL (140-400) L* 08/16/17 03:50 MPV 13.0 fL (9.4-12.4) H 08/16/17 03:50 Immature Gran % 8.4 % (0-4) H 08/14/17 00:56 Band Neutrophils % 12.0 % (0-4) H 08/16/17 03:50 Metamyelocytes % 6.0 % (0) H 08/16/17 03:50 Myelocytes % 10.0 % (0) H 08/16/17 03:50 Promyelocytes % 2.0 % (0) H 08/14/17 09:41 Blast Cells % 4.0 % (0) H 08/14/17 03:00 Neutrophils # 49.6 K/mcL (1.6-8.9) H 08/16/17 03:50 Eosinophils # 1.2 K/mcL (0.0-0.6) H 08/14/17 03:00 Nucleated RBCs/100 WBC 4.9 /100 WBC (0) H 08/16/17 03:50 Reactive Lymphocytes Present (Not Present) A 08/13/17 04:05 Toxic Granulation Present (Not Present) A 08/16/17 03:50 Dohle Bodies Present (Not Present) A 08/14/17 09:41 Platelet Estimate Marked Decrease (Normal) L 08/16/17 03:50 Large Platelets Present (Not Present) A 08/16/17 03:50 Immature Plt Fraction 13.8 % (1.1-6.1) H 08/15/17 03:20 Polychromasia 1+ (Not Present) A 08/15/17 03:20 PT 13.8 Seconds (9.4-12.1) H 08/13/17 14:45 Fibrinogen 885 mg/dL (169-393) H* 08/16/17 04:36 ABG pH 7.17 pH Units (7.32-7.45) L* 08/16/17 06:31 ABG pCO2 67 mmHg (35-45) H 08/16/17 06:31 ABG O2 Saturation 93 % (95-98) L 08/16/17 06:31 ABG Base Excess -5 mEq/L (-2 to 3) L 08/16/17 06:31 VBG pH 7.17 pH Units (7.32-7.42) L* 08/16/17 04:09 VBG pO2 172 mmHg (25-50) H 08/14/17 08:55 VBG HCO3 16 mEq/L (21-27) L 08/14/17 08:55 Sodium 131 mEq/L (136-145) L 08/16/17 03:50 Carbon Dioxide 22 mEq/L (23-29) L 08/16/17 03:50 BUN 35 mg/dL (6-20) H 08/16/17 03:50 Creatinine 1.68 mg/dL (0.60-1.20) H 08/16/17 03:50 Est GFR ( Amer) 40 (> 60) L 08/16/17 03:50 Est GFR (Non-Af Amer) 33 (> 60) L 08/16/17 03:50 Glucose 230 mg/dL (70-105) H 08/16/17 03:50 POC Glucose 190 mg/dL (70-99) H 08/16/17 00:18 Lactic Acid 4.2 mmol/L (0.5-2.2) H* 08/16/17 03:45 Calcium 6.7 mg/dL (8.6-10.3) L 08/16/17 03:50 Venous Ioniz Calcium 0.91 mmol/L (1.15-1.35) L 08/16/17 04:09 Total Bilirubin 1.2 mg/dL (0.3-1.0) H 08/14/17 09:41 Direct Bilirubin 0.6 mg/dL (0.0-0.2) H 08/14/17 09:41 AST 59 Units/L (13-39) H 08/14/17 09:41 Alkaline Phosphatase 19 Units/L (34-104) L 08/14/17 09:41 Troponin I 0.07 ng/mL (< 0.04) H* 08/13/17 22:10 Serum Total Protein 3.7 g/dL (6.4-8.9) L 08/14/17 09:41 Albumin 2.2 g/dL (3.5-5.7) L 08/14/17 09:41 Globulin 1.5 g/dL (2.4-3.5) L 08/14/17 09:41 Prealbumin < 3.0 mg/dL (17.0-34.0) L 08/14/17 03:00 Vancomycin Trough 26 mcg/mL (5-10) H 08/14/17 12:00 - Clinical Findings Intake & Output: Intake & Output 08/15/17 08/16/17 08/16/17 23:59 07:59 15:59 Intake Total 2974.99 / 2974.99 1938.1 / 1938.1 278.4 / 278.4 Output Total 196 / 1 2632 / 2632 Balance 1013.99 / 1013.99 -693.9 / -693.9 278.4 / 278.4 - VTE Documentation of Mechanical Device: Intermittent pneumatic compression device Consult Discharge Plan - Plan Additional Instructions: Surgical instructions: #1 may shower starting 08/10/17, no tub bath for 2 weeks #2 wash incisions with soap and water and pat dry daily #3 no lifting, pushing, pulling more than 15 pounds for the next 4 weeks #4 no driving until off narcotics for 24 hours and able to safely react in the car #5 may climb stairs Follow-up appointment: Sunday, August 20, 2017 with Sonia Joe CNP in the outpatient surgical office (Medical office building, [id number]) [facility] Diet After Saravanan Fundoplication Surgery This diet information is for patients who have recently had Saravanan Fundoplication Surgery to correct reflux disease or to repair various types of hernias, such as hiatal hernia and intrathoracic stomach. This diet may also be used for other gastrointestinal surgeries, such as Heller myotomy and repair of achalasia. The diet will help control diarrhea, excess gas and swallowing problems, which may occur after this type of surgery. Important Steps to Keep Your Stomach From Stretching Eat small, frequent meals (six to eight per day). This will help you consume the majority of the nutrients you need without causing your stomach to feel full or distended. Drinking large amounts of fluids with meals can stretch your stomach. You may drink fluids between meals as often as you like, but limit fluids to 1/2 cup (4 fluid ounces) with meals and one cup (8 fluid ounces) with snacks. Sit upright while eating and stay upright for 30 minutes after each meal. [place] can help food move through your digestive tract. Do not lie down after eating. Sit upright for 2 hours after your last meal or snack of the day. Eat very slowly. Take your time when eating. Take small bites and chew your food well to barrel charrer helper in swallowing and digestion. Avoid crusty breads and sticky, gummy foods, such as bananas, fresh doughy breads, rolls and doughnuts. These types of foods become sticky and difficult to swallow. Toasted breads tend to be better tolerated. Lastly, if you eat sweets, consume them at the end of your meal to avoid a group of symptoms referred to as dumping syndrome. This describes the rapid emptying of foods from the stomach to the small intestine. Sweetened beverages, candy and desserts move more rapidly and dump quickly into the intestines. This can cause symptoms of nausea, weakness, cold sweats, cramps, diarrhea and dizzy spells. Important Steps to Avoid Gas Do not drink through a straw, chew gum, or chew tobacco. These actions cause you to swallow air, which will produce excess gas in your stomach. Chew with your mouth closed and chew your food thoroughly. Avoid foods that cause stomach gas and distention. The foods include corn, dried beans, peas, lentils, onions, broccoli, cauliflower, and any food item from the cabbage family. Do not drink carbonated drinks, alcohol, citrus, or tomato products. What Will I Be Able To Eat and Drink After Surgery After Saravanan Fundoplication Surgery, your diet will be advanced slowly by your surgeon. Generally, you will be on a thin/clear liquid diet for the first 10 days. Then you will advance to the full liquid diet for 4 days and eventually to a Saravanan soft diet for 7 days. After any surgery, protein consumption is important for healing. To get enough protein, drink 3-4 [place] Instant Breakfast, Ensure, or equivalent daily. Reminder: carbonated beverages (such as sodas, energy drinks, flavored carbonated water), and alcohol are not permitted for the 1st 6 to 8 weeks after surgery. After this time you may attempt to reintroduce them in small amounts. Please note: dairy products such as milk, ice cream, and putting may cause diarrhea and some people after surgery. He may need to avoid milk products. If so you may substitute them with lactose free beverages, such as soy, rice, lactate, or almond milk. Please be aware that each patient's tolerance to food is different. Your doctor will advance your diet depending on how well you progress after surgery. Thin Liquid Diet The first diet after Saravanan Fundoplication Surgery is the thin liquids diet. Follow this diet for postoperative days 1-10 08/10/2017 - 08/19/2017. Thin liquids include: Apple, Cranberry, or Grape Juice (no citrus juice) Chicken Broth Beef Broth Flavored Gelatin (Jell-O) Decaffeinated Tea or Coffee Popsicles or Portuguese Ice Caffeinated Beverages Will Be Permitted Based upon Tolerance Dairy Thin Milkshakes (strawberry or vanilla flavored- No chocolate) Drink 3-4 [place] instant breakfast, Ensure, or equivalent daily. May be mixed with dairy for thin milkshakes Full Liquid Diet Follow this diet for postoperative days 11-14 08/20/2017- 08/23/2017. Full liquid diet includes anything in the thin liquid diet plus: Milk, Soy, Rice, and [place] (No Chocolate) Cream of Wheat, Cream of Rice, Grits Strained Creamed Soups (No Tomato Water Broccoli) Vanilla and [place] Flavored Ice Cream Sherbet Vanilla and Butterscotch Pudding (No Chocolate or Coconut) Continue 3-4 [place] Instant Breakfast, Ensure, or an Equivalent Daily. Maybe Next with Dairy for Thin Milkshakes. Saravanan Soft Diet Follow this diet for postoperative days 15-20 08/24/2017- 08/30/2017. (If you are consuming enough protein, you may stop the protein supplements). See Saravanan Diet handout for more specific information Referrals: Edyta Melgar, GARDENING SUPERVISOR [Primary Care Provider] -
--- NOTE | 2017-08-16 09:03 | General Surgery Progress Note ---
Date of Encounter: 08/16/17 Time of Encounter: 08:45 - Assessment and Plan (1) GERD (gastroesophageal reflux disease) Current Visit: Yes Status: Chronic POD # 7 s/p Saravanan Fundoplication and subsequent ex lap with oversewing of hepatic and splenic veins with Dr. Abhinav SMITH NG tube to LIWS IV fluids- Bicarb gtt Continue TPN therapy for nutritional support via PICC line Supportive care and pain control- fentanyl and precedex gtt PPI added today due to risk for stress ulcer No concern for ongoing bleeding from a surgical standpoint Qualifiers: Esophagitis presence: without esophagitis Qualified Code(s): K21.9 - Gastro -esophageal reflux disease without esophagitis (2) ARDS (adult respiratory distress syndrome) Current Visit: Yes Status: Acute Patient on ventilator support Now requiring 80% FiO2 and PEEP of 16 Patient is in the supine position at this time (flipped 08/15 at 1500) Management per pulmonary/critical care team- discussed with Dr. Mullen (3) Acute respiratory failure Current Visit: Yes Status: Acute Patient on ventilator support Concern for severe ARDS Now requiring 80% FiO2 and PEEP of 16 Patient is in the supine position (flipped 08/15 at 1500) Management per pulmonary/critical care team- discussed with Dr. Mullen Continue Zosyn and Vancomycin Qualifiers: Respiratory failure complication: hypoxia Qualified Code(s): J96.01 - Acute respiratory failure with hypoxia (4) Chest pain Current Visit: No Status: Acute Cardiology consulted and signed off Appreciate recommendations Echo complete- LVEF 70% Qualifiers: Chest pain type: unspecified Qualified Code(s): R07.9 - Chest pain, unspecified (5) Acute kidney failure, unspecified Current Visit: Yes Status: Acute Cr- 1.97>1.55>1.68 Nephrology following LYNN management per pulmonary/critical care and nephrology Qualifiers: Acute renal failure type: unspecified Qualified Code(s): N17.9 - Acute kidney failure, unspecified (6) Tachycardia Current Visit: Yes Status: Resolved Improved Cardiology consulted and signed off (7) Anemia Current Visit: Yes Status: Acute Hgb- 8.9>9.2>8.2 No concern for ongoing bleeding from a surgical standpoint 1 unit of PRBC ordered per critical care team Continue to monitor Qualifiers: Anemia type: other cause Other causes of anemia: acute posthemorrhagic Qualified Code(s): D62 - Acute posthemorrhagic anemia (8) Leukocytosis Current Visit: Yes Status: Acute WBC- 41>40.9>62 Suspect related to systemic inflammatory response Continue to monitor Qualifiers: Leukocytosis type: unspecified Qualified Code(s): D72.829 - Elevated white blood cell count, unspecified (9) Thrombocytopenia Current Visit: Yes Status: Acute Plt- 115>48>27 Transfuse 2 packs of platelets today (10) DVT prophylaxis Current Visit: No Status: Acute Heparin 5,000 units SQ TID for DVT prophylaxis EPCDs to bilateral lower extremities for DVT prophylaxis Subjective Patient reports: other (Patient paralyzed and sedated on ventilator support; on Pressor support (Levophed and Vasopressin); on LYNN; patient placed supine at approximately 1500 yesterday; Core temperature improved and now 98 with warming blanket) Objective Vital Signs - Last 8 Hours Temp Pulse Resp BP Pulse Ox 08/16/17 08:00 98.0 F 103 26 112/51 96 08/16/17 07:46 26 111/51 96 08/16/17 07:39 97.9 F 102 08/16/17 06:53 99 26 107/50 97 08/16/17 06:00 98.6 F 97 26 115/52 98 08/16/17 05:26 26 118/52 99 08/16/17 05:00 102 26 111/49 95 08/16/17 04:00 98.2 F 104 26 108/46 95 08/16/17 03:26 26 109/49 95 08/16/17 03:10 104 08/16/17 03:00 98.4 F 104 26 112/48 96 08/16/17 02:00 98.2 F 103 26 105/48 96 08/16/17 01:10 26 106/48 96 Intake and Output 08/15/17 08/16/17 08/16/17 23:59 07:59 15:59 Intake Total 2974.99 / 2974.99 1938.1 / 193.1 278.4 / 278.4 Output Total 1960 2632 / 2 296 / 296 Balance 1013.99 / 1013.99 -693.9 / -693.9 -17.6 / -17.6 Intake: IV Fluids 2974.99 / 2974.99 1938.1 / 8.1 278.4 / 278.4 PrismaSATE BGK 4/2.5 5,000 ML @ 0 / 0 0 / 0 2000 mls/hr CRRT CONT [facility] Rx#: [id number] Vasostrict 40 UNIT In Dextrose 29.32 / 29.32 41.5 / 41.5 6.8 / 6.8 5% 100 ML @ 0.03 UNIT/MIN 4.59 mls/hr IV .[id number] [facility] Rx#: [id number] Nimbex 200 MG In 0.9 % Sodium 298.7 / 298.7 158.7 / 158.7 17.6 / 17.6 Chloride 180 ML @ 3 MCG/KG/MIN 24.3 mls/hr IVC CONT [facility] Rx#: [id number] PRECEDEX Premix 400 mcg In 100 190.6 / 190.6 121.5 / 121.5 18.6 / 18.6 ml @ 0.2 MCG/KG/HR 6.415 mls/hr IVC .[id number] [facility] Rx#: [id number] FentaNYL (PF) 1,000 MCG In 0.9 131.3 / 131.3 105.2 / 105.2 17.3 / 17.3 % Sodium Chloride 80 ML @ 50 MCG/HR 5 mls/hr IVC CONT [facility] Rx #:[id number] Clinimix E 5%-15% SOLUTION 2, 343.4 / 343.4 346.4 / 346.4 57.6 / 57.6 000 ML @ 50 mls/hr IVC .Q24H [facility] with M.v.i. Adult 10 ml Rx# :[id number] Levophed 16 MG In Dextrose 5% 766.45 / 766.45 430.3 / 430.3 65 / 65 500 ML @ 5 MCG/MIN 9.67 mls/hr IVC CONT [facility] Rx#:[id number] Phenylephrine 50 MG In Dextrose 74.12 / 74.12 83.3 / 83.3 5% 250 ML @ 40 MCG/MIN 12.24 mls/hr IVC CONT [facility] Rx#: [id number] Diprivan 1,000 mg In 100 ml @ 5 4.7 / 4.7 52.5 / 52.5 8.7 / 8.7 MCG/KG/MIN 3.849 mls/hr IVC . Q24H [facility] Rx#:[id number] Sodium Bicarbonate 150 MEQ In 1036.4 / 1036.4 498.7 / 498.7 86.8 / 86.8 Dextrose 5% 1,000 ML @ 75 mls/ hr IVC .[id number] [facility] Rx#: [id number] Zosyn 3.375 GM In 0.9 % Sodium 100 / 100 100 / 100 Chloride (Mini-Bag +) 100 ML @ 25 mls/hr IVPB Q8HR [facility] Rx#: [id number] Oral 0 / 0 0 / 0 Tube Feeding 0 / 0 Output: Lynn 196 / 1960 2627 / 2627 296 / 296 Catheter 0 / 0 5 / 5 0 / 0 Gastric Drainage 0 / 0 0 / 0 Other: Blood Glucose* 164 230 197 - General physical appearance other (patient paralyzed and sedated on ventilator support) - Eyes PERRL - ENT dry mucosa, atraumatic, normocephalic - Neck Neck exam: trachea midline - Respiratory clear to auscultation, other (Ventilator support with FiO2 of 80% and PEEP of 16 ) - Cardiovascular Cardiovascular exam: Present: tachycardia - Abdomen Abdomen: Present: bowel sounds present (hypoactive), soft, wound (NG tube to LIWS with bilious drainage noted) - Incision Incision: Present: clean and dry, intact - Genitourinary other (mckinnon catheter to SD with no urine output noted since midnight) - Neurologic other (Unable to assess) - Musculoskeletal other (Unable to assess) - Psychiatric other (Unable to assess) - Labs 08/16/17 03:50 08/16/17 03:50 Diabetes panel 08/16/17 Range/Units 03:50 Sodium 131 L (136-145) mEq/L Potassium 4.7 (3.5-5.1) mEq/L Chloride 99 (98-107) mEq/L Carbon Dioxide 22 L (23-29) mEq/L BUN 35 H (6-20) mg/dL Creatinine 1.68 H (0.60-1.20) mg/dL Glucose 230 H (70-105) mg/dL Calcium 6.7 L (8.6-10.3) mg/dL Calcium panel 08/16/17 Range/Units 03:50 Calcium 6.7 L (8.6-10.3) mg/dL Phosphorus 3.8 (2.7-4.5) mg/dL Pituitary panel 08/16/17 Range/Units 03:50 Sodium 131 L (136-145) mEq/L Potassium 4.7 (3.5-5.1) mEq/L Chloride 99 (98-107) mEq/L Carbon Dioxide 22 L (23-29) mEq/L BUN 35 H (6-20) mg/dL Creatinine 1.68 H (0.60-1.20) mg/dL Glucose 230 H (70-105) mg/dL Calcium 6.7 L (8.6-10.3) mg/dL Adrenal panel 08/16/17 Range/Units 03:50 Sodium 131 L (136-145) mEq/L Potassium 4.7 (3.5-5.1) mEq/L Chloride 99 (98-107) mEq/L Carbon Dioxide 22 L (23-29) mEq/L BUN 35 H (6-20) mg/dL Creatinine 1.68 H (0.60-1.20) mg/dL Glucose 230 H (70-105) mg/dL Calcium 6.7 L (8.6-10.3) mg/dL - VTE Documentation of Mechanical Device: Intermittent pneumatic compression device Consult Discharge Plan - Plan Additional Instructions: Surgical instructions: #1 may shower starting 08/10/17, no tub bath for 2 weeks #2 wash incisions with soap and water and pat dry daily #3 no lifting, pushing, pulling more than 15 pounds for the next 4 weeks #4 no driving until off narcotics for 24 hours and able to safely react in the car #5 may climb stairs Follow-up appointment: Sunday, August 20, 2017 with Sonia Joe CNP in the outpatient surgical office (Medical office building, [address]) [place] [facility] Diet After Saravanan Fundoplication Surgery This diet information is for patients who have recently had Saravanan Fundoplication Surgery to correct reflux disease or to repair various types of hernias, such as hiatal hernia and intrathoracic stomach. This diet may also be used for other gastrointestinal surgeries, such as Heller myotomy and repair of achalasia. The diet will help control diarrhea, excess gas and swallowing problems, which may occur after this type of surgery. Important Steps to Keep Your Stomach From Stretching Eat small, frequent meals (six to eight per day). This will help you consume the majority of the nutrients you need without causing your stomach to feel full or distended. Drinking large amounts of fluids with meals can stretch your stomach. You may drink fluids between meals as often as you like, but limit fluids to 1/2 cup (4 fluid ounces) with meals and one cup (8 fluid ounces) with snacks. Sit upright while eating and stay upright for 30 minutes after each meal. [place] can help food move through your digestive tract. Do not lie down after eating. Sit upright for 2 hours after your last meal or snack of the day. Eat very slowly. Take your time when eating. Take small bites and chew your food well to open hearth furnace operator helper in swallowing and digestion. Avoid crusty breads and sticky, gummy foods, such as bananas, fresh doughy breads, rolls and doughnuts. These types of foods become sticky and difficult to swallow. Toasted breads tend to be better tolerated. Lastly, if you eat sweets, consume them at the end of your meal to avoid a group of symptoms referred to as dumping syndrome. This describes the rapid emptying of foods from the stomach to the small intestine. Sweetened beverages, candy and desserts move more rapidly and dump quickly into the intestines. This can cause symptoms of nausea, weakness, cold sweats, cramps, diarrhea and dizzy spells. Important Steps to Avoid Gas Do not drink through a straw, chew gum, or chew tobacco. These actions cause you to swallow air, which will produce excess gas in your stomach. Chew with your mouth closed and chew your food thoroughly. Avoid foods that cause stomach gas and distention. The foods include corn, dried beans, peas, lentils, onions, broccoli, cauliflower, and any food item from the cabbage family. Do not drink carbonated drinks, alcohol, citrus, or tomato products. What Will I Be Able To Eat and Drink After Surgery After Saravanan Fundoplication Surgery, your diet will be advanced slowly by your surgeon. Generally, you will be on a thin/clear liquid diet for the first 10 days. Then you will advance to the full liquid diet for 4 days and eventually to a Saravanan soft diet for 7 days. After any surgery, protein consumption is important for healing. To get enough protein, drink 3-4 [place] Instant Breakfast, Ensure, or equivalent daily. Reminder: carbonated beverages (such as sodas, energy drinks, flavored carbonated water), and alcohol are not permitted for the 1st 6 to 8 weeks after surgery. After this time you may attempt to reintroduce them in small amounts. Please note: dairy products such as milk, ice cream, and putting may cause diarrhea and some people after surgery. He may need to avoid milk products. If so you may substitute them with lactose free beverages, such as soy, rice, lactate, or almond milk. Please be aware that each patient's tolerance to food is different. Your doctor will advance your diet depending on how well you progress after surgery. Thin Liquid Diet The first diet after Saravanan Fundoplication Surgery is the thin liquids diet. Follow this diet for postoperative days 1-10 08/10/2017 - 08/19/2017. Thin liquids include: Apple, Cranberry, or Grape Juice (no citrus juice) Chicken Broth Beef Broth Flavored Gelatin (Jell-O) Decaffeinated Tea or Coffee Popsicles or [place] Ice Caffeinated Beverages Will Be Permitted Based upon Tolerance Dairy Thin Milkshakes (strawberry or vanilla flavored- No chocolate) Drink 3-4 [place] instant breakfast, Ensure, or equivalent daily. May be mixed with dairy for thin milkshakes Full Liquid Diet Follow this diet for postoperative days 11-14 08/20/2017- 08/23/2017. Full liquid diet includes anything in the thin liquid diet plus: Milk, Soy, Rice, and [place] (No Chocolate) Cream of Wheat, Cream of Rice, Grits Strained Creamed Soups (No Tomato Water Broccoli) Vanilla and [place] Flavored Ice Cream Sherbet Vanilla and Butterscotch Pudding (No Chocolate or Coconut) Continue 3-4 [place] Instant Breakfast, Ensure, or an Equivalent Daily. Maybe Next with Dairy for Thin Milkshakes. Saravanan Soft Diet Follow this diet for postoperative days 15-20 08/24/2017- 08/30/2017. (If you are consuming enough protein, you may stop the protein supplements). See Saravanan Diet handout for more specific information Referrals: Edyta Melgar, STUDENT DEVELOPMENT SPECIALIST [Primary Care Provider] - - Attending Attestation For this encounter, I have reviewed the [facility]ANGER or PA documentation, treatment plan, and medical decision making; and I have had face to face time with this patient.
[2017-08-16] MEDS: Vasopressin 40 UNIT in D5% in Water 100 ML IV SCH (10:00)
[2017-08-16] MEDS ORDERED: Calcium Gluconate 2,000 MG in 0.9 % Sodium Chloride 100 ML IVPB ONE (11:00)
[2017-08-16 12:00] LABS: ABG Base Excess -3 mEq/L (-2 to 3); ABG HCO3 26 mEq/L (21-27); ABG Oxygen Saturation 94 % (95-98); ABG PCO2 73 mmHg (35-45); ABG PH 7.16 pH Units (7.32-7.45); ABG PO2 95 mmHg (85-104); ABG TCO2 28 mEq/L (20-26); Blood Gas Modality ASSIST CONTROL; Blood Gas PEEP 16 cm H2O; Blood Gas Respiration Rate 26; Blood Gas VT 380 cc
[2017-08-16] MEDS ORDERED: Insulin LISPRO 300 UNITS/3 ML VIAL SQ SCH (12:00)
[2017-08-16 12:22] LABS: INR 1.3; Prothrombin Time 13.6 Seconds (9.4-12.1)
[2017-08-16 12:25] LABS: Activated Partial Thrombo Time 36.4 Seconds (26.0-36.0)
[2017-08-16 12:27] LABS: Albumin 2.1 g/dL (3.5-5.7); Albumin/Globulin Ratio 0.8 (1.1-2.2); Bilirubin,Total 1.2 mg/dL (0.3-1.0); Calcium 7.5 mg/dL (8.6-10.3); Globulin 2.5 g/dL (2.4-3.5); Potassium 4.4 mEq/L (3.5-5.1); Total Protein 4.6 g/dL (6.4-8.9)
[2017-08-16 12:33] LABS: Hemoglobin 7.6 g/dL (11.5-15.4); Mean Corpuscular Hemoglobin 30.2 pg (28.0-33.3); Red Blood Count 2.52 M/mcL (3.82-4.97)
[2017-08-16 12:35] LABS: Hematocrit 23.7 % (35.3-44.9); Mean Corpuscular HGB Conc 32.1 g/dL (31.6-35.5); Nucleated Red Blood Cells 6.5 /100 WBC (0); Red Cell Distribution Width 16.7 % (11.5-14.5)
--- NOTE | 2017-08-16 12:37 | Nephrology Progress Note ---
Date of Encounter: 08/16/17 Time of Encounter: 11:55 - Assessment and Plan (1) Acute kidney failure, unspecified Current Visit: Yes Status: Acute Recurrent YOJANA R/T respiratory failure, hypotension, acidisis, oliguric. CVVH Goal -100 volume removal. Azotemia controlled. Urine output 33cc. WBC 62, Lactic acid 3.8, Co2 27. Remains instable to CT. Will continue to monitor. Qualifiers: Acute renal failure type: unspecified Qualified Code(s): N17.9 - Acute kidney failure, unspecified Subjective Principal diagnosis: Tachycardia Interval history: Intubated, sedated, 2 pressors. FIO2 80/peep 16. Supine position. Critically ill. Objective - Vital Signs Vital signs: Vital Signs Temp Pulse Resp BP Pulse Ox 08/16/17 12:00 97.6 F 98 26 133/55 97 08/16/17 11:22 98 08/16/17 11:07 26 127/56 97 08/16/17 11:00 97.6 F 98 26 132/58 97 08/16/17 10:00 102 26 108/52 96 08/16/17 09:55 26 110/53 97 08/16/17 09:00 102 26 115/53 96 08/16/17 08:00 98.0 F 103 26 112/51 96 08/16/17 07:46 26 111/51 96 08/16/17 07:39 97.9 F 102 08/16/17 06:53 99 26 107/50 97 08/16/17 06:00 98.6 F 97 26 115/52 98 08/16/17 05:26 26 118/52 99 08/16/17 05:00 102 26 111/49 95 08/16/17 04:00 98.2 F 104 26 108/46 95 08/16/17 03:26 26 109/49 95 08/16/17 03:10 104 08/16/17 03:00 98.4 F 104 26 112/48 96 08/16/17 02:00 98.2 F 103 26 105/48 96 08/16/17 01:10 26 106/48 96 08/16/17 01:00 97.0 F L 98 26 105/47 95 08/16/17 00:00 97.4 F L 102 26 104/49 95 08/15/17 23:21 26 99/48 95 08/15/17 23:00 101 26 101/48 95 08/15/17 22:00 105 26 108/50 93 08/15/17 21:33 26 115/52 93 08/15/17 21:00 98.6 F 102 26 120/52 94 08/15/17 20:00 103 26 105/52 94 08/15/17 19:47 26 110/44 95 08/15/17 19:33 123 08/15/17 19:00 97.1 F L 100 26 123/51 95 08/15/17 18:17 26 95 08/15/17 18:00 95.9 F L 96 26 89/47 95 08/15/17 17:00 94.4 F L 92 26 92/47 95 08/15/17 16:00 93.0 F L 93 26 93/50 95 08/15/17 15:39 26 123/69 87 08/15/17 15:00 92.0 F L 93 26 95/55 95 08/15/17 14:00 92.9 F L 69 26 87/52 98 08/15/17 13:00 92.3 F L 70 26 82/50 100 Intake and Output 08/15/17 08/16/17 08/16/17 23:59 07:59 15:59 Intake Total 2974.99 / 2974.99 193. / 1937.1 1640.68 / 1640.68 Output Total 1960 / 1960 2632 / 2632 1822 / 1822 Balance 1013.99 / 1013.99 -693.9 / -693.9 -181.32 / -181.32 Intake: IV Fluids 2974.99 / 2974.99 193. / 1937.1 1340.68 / 1340.68 PrismaSATE BGK 4/2.5 5,000 ML @ 0 / 0 0 / 0 0 / 0 2000 mls/hr CRRT CONT [facility] Rx#: [id number] Vasostrict 40 UNIT In Dextrose 29.32 / 29.32 41.5 / 41.5 21.68 / 21.68 5% 100 ML @ 0.03 UNIT/MIN 4.59 mls/hr IV .[id number] [facility] Rx#: [id number] Nimbex 200 MG In 0.9 % Sodium 298.7 / 298.7 158.7 / 158.7 79.8 / 79.8 Chloride 180 ML @ 3 MCG/KG/MIN 24.3 mls/hr IVC CONT [facility] Rx#: [id number] PRECEDEX Premix 400 mcg In 100 190.6 / 190.6 121.5 / 121.5 83.4 / 83.4 ml @ 0.2 MCG/KG/HR 6.415 mls/hr IVC .[id number] [facility] Rx#: [id number] FentaNYL (PF) 1,000 MCG In 0.9 131.3 / 131.3 105.2 / 105.2 71.2 / 71.2 % Sodium Chloride 80 ML @ 50 MCG/HR 5 mls/hr IVC CONT [facility] Rx #:[id number] Clinimix E 5%-15% SOLUTION 2, 343.4 / 343.4 346.4 / 346.4 260.9 / 260.9 000 ML @ 50 mls/hr IVC .Q24H [facility] with M.v.i. Adult 10 ml Rx# :[id number] Levophed 16 MG In Dextrose 5% 766.45 / 766.45 430.3 / 430.3 293.8 / 293.8 500 ML @ 5 MCG/MIN 9.67 mls/hr IVC CONT [facility] Rx#:[id number] Phenylephrine 50 MG In Dextrose 74.12 / 74.12 83.3 / 83.3 5% 250 ML @ 40 MCG/MIN 12.24 mls/hr IVC CONT [facility] Rx#: [id number] Diprivan 1,000 mg In 100 ml @ 5 4.7 / 4.7 52.5 / 52.5 39.4 / 39.4 MCG/KG/MIN 3.849 mls/hr IVC . Q24H [facility] Rx#:[id number] Sodium Bicarbonate 150 MEQ In 1036.4 / 1036.4 498.7 / 498.7 390.5 / 390.5 Dextrose 5% 1,000 ML @ 75 mls/ hr IVC .[id number] [facility] Rx#: [id number] Zosyn 3.375 GM In 0.9 % Sodium 100 / 100 100 / 100 100.0 / 100.0 Chloride (Mini-Bag +) 100 ML @ 25 mls/hr IVPB Q8HR [facility] Rx#: [id number] Oral 0 / 0 0 / 0 Tube Feeding 0 / 0 Blood Product 300 / 300 Platelet Pheresis Lp Irr 1st 300 / 300 Unit [id number] Output: Xochitl 1960 2627 / 2627 1767 / 1767 Catheter 0 / 0 5 / 5 5 / 5 Gastric Drainage 0 / 0 0 / 0 50 / 50 Other: Weight 135.5 kg Blood Glucose* 164 230 199 Patient Weight 08/16/17 23:59 Weight 135.5 kg - General Appearance General appearance: Present: well-developed, well-nourished, appears started age EENT: Present: mucous membranes moist Neck: Present: no JVD Respiratory: Present: rhonchi Cardiology: Present: edema, regular rate, regular rhythm Additional Comments: generalized pitting Gastrointestinal: Present: hypoactive bowel sounds Integumentary: Present: warm and dry - Lab 08/16/17 03:50 08/16/17 11:35 Most recent lab results ABG pH 7.16 pH Units (7.32-7.45) L* 08/16/17 11:55 ABG pCO2 73 mmHg (35-45) H* 08/16/17 11:55 ABG pO2 95 mmHg (85-104) 08/16/17 11:55 ABG HCO3 26 mEq/L (21-27) 08/16/17 11:55 ABG O2 Saturation 94 % (95-98) L 08/16/17 11:55 Calcium 7.5 mg/dL (8.6-10.3) L 08/16/17 11:35 Phosphorus 3.8 mg/dL (2.7-4.5) 08/16/17 03:50 Magnesium 2.2 mg/dL (1.6-2.6) 08/16/17 03:50 - VTE Documentation of Mechanical Device: Intermittent pneumatic compression device Consult Discharge Plan - Plan Additional Instructions: Surgical instructions: #1 may shower starting 08/10/17, no tub bath for 2 weeks #2 wash incisions with soap and water and pat dry daily #3 no lifting, pushing, pulling more than 15 pounds for the next 4 weeks #4 no driving until off narcotics for 24 hours and able to safely react in the car #5 may climb stairs Follow-up appointment: Sunday, August 20, 2017 with Sonia Joe CNP in the outpatient surgical office (Medical office building, [address]) [place] [facility] Diet After Saravanan Fundoplication Surgery This diet information is for patients who have recently had Saravanan Fundoplication Surgery to correct reflux disease or to repair various types of hernias, such as hiatal hernia and intrathoracic stomach. This diet may also be used for other gastrointestinal surgeries, such as Heller myotomy and repair of achalasia. The diet will help control diarrhea, excess gas and swallowing problems, which may occur after this type of surgery. Important Steps to Keep Your Stomach From Stretching Eat small, frequent meals (six to eight per day). This will help you consume the majority of the nutrients you need without causing your stomach to feel full or distended. Drinking large amounts of fluids with meals can stretch your stomach. You may drink fluids between meals as often as you like, but limit fluids to 1/2 cup (4 fluid ounces) with meals and one cup (8 fluid ounces) with snacks. Sit upright while eating and stay upright for 30 minutes after each meal. [place] can help food move through your digestive tract. Do not lie down after eating. Sit upright for 2 hours after your last meal or snack of the day. Eat very slowly. Take your time when eating. Take small bites and chew your food well to stopper maker helper in swallowing and digestion. Avoid crusty breads and sticky, gummy foods, such as bananas, fresh doughy breads, rolls and doughnuts. These types of foods become sticky and difficult to swallow. Toasted breads tend to be better tolerated. Lastly, if you eat sweets, consume them at the end of your meal to avoid a group of symptoms referred to as dumping syndrome. This describes the rapid emptying of foods from the stomach to the small intestine. Sweetened beverages, candy and desserts move more rapidly and dump quickly into the intestines. This can cause symptoms of nausea, weakness, cold sweats, cramps, diarrhea and dizzy spells. Important Steps to Avoid Gas Do not drink through a straw, chew gum, or chew tobacco. These actions cause you to swallow air, which will produce excess gas in your stomach. Chew with your mouth closed and chew your food thoroughly. Avoid foods that cause stomach gas and distention. The foods include corn, dried beans, peas, lentils, onions, broccoli, cauliflower, and any food item from the cabbage family. Do not drink carbonated drinks, alcohol, citrus, or tomato products. What Will I Be Able To Eat and Drink After Surgery After Saravanan Fundoplication Surgery, your diet will be advanced slowly by your surgeon. Generally, you will be on a thin/clear liquid diet for the first 10 days. Then you will advance to the full liquid diet for 4 days and eventually to a Saravanan soft diet for 7 days. After any surgery, protein consumption is important for healing. To get enough protein, drink 3-4 [place] Instant Breakfast, Ensure, or equivalent daily. Reminder: carbonated beverages (such as sodas, energy drinks, flavored carbonated water), and alcohol are not permitted for the 1st 6 to 8 weeks after surgery. After this time you may attempt to reintroduce them in small amounts. Please note: dairy products such as milk, ice cream, and putting may cause diarrhea and some people after surgery. He may need to avoid milk products. If so you may substitute them with lactose free beverages, such as soy, rice, lactate, or almond milk. Please be aware that each patient's tolerance to food is different. Your doctor will advance your diet depending on how well you progress after surgery. Thin Liquid Diet The first diet after Saravanan Fundoplication Surgery is the thin liquids diet. Follow this diet for postoperative days 1-10 08/10/2017 - 08/19/2017. Thin liquids include: Apple, Cranberry, or Grape Juice (no citrus juice) Chicken Broth Beef Broth Flavored Gelatin (Jell-O) Decaffeinated Tea or Coffee Popsicles or [place] Ice Caffeinated Beverages Will Be Permitted Based upon Tolerance Dairy Thin Milkshakes (strawberry or vanilla flavored- No chocolate) Drink 3-4 [place] instant breakfast, Ensure, or equivalent daily. May be mixed with dairy for thin milkshakes Full Liquid Diet Follow this diet for postoperative days 11-14 08/20/2017- 08/23/2017. Full liquid diet includes anything in the thin liquid diet plus: Milk, Soy, Rice, and [place] (No Chocolate) Cream of Wheat, Cream of Rice, Grits Strained Creamed Soups (No Tomato Water Broccoli) Vanilla and [place] Flavored Ice Cream Sherbet Vanilla and Butterscotch Pudding (No Chocolate or Coconut) Continue 3-4 [place] Instant Breakfast, Ensure, or an Equivalent Daily. Maybe Next with Dairy for Thin Milkshakes. Saravanan Soft Diet Follow this diet for postoperative days 15-20 08/24/2017- 08/30/2017. (If you are consuming enough protein, you may stop the protein supplements). See Saravanan Diet handout for more specific information Referrals: Edyta Melgar, MECHANICAL MAINTENANCE INSTRUCTOR [Primary Care Provider] -
[2017-08-16 12:53] LABS: Platelet Count 26 K/mcL (140-400)
[2017-08-16 13:14] LABS: Lymphocytes # 3.3 K/mcL (0.6-4.6); Monocytes # 2.2 K/mcL (0.0-1.3); Neutrophils # 45.5 K/mcL (1.6-8.9); Platelet Estimate Marked Decrease (Normal); Toxic Granulation Present (Not Present)
[2017-08-16 13:15] LABS: Dohle Bodies Present (Not Present)
[2017-08-16] MEDS: 0.9 % Sodium Chloride 1,000 ML IVC SCH (16:21)
[2017-08-16] MEDS: Clinimix E 5%-20% SOLUTION 2,000 ML, Parenteral Amino Acid 10% 200 ML with MVI, adult ... IVC SCH ×2 (17:03→18:20)
[2017-08-16 17:40] LABS: ABG Base Excess -1 mEq/L (-2 to 3); ABG HCO3 27 mEq/L (21-27); ABG Oxygen Saturation 93 % (95-98); ABG PCO2 69 mmHg (35-45); ABG PH 7.21 pH Units (7.32-7.45); ABG PO2 85 mmHg (85-104); ABG TCO2 30 mEq/L (20-26); Blood Gas Modality ASSIST CONTROL; Blood Gas PEEP 16 cm H2O; Blood Gas Respiration Rate 26; Blood Gas VT 400 cc
--- NOTE | 2017-08-16 17:42 | Electrocardiograph Report ---
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
--- NOTE | 2017-08-16 19:10 | Electrocardiograph Report ---
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
[2017-08-16] MEDS: Phenylephrine 50 MG in D5% in Water 250 ML IVC SCH (23:35)
[2017-08-17] MEDS: PrismaSATE BGK 4/2.5 5,000 ML CRRT SCH ×7 (00:42→19:00)
[2017-08-17] MEDS ORDERED: *HR* Heparin 5,000 UNIT/ML VIAL ONE ×3 (01:50→22:04)
[2017-08-17] MEDS: FentaNYL (PF) 1,000 MCG in 0.9 % Sodium Chloride 80 ML IVC SCH ×3 (02:49→20:08)
[2017-08-17] MEDS: Dexmedetomidine HCl 400 MCG/100 ML MLS IVC SCH ×4 (03:33→20:05)
[2017-08-17 04:13] LABS: Calcium 7.5 mg/dL (8.6-10.3); Magnesium 2.4 mg/dL (1.6-2.6); Phosphorous 3.4 mg/dL (2.7-4.5); Potassium 4.7 mEq/L (3.5-5.1)
[2017-08-17] MEDS: *HR* Heparin 5,000 UNIT/ML VIAL IV PRN (04:19)
[2017-08-17] MEDS: Lacri-Lube 3.5 GM TUBE BOTH EYES SCH ×5 (04:20→19:47)
[2017-08-17] MEDS: Norepinephrine 16 MG in D5% in Water 500 ML IVC SCH ×2 (04:22→20:23)
[2017-08-17 04:26] LABS: ABG Base Excess -3 mEq/L (-2 to 3); ABG HCO3 25 mEq/L (21-27); ABG Oxygen Saturation 95 % (95-98); ABG PCO2 62 mmHg (35-45); ABG PO2 95 mmHg (85-104); ABG TCO2 27 mEq/L (20-26); Blood Gas Modality ASSIST CONTROL; Blood Gas PEEP 16 cm H2O; Blood Gas Respiration Rate 26; Blood Gas VT 400 cc
[2017-08-17] MEDS: Insulin LISPRO 300 UNITS/3 ML VIAL SQ SCH ×4 (04:27→21:17)
[2017-08-17 04:57] LABS: Hematocrit 23.1 % (35.3-44.9); Hemoglobin 7.4 g/dL (11.5-15.4); Mean Corpuscular Hemoglobin 30.8 pg (28.0-33.3); Mean Corpuscular Volume 96.3 fL (83.0-100.0); Nucleated Red Blood Cells 7.7 /100 WBC (0)
[2017-08-17 04:59] LABS: Platelet Count 35 K/mcL (140-400)
[2017-08-17 05:26] LABS: Lymphocytes # 1.2 K/mcL (0.6-4.6); Monocytes # 4.7 K/mcL (0.0-1.3); Neutrophils # 47.6 K/mcL (1.6-8.9); Polychromasia 1+ (Not Present)
[2017-08-17 05:27] LABS: Platelet Estimate Decreased (Normal)
[2017-08-17 05:28] LABS: Anisocytosis 1+ (Not Present); Poikilocytosis 1+ (Not Present)
[2017-08-17] MEDS: Hydrocortisone Sodium Succ 100 MG/2 ML VIAL IVP SCH ×3 (06:45→16:24)
[2017-08-17] MEDS: Levalbuterol Neb 1.25 MG/3 ML IH SCH ×3 (07:24→22:49)
[2017-08-17] MEDS: Chlorhexidine Rinse 15 ML MOUTHWASH MM SCH ×2 (07:43→19:47)
[2017-08-17] MEDS: Micafungin 100 MG in 0.9 % Sodium Chloride Mini Bag 100 ML IVPB SCH (07:43)
[2017-08-17] MEDS: Famotidine 20 MG/2 ML VIAL IVP SCH ×2 (07:43→19:47)
[2017-08-17] MEDS: Piperacillin/Tazobactam 3.375 GM in 0.9 % Sodium Chloride Mini Bag 100 ML IVPB SCH ×2 (07:45→16:25)
[2017-08-17] MEDS: 0.9 % Sodium Chloride 1,000 ML PRIME SCH ×2 (07:47→18:19)
[2017-08-17] MEDS: Sodium Bicarbonate 150 MEQ in D5% in Water 1,000 ML IVC SCH (07:48)
--- NOTE | 2017-08-17 07:51 | Pulmonology Progress Note ---
<Nick Owens - Last Filed: 08/17/17 08:44> Date of Encounter: 08/17/17 Time of Encounter: 08:44 Assessment and Plan (1) Acute respiratory failure with hypoxia Current Visit: Yes Status: Acute Acute hypoxic respiratory failure on 08/13/17 necessitating intubation. Moderate ARDS with PaO2/FiO2 ratio of 119 most recently. Patient recently prone, currently in supine position. (2) Shock Current Visit: Yes Status: Acute Suspect vasodilatory shock in the setting of systemic inflammatory response and ARDS. Off Howard-Synephrine and vasopressin. Remains on Levophed. On vancomycin and Zosyn. We will add micafungin for intra-abdominal coverage. Goal MAP>60 Previous echo demonstrating an EF 70%. (3) GERD (gastroesophageal reflux disease) Current Visit: Yes Status: Chronic POD #8 Nisson fundoplication, exploratory laparotomy with oversewing hepatic and splenic veins. NPO Protonix daily Carafate discontinued mIVF w/ bicarb gtt Qualifiers: Esophagitis presence: without esophagitis Qualified Code(s): K21.9 - Gastro -esophageal reflux disease without esophagitis (4) Acute kidney failure, unspecified Current Visit: Yes Status: Acute Serum creatinine 1.71. Likely secondary to vasodilatory shock with pressor requirement. Nephrology consulted Currently on CRRT Daily BMP. Qualifiers: Acute renal failure type: unspecified Qualified Code(s): N17.9 - Acute kidney failure, unspecified (5) Tachycardia Current Visit: Yes Status: Resolved Resolved Prior echo demonstrating EF of 70%. Troponins downtrending. Cardiology consulted. (6) Anemia Current Visit: Yes Status: Acute Hemoglobin 7.4, continues to down trend. Platelets of 35 today. Continue to hold heparin prophylaxis. Villarreal CBC. Qualifiers: Anemia type: other cause Other causes of anemia: acute posthemorrhagic Qualified Code(s): D62 - Acute posthemorrhagic anemia (7) Elevated troponin Current Visit: Yes Status: Resolved Troponins downtrending. Likely demand ischemia secondary to shock, tachycardia as well as renal insufficiency. Cardiology consulted. (8) Thrombocytopenia Current Visit: Yes Status: Acute Platelets 35 this AM No obvious bleeding Hold Heparin prophylaxis (9) DVT prophylaxis Current Visit: No Status: Acute Hold heparin due to thrombocytopenia. Subjective Principal diagnosis: Tachycardia Interval history: Patient was noted to have seeping from her vertical midline incision. Cultures obtained. Also started on micafungin for intra-abdominal coverage. She remained supine at this time. Currently on FiO2 80% Objective PUL Vital signs: Last Vital Signs Temp 97.4 F L 08/17/17 04:00 Pulse 92 08/17/17 07:00 Resp 26 08/17/17 07:25 BP 88/46 08/17/17 07:25 Pulse Ox 95 08/17/17 07:25 General appearance: other (Intubated and sedated) Eyes: nonicteric ENT: other (ET tube in place) Effort: other (Mechanically ventilated) Auscultation: bilateral: rhonchi Cardiovascular: regular rate and rhythm Gastrointestinal: soft, other (Midline vertical incision aren intact without ability to express drainage. Soft. There is an area of induration infraumbilical) Integumentary: normal Extremities: no cyanosis Musculoskeletal: no deformities other (Sedated) Ventilator Settings Ventilator Settings: Ventilator Settings, Last 8 Hours Ventilator Mode A/C Ventilator Mode A/C Ventilator Mode A/C Ventilator Mode A/C Ventilator Mode A/C Ventilator Mode A/C Ventilator Mode A/C Ventilator Mode A/C Ventilator Mode A/C Ventilator Mode A/C Ventilator Mode A/C Ventilator Mode A/C Ventilator Mode A/C Ventilator Tidal Volume 400 Setting Ventilator Tidal Volume 400 Setting Ventilator Tidal Volume 400 Setting Ventilator Tidal Volume 400 Setting Ventilator Tidal Volume 400 Setting Ventilator Tidal Volume 400 Setting Ventilator Tidal Volume 400 Setting Ventilator Tidal Volume 400 Setting Ventilator Tidal Volume 400 Setting Ventilator Tidal Volume 400 Setting Ventilator Tidal Volume 400 Setting Ventilator Tidal Volume 400 Setting Ventilator Tidal Volume 400 Setting Ventilator Respiratory Rate 26 Setting Ventilator Respiratory Rate 26 Setting Ventilator Respiratory Rate 26 Setting Ventilator Respiratory Rate 26 Setting Ventilator Respiratory Rate 26 Setting Ventilator Respiratory Rate 26 Setting Ventilator Respiratory Rate 26 Setting Ventilator Respiratory Rate 26 Setting Ventilator Respiratory Rate 26 Setting Ventilator Respiratory Rate 26 Setting Ventilator Respiratory Rate 26 Setting Ventilator Respiratory Rate 26 Setting Ventilator Respiratory Rate 26 Setting Actual Respiratory Rate 26 Actual Respiratory Rate 26 Actual Respiratory Rate 26 Actual Respiratory Rate 26 Actual Respiratory Rate 26 Actual Respiratory Rate 26 Actual Respiratory Rate 26 Actual Respiratory Rate 26 Actual Respiratory Rate 26 Actual Respiratory Rate 26 Actual Respiratory Rate 26 Actual Respiratory Rate 26 Positive End Expiratory 16 Pressure Positive End Expiratory 16 Pressure Positive End Expiratory 16 Pressure Positive End Expiratory 16 Pressure Positive End Expiratory 16 Pressure Positive End Expiratory 16 Pressure Positive End Expiratory 16 Pressure Positive End Expiratory 16 Pressure Positive End Expiratory 16 Pressure Positive End Expiratory 16 Pressure Positive End Expiratory 16 Pressure Positive End Expiratory 16 Pressure Positive End Expiratory 16 Pressure Peak Inspiratory Airway 35 Pressure Peak Inspiratory Airway 36 Pressure Peak Inspiratory Airway 36 Pressure Peak Inspiratory Airway 36 Pressure Peak Inspiratory Airway 35 Pressure Peak Inspiratory Airway 35 Pressure Peak Inspiratory Airway 35 Pressure Peak Inspiratory Airway 36 Pressure Peak Inspiratory Airway 36 Pressure Peak Inspiratory Airway 37 Pressure Peak Inspiratory Airway 37 Pressure Peak Inspiratory Airway 37 Pressure Results - Laboratory Findings CBC and BMP: 08/17/17 04:49 08/17/17 03:40 ABG ABG pH 7.20 pH Units (7.32-7.45) L* 08/17/17 04:22 ABG pCO2 62 mmHg (35-45) H 08/17/17 04:22 ABG pO2 95 mmHg (85-104) 08/17/17 04:22 ABG O2 Saturation 95 % (95-98) 08/17/17 04:22 PT/INR, D-dimer PT 13.6 Seconds (9.4-12.1) H 08/16/17 11:35 Abnormal lab findings: Abnormal lab results WBC 58.1 K/mcL (4.3-11.1) H* 08/17/17 04:49 RBC 2.40 M/mcL (3.82-4.97) L 08/17/17 04:49 Hgb 7.4 g/dL (11.5-15.4) L 08/17/17 04:49 Hct 23.1 % (35.3-44.9) L 08/17/17 04:49 RDW 17.0 % (11.5-14.5) H 08/17/17 04:49 Plt Count 35 K/mcL (140-400) L 08/17/17 04:49 Immature Gran % 8.4 % (0-4) H 08/14/17 00:56 Band Neutrophils % 8.0 % (0-4) H 08/17/17 04:49 Metamyelocytes % 4.0 % (0) H 08/17/17 04:49 Myelocytes % 10.0 % (0) H 08/16/17 03:50 Promyelocytes % 2.0 % (0) H 08/14/17 09:41 Blast Cells % 4.0 % (0) H 08/17/17 04:49 Neutrophils # 47.6 K/mcL (1.6-8.9) H 08/17/17 04:49 Monocytes # 4.7 K/mcL (0.0-1.3) H 08/17/17 04:49 Eosinophils # 1.2 K/mcL (0.0-0.6) H 08/14/17 03:00 Nucleated RBCs/100 WBC 7.7 /100 WBC (0) H 08/17/17 04:49 Reactive Lymphocytes Present (Not Present) A 08/13/17 04:05 Toxic Granulation Present (Not Present) A 08/16/17 11:35 Dohle Bodies Present (Not Present) A 08/16/17 11:35 Platelet Estimate Decreased (Normal) L 08/17/17 04:49 Large Platelets Present (Not Present) A 08/16/17 03:50 Immature Plt Fraction 13.8 % (1.1-6.1) H 08/15/17 03:20 Polychromasia 1+ (Not Present) A 08/17/17 04:49 Poikilocytosis 1+ (Not Present) A 08/17/17 04:49 Anisocytosis 1+ (Not Present) A 08/17/17 04:49 PT 13.6 Seconds (9.4-12.1) H 08/16/17 11:35 APTT 36.4 Seconds (26.0-36.0) H 08/16/17 11:35 Fibrinogen 885 mg/dL (169-393) H* 08/16/17 04:36 ABG pH 7.20 pH Units (7.32-7.45) L* 08/17/17 04:22 ABG pCO2 62 mmHg (35-45) H 08/17/17 04:22 ABG Total CO2 27 mEq/L (20-26) H 08/17/17 04:22 ABG Base Excess -3 mEq/L (-2 to 3) L 08/17/17 04:22 VBG pH 7.17 pH Units (7.32-7.42) L* 08/16/17 04:09 VBG pO2 172 mmHg (25-50) H 08/14/17 08:55 VBG HCO3 16 mEq/L (21-27) L 08/14/17 08:55 Sodium 131 mEq/L (136-145) L 08/17/17 03:40 BUN 37 mg/dL (6-20) H 08/17/17 03:40 Creatinine 1.86 mg/dL (0.60-1.20) H 08/17/17 03:40 Est GFR ( Amer) 35 (> 60) L 08/17/17 03:40 Est GFR (Non-Af Amer) 29 (> 60) L 08/17/17 03:40 Glucose 214 mg/dL (70-105) H 08/17/17 03:40 POC Glucose 190 mg/dL (70-99) H 08/16/17 00:18 Lactic Acid 2.4 mmol/L (0.5-2.2) H 08/17/17 06:35 Calcium 7.5 mg/dL (8.6-10.3) L 08/17/17 03:40 Venous Ioniz Calcium 1.00 mmol/L (1.15-1.35) L 08/17/17 03:51 Total Bilirubin 1.2 mg/dL (0.3-1.0) H 08/16/17 11:35 Direct Bilirubin 0.6 mg/dL (0.0-0.2) H 08/14/17 09:41 AST 657 Units/L (13-39) H 08/16/17 11:35 ALT 258 Units/L (7-52) H 08/16/17 11:35 Troponin I 0.07 ng/mL (< 0.04) H* 08/13/17 22:10 Serum Total Protein 4.6 g/dL (6.4-8.9) L 08/16/17 11:35 Albumin 2.1 g/dL (3.5-5.7) L 08/16/17 11:35 Albumin/Globulin Ratio 0.8 (1.1-2.2) L 08/16/17 11:35 Prealbumin < 3.0 mg/dL (17.0-34.0) L 08/14/17 03:00 Vancomycin Trough 26 mcg/mL (5-10) H 08/14/17 12:00 - Clinical Findings Intake & Output: Intake & Output 08/16/17 08/16/17 08/17/17 15:59 23:59 07:59 Intake Total 2630.88 / 2630.88 1009.6 / 1009.6 374.1 / 374.1 Output Total 3010 / 3010 2735 / 2735 2455 / 2455 Balance -379.12 / -379.12 -1725.4 / -1725.4 -2080.9 / -2080.9 Weight 135.5 kg - VTE Documentation of Mechanical Device: Intermittent pneumatic compression device Consult Discharge Plan - Plan Additional Instructions: Surgical instructions: #1 may shower starting 08/10/17, no tub bath for 2 weeks #2 wash incisions with soap and water and pat dry daily #3 no lifting, pushing, pulling more than 15 pounds for the next 4 weeks #4 no driving until off narcotics for 24 hours and able to safely react in the car #5 may climb stairs Follow-up appointment: Sunday, August 20, 2017 with Sonia Joe CNP in the outpatient surgical office (Medical office building, [address]) [facility] Diet After Saravanan Fundoplication Surgery This diet information is for patients who have recently had Saravanan Fundoplication Surgery to correct reflux disease or to repair various types of hernias, such as hiatal hernia and intrathoracic stomach. This diet may also be used for other gastrointestinal surgeries, such as Heller myotomy and repair of achalasia. The diet will help control diarrhea, excess gas and swallowing problems, which may occur after this type of surgery. Important Steps to Keep Your Stomach From Stretching Eat small, frequent meals (six to eight per day). This will help you consume the majority of the nutrients you need without causing your stomach to feel full or distended. Drinking large amounts of fluids with meals can stretch your stomach. You may drink fluids between meals as often as you like, but limit fluids to 1/2 cup (4 fluid ounces) with meals and one cup (8 fluid ounces) with snacks. Sit upright while eating and stay upright for 30 minutes after each meal. [place] can help food move through your digestive tract. Do not lie down after eating. Sit upright for 2 hours after your last meal or snack of the day. Eat very slowly. Take your time when eating. Take small bites and chew your food well to heater engineer helper in swallowing and digestion. Avoid crusty breads and sticky, gummy foods, such as bananas, fresh doughy breads, rolls and doughnuts. These types of foods become sticky and difficult to swallow. Toasted breads tend to be better tolerated. Lastly, if you eat sweets, consume them at the end of your meal to avoid a group of symptoms referred to as dumping syndrome. This describes the rapid emptying of foods from the stomach to the small intestine. Sweetened beverages, candy and desserts move more rapidly and dump quickly into the intestines. This can cause symptoms of nausea, weakness, cold sweats, cramps, diarrhea and dizzy spells. Important Steps to Avoid Gas Do not drink through a straw, chew gum, or chew tobacco. These actions cause you to swallow air, which will produce excess gas in your stomach. Chew with your mouth closed and chew your food thoroughly. Avoid foods that cause stomach gas and distention. The foods include corn, dried beans, peas, lentils, onions, broccoli, cauliflower, and any food item from the cabbage family. Do not drink carbonated drinks, alcohol, citrus, or tomato products. What Will I Be Able To Eat and Drink After Surgery After Saravanan Fundoplication Surgery, your diet will be advanced slowly by your surgeon. Generally, you will be on a thin/clear liquid diet for the first 10 days. Then you will advance to the full liquid diet for 4 days and eventually to a Saravanan soft diet for 7 days. After any surgery, protein consumption is important for healing. To get enough protein, drink 3-4 [place] Instant Breakfast, Ensure, or equivalent daily. Reminder: carbonated beverages (such as sodas, energy drinks, flavored carbonated water), and alcohol are not permitted for the 1st 6 to 8 weeks after surgery. After this time you may attempt to reintroduce them in small amounts. Please note: dairy products such as milk, ice cream, and putting may cause diarrhea and some people after surgery. He may need to avoid milk products. If so you may substitute them with lactose free beverages, such as soy, rice, lactate, or almond milk. Please be aware that each patient's tolerance to food is different. Your doctor will advance your diet depending on how well you progress after surgery. Thin Liquid Diet The first diet after Saravanan Fundoplication Surgery is the thin liquids diet. Follow this diet for postoperative days 1-10 08/10/2017 - 08/19/2017. Thin liquids include: Apple, Cranberry, or Grape Juice (no citrus juice) Chicken Broth Beef Broth Flavored Gelatin (Jell-O) Decaffeinated Tea or Coffee Popsicles or Syriac Ice Caffeinated Beverages Will Be Permitted Based upon Tolerance Dairy Thin Milkshakes (strawberry or vanilla flavored- No chocolate) Drink 3-4 [place] instant breakfast, Ensure, or equivalent daily. May be mixed with dairy for thin milkshakes Full Liquid Diet Follow this diet for postoperative days 11-14 08/20/2017- 08/23/2017. Full liquid diet includes anything in the thin liquid diet plus: Milk, Soy, Rice, and [place] (No Chocolate) Cream of Wheat, Cream of Rice, Grits Strained Creamed Soups (No Tomato Water Broccoli) Vanilla and Milo Flavored Ice Cream Sherbet Vanilla and Butterscotch Pudding (No Chocolate or Coconut) Continue 3-4 [place] Instant Breakfast, Ensure, or an Equivalent Daily. Maybe Next with Dairy for Thin Milkshakes. Saravanan Soft Diet Follow this diet for postoperative days 15-20 08/24/2017- 08/30/2017. (If you are consuming enough protein, you may stop the protein supplements). See Saravanan Diet handout for more specific information Referrals: Edyta Melgar, GENETIC COUNSELOR [Primary Care Provider] - <Rosa Mullen - Last Filed: 08/17/17 09:27> Date of Encounter: 08/17/17 Assessment and Plan (1) ARDS (adult respiratory distress syndrome) Current Visit: Yes Status: Acute (2) Acute respiratory failure with hypoxia Current Visit: Yes Status: Acute (3) Shock Current Visit: Yes Status: Acute Objective PUL Vital signs: Last Vital Signs Temp 97.7 F 08/17/17 08:36 Pulse 94 08/17/17 08:36 Resp 26 08/17/17 08:36 BP 102/49 08/17/17 08:36 Pulse Ox 96 08/17/17 08:36 Ventilator Settings Ventilator Settings: Ventilator Settings, Last 8 Hours Ventilator Mode A/C Ventilator Mode A/C Ventilator Mode A/C Ventilator Mode A/C Ventilator Mode A/C Ventilator Mode A/C Ventilator Mode A/C Ventilator Mode A/C Ventilator Mode A/C Ventilator Mode A/C Ventilator Mode A/C Ventilator Tidal Volume 400 Setting Ventilator Tidal Volume 400 Setting Ventilator Tidal Volume 400 Setting Ventilator Tidal Volume 400 Setting Ventilator Tidal Volume 400 Setting Ventilator Tidal Volume 400 Setting Ventilator Tidal Volume 400 Setting Ventilator Tidal Volume 400 Setting Ventilator Tidal Volume 400 Setting Ventilator Tidal Volume 400 Setting Ventilator Tidal Volume 400 Setting Ventilator Respiratory Rate 26 Setting Ventilator Respiratory Rate 26 Setting Ventilator Respiratory Rate 26 Setting Ventilator Respiratory Rate 26 Setting Ventilator Respiratory Rate 26 Setting Ventilator Respiratory Rate 26 Setting Ventilator Respiratory Rate 26 Setting Ventilator Respiratory Rate 26 Setting Ventilator Respiratory Rate 26 Setting Ventilator Respiratory Rate 26 Setting Ventilator Respiratory Rate 26 Setting Actual Respiratory Rate 26 Actual Respiratory Rate 26 Actual Respiratory Rate 26 Actual Respiratory Rate 26 Actual Respiratory Rate 26 Actual Respiratory Rate 26 Actual Respiratory Rate 26 Actual Respiratory Rate 26 Actual Respiratory Rate 26 Actual Respiratory Rate 26 Positive End Expiratory 16 Pressure Positive End Expiratory 16 Pressure Positive End Expiratory 16 Pressure Positive End Expiratory 16 Pressure Positive End Expiratory 16 Pressure Positive End Expiratory 16 Pressure Positive End Expiratory 16 Pressure Positive End Expiratory 16 Pressure Positive End Expiratory 16 Pressure Positive End Expiratory 16 Pressure Positive End Expiratory 16 Pressure Peak Inspiratory Airway 35 Pressure Peak Inspiratory Airway 35 Pressure Peak Inspiratory Airway 36 Pressure Peak Inspiratory Airway 36 Pressure Peak Inspiratory Airway 36 Pressure Peak Inspiratory Airway 35 Pressure Peak Inspiratory Airway 35 Pressure Peak Inspiratory Airway 35 Pressure Peak Inspiratory Airway 36 Pressure Peak Inspiratory Airway 36 Pressure Results - Laboratory Findings CBC and BMP: 08/17/17 04:49 08/17/17 03:40 ABG ABG pH 7.20 pH Units (7.32-7.45) L* 08/17/17 04:22 ABG pCO2 62 mmHg (35-45) H 08/17/17 04:22 ABG pO2 95 mmHg (85-104) 08/17/17 04:22 ABG O2 Saturation 95 % (95-98) 08/17/17 04:22 PT/INR, D-dimer PT 13.6 Seconds (9.4-12.1) H 08/16/17 11:35 Abnormal lab findings: Abnormal lab results WBC 58.1 K/mcL (4.3-11.1) H* 08/17/17 04:49 RBC 2.40 M/mcL (3.82-4.97) L 08/17/17 04:49 Hgb 7.4 g/dL (11.5-15.4) L 08/17/17 04:49 Hct 23.1 % (35.3-44.9) L 08/17/17 04:49 RDW 17.0 % (11.5-14.5) H 08/17/17 04:49 Plt Count 35 K/mcL (140-400) L 08/17/17 04:49 Immature Gran % 8.4 % (0-4) H 08/14/17 00:56 Band Neutrophils % 8.0 % (0-4) H 08/17/17 04:49 Metamyelocytes % 4.0 % (0) H 08/17/17 04:49 Myelocytes % 10.0 % (0) H 08/16/17 03:50 Promyelocytes % 2.0 % (0) H 08/14/17 09:41 Blast Cells % 4.0 % (0) H 08/17/17 04:49 Neutrophils # 47.6 K/mcL (1.6-8.9) H 08/17/17 04:49 Monocytes # 4.7 K/mcL (0.0-1.3) H 08/17/17 04:49 Eosinophils # 1.2 K/mcL (0.0-0.6) H 08/14/17 03:00 Nucleated RBCs/100 WBC 7.7 /100 WBC (0) H 08/17/17 04:49 Reactive Lymphocytes Present (Not Present) A 08/13/17 04:05 Toxic Granulation Present (Not Present) A 08/16/17 11:35 Dohle Bodies Present (Not Present) A 08/16/17 11:35 Platelet Estimate Decreased (Normal) L 08/17/17 04:49 Large Platelets Present (Not Present) A 08/16/17 03:50 Immature Plt Fraction 13.8 % (1.1-6.1) H 08/15/17 03:20 Polychromasia 1+ (Not Present) A 08/17/17 04:49 Poikilocytosis 1+ (Not Present) A 08/17/17 04:49 Anisocytosis 1+ (Not Present) A 08/17/17 04:49 PT 13.6 Seconds (9.4-12.1) H 08/16/17 11:35 APTT 36.4 Seconds (26.0-36.0) H 08/16/17 11:35 Fibrinogen 885 mg/dL (169-393) H* 08/16/17 04:36 ABG pH 7.20 pH Units (7.32-7.45) L* 08/17/17 04:22 ABG pCO2 62 mmHg (35-45) H 08/17/17 04:22 ABG Total CO2 27 mEq/L (20-26) H 08/17/17 04:22 ABG Base Excess -3 mEq/L (-2 to 3) L 08/17/17 04:22 VBG pH 7.17 pH Units (7.32-7.42) L* 08/16/17 04:09 VBG pO2 172 mmHg (25-50) H 08/14/17 08:55 VBG HCO3 16 mEq/L (21-27) L 08/14/17 08:55 Sodium 131 mEq/L (136-145) L 08/17/17 03:40 BUN 37 mg/dL (6-20) H 08/17/17 03:40 Creatinine 1.86 mg/dL (0.60-1.20) H 08/17/17 03:40 Est GFR ( Amer) 35 (> 60) L 08/17/17 03:40 Est GFR (Non-Af Amer) 29 (> 60) L 08/17/17 03:40 Glucose 214 mg/dL (70-105) H 08/17/17 03:40 POC Glucose 162 mg/dL (70-99) H 08/16/17 23:42 Lactic Acid 2.4 mmol/L (0.5-2.2) H 08/17/17 06:35 Calcium 7.5 mg/dL (8.6-10.3) L 08/17/17 03:40 Venous Ioniz Calcium 1.00 mmol/L (1.15-1.35) L 08/17/17 03:51 Total Bilirubin 1.2 mg/dL (0.3-1.0) H 08/16/17 11:35 Direct Bilirubin 0.6 mg/dL (0.0-0.2) H 08/14/17 09:41 AST 657 Units/L (13-39) H 08/16/17 11:35 ALT 258 Units/L (7-52) H 08/16/17 11:35 Troponin I 0.07 ng/mL (< 0.04) H* 08/13/17 22:10 Serum Total Protein 4.6 g/dL (6.4-8.9) L 08/16/17 11:35 Albumin 2.1 g/dL (3.5-5.7) L 08/16/17 11:35 Albumin/Globulin Ratio 0.8 (1.1-2.2) L 08/16/17 11:35 Prealbumin < 3.0 mg/dL (17.0-34.0) L 08/14/17 03:00 Vancomycin Trough 26 mcg/mL (5-10) H 08/14/17 12:00 - Clinical Findings Intake & Output: Intake & Output 08/16/17 08/17/17 08/17/17 23:59 07:59 15:59 Intake Total 1009.6 / 1009.6 474.1 / 474.1 200 / 200 Output Total 2735 / 2735 2455 / 2455 399 / 399 Balance -1725.4 / -1725.4 -1980.9 / -1979.9 -199 / -199 - Attending Attestation I examined this patient and my medical decision-making was reviewed with the Resident Physician. I agree with the documented findings, disposition and treatment plan as described except to the extent set forth below. Patient seen and examined. Labs, radiology, chart personally reviewed. Agree with resident's history and physical, assessment, plan with following comments: DESIGNATED BROKER: Patient does not follows commands, she is remained sedated and also on paralytics for vent synchrony. I have explained to the family if patient recover due to using heavy sedation and paralytic she will be weak and also might affect her mental status, however it is important to do this because of the oxygenation. Pulmonary: Patient remained within acceptable oxygenation and permissive hypercapnia. Blood pressure around 30 and they suspect some abdominal pressure could be contributing to that. There will be no significant changes from the vent setting and we will keep her on supine position, and less her oxygenation deteriorate then we will consider pronating. Cardiovascular: Patient remained in shock, however she is tolerating removing fluid and only 1 vasopressor. Follow-up lactic acid. GI: Nutrition per dietary and GI prophylaxis per routine. It was noted during taking care of patient by nurse is there was a discharge from the wound and it is unknown to me whether this is expected or not from surgical point of view and surgery has been notified. Patient is unstable for transportation and I will defer evaluation and management the surgeon whether she will need to go back to the surgery it will be surgeon's decision and we will discuss the case with the surgeon. Heme: DVT prophylaxis per routine. He should not hemoglobin slightly decreased which is expected and thrombocytopenia is not worsening after transfusion of platelets and continue to monitor. Blood transfusion to be considered if hemoglobin less than 7. ID: Continue antibiotics and plan to de-escalation. Patient shock is behaving as vasodilatory septic shock and since am not able to check images we will culture discharge from the wound and also add antifungal to current antibiotic treatment. Will consider ID consultation. Renal; urine out put and renal funtion reviewed. Continue CVVHD Endorcine: blood glucose is monitored Lines: all lines checked and no evidence of infections Skin: skin care to prevent pressure ulcers per nursing routine care I have updated the family. I spent 40 min of Critical Care time with this patient. It involved decision making of high complexity to assess, manipulate, and support vital organ system failure and/or to prevent further life threatening deterioration of the patient' s condition. The time involved in the performance of separately reportable procedures was not counted toward critical care time.
--- NOTE | 2017-08-17 09:14 | Nephrology Progress Note ---
Date of Encounter: 08/17/17 Time of Encounter: 08:45 - Assessment and Plan (1) Acute kidney failure, unspecified Current Visit: Yes Status: Acute Recurrent YOJANA R/T respiratory failure, hypotension, acidisis, oliguric. CVVH Goal -200 volume removal, do not go higher. Azotemia controlled. Urine output 10cc. WBC 58.1, Lactic acid 2.4, Co2 24. Remains instable to CT. Will continue to monitor. Qualifiers: Acute renal failure type: unspecified Qualified Code(s): N17.9 - Acute kidney failure, unspecified Subjective Principal diagnosis: Tachycardia Interval history: Intubated, sedated, 1 pressors. FIO2 80/peep 16. Supine position. Critically ill. at bedside. Update given. Objective - Vital Signs Vital signs: Vital Signs Temp Pulse Resp BP Pulse Ox 08/17/17 07:25 26 88/46 95 08/17/17 07:00 92 26 91/47 96 08/17/17 06:00 94 26 93/49 96 08/17/17 05:32 26 97/51 96 08/17/17 05:00 95 26 100/50 96 08/17/17 04:00 97.4 F L 96 26 100/50 97 08/17/17 03:46 26 137/56 98 08/17/17 03:00 96 26 98/50 96 08/17/17 02:00 97.1 F L 94 26 101/50 97 08/17/17 01:03 26 99/51 97 08/17/17 01:00 93 26 99/51 97 08/17/17 00:00 91 26 102/51 96 08/16/17 23:13 26 104/56 97 08/16/17 23:00 97.8 F 90 26 96/51 95 08/16/17 22:00 96.9 F L 94 26 98/50 98 08/16/17 21:38 26 106/52 97 08/16/17 21:00 97.5 F L 97 26 103/51 97 08/16/17 20:00 98.7 F 101 26 105/50 97 08/16/17 19:38 26 102/49 96 08/16/17 19:00 101 26 99/48 96 08/16/17 18:00 102 26 98/48 97 08/16/17 17:02 26 100/50 97 08/16/17 17:00 102 26 100/50 97 08/16/17 16:00 103 26 116/54 98 08/16/17 15:28 26 111/54 98 08/16/17 15:19 100 08/16/17 15:00 98.3 F 100 26 108/53 98 08/16/17 14:00 100 26 115/55 97 08/16/17 13:39 26 103/53 97 08/16/17 13:00 101 26 100/51 96 08/16/17 12:00 97.6 F 98 26 133/55 97 08/16/17 11:22 98 08/16/17 11:07 26 127/56 97 08/16/17 11:00 97.6 F 98 26 132/58 97 08/16/17 10:00 102 26 108/52 96 08/16/17 09:55 26 110/53 97 Intake and Output 08/16/17 08/17/17 08/17/17 23:59 07:59 15:59 Intake Total 1009.6 / 1009.6 474.1 / 474.1 200 / 200 Output Total 2735 / 2735 2455 / 2455 Balance -1725.4 / -1725.4 -1980.9 / -1980.9 200 / 200 Intake: IV Fluids 1009.6 / 1009.6 474.1 / 474.1 200 / 200 PrismaSATE BGK 4/2.5 5,000 ML @ 0 / 0 0 / 0 2000 mls/hr CRRT CONT APRIL Rx#: [id number] Nimbex 200 MG In 0.9 % Sodium 47.5 / 47.5 Chloride 180 ML @ 3 MCG/KG/MIN 24.3 mls/hr IVC CONT APRIL Rx#: [id number] PRECEDEX Premix 400 mcg In 100 100.0 / 100.0 100 / 100 100 / 100 ml @ 0.2 MCG/KG/HR 6.415 mls/hr IVC .[id number] APRIL Rx#: [id number] FentaNYL (PF) 1,000 MCG In 0.9 76.1 / 76.1 100 / 100 100 / 100 % Sodium Chloride 80 ML @ 50 MCG/HR 5 mls/hr IVC CONT APRIL Rx #:[id number] Clinimix E 5%-15% SOLUTION 2, 97.4 / 97.4 000 ML @ 50 mls/hr IVC .Q24H APRIL with M.v.i. Adult 10 ml Rx# :[id number] Levophed 16 MG In Dextrose 5% 341.9 / 341.9 174.1 / 174.1 500 ML @ 5 MCG/MIN 9.67 mls/hr IVC CONT APRIL Rx#:[id number] Diprivan 1,000 mg In 100 ml @ 5 69.2 / 69.2 MCG/KG/MIN 3.849 mls/hr IVC . Q24H APRIL Rx#:[id number] Sodium Bicarbonate 150 MEQ In 145.5 / 145.5 Dextrose 5% 1,000 ML @ 75 mls/ hr IVC .[id number] APRIL Rx#: [id number] Intralipid 20% 250 ML @ 21 mls/ 32.0 / 32.0 hr IVPB DAILY@1700 APRIL Rx#: [id number] Zosyn 3.375 GM In 0.9 % Sodium 100.0 / 100.0 100 / 100 Chloride (Mini-Bag +) 100 ML @ 25 mls/hr IVPB Q8HR [facility] Rx#: [id number] Tube Feeding 0 / 0 Output: Xochitl 2735 / 2735 2450 / 2450 Catheter 0 / 0 5 / 5 Gastric Drainage 0 / 0 Other: Blood Glucose* 165 162 - General Appearance General appearance: Present: well-developed, well-nourished, appears started age EENT: Present: mucous membranes moist Neck: Present: no JVD Respiratory: Present: clear Cardiology: Present: edema, regular rate, regular rhythm Additional Comments: generalized pitting Dialysis Vascular Access: Venous Catheter Gastrointestinal: Present: hypoactive bowel sounds Integumentary: Present: warm and dry - Lab 08/17/17 04:49 08/17/17 03:40 Most recent lab results ABG pH 7.20 pH Units (7.32-7.45) L* 08/17/17 04:22 ABG pCO2 62 mmHg (35-45) H 08/17/17 04:22 ABG pO2 95 mmHg (85-104) 08/17/17 04:22 ABG HCO3 25 mEq/L (21-27) 08/17/17 04:22 ABG O2 Saturation 95 % (95-98) 08/17/17 04:22 Calcium 7.5 mg/dL (8.6-10.3) L 08/17/17 03:40 Phosphorus 3.4 mg/dL (2.7-4.5) 08/17/17 03:40 Magnesium 2.4 mg/dL (1.6-2.6) 08/17/17 03:40 - VTE Documentation of Mechanical Device: Intermittent pneumatic compression device Consult Discharge Plan - Plan Additional Instructions: Surgical instructions: #1 may shower starting 08/10/17, no tub bath for 2 weeks #2 wash incisions with soap and water and pat dry daily #3 no lifting, pushing, pulling more than 15 pounds for the next 4 weeks #4 no driving until off narcotics for 24 hours and able to safely react in the car #5 may climb stairs Follow-up appointment: Sunday, August 20, 2017 with Sonia Joe CNP in the outpatient surgical office (Medical office building, [address]) [place] [facility] Diet After Saravanan Fundoplication Surgery This diet information is for patients who have recently had Saravanan Fundoplication Surgery to correct reflux disease or to repair various types of hernias, such as hiatal hernia and intrathoracic stomach. This diet may also be used for other gastrointestinal surgeries, such as Heller myotomy and repair of achalasia. The diet will help control diarrhea, excess gas and swallowing problems, which may occur after this type of surgery. Important Steps to Keep Your Stomach From Stretching Eat small, frequent meals (six to eight per day). This will help you consume the majority of the nutrients you need without causing your stomach to feel full or distended. Drinking large amounts of fluids with meals can stretch your stomach. You may drink fluids between meals as often as you like, but limit fluids to 1/2 cup (4 fluid ounces) with meals and one cup (8 fluid ounces) with snacks. Sit upright while eating and stay upright for 30 minutes after each meal. [place] can help food move through your digestive tract. Do not lie down after eating. Sit upright for 2 hours after your last meal or snack of the day. Eat very slowly. Take your time when eating. 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 Avoid crusty breads and sticky, gummy foods, such as bananas, fresh doughy breads, rolls and doughnuts. These types of foods become sticky and difficult to swallow. Toasted breads tend to be better tolerated. Lastly, if you eat sweets, consume them at the end of your meal to avoid a group of symptoms referred to as dumping syndrome. This describes the rapid emptying of foods from the stomach to the small intestine. Sweetened beverages, candy and desserts move more rapidly and dump quickly into the intestines. This can cause symptoms of nausea, weakness, cold sweats, cramps, diarrhea and dizzy spells. Important Steps to Avoid Gas Do not drink through a straw, chew gum, or chew tobacco. These actions cause you to swallow air, which will produce excess gas in your stomach. Chew with your mouth closed and chew your food thoroughly. Avoid foods that cause stomach gas and distention. The foods include corn, dried beans, peas, lentils, onions, broccoli, cauliflower, and any food item from the cabbage family. Do not drink carbonated drinks, alcohol, citrus, or tomato products. What Will I Be Able To Eat and Drink After Surgery After Saravanan Fundoplication Surgery, your diet will be advanced slowly by your surgeon. Generally, you will be on a thin/clear liquid diet for the first 10 days. Then you will advance to the full liquid diet for 4 days and eventually to a Saravanan soft diet for 7 days. After any surgery, protein consumption is important for healing. To get enough protein, drink 3-4 [place] Instant Breakfast, Ensure, or equivalent daily. Reminder: carbonated beverages (such as sodas, energy drinks, flavored carbonated water), and alcohol are not permitted for the 1st 6 to 8 weeks after surgery. After this time you may attempt to reintroduce them in small amounts. Please note: dairy products such as milk, ice cream, and putting may cause diarrhea and some people after surgery. He may need to avoid milk products. If so you may substitute them with lactose free beverages, such as soy, rice, lactate, or almond milk. Please be aware that each patient's tolerance to food is different. Your doctor will advance your diet depending on how well you progress after surgery. Thin Liquid Diet The first diet after Saravanan Fundoplication Surgery is the thin liquids diet. Follow this diet for postoperative days 1-10 08/10/2017 - 08/19/2017. Thin liquids include: Apple, Cranberry, or Grape Juice (no citrus juice) Chicken Broth Beef Broth Flavored Gelatin (Jell-O) Decaffeinated Tea or Coffee Popsicles or [place] Ice Caffeinated Beverages Will Be Permitted Based upon Tolerance Dairy Thin Milkshakes (strawberry or vanilla flavored- No chocolate) Drink 3-4 [place] instant breakfast, Ensure, or equivalent daily. May be mixed with dairy for thin milkshakes Full Liquid Diet Follow this diet for postoperative days 11-14 08/20/2017- 08/23/2017. Full liquid diet includes anything in the thin liquid diet plus: Milk, Soy, Rice, and [place] (No Chocolate) Cream of Wheat, Cream of Rice, Grits Strained Creamed Soups (No Tomato Water Broccoli) Vanilla and [place] Flavored Ice Cream Sherbet Vanilla and Butterscotch Pudding (No Chocolate or Coconut) Continue 3-4 [place] Instant Breakfast, Ensure, or an Equivalent Daily. Maybe Next with Dairy for Thin Milkshakes. Saravanan Soft Diet Follow this diet for postoperative days 15-20 08/24/2017- 08/30/2017. (If you are consuming enough protein, you may stop the protein supplements). See Saravanan Diet handout for more specific information Referrals: Edyta Melgar, DIES[employer] TECH[employer]Y INSTRUCTOR [Primary Care Provider] -
--- NOTE | 2017-08-17 10:45 | General Surgery Progress Note ---
<Donald Woo - Last Filed: 08/17/17 11:32> Date of Encounter: 08/17/17 Time of Encounter: 10:00 - Assessment and Plan (1) GERD (gastroesophageal reflux disease) Current Visit: Yes Status: Chronic POD #8 s/p Saravanan Fundoplication and subsequent ex lap with oversweing of hepatic and splenic veins by Dr. La Patient had drainage from abd incision overnight. Sent for cultures. Likely consistent with ascities. None since. No concern for ongoing bleeding from a surgical standpoint. Plan: continue NPO continue NG to LIWS continue IV fluids (bicarb gtt) Continue TPN Continue supportive care and pain control continue PPI Qualifiers: Esophagitis presence: without esophagitis Qualified Code(s): K21.9 - Gastro -esophageal reflux disease without esophagitis (2) ARDS (adult respiratory distress syndrome) Current Visit: Yes Status: Acute Patient still sedated on Vent Pt still meeting criteria for ARDS Peep 16, FIO 2 80%, RR26, Vt 400 Continue management per ICU team continue abx per ICU team (3) Acute respiratory failure Current Visit: Yes Status: Acute Qualifiers: Respiratory failure complication: hypoxia Qualified Code(s): J96.01 - Acute respiratory failure with hypoxia (4) Acute kidney failure, unspecified Current Visit: Yes Status: Acute Cr up to 1.86 today trending up 1.55?1.68>1.71> 1.86 Nephrology is on board appreciate recommendations Patient receiving Xochitl, continued management per ICU and nephrology Qualifiers: Acute renal failure type: unspecified Qualified Code(s): N17.9 - Acute kidney failure, unspecified (5) Thrombocytopenia Current Visit: Yes Status: Acute 153>115>48>26>27>35 Patient transfused 2 units of platelets yesterday continue to hold heparin (6) Leukocytosis Current Visit: Yes Status: Acute WBC remains high likley secondary to systemic inflammatory response continue to monitor continued management per ICU team Qualifiers: Leukocytosis type: unspecified Qualified Code(s): D72.829 - Elevated white blood cell count, unspecified (7) DVT prophylaxis Current Visit: Yes Status: Acute Continue to hold Sub Q Heparin 2/2 thrombocytopenia Continue EPCDs (8) Anemia Current Visit: Yes Status: Acute Hgb continuing to down trend 8.9> 9.2> 8.2>7.4 continue to monitor no concern for ongoing bleeding from a surgical standpoint Qualifiers: Anemia type: other cause Other causes of anemia: acute posthemorrhagic Qualified Code(s): D62 - Acute posthemorrhagic anemia (9) Shock Current Visit: Yes Status: Acute Secondary to Systemic inflammartroy response and ARDS patient on just levophed at this point continued management per ICU team Subjective Narrative: Patient remains intubated on sedation. Objective Vital Signs - Last 8 Hours Temp Pulse Resp BP Pulse Ox 08/17/17 10:00 101 26 147/63 96 08/17/17 09:00 92 26 102/49 96 08/17/17 08:36 97.7 F 94 26 102/49 96 08/17/17 07:25 26 88/46 95 08/17/17 07:00 92 26 91/47 96 08/17/17 06:00 94 26 93/49 96 08/17/17 05:32 26 97/51 96 08/17/17 05:00 95 26 100/50 96 08/17/17 04:00 97.4 F L 96 26 100/50 97 08/17/17 03:46 26 137/56 98 08/17/17 03:00 96 26 98/50 96 Intake and Output 08/16/17 08/17/17 08/17/17 23:59 07:59 15:59 Intake Total 1009.6 / 1009.6 474.1 / 474.1 200 / 200 Output Total 2735 / 2735 2455 / 2455 1171 / 1171 Balance -1725.4 / -1725.4 -1979.9 / -1979.9 -971 / -971 Intake: IV Fluids 1009.6 / 1009.6 474.1 / 474.1 200 / 200 PrismaSATE BGK 4/2.5 5,000 ML @ 0 / 0 0 / 0 2000 mls/hr CRRT CONT [facility] Rx#: [id number] Nimbex 200 MG In 0.9 % Sodium 47.5 / 47.5 Chloride 180 ML @ 3 MCG/KG/MIN 24.3 mls/hr IVC CONT [facility] Rx#: [id number] PRECEDEX Premix 400 mcg In 100 100.0 / 100.0 100 / 100 100 / 100 ml @ 0.2 MCG/KG/HR 6.415 mls/hr IVC .[id number] [facility] Rx#: [id number] FentaNYL (PF) 1,000 MCG In 0.9 76.1 / 76.1 100 / 100 100 / 100 % Sodium Chloride 80 ML @ 50 MCG/HR 5 mls/hr IVC CONT [facility] Rx #:[id number] Clinimix E 5%-15% SOLUTION 2, 97.4 / 97.4 000 ML @ 50 mls/hr IVC .Q24H [facility] with M.v.i. Adult 10 ml Rx# :[id number] Levophed 16 MG In Dextrose 5% 341.9 / 341.9 174.1 / 174.1 500 ML @ 5 MCG/MIN 9.67 mls/hr IVC CONT [facility] Rx#:[id number] Diprivan 1,000 mg In 100 ml @ 5 69.2 / 69.2 MCG/KG/MIN 3.849 mls/hr IVC . Q24H [facility] Rx#:[id number] Sodium Bicarbonate 150 MEQ In 145.5 / 145.5 Dextrose 5% 1,000 ML @ 75 mls/ hr IVC .[id number] [facility] Rx#: [id number] Intralipid 20% 250 ML @ 21 mls/ 32.0 / 32.0 hr IVPB DAILY@1700 [facility] Rx#: [id number] Zosyn 3.375 GM In 0.9 % Sodium 100.0 / 100.0 100 / 100 Chloride (Mini-Bag +) 100 ML @ 25 mls/hr IVPB Q8HR [facility] Rx#: [id number] Tube Feeding 0 / 0 Output: Xochitl 2735 / 2735 2450 / 2450 1171 / 1171 Catheter 0 / 0 5 / 5 Gastric Drainage 0 / 0 Other: Blood Glucose* 165 162 195 - General physical appearance other (intubated on sedation) - Eyes other (nonicteric) - ENT Other (ET tube in place) - Respiratory other (Mechanically ventilated) - Cardiovascular Cardiovascular exam: Present: RRR - Abdomen Abdomen: Present: soft Additional Comments: hypoactive bowel sounds - Incision Incision: Present: clean and dry, intact - Neurologic other (Intubated on sedation) - Labs 08/17/17 04:49 08/17/17 03:40 Diabetes panel 08/16/17 08/17/17 Range/Units 11:35 03:40 Sodium 130 L 131 L (136-145) mEq/L Potassium 4.4 4.7 (3.5-5.1) mEq/L Chloride 98 99 (98-107) mEq/L Carbon Dioxide 27 24 (23-29) mEq/L BUN 32 H 37 H (6-20) mg/dL Creatinine 1.71 H 1.86 H (0.60-1.20) mg/dL Glucose 216 H 214 H (70-105) mg/dL Calcium 7.5 L 7.5 L (8.6-10.3) mg/dL AST 657 H (13-39) Units/L ALT 258 H (7-52) Units/L Alkaline Phosphatase 86 (34-104) Units/L Albumin 2.1 L (3.5-5.7) g/dL Calcium panel 08/16/17 08/17/17 Range/Units 11:35 03:40 Calcium 7.5 L 7.5 L (8.6-10.3) mg/dL Phosphorus 3.4 (2.7-4.5) mg/dL Albumin 2.1 L (3.5-5.7) g/dL Pituitary panel 08/16/17 08/17/17 Range/Units 11:35 03:40 Sodium 130 L 131 L (136-145) mEq/L Potassium 4.4 4.7 (3.5-5.1) mEq/L Chloride 98 99 (98-107) mEq/L Carbon Dioxide 27 24 (23-29) mEq/L BUN 32 H 37 H (6-20) mg/dL Creatinine 1.71 H 1.86 H (0.60-1.20) mg/dL Glucose 216 H 214 H (70-105) mg/dL Calcium 7.5 L 7.5 L (8.6-10.3) mg/dL Adrenal panel 08/16/17 08/17/17 Range/Units 11:35 03:40 Sodium 130 L 131 L (136-145) mEq/L Potassium 4.4 4.7 (3.5-5.1) mEq/L Chloride 98 99 (98-107) mEq/L Carbon Dioxide 27 24 (23-29) mEq/L BUN 32 H 37 H (6-20) mg/dL Creatinine 1.71 H 1.86 H (0.60-1.20) mg/dL Glucose 216 H 214 H (70-105) mg/dL Calcium 7.5 L 7.5 L (8.6-10.3) mg/dL Total Bilirubin 1.2 H (0.3-1.0) mg/dL AST 657 H (13-39) Units/L ALT 258 H (7-52) Units/L Alkaline Phosphatase 86 (34-104) Units/L Albumin 2.1 L (3.5-5.7) g/dL - VTE Documentation of Mechanical Device: Intermittent pneumatic compression device Consult Discharge Plan - Plan Additional Instructions: Surgical instructions: #1 may shower starting 08/10/17, no tub bath for 2 weeks #2 wash incisions with soap and water and pat dry daily #3 no lifting, pushing, pulling more than 15 pounds for the next 4 weeks #4 no driving until off narcotics for 24 hours and able to safely react in the car #5 may climb stairs Follow-up appointment: Sunday, August 20, 2017 with Sonia Joe CNP in the outpatient surgical office (Medical office building, [address]) [place] Surgical Diet After Saravanan Fundoplication Surgery This diet information is for patients who have recently had Saravanan Fundoplication Surgery to correct reflux disease or to repair various types of hernias, such as hiatal hernia and intrathoracic stomach. This diet may also be used for other gastrointestinal surgeries, such as Heller myotomy and repair of achalasia. The diet will help control diarrhea, excess gas and swallowing problems, which may occur after this type of surgery. Important Steps to Keep Your Stomach From Stretching Eat small, frequent meals (six to eight per day). This will help you consume the majority of the nutrients you need without causing your stomach to feel full or distended. Drinking large amounts of fluids with meals can stretch your stomach. You may drink fluids between meals as often as you like, but limit fluids to 1/2 cup (4 fluid ounces) with meals and one cup (8 fluid ounces) with snacks. Sit upright while eating and stay upright for 30 minutes after each meal. [place] can help food move through your digestive tract. Do not lie down after eating. Sit upright for 2 hours after your last meal or snack of the day. Eat very slowly. Take your time when eating. 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 Avoid crusty breads and sticky, gummy foods, such as bananas, fresh doughy breads, rolls and doughnuts. These types of foods become sticky and difficult to swallow. Toasted breads tend to be better tolerated. Lastly, if you eat sweets, consume them at the end of your meal to avoid a group of symptoms referred to as dumping syndrome. This describes the rapid emptying of foods from the stomach to the small intestine. Sweetened beverages, candy and desserts move more rapidly and dump quickly into the intestines. This can cause symptoms of nausea, weakness, cold sweats, cramps, diarrhea and dizzy spells. Important Steps to Avoid Gas Do not drink through a straw, chew gum, or chew tobacco. These actions cause you to swallow air, which will produce excess gas in your stomach. Chew with your mouth closed and chew your food thoroughly. Avoid foods that cause stomach gas and distention. The foods include corn, dried beans, peas, lentils, onions, broccoli, cauliflower, and any food item from the cabbage family. Do not drink carbonated drinks, alcohol, citrus, or tomato products. What Will I Be Able To Eat and Drink After Surgery After Saravanan Fundoplication Surgery, your diet will be advanced slowly by your surgeon. Generally, you will be on a thin/clear liquid diet for the first 10 days. Then you will advance to the full liquid diet for 4 days and eventually to a Saravanan soft diet for 7 days. After any surgery, protein consumption is important for healing. To get enough protein, drink 3-4 [place] Instant Breakfast, Ensure, or equivalent daily. Reminder: carbonated beverages (such as sodas, energy drinks, flavored carbonated water), and alcohol are not permitted for the 1st 6 to 8 weeks after surgery. After this time you may attempt to reintroduce them in small amounts. Please note: dairy products such as milk, ice cream, and putting may cause diarrhea and some people after surgery. He may need to avoid milk products. If so you may substitute them with lactose free beverages, such as soy, rice, lactate, or almond milk. Please be aware that each patient's tolerance to food is different. Your doctor will advance your diet depending on how well you progress after surgery. Thin Liquid Diet The first diet after Saravanan Fundoplication Surgery is the thin liquids diet. Follow this diet for postoperative days 1-10 08/10/2017 - 08/19/2017. Thin liquids include: Apple, Cranberry, or Grape Juice (no citrus juice) Chicken Broth Beef Broth Flavored Gelatin (Jell-O) Decaffeinated Tea or Coffee Popsicles or [place] Ice Caffeinated Beverages Will Be Permitted Based upon Tolerance Dairy Thin Milkshakes (strawberry or vanilla flavored- No chocolate) Drink 3-4 [place] instant breakfast, Ensure, or equivalent daily. May be mixed with dairy for thin milkshakes Full Liquid Diet Follow this diet for postoperative days 11-14 08/20/2017- 08/23/2017. Full liquid diet includes anything in the thin liquid diet plus: Milk, Soy, Rice, and [place] (No Chocolate) Cream of Wheat, Cream of Rice, Grits Strained Creamed Soups (No Tomato Water Broccoli) Vanilla and [place] Flavored Ice Cream Sherbet Vanilla and Butterscotch Pudding (No Chocolate or Coconut) Continue 3-4 [place] Instant Breakfast, Ensure, or an Equivalent Daily. Maybe Next with Dairy for Thin Milkshakes. Saravanan Soft Diet Follow this diet for postoperative days 15-20 08/24/2017- 08/30/2017. (If you are consuming enough protein, you may stop the protein supplements). See Saravanan Diet handout for more specific information Referrals: Edyta Melgar, BATTERY BUILDER [Primary Care Provider] - <Galindo Márquez - Last Filed: 08/18/17 11:16> Date of Encounter: 08/17/17 Objective Vital Signs - Last 8 Hours Temp Pulse Resp BP Pulse Ox 08/18/17 11:08 138 08/18/17 11:00 97.8 F 163 26 126/80 100 08/18/17 10:14 26 129/87 100 08/18/17 10:00 143 26 121/83 100 08/18/17 09:00 137 26 74/48 100 08/18/17 08:00 96.2 F L 165 26 78/67 100 08/18/17 07:30 154 08/18/17 07:22 26 128/76 100 04/29/18 07:00 96 26 166/54 100 08/18/17 06:00 101 26 110/46 94 08/18/17 05:21 26 106/43 96 08/18/17 05:00 87 26 106/44 97 08/18/17 04:00 88 26 98/42 96 08/18/17 03:47 26 100/42 96 08/18/17 03:45 87 Intake and Output 08/17/17 08/18/17 08/18/17 23:59 07:59 15:59 Intake Total 1016 / 1016 1100 / 1100 1157.5 / 1157.5 Output Total 1665 / 1665 2622 / 2622 1550 / 1550 Balance -649 / -649 -1522 / -1522 -392.5 / -392.5 Intake: IV Fluids 1016 / 1016 1100 / 1100 857.5 / 857.5 PrismaSATE BGK 4/2.5 5,000 ML @ 0 / 0 0 / 0 2000 mls/hr CRRT CONT [facility] Rx#: [id number] Amiodarone Drip Premix 360mg/ 200 / 200 61.6 / 61.6 200mL 360 mg In 200 ml @ 0.5 MG /MIN 16.667 mls/hr IVC CONT [facility] Rx#:[id number] Nimbex 200 MG In 0.9 % Sodium 100 / 100 100.0 / 100.0 Chloride 180 ML @ 3 MCG/KG/MIN 24.3 mls/hr IVC CONT [facility] Rx#: [id number] PRECEDEX Premix 400 mcg In 100 100 / 100 100 / 100 112.0 / 112.0 ml @ 0.2 MCG/KG/HR 6.415 mls/hr IVC .[id number] [facility] Rx#: [id number] FentaNYL (PF) 1,000 MCG In 0.9 100 / 100 200 / 200 15.2 / 15.2 % Sodium Chloride 80 ML @ 50 MCG/HR 5 mls/hr IVC CONT [facility] Rx #:[id number] Levophed 16 MG In Dextrose 5% 516 / 516 250 / 250 49.3 / 49.3 500 ML @ 5 MCG/MIN 9.67 mls/hr IVC CONT [facility] Rx#:[id number] Phenylephrine 50 MG In Dextrose 55.3 / 55.3 5% 250 ML @ 100 MCG/MIN 30.6 mls/hr IVC CONT [facility] Rx#: [id number] Diprivan 1,000 mg In 100 ml @ 5 200 / 200 14.1 / 14.1 MCG/KG/MIN 3.849 mls/hr IVC . Q24H [facility] Rx#:[id number] Intralipid 20% 250 ML @ 21 mls/ 250 / 250 hr IVPB DAILY@1700 [facility] Rx#: [id number] Merrem 1,000 MG In 0.9 % Sodium 100 / 100 Chloride (Mini-Bag +) 100 ML @ 200 mls/hr IVPB Q8HR [facility] Rx#: [id number] Mycamine 100 MG In 0.9 % Sodium 100.0 / 100.0 Chloride (Mini-Bag +) 100 ML @ 100 mls/hr IVPB DAILY [facility] Rx#: [id number] Zosyn 3.375 GM In 0.9 % Sodium 100 / 100 Chloride (Mini-Bag +) 100 ML @ 25 mls/hr IVPB Q8HR [facility] Rx#: [id number] Vancocin 1,000 MG In 0.9 % 250 / 250 Sodium Chloride 250 ML @ 166. 667 mls/hr IVPB Q24H [facility] Rx#: [id number] Tube Feeding 0 / 0 Blood Product 300 / 300 Rbcs Leuko Poor As-1 Unit 300 / 300 [id number] Output: Xochitl 1665 / 1665 2617 / 2617 1500 / 1500 Catheter 5 / 5 0 / 0 Gastric Drainage 50 / 50 Other: Weight 135.4 kg Blood Glucose* 180 201 195 Patient Weight 08/18/17 23:59 Weight 135.4 kg - Labs 08/18/17 03:20 08/18/17 03:20 Diabetes panel 08/17/17 08/18/17 Range/Units 10:59 03:20 Sodium 131 L 130 L (136-145) mEq/L Potassium 4.6 4.5 (3.5-5.1) mEq/L Chloride 100 99 (98-107) mEq/L Carbon Dioxide 25 25 (23-29) mEq/L BUN 37 H 38 H (6-20) mg/dL Creatinine 1.70 H 1.55 H (0.60-1.20) mg/dL Glucose 206 H 201 H (70-105) mg/dL Calcium 7.4 L 7.7 L (8.6-10.3) mg/dL Calcium panel 08/17/17 08/18/17 Range/Units 10:59 03:20 Calcium 7.4 L 7.7 L (8.6-10.3) mg/dL Phosphorus 3.4 (2.7-4.5) mg/dL Pituitary panel 08/17/17 08/18/17 Range/Units 10:59 03:20 Sodium 131 L 130 L (136-145) mEq/L Potassium 4.6 4.5 (3.5-5.1) mEq/L Chloride 100 99 (98-107) mEq/L Carbon Dioxide 25 25 (23-29) mEq/L BUN 37 H 38 H (6-20) mg/dL Creatinine 1.70 H 1.55 H (0.60-1.20) mg/dL Glucose 206 H 201 H (70-105) mg/dL Calcium 7.4 L 7.7 L (8.6-10.3) mg/dL Adrenal panel 08/17/17 08/18/17 Range/Units 10:59 03:20 Sodium 131 L 130 L (136-145) mEq/L Potassium 4.6 4.5 (3.5-5.1) mEq/L Chloride 100 99 (98-107) mEq/L Carbon Dioxide 25 25 (23-29) mEq/L BUN 37 H 38 H (6-20) mg/dL Creatinine 1.70 H 1.55 H (0.60-1.20) mg/dL Glucose 206 H 201 H (70-105) mg/dL Calcium 7.4 L 7.7 L (8.6-10.3) mg/dL - Attending Attestation I examined this patient and my medical decision-making was reviewed with the Resident Physician. I agree with the documented findings, disposition and treatment plan as described except to the extent set forth below. The patient is seen and evaluated on morning rounds with resident. I have very little to offer this critically ill patient from a surgical standpoint. She is currently under going maximum medical support by our pulmonology colleagues. She did have some ascites drainage from her wound. This did not appear to be dehiscence or wound infection. Galindo Márquez MD FACS
[2017-08-17 11:18] LABS: Red Cell Distribution Width 17.2 % (11.5-14.5)
[2017-08-17 11:20] LABS: Hematocrit 21.8 % (35.3-44.9); Hemoglobin 6.8 g/dL (11.5-15.4); Mean Corpuscular HGB Conc 31.2 g/dL (31.6-35.5); Mean Corpuscular Hemoglobin 29.8 pg (28.0-33.3); Mean Corpuscular Volume 95.6 fL (83.0-100.0); Nucleated Red Blood Cells 7.4 /100 WBC (0); Red Blood Count 2.28 M/mcL (3.82-4.97)
[2017-08-17] MEDS: Vasopressin 40 UNIT in D5% in Water 100 ML IV SCH (11:20)
[2017-08-17] MEDS: 0.9 % Sodium Chloride 1,000 ML IVC SCH (11:31)
[2017-08-17 11:47] LABS: ABG Base Excess -3 mEq/L (-2 to 3); ABG HCO3 25 mEq/L (21-27); ABG Oxygen Saturation 95 % (95-98); ABG PCO2 61 mmHg (35-45); ABG PH 7.22 pH Units (7.32-7.45); ABG PO2 92 mmHg (85-104); ABG TCO2 27 mEq/L (20-26); Blood Gas PEEP 16 cm H2O; Blood Gas Respiration Rate 26; Blood Gas VT 400 cc
[2017-08-17 11:47] LABS: Calcium 7.4 mg/dL (8.6-10.3); Potassium 4.6 mEq/L (3.5-5.1)
[2017-08-17 12:32] LABS: Platelet Count 31 K/mcL (140-400)
[2017-08-17] MEDS: Cisatracurium 200 MG in 0.9 % Sodium Chloride 180 ML IVC SCH (13:32)
[2017-08-17] MEDS ORDERED: Amiodarone Premix 360 MG/200 ML BAG IVC ONE ×2 (13:50→19:46)
[2017-08-17] MEDS ORDERED: Amiodarone Premix 150 MG/100 ML BAG IVPB ONE (13:50)
--- NOTE | 2017-08-17 14:11 | Event Note ---
<Nick Owens - Last Filed: 08/17/17 14:07> Date of Encounter: 08/17/17 Time of Encounter: 14:07 RN noted tachycardia with concerns of A. fib RVR versus SVT. Upon arrival to the room the patient was noted to have a narrow complex tachycardia on the monitor with a rate of 150-170. Blood pressure was stable at first encounter. Pads were placed on the patient and crash cart brought to the room. Pulse present. EKG obtained and demonstrates atrial fibrillation with rapid ventricular response. Levophed was held at this time. The patient currently requiring vasopressor support so amiodarone was chosen. Shortly before starting amiodarone, the patient had an acute drop in her blood pressure to 60/ 40. Given unstable supraventricular tachycardia the patient was synchronized cardioverted with 50J which appears to now be sinus rhythm on the monitor. We will continue the amiodarone bolus and infusion. Condition remains critical. <Rosa Mullen - Last Filed: 08/17/17 19:36> Date of Encounter: 08/17/17 I examined this patient and my medical decision-making was reviewed with the Resident Physician. I agree with the documented findings, disposition and treatment plan as described except to the extent set forth below. I was personally available during cardioversion with success. Patient did not respond to medical treatment and cardioversion was necessary due to hemodynamic instability and hypotension. Patient critically ill and remains sedated for vent synchrony. Family is updated. Critical care time 25 minutes
[2017-08-17 15:16] LABS: Dohle Bodies Present (Not Present)
[2017-08-17 15:17] LABS: Platelet Estimate Marked Decrease (Normal)
[2017-08-17 15:21] LABS: Lymphocytes # 4.6 K/mcL (0.6-4.6)
[2017-08-17 15:34] LABS: Neutrophils # 43.7 K/mcL (1.6-8.9)
[2017-08-17] MEDS ORDERED: [UNRECOGNIZED DRUG - OTHER] IVC SCH (17:00)
[2017-08-17] MEDS ORDERED: PARENTERAL AMINO ACID 10% IVC SCH (17:00)
[2017-08-17] MEDS ORDERED: CLINIMIX E IVC SCH (17:00)
[2017-08-17] MEDS ORDERED: MVI IVC SCH (17:00)
[2017-08-17] MEDS: Amiodarone Premix 360 MG/200 ML BAG IVC SCH (20:25)
[2017-08-18] MEDS: Phenylephrine 50 MG in D5% in Water 250 ML IVC SCH ×4 (00:06→19:44)
[2017-08-18] MEDS: *HR* Heparin 5,000 UNIT/ML VIAL IV PRN (00:07)
[2017-08-18] MEDS: Piperacillin/Tazobactam 3.375 GM in 0.9 % Sodium Chloride Mini Bag 100 ML IVPB SCH (00:08)
[2017-08-18] MEDS: Lacri-Lube 3.5 GM TUBE BOTH EYES SCH ×6 (00:09→21:23)
[2017-08-18] MEDS: Sodium Bicarbonate 150 MEQ in D5% in Water 1,000 ML IVC SCH ×2 (00:09→14:29)
[2017-08-18] MEDS: Hydrocortisone Sodium Succ 100 MG/2 ML VIAL IVP SCH ×4 (00:09→18:17)
[2017-08-18] MEDS: Insulin LISPRO 300 UNITS/3 ML VIAL SQ SCH ×6 (00:33→21:45)
[2017-08-18] MEDS: FentaNYL (PF) 1,000 MCG in 0.9 % Sodium Chloride 80 ML IVC SCH ×4 (02:09→21:43)
[2017-08-18] MEDS: Dexmedetomidine HCl 400 MCG/100 ML MLS IVC SCH ×4 (02:20→21:45)
[2017-08-18 03:35] LABS: VBG Ionized Calcium 1.06 mmol/L (1.15-1.35)
[2017-08-18] MEDS: 0.9 % Sodium Chloride 1,000 ML PRIME SCH ×2 (03:41→12:57)
[2017-08-18] MEDS: PrismaSATE BGK 4/2.5 5,000 ML CRRT SCH ×6 (03:42→22:18)
[2017-08-18 03:57] LABS: Calcium 7.7 mg/dL (8.6-10.3); Magnesium 2.6 mg/dL (1.6-2.6); Phosphorous 3.4 mg/dL (2.7-4.5); Potassium 4.5 mEq/L (3.5-5.1)
[2017-08-18 04:50] LABS: ABG Base Excess -4 mEq/L (-2 to 3); ABG HCO3 24 mEq/L (21-27); ABG Oxygen Saturation 91 % (95-98); ABG PCO2 63 mmHg (35-45); ABG PO2 77 mmHg (85-104); ABG TCO2 26 mEq/L (20-26); Blood Gas Modality ASSIST CONTROL; Blood Gas PEEP 16 cm H2O; Blood Gas Respiration Rate 26; Blood Gas VT 400 cc
[2017-08-18 06:00] LABS: Mean Corpuscular Volume 99.1 fL (83.0-100.0)
[2017-08-18 06:01] LABS: Hematocrit 21.9 % (35.3-44.9); Hemoglobin 6.8 g/dL (11.5-15.4); Mean Corpuscular HGB Conc 31.1 g/dL (31.6-35.5); Mean Corpuscular Hemoglobin 30.8 pg (28.0-33.3); Red Blood Count 2.21 M/mcL (3.82-4.97); Red Cell Distribution Width 17.5 % (11.5-14.5)
[2017-08-18 06:06] LABS: Platelet Count 33 K/mcL (140-400)
[2017-08-18 06:32] LABS: Basophils # 1.2 K/mcL (0.0-0.2); Lymphocytes # 12.8 K/mcL (0.6-4.6); Neutrophils # 31.4 K/mcL (1.6-8.9)
[2017-08-18 06:33] LABS: Platelet Estimate Decreased (Normal)
[2017-08-18] MEDS: Levalbuterol Neb 1.25 MG/3 ML IH SCH ×3 (07:22→23:22)
[2017-08-18] MEDS ORDERED: Phenylephrine 10 MG in D5% in Water 250 ML IVC SCH (07:45)
[2017-08-18] MEDS ORDERED: Meropenem 1,000 MG in 0.9 % Sodium Chloride Mini Bag 100 ML IVPB SCH (08:00)
--- NOTE | 2017-08-18 08:20 | Pulmonology Progress Note ---
<YokoPaco W - Last Filed: 08/18/17 14:41> Date of Encounter: 08/18/17 Objective PUL Vital signs: Last Vital Signs Temp 97.8 F 08/18/17 11:00 Pulse 123 08/18/17 14:00 Resp 26 08/18/17 14:00 BP 85/50 08/18/17 14:00 Pulse Ox 97 08/18/17 14:00 Ventilator Settings Ventilator Settings: Ventilator Settings, Last 8 Hours Ventilator Mode A/C Ventilator Mode A/C Ventilator Mode A/C Ventilator Mode A/C Ventilator Tidal Volume 400 Setting Ventilator Tidal Volume 400 Setting Ventilator Tidal Volume 400 Setting Ventilator Tidal Volume 400 Setting Ventilator Respiratory Rate 37 Setting Ventilator Respiratory Rate 37 Setting Ventilator Respiratory Rate 26 Setting Ventilator Respiratory Rate 26 Setting Actual Respiratory Rate 26 Actual Respiratory Rate 26 Actual Respiratory Rate 26 Actual Respiratory Rate 26 Positive End Expiratory 16 Pressure Positive End Expiratory 16 Pressure Positive End Expiratory 16 Pressure Positive End Expiratory 16 Pressure Peak Inspiratory Airway 36 Pressure Peak Inspiratory Airway 36 Pressure Peak Inspiratory Airway 36 Pressure Peak Inspiratory Airway 36 Pressure Results - Laboratory Findings CBC and BMP: 08/18/17 03:20 08/18/17 03:20 ABG ABG pH 7.20 pH Units (7.32-7.45) L* 08/18/17 04:42 ABG pCO2 63 mmHg (35-45) H 08/18/17 04:42 ABG pO2 77 mmHg (85-104) L 08/18/17 04:42 ABG O2 Saturation 91 % (95-98) L 08/18/17 04:42 PT/INR, D-dimer PT 13.6 Seconds (9.4-12.1) H 08/16/17 11:35 Abnormal lab findings: Abnormal lab results WBC 58.1 K/mcL (4.3-11.1) H* 08/18/17 03:20 RBC 2.21 M/mcL (3.82-4.97) L 08/18/17 03:20 Hgb 6.8 g/dL (11.5-15.4) L 08/18/17 03:20 Hct 21.9 % (35.3-44.9) L 08/18/17 03:20 MCHC 31.1 g/dL (31.6-35.5) L 08/18/17 03:20 RDW 17.5 % (11.5-14.5) H 08/18/17 03:20 Plt Count 33 K/mcL (140-400) L 08/18/17 03:20 Band Neutrophils % 6.0 % (0-4) H 08/18/17 03:20 Metamyelocytes % 6.0 % (0) H 08/18/17 03:20 Myelocytes % 16.0 % (0) H 08/18/17 03:20 Promyelocytes % 2.0 % (0) H 08/14/17 09:41 Blast Cells % 4.0 % (0) H 08/17/17 04:49 Neutrophils # 31.4 K/mcL (1.6-8.9) H 08/18/17 03:20 Lymphocytes # 12.8 K/mcL (0.6-4.6) H 08/18/17 03:20 Basophils # 1.2 K/mcL (0.0-0.2) H 08/18/17 03:20 Nucleated RBCs/100 WBC 9.0 /100 WBC (0) H 08/18/17 03:20 Reactive Lymphocytes Present (Not Present) A 08/13/17 04:05 Toxic Granulation Present (Not Present) A 08/16/17 11:35 Dohle Bodies Present (Not Present) A 08/17/17 10:59 Platelet Estimate Decreased (Normal) L 08/18/17 03:20 Large Platelets Present (Not Present) A 08/16/17 03:50 Immature Plt Fraction 13.8 % (1.1-6.1) H 08/15/17 03:20 Polychromasia 1+ (Not Present) A 08/17/17 04:49 Poikilocytosis 1+ (Not Present) A 08/17/17 04:49 Anisocytosis 1+ (Not Present) A 08/17/17 04:49 PT 13.6 Seconds (9.4-12.1) H 08/16/17 11:35 APTT 36.4 Seconds (26.0-36.0) H 08/16/17 11:35 Fibrinogen 885 mg/dL (169-393) H* 08/16/17 04:36 ABG pH 7.20 pH Units (7.32-7.45) L* 08/18/17 04:42 ABG pCO2 63 mmHg (35-45) H 08/18/17 04:42 ABG pO2 77 mmHg (85-104) L 08/18/17 04:42 ABG O2 Saturation 91 % (95-98) L 08/18/17 04:42 ABG Base Excess -4 mEq/L (-2 to 3) L 08/18/17 04:42 VBG pH 7.17 pH Units (7.32-7.42) L* 08/16/17 04:09 VBG pO2 172 mmHg (25-50) H 08/14/17 08:55 VBG HCO3 16 mEq/L (21-27) L 08/14/17 08:55 Sodium 130 mEq/L (136-145) L 08/18/17 03:20 BUN 38 mg/dL (6-20) H 08/18/17 03:20 Creatinine 1.55 mg/dL (0.60-1.20) H 08/18/17 03:20 Est GFR ( Amer) 43 (> 60) L 08/18/17 03:20 Est GFR (Non-Af Amer) 36 (> 60) L 08/18/17 03:20 Glucose 201 mg/dL (70-105) H 08/18/17 03:20 POC Glucose 180 mg/dL (70-99) H 08/17/17 20:35 Calcium 7.7 mg/dL (8.6-10.3) L 08/18/17 03:20 Venous Ioniz Calcium 1.06 mmol/L (1.15-1.35) L 08/18/17 03:31 Total Bilirubin 1.2 mg/dL (0.3-1.0) H 08/16/17 11:35 Direct Bilirubin 0.6 mg/dL (0.0-0.2) H 08/14/17 09:41 AST 657 Units/L (13-39) H 08/16/17 11:35 ALT 258 Units/L (7-52) H 08/16/17 11:35 Troponin I 0.07 ng/mL (< 0.04) H* 08/13/17 22:10 Serum Total Protein 4.6 g/dL (6.4-8.9) L 08/16/17 11:35 Albumin 2.1 g/dL (3.5-5.7) L 08/16/17 11:35 Albumin/Globulin Ratio 0.8 (1.1-2.2) L 08/16/17 11:35 Prealbumin < 3.0 mg/dL (17.0-34.0) L 08/14/17 03:00 Vancomycin Trough 26 mcg/mL (5-10) H 08/14/17 12:00 - Microbiology Findings Microbiology Findings: Microbiology, Last 48 Hours 08/17/17 06:35 Wound Culture - Preliminary Abdomen Gram Negative Edi - Clinical Findings Intake & Output: Intake & Output 08/17/17 08/18/17 08/18/17 23:59 07:59 15:59 Intake Total 1016 / 1016 1100 / 1100 1972.9 / 1972.9 Output Total 1665 / 1665 2622 / 2622 2061 / 2061 Balance -649 / -649 -1522 / -1522 -89.1 / -89.1 Weight 135.4 kg Consult Discharge Plan - Plan Additional Instructions: Surgical instructions: #1 may shower starting 08/10/17, no tub bath for 2 weeks #2 wash incisions with soap and water and pat dry daily #3 no lifting, pushing, pulling more than 15 pounds for the next 4 weeks #4 no driving until off narcotics for 24 hours and able to safely react in the car #5 may climb stairs Follow-up appointment: Sunday, August 20, 2017 with Sonia Joe CNP in the outpatient surgical office (Medical office building, [address]) [place] [facility] Diet After Saravanan Fundoplication Surgery This diet information is for patients who have recently had Saravanan Fundoplication Surgery to correct reflux disease or to repair various types of hernias, such as hiatal hernia and intrathoracic stomach. This diet may also be used for other gastrointestinal surgeries, such as Heller myotomy and repair of achalasia. The diet will help control diarrhea, excess gas and swallowing problems, which may occur after this type of surgery. Important Steps to Keep Your Stomach From Stretching Eat small, frequent meals (six to eight per day). This will help you consume the majority of the nutrients you need without causing your stomach to feel full or distended. Drinking large amounts of fluids with meals can stretch your stomach. You may drink fluids between meals as often as you like, but limit fluids to 1/2 cup (4 fluid ounces) with meals and one cup (8 fluid ounces) with snacks. Sit upright while eating and stay upright for 30 minutes after each meal. [place] can help food move through your digestive tract. Do not lie down after eating. Sit upright for 2 hours after your last meal or snack of the day. Eat very slowly. Take your time when eating. Take small bites and chew your food well to pinsetter mechanic helper in swallowing and digestion. Avoid crusty breads and sticky, gummy foods, such as bananas, fresh doughy breads, rolls and doughnuts. These types of foods become sticky and difficult to swallow. Toasted breads tend to be better tolerated. Lastly, if you eat sweets, consume them at the end of your meal to avoid a group of symptoms referred to as dumping syndrome. This describes the rapid emptying of foods from the stomach to the small intestine. Sweetened beverages, candy and desserts move more rapidly and dump quickly into the intestines. This can cause symptoms of nausea, weakness, cold sweats, cramps, diarrhea and dizzy spells. Important Steps to Avoid Gas Do not drink through a straw, chew gum, or chew tobacco. These actions cause you to swallow air, which will produce excess gas in your stomach. Chew with your mouth closed and chew your food thoroughly. Avoid foods that cause stomach gas and distention. The foods include corn, dried beans, peas, lentils, onions, broccoli, cauliflower, and any food item from the cabbage family. Do not drink carbonated drinks, alcohol, citrus, or tomato products. What Will I Be Able To Eat and Drink After Surgery After Saravanan Fundoplication Surgery, your diet will be advanced slowly by your surgeon. Generally, you will be on a thin/clear liquid diet for the first 10 days. Then you will advance to the full liquid diet for 4 days and eventually to a Saravanan soft diet for 7 days. After any surgery, protein consumption is important for healing. To get enough protein, drink 3-4 [place] Instant Breakfast, Ensure, or equivalent daily. Reminder: carbonated beverages (such as sodas, energy drinks, flavored carbonated water), and alcohol are not permitted for the 1st 6 to 8 weeks after surgery. After this time you may attempt to reintroduce them in small amounts. Please note: dairy products such as milk, ice cream, and putting may cause diarrhea and some people after surgery. He may need to avoid milk products. If so you may substitute them with lactose free beverages, such as soy, rice, lactate, or almond milk. Please be aware that each patient's tolerance to food is different. Your doctor will advance your diet depending on how well you progress after surgery. Thin Liquid Diet The first diet after Saravanan Fundoplication Surgery is the thin liquids diet. Follow this diet for postoperative days 1-10 08/10/2017 - 08/19/2017. Thin liquids include: Apple, Cranberry, or Grape Juice (no citrus juice) Chicken Broth Beef Broth Flavored Gelatin (Jell-O) Decaffeinated Tea or Coffee Popsicles or [place] Ice Caffeinated Beverages Will Be Permitted Based upon Tolerance Dairy Thin Milkshakes (strawberry or vanilla flavored- No chocolate) Drink 3-4 [place] instant breakfast, Ensure, or equivalent daily. May be mixed with dairy for thin milkshakes Full Liquid Diet Follow this diet for postoperative days 11-14 08/20/2017- 08/23/2017. Full liquid diet includes anything in the thin liquid diet plus: Milk, Soy, Rice, and [place] (No Chocolate) Cream of Wheat, Cream of Rice, Grits Strained Creamed Soups (No Tomato Water Broccoli) Vanilla and [place] Flavored Ice Cream Sherbet Vanilla and Butterscotch Pudding (No Chocolate or Coconut) Continue 3-4 [place] Instant Breakfast, Ensure, or an Equivalent Daily. Maybe Next with Dairy for Thin Milkshakes. Saravanan Soft Diet Follow this diet for postoperative days 15-20 08/24/2017- 08/30/2017. (If you are consuming enough protein, you may stop the protein supplements). See Saravanan Diet handout for more specific information Referrals: Edyta Melgar, SENIOR SCIENCE CONSULTANT [Primary Care Provider] - - Attending Attestation I examined this patient and my medical decision-making was reviewed with the Resident Physician. I agree with the documented findings, disposition and treatment plan as described except to the extent set forth below. We independently had [id number] contact with the patient I spent 34min of Critical Care time with this patient. It involved decision making of high complexity to assess, manipulate, and support vital organ system failure and/or to prevent further life threatening deterioration of the patient' s condition. The time involved in the performance of separately reportable procedures was not counted toward critical care time. Patient seen and examined at bedside Labs, radiology, chart personally reviewed. Management was reviewed during multidisciplinary critical care rounds. MILITARY EQUIPMENT SPECIALIST: The patient is deeply sedated and undergoing neuromuscular blockade for respiratory failure Pulm: Severe ARDS except for oxygenation and ventilation a day continue neuromuscular blockade and will continue to decrease PEEP and FiO2 per ARDS net PEEP ladder. Cards: The patient remains in cardiogenic shock with atrial fibrillation along with rapid ventricular response which I suspect is related to critical illness and hydrostatic pulmonary edema complicated by vasopressor effect unfortunately she is often recalcitrant to all to full attempts at cardioversion. I have changed her vasopressors for less arrhythmogenic variants. She has been loaded and maintained on amiodarone infusion FEN-GI: Continue enteral nutrition. GI prophylaxis given Renal: YOJANA requiring continuous renal replacement therapy nephrology following plan for volume removal as tolerated by blood pressure continue monitoring of serum electrolytes replacement protocol ID: The patient is receiving antibiotics for possible pneumonia as well as intra -abdominal source. Her white count remains greater than 50 with gram-negative organisms growing from her lip drainage from the surgical one side. I have switched her antimicrobials for the possibility of ESBL to meropenem continue vancomycin continue micafungin Heme/Onc: DVT prophylaxis given. She is anemic today which is likely secondary to renal replacement therapy and critical illness frequent blood draws no overt evidence of hemorrhage although she is at high risk because of thrombocytopenia. We will transfuse 2 units PRBCs today Endo: Glucose Monitored Integ/MSK: Skin Care per routine ICU Nursing Protocol to prevent ulcers. Lines: All lines examined without evidence of infection : Dispo: Remain in ICU for critical illness CODE: I had a geraldine discussion with the patient's surrogate decision-maker which is her both in the ICU room as well as the office in the ICU about overall clinical course. Patient remains critically ill with life- threatening arrhythmia with high probability of cardiac arrest. At this point patient is full code I do not suspect that CPR will be beneficial in this situation and discuss this with the patient he is considering changing CODE STATUS but has not made a final decision as of yet. All questions answered and I offered emotional support to him in this very difficult time <Yonatan Basurto - Last Filed: 08/18/17 17:19> Date of Encounter: 08/18/17 Time of Encounter: 08:17 Assessment and Plan (1) Acute respiratory failure with hypoxia Current Visit: Yes Status: Acute Acute hypoxic respiratory failure on 08/13/17 necessitating intubation - Moderate ARDS with PaO2/FiO2 ratio of 119 - Patient recently prone, currently in supine position - ABG this morning is as follows: 7.20/63/77/24// - Vent settings are as follows: Inspired oxygen 60, tidal volume 400, PEEP 16 CXR performed on 08/18/17 demonstrates the following: - Persistent but improving bibasilar atelectasis - Small b/l pleural effusions Plan: - Currently intubated and sedated - Precedex, fentanyl, propofol (2) Atrial fibrillation with RVR Current Visit: Yes Status: Acute On the morning of 08/18/17, patient developed A. fib with RVR Heart rate between 150 and 170 Blood pressure stable at first encounter; began to drop subsequently Pads were placed on patient; crash cart brought into the room - 0738: Heart rate 140, blood pressure 78/48 increased Levophed at 20 - 0739: Patient cardioverted with 100 J - 0740: Patient cardioverted with 100 J, heart rate was 136 at this time - 0749: Patient cardioverted with 150 J, blood pressure at this time was 65, heart rate was 145 Plan: - Amiodarone drip - Phenylephrine drip, concentrated was ordered - Blood pressure has stabilized; 113/42 - Heart rate continues to remain elevated at 148 (3) Shock Current Visit: Yes Status: Acute Suspect vasodilatory shock in the setting of systemic inflammatory response and ARDS - Goal MAP>60 - Previous echo demonstrating an EF 70% - White count has increased to 58.1 (51.4) Plan: - Vancomycin 1000 mg IV every 24 hours - Meropenem 1000 mg IV every 8 - Micafungin 100 mg IV daily (4) Abdominal wound dehiscence Current Visit: Yes Status: Acute Patient was noted to have serosanguineous fluid draining from her vertical midline incision - Wound culture was obtained; preliminary results demonstrate gram-negative rods Plan: - Vancomycin 1000 mg IV every 24 hours - Meropenem 1000 mg IV every 8 - Micafungin 100 mg IV daily Qualifiers: Qualified Code(s): T81.30XA - Disruption of wound, unspecified, initial encounter (5) GERD (gastroesophageal reflux disease) Current Visit: Yes Status: Chronic POD #9 Nisson fundoplication, exploratory laparotomy with oversewing hepatic and splenic veins - Pepcid 20 mg IV every 12 hours - NPO - Surgery following Qualifiers: Esophagitis presence: without esophagitis Qualified Code(s): K21.9 - Gastro -esophageal reflux disease without esophagitis (6) Acute kidney failure, unspecified Current Visit: Yes Status: Acute Creatinine this morning is 1.55 (1.70) - Likely secondary to vasodilatory shock with pressor requirement. - Nephrology consulted - Daily BMP Qualifiers: Acute renal failure type: unspecified Qualified Code(s): N17.9 - Acute kidney failure, unspecified (7) Anemia Current Visit: Yes Status: Acute Hemoglobin is low this morning at 6.8 - 2 units of packed red blood cells have been ordered - No obvious bleeding source at this time - Trend Hb - Continue to hold heparin prophylaxis - Villar[place] CBC Qualifiers: Anemia type: other cause Other causes of anemia: acute posthemorrhagic Qualified Code(s): D62 - Acute posthemorrhagic anemia (8) Thrombocytopenia Current Visit: Yes Status: Acute Platelets 33 this AM - No obvious bleeding - Hold Heparin prophylaxis (9) DVT prophylaxis Current Visit: Yes Status: Acute - Hold heparin due to thrombocytopenia Subjective Principal diagnosis: Tachycardia Interval history: Patient was seen and examined at bedside this morning. Currently intubated and sedated. Patient developed A. fib with RVR this morning. Heart rate was between 150 and 170. Crash cart was brought into room; pads were placed on patient. Patient was cardioverted 3 times, heart rate remained elevated. Blood pressure was initially low; has since increased 113/42. Last heart rate was 148 bpm. We will continue to closely monitor patient's vital signs. Objective PUL Vital signs: Last Vital Signs Temp 96.2 F L 08/18/17 08:00 Pulse 165 08/18/17 08:00 Resp 26 08/18/17 08:00 BP 78/67 08/18/17 08:00 Pulse Ox 100 08/18/17 08:00 General appearance: asleep Neck: supple Effort: normal Auscultation: bilateral: diminished breath sounds Cardiovascular: irregular rhythm (A. fib with RVR) Integumentary: normal Musculoskeletal: no deformities Ventilator Settings Ventilator Settings: Ventilator Settings, Last 8 Hours Ventilator Mode A/C Ventilator Mode A/C Ventilator Mode A/C Ventilator Mode A/C Ventilator Mode A/C Ventilator Mode A/C Ventilator Mode A/C Ventilator Mode A/C Ventilator Mode A/C Ventilator Mode A/C Ventilator Mode A/C Ventilator Mode A/C Ventilator Tidal Volume 400 Setting Ventilator Tidal Volume 400 Setting Ventilator Tidal Volume 400 Setting Ventilator Tidal Volume 400 Setting Ventilator Tidal Volume 400 Setting Ventilator Tidal Volume 400 Setting Ventilator Tidal Volume 400 Setting Ventilator Tidal Volume 400 Setting Ventilator Tidal Volume 400 Setting Ventilator Tidal Volume 400 Setting Ventilator Tidal Volume 400 Setting Ventilator Tidal Volume 400 Setting Ventilator Respiratory Rate 26 Setting Ventilator Respiratory Rate 26 Setting Ventilator Respiratory Rate 26 Setting Ventilator Respiratory Rate 26 Setting Ventilator Respiratory Rate 26 Setting Ventilator Respiratory Rate 26 Setting Ventilator Respiratory Rate 26 Setting Ventilator Respiratory Rate 26 Setting Ventilator Respiratory Rate 26 Setting Ventilator Respiratory Rate 26 Setting Ventilator Respiratory Rate 26 Setting Ventilator Respiratory Rate 26 Setting Actual Respiratory Rate 26 Actual Respiratory Rate 26 Actual Respiratory Rate 26 Actual Respiratory Rate 26 Actual Respiratory Rate 26 Actual Respiratory Rate 26 Actual Respiratory Rate 26 Actual Respiratory Rate 26 Actual Respiratory Rate 26 Actual Respiratory Rate 26 Actual Respiratory Rate 26 Positive End Expiratory 16 Pressure Positive End Expiratory 16 Pressure Positive End Expiratory 16 Pressure Positive End Expiratory 16 Pressure Positive End Expiratory 16 Pressure Positive End Expiratory 16 Pressure Positive End Expiratory 16 Pressure Positive End Expiratory 16 Pressure Positive End Expiratory 16 Pressure Positive End Expiratory 16 Pressure Positive End Expiratory 16 Pressure Positive End Expiratory 16 Pressure Peak Inspiratory Airway 36 Pressure Peak Inspiratory Airway 36 Pressure Peak Inspiratory Airway 36 Pressure Peak Inspiratory Airway 36 Pressure Peak Inspiratory Airway 36 Pressure Peak Inspiratory Airway 36 Pressure Peak Inspiratory Airway 36 Pressure Peak Inspiratory Airway 36 Pressure Peak Inspiratory Airway 36 Pressure Peak Inspiratory Airway 36 Pressure Peak Inspiratory Airway 36 Pressure Results - Laboratory Findings CBC and BMP: 08/18/17 15:14 08/18/17 03:20 ABG ABG pH 7.20 pH Units (7.32-7.45) L* 08/18/17 04:42 ABG pCO2 63 mmHg (35-45) H 08/18/17 04:42 ABG pO2 77 mmHg (85-104) L 08/18/17 04:42 ABG O2 Saturation 91 % (95-98) L 08/18/17 04:42 PT/INR, D-dimer PT 13.6 Seconds (9.4-12.1) H 08/16/17 11:35 Abnormal lab findings: Abnormal lab results WBC 58.1 K/mcL (4.3-11.1) H* 08/18/17 03:20 RBC 2.21 M/mcL (3.82-4.97) L 08/18/17 03:20 Hgb 6.8 g/dL (11.5-15.4) L 08/18/17 03:20 Hct 21.9 % (35.3-44.9) L 08/18/17 03:20 MCHC 31.1 g/dL (31.6-35.5) L 08/18/17 03:20 RDW 17.5 % (11.5-14.5) H 08/18/17 03:20 Plt Count 33 K/mcL (140-400) L 08/18/17 03:20 Band Neutrophils % 6.0 % (0-4) H 08/18/17 03:20 Metamyelocytes % 6.0 % (0) H 08/18/17 03:20 Myelocytes % 16.0 % (0) H 08/18/17 03:20 Promyelocytes % 2.0 % (0) H 08/14/17 09:41 Blast Cells % 4.0 % (0) H 08/17/17 04:49 Neutrophils # 31.4 K/mcL (1.6-8.9) H 08/18/17 03:20 Lymphocytes # 12.8 K/mcL (0.6-4.6) H 08/18/17 03:20 Basophils # 1.2 K/mcL (0.0-0.2) H 08/18/17 03:20 Nucleated RBCs/100 WBC 9.0 /100 WBC (0) H 08/18/17 03:20 Reactive Lymphocytes Present (Not Present) A 08/13/17 04:05 Toxic Granulation Present (Not Present) A 08/16/17 11:35 Dohle Bodies Present (Not Present) A 08/17/17 10:59 Platelet Estimate Decreased (Normal) L 08/18/17 03:20 Large Platelets Present (Not Present) A 08/16/17 03:50 Immature Plt Fraction 13.8 % (1.1-6.1) H 08/15/17 03:20 Polychromasia 1+ (Not Present) A 08/17/17 04:49 Poikilocytosis 1+ (Not Present) A 08/17/17 04:49 Anisocytosis 1+ (Not Present) A 08/17/17 04:49 PT 13.6 Seconds (9.4-12.1) H 08/16/17 11:35 APTT 36.4 Seconds (26.0-36.0) H 08/16/17 11:35 Fibrinogen 885 mg/dL (169-393) H* 08/16/17 04:36 ABG pH 7.20 pH Units (7.32-7.45) L* 08/18/17 04:42 ABG pCO2 63 mmHg (35-45) H 08/18/17 04:42 ABG pO2 77 mmHg (85-104) L 08/18/17 04:42 ABG O2 Saturation 91 % (95-98) L 08/18/17 04:42 ABG Base Excess -4 mEq/L (-2 to 3) L 08/18/17 04:42 VBG pH 7.17 pH Units (7.32-7.42) L* 08/16/17 04:09 VBG pO2 172 mmHg (25-50) H 08/14/17 08:55 VBG HCO3 16 mEq/L (21-27) L 08/14/17 08:55 Sodium 130 mEq/L (136-145) L 08/18/17 03:20 BUN 38 mg/dL (6-20) H 08/18/17 03:20 Creatinine 1.55 mg/dL (0.60-1.20) H 08/18/17 03:20 Est GFR ( Amer) 43 (> 60) L 08/18/17 03:20 Est GFR (Non-Af Amer) 36 (> 60) L 08/18/17 03:20 Glucose 201 mg/dL (70-105) H 08/18/17 03:20 POC Glucose 180 mg/dL (70-99) H 08/17/17 20:35 Calcium 7.7 mg/dL (8.6-10.3) L 08/18/17 03:20 Venous Ioniz Calcium 1.06 mmol/L (1.15-1.35) L 08/18/17 03:31 Total Bilirubin 1.2 mg/dL (0.3-1.0) H 08/16/17 11:35 Direct Bilirubin 0.6 mg/dL (0.0-0.2) H 08/14/17 09:41 AST 657 Units/L (13-39) H 08/16/17 11:35 ALT 258 Units/L (7-52) H 08/16/17 11:35 Troponin I 0.07 ng/mL (< 0.04) H* 08/13/17 22:10 Serum Total Protein 4.6 g/dL (6.4-8.9) L 08/16/17 11:35 Albumin 2.1 g/dL (3.5-5.7) L 08/16/17 11:35 Albumin/Globulin Ratio 0.8 (1.1-2.2) L 08/16/17 11:35 Prealbumin < 3.0 mg/dL (17.0-34.0) L 08/14/17 03:00 Vancomycin Trough 26 mcg/mL (5-10) H 08/14/17 12:00 - Microbiology Findings Microbiology Findings: Microbiology, Last 48 Hours 08/17/17 06:35 Wound Culture - Preliminary Abdomen Gram Negative Edi - Clinical Findings Intake & Output: Intake & Output 08/17/17 08/18/17 08/18/17 23:59 07:59 15:59 Intake Total 1016 / 1016 750 / 750 0 / 0 Output Total 1665 / 1665 2622 / 2622 404 / 404 Balance -649 / -649 -1872 / -1872 -404 / -404 - VTE Documentation of Mechanical Device: Intermittent pneumatic compression device
[2017-08-18] MEDS ORDERED: 0.9 % Sodium Chloride 250 ML ONE ×3 (08:25→22:47)
[2017-08-18] MEDS: Famotidine 20 MG/2 ML VIAL IVP SCH ×2 (08:35→22:12)
[2017-08-18] MEDS: Chlorhexidine Rinse 15 ML MOUTHWASH MM SCH ×2 (08:35→22:13)
[2017-08-18] MEDS: Micafungin 100 MG in 0.9 % Sodium Chloride Mini Bag 100 ML IVPB SCH (08:37)
--- NOTE | 2017-08-18 08:39 | Nephrology Progress Note ---
Date of Encounter: 08/18/17 Time of Encounter: 07:50 - Assessment and Plan (1) Acute kidney failure, unspecified Current Visit: Yes Status: Acute Recurrent YOJANA R/T respiratory failure, hypotension, acidisis, oliguric. CVVH- with current hypotension Goal -100 volume removal. Azotemia controlled. Urine output 5cc. WBC 58.0, Co2 25. Hgb 6.8, to transfuse 2 units PRBC. Remains unstable to CT. Will continue to monitor. Qualifiers: Acute renal failure type: unspecified Qualified Code(s): N17.9 - Acute kidney failure, unspecified Subjective Principal diagnosis: Tachycardia Interval history: Intubated, sedated, 1 pressors. FIO2 60/peep 16. Cardiac events noted. Amiodorone drip. Supine position. Critically ill. at bedside. Update given. Objective - Vital Signs Vital signs: Vital Signs Temp Pulse Resp BP Pulse Ox 08/18/17 08:00 96.2 F L 165 26 78/67 100 08/18/17 07:30 154 08/18/17 07:22 26 128/76 100 08/18/17 07:00 96 26 166/54 100 08/18/17 06:00 101 26 110/46 94 08/18/17 05:21 26 106/43 96 08/18/17 05:00 87 26 106/44 97 08/18/17 04:00 88 26 98/42 96 08/18/17 03:47 26 100/42 96 08/18/17 03:45 87 08/18/17 03:00 97.9 F 87 26 98/41 97 08/18/17 02:00 90 26 95/42 96 08/18/17 01:03 26 102/45 96 08/18/17 01:00 90 26 98/43 96 08/18/17 00:00 97.7 F 92 26 111/46 97 08/17/17 23:00 92 26 104/45 98 08/17/17 22:49 26 104/47 984 08/17/17 22:00 88 26 99/47 97 08/17/17 21:00 108 26 151/55 98 08/17/17 20:00 97.7 F 92 26 129/58 94 08/17/17 19:44 26 173/65 97 04/28/18 19:00 87 26 88/43 93 08/17/17 18:00 88 26 94/46 95 08/17/17 17:02 26 94 08/17/17 17:00 106 26 110/83 97 08/17/17 16:00 97.6 F 100 26 130/71 98 08/17/17 15:44 26 159/63 96 08/17/17 15:00 88 26 94/55 96 08/17/17 14:00 180 26 111/53 95 08/17/17 13:27 105 26 132/63 99 08/17/17 12:01 26 85/48 94 08/17/17 12:00 97.6 F 93 26 118/59 99 08/17/17 11:00 90 26 85/48 94 08/17/17 10:00 101 26 147/63 96 08/17/17 09:08 26 94 08/17/17 09:00 92 26 102/49 96 Intake and Output 08/17/17 08/18/17 08/18/17 23:59 07:59 15:59 Intake Total 1016 / 1016 750 / 750 300 / 300 Output Total 1665 / 1665 2622 / 2622 404 / 404 Balance -649 / -649 -1872 / -1872 -104 / -104 Intake: IV Fluids 1016 / 1016 750 / 750 PrismaSATE BGK 4/2.5 5,000 ML @ 0 / 0 2000 mls/hr CRRT CONT [facility] Rx#: [id number] Amiodarone Drip Premix 360mg/ 200 / 200 200mL 360 mg In 200 ml @ 0 mls/ hr IVC .STK-MED ONE Rx#: [id number] Nimbex 200 MG In 0.9 % Sodium 100 / 100 Chloride 180 ML @ 3 MCG/KG/MIN 24.3 mls/hr IVC CONT [facility] Rx#: [id number] PRECEDEX Premix 400 mcg In 100 100 / 100 100 / 100 ml @ 0.2 MCG/KG/HR 6.415 mls/hr IVC .[id number] [facility] Rx#: [id number] FentaNYL (PF) 1,000 MCG In 0.9 100 / 100 100 / 100 % Sodium Chloride 80 ML @ 50 MCG/HR 5 mls/hr IVC CONT [facility] Rx #:[id number] Levophed 16 MG In Dextrose 5% 516 / 516 250 / 250 500 ML @ 5 MCG/MIN 9.67 mls/hr IVC [facility] Rx#:[id number] Diprivan 1,000 mg In 100 ml @ 5 200 / 200 MCG/KG/MIN 3.849 mls/hr IVC . Q24H [facility] Rx#:[id number] Zosyn 3.375 GM In 0.9 % Sodium 100 / 100 Chloride (Mini-Bag +) 100 ML @ 25 mls/hr IVPB Q8HR [facility] Rx#: [id number] Tube Feeding 0 / 0 Blood Product 300 / 300 Rbcs Leuko Poor As-1 Unit 300 / 300 [id number] Output: Xochitl 1665 / 1665 2617 / 2617 404 / 404 Catheter 5 / 5 0 / 0 Gastric Drainage 0 / 0 Other: Blood Glucose* 180 201 195 - General Appearance General appearance: Present: well-developed, well-nourished, appears started age EENT: Present: mucous membranes moist Neck: Present: no JVD Respiratory: Present: rhonchi Cardiology: Present: edema, irregular rhythm Additional Comments: generalized, pitting Dialysis Vascular Access: Venous Catheter Gastrointestinal: Present: absent bowel sounds Integumentary: Present: warm and dry - Lab 08/18/17 03:20 08/18/17 03:20 Most recent lab results ABG pH 7.20 pH Units (7.32-7.45) L* 08/18/17 04:42 ABG pCO2 63 mmHg (35-45) H 08/18/17 04:42 ABG pO2 77 mmHg (85-104) L 08/18/17 04:42 ABG HCO3 24 mEq/L (21-27) 08/18/17 04:42 ABG O2 Saturation 91 % (95-98) L 08/18/17 04:42 Calcium 7.7 mg/dL (8.6-10.3) L 08/18/17 03:20 Phosphorus 3.4 mg/dL (2.7-4.5) 08/18/17 03:20 Magnesium 2.6 mg/dL (1.6-2.6) 08/18/17 03:20 - VTE Documentation of Mechanical Device: Intermittent pneumatic compression device Consult Discharge Plan - Plan Additional Instructions: Surgical instructions: #1 may shower starting 08/10/17, no tub bath for 2 weeks #2 wash incisions with soap and water and pat dry daily #3 no lifting, pushing, pulling more than 15 pounds for the next 4 weeks #4 no driving until off narcotics for 24 hours and able to safely react in the car #5 may climb stairs Follow-up appointment: Sunday, August 20, 2017 with Sonia Joe CNP in the outpatient surgical office (Medical office building, [address]) [facility] Diet After Saravanan Fundoplication Surgery This diet information is for patients who have recently had Saravanan Fundoplication Surgery to correct reflux disease or to repair various types of hernias, such as hiatal hernia and intrathoracic stomach. This diet may also be used for other gastrointestinal surgeries, such as Heller myotomy and repair of achalasia. The diet will help control diarrhea, excess gas and swallowing problems, which may occur after this type of surgery. Important Steps to Keep Your Stomach From Stretching Eat small, frequent meals (six to eight per day). This will help you consume the majority of the nutrients you need without causing your stomach to feel full or distended. Drinking large amounts of fluids with meals can stretch your stomach. You may drink fluids between meals as often as you like, but limit fluids to 1/2 cup (4 fluid ounces) with meals and one cup (8 fluid ounces) with snacks. Sit upright while eating and stay upright for 30 minutes after each meal. Eleva can help food move through your digestive tract. Do not lie down after eating. Sit upright for 2 hours after your last meal or snack of the day. Eat very slowly. Take your time when eating. 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 Avoid crusty breads and sticky, gummy foods, such as bananas, fresh doughy breads, rolls and doughnuts. These types of foods become sticky and difficult to swallow. Toasted breads tend to be better tolerated. Lastly, if you eat sweets, consume them at the end of your meal to avoid a group of symptoms referred to as dumping syndrome. This describes the rapid emptying of foods from the stomach to the small intestine. Sweetened beverages, candy and desserts move more rapidly and dump quickly into the intestines. This can cause symptoms of nausea, weakness, cold sweats, cramps, diarrhea and dizzy spells. Important Steps to Avoid Gas Do not drink through a straw, chew gum, or chew tobacco. These actions cause you to swallow air, which will produce excess gas in your stomach. Chew with your mouth closed and chew your food thoroughly. Avoid foods that cause stomach gas and distention. The foods include corn, dried beans, peas, lentils, onions, broccoli, cauliflower, and any food item from the cabbage family. Do not drink carbonated drinks, alcohol, citrus, or tomato products. What Will I Be Able To Eat and Drink After Surgery After Saravanan Fundoplication Surgery, your diet will be advanced slowly by your surgeon. Generally, you will be on a thin/clear liquid diet for the first 10 days. Then you will advance to the full liquid diet for 4 days and eventually to a Saravanan soft diet for 7 days. After any surgery, protein consumption is important for healing. To get enough protein, drink 3-4 [place] Instant Breakfast, Ensure, or equivalent daily. Reminder: carbonated beverages (such as sodas, energy drinks, flavored carbonated water), and alcohol are not permitted for the 1st 6 to 8 weeks after surgery. After this time you may attempt to reintroduce them in small amounts. Please note: dairy products such as milk, ice cream, and putting may cause diarrhea and some people after surgery. He may need to avoid milk products. If so you may substitute them with lactose free beverages, such as soy, rice, lactate, or almond milk. Please be aware that each patient's tolerance to food is different. Your doctor will advance your diet depending on how well you progress after surgery. Thin Liquid Diet The first diet after Saravanan Fundoplication Surgery is the thin liquids diet. Follow this diet for postoperative days 1-10 08/10/2017 - 08/19/2017. Thin liquids include: Apple, Cranberry, or Grape Juice (no citrus juice) Chicken Broth Beef Broth Flavored Gelatin (Jell-O) Decaffeinated Tea or Coffee Popsicles or [place] Ice Caffeinated Beverages Will Be Permitted Based upon Tolerance Dairy Thin Milkshakes (strawberry or vanilla flavored- No chocolate) Drink 3-4 [place] instant breakfast, Ensure, or equivalent daily. May be mixed with dairy for thin milkshakes Full Liquid Diet Follow this diet for postoperative days 11-14 08/20/2017- 08/23/2017. Full liquid diet includes anything in the thin liquid diet plus: Milk, Soy, Rice, and [place] (No Chocolate) Cream of Wheat, Cream of Rice, Grits Strained Creamed Soups (No Tomato Water Broccoli) Vanilla and [place] Flavored Ice Cream Sherbet Vanilla and Butterscotch Pudding (No Chocolate or Coconut) Continue 3-4 [place] Instant Breakfast, Ensure, or an Equivalent Daily. Maybe Next with Dairy for Thin Milkshakes. Saravanan Soft Diet Follow this diet for postoperative days 15-20 08/24/2017- 08/30/2017. (If you are consuming enough protein, you may stop the protein supplements). See Saravanan Diet handout for more specific information Referrals: Edyta Melgar, [facility] [Primary Care Provider] -
[2017-08-18] MEDS: 0.9 % Sodium Chloride 1,000 ML IVC SCH (08:55)
[2017-08-18] MEDS: Cisatracurium 200 MG in 0.9 % Sodium Chloride 180 ML IVC SCH ×2 (10:31→21:22)
[2017-08-18] MEDS ORDERED: *HR* Heparin 5,000 UNIT/ML VIAL ONE ×2 (11:44→23:34)
[2017-08-18] MEDS: Amiodarone Premix 360 MG/200 ML BAG IVC SCH ×2 (13:37→19:45)
[2017-08-18] MEDS: Vasopressin 40 UNIT in D5% in Water 100 ML IV SCH (13:39)
[2017-08-18] MEDS: Norepinephrine 16 MG in D5% in Water 500 ML IVC SCH (15:17)
--- NOTE | 2017-08-18 15:23 | General Surgery Progress Note ---
<Donald Woo - Last Filed: 08/18/17 15:19> Date of Encounter: 08/18/17 Time of Encounter: 08:45 - Assessment and Plan (1) GERD (gastroesophageal reflux disease) Current Visit: Yes Status: Chronic POD #9 s/p Saravanan Fundoplication and subsequent ex lap with oversweing of hepatic and splenic veins by Dr. La Patient had drainage from abd incision overnight. Sent for cultures. Likely consistent with ascities. patient started on microfungin Patient ahs had some more serous drainage from wound and IV site. Likely 2/2 edema. patient started on Meropenem No concern for ongoing bleeding from a surgical standpoint. Plan: continue NPO continue NG to LIWS continue IV fluids (bicarb gtt) Continue TPN Continue supportive care and pain control continue PPI continue abx per primary team Qualifiers: Esophagitis presence: without esophagitis Qualified Code(s): K21.9 - Gastro -esophageal reflux disease without esophagitis (2) ARDS (adult respiratory distress syndrome) Current Visit: Yes Status: Acute Patient still sedated on Vent Pt still meeting criteria for ARDS Peep 16, FIO 2 60%, RR26, Vt 400 Continue management per ICU team continue abx per ICU team (3) Acute respiratory failure Current Visit: Yes Status: Acute Qualifiers: Respiratory failure complication: hypoxia Qualified Code(s): J96.01 - Acute respiratory failure with hypoxia (4) Acute kidney failure, unspecified Current Visit: Yes Status: Acute Cr 1.55 today trending down 1.55?1.68>1.71> 1.86>1.7>1.55 Nephrology is on board appreciate recommendations Patient receiving Xochitl, continued management per ICU and nephrology Qualifiers: Acute renal failure type: unspecified Qualified Code(s): N17.9 - Acute kidney failure, unspecified (5) Thrombocytopenia Current Visit: Yes Status: Acute 153>115>48>26>27>35>31>33 Patient transfused 2 units of platelets 06/18 continue to hold heparin (6) Leukocytosis Current Visit: Yes Status: Acute WBC remains high likley secondary to systemic inflammatory response continue to monitor continued management per ICU team Qualifiers: Leukocytosis type: unspecified Qualified Code(s): D72.829 - Elevated white blood cell count, unspecified (7) DVT prophylaxis Current Visit: Yes Status: Acute Continue to hold Sub Q Heparin 2/2 thrombocytopenia Continue EPCDs (8) Anemia Current Visit: Yes Status: Acute Hgb continuing to down trend 8.9> 9.2> 8.2>7.4>6.8>6.8 Pt being transfused 2 units PRBC today continue to monitor no concern for ongoing bleeding from a surgical standpoint Management per ICU team Qualifiers: Anemia type: other cause Other causes of anemia: acute posthemorrhagic Qualified Code(s): D62 - Acute posthemorrhagic anemia (9) Shock Current Visit: Yes Status: Acute Secondary to a fib c rvr, Systemic inflammartroy response and ARDS patient on just 1 pressor this morning, now back on 3 pressors continued management per ICU team (10) Atrial fibrillation with RVR Current Visit: Yes Status: Acute Patient with multiple episodes of a fib c rvr possible secondary to alpha effects of pressors requiring multiple cardioversions. management per primary team. Subjective Narrative: Patient had several run of A fib c RVR yesterday afternoon and three more today requiring cardioversion. Patient was down to one pressor this morning, but with a fib issues leading to hypotension is now back on 3 pressors. Patient having occasional serous leakage from surgical incision and femoral central line. Objective Vital Signs - Last 8 Hours Temp Pulse Resp BP Pulse Ox 08/18/17 15:02 117 08/18/17 15:00 97.9 F 116 26 106/46 96 08/18/17 14:00 123 26 85/50 97 08/18/17 13:11 26 97 08/18/17 13:00 138 26 86/49 97 08/18/17 12:00 160 26 94/60 99 08/18/17 11:08 138 08/18/17 11:00 97.8 F 163 26 126/80 100 08/18/17 10:14 26 129/87 100 08/18/17 10:00 143 26 121/83 100 08/18/17 09:00 137 26 74/48 100 08/18/17 08:00 96.2 F L 165 26 78/67 100 08/18/17 07:30 154 08/18/17 07:22 26 128/76 100 Intake and Output 08/17/17 08/18/17 08/18/17 23:59 07:59 15:59 Intake Total 1016 / 1016 1100 / 1100 2117.6 / 2117.6 Output Total 1665 / 1665 2622 / 2622 2365 / 2365 Balance -649 / -649 -1522 / -1522 -247.4 / -247.4 Intake: IV Fluids 1016 / 1016 1100 / 1100 1817.6 / 1817.6 PrismaSATE BGK 4/2.5 5,000 ML @ 0 / 0 0 / 0 0 / 0 2000 mls/hr CRRT [facility] Rx#: [id number] Vasostrict 40 UNIT In Dextrose 91.4 / 91.4 5% 100 ML @ 0.03 UNIT/MIN 4.59 mls/hr IV .[id number] [facility] Rx#: [id number] Amiodarone Drip Premix 360mg/ 200 / 200 233.9 / 233.9 200mL 360 mg In 200 ml @ 0.5 MG /MIN 16.667 mls/hr IVC [facility] Rx#:[id number] Nimbex 200 MG In 0.9 % Sodium 100 / 100 176.1 / 176.1 Chloride 180 ML @ 3 MCG/KG/MIN 24.3 mls/hr IVC [facility] Rx#: [id number] PRECEDEX Premix 400 mcg In 100 100 / 100 100 / 100 200.0 / 200.0 ml @ 0.2 MCG/KG/HR 6.415 mls/hr IVC .[id number] [facility] Rx#: [id number] FentaNYL (PF) 1,000 MCG In 0.9 100 / 100 200 / 200 100.0 / 100.0 % Sodium Chloride 80 ML @ 50 MCG/HR 5 mls/hr IVC [facility] Rx #:[id number] Levophed 16 MG In Dextrose 5% 516 / 516 250 / 250 266.0 / 266.0 500 ML @ 5 MCG/MIN 9.67 mls/hr IVC [facility] Rx#:[id number] Phenylephrine 50 MG In Dextrose 255.0 / 255.0 5% 250 ML @ 100 MCG/MIN 30.6 mls/hr IVC [facility] Rx#: [id number] Diprivan 1,000 mg In 100 ml @ 5 200 / 200 45.2 / 45.2 MCG/KG/MIN 3.849 mls/hr IVC . Q24H [facility] Rx#:[id number] Sodium Bicarbonate 150 MEQ In 0 / 0 Dextrose 5% 1,000 ML @ 75 mls/ hr IVC .[id number] [facility] Rx#: [id number] Intralipid 20% 250 ML @ 21 mls/ 250 / 250 hr IVPB DAILY@1700 [facility] Rx#: [id number] Merrem 1,000 MG In 0.9 % Sodium 100 / 100 Chloride (Mini-Bag +) 100 ML @ 200 mls/hr IVPB Q8HR [facility] Rx#: [id number] Mycamine 100 MG In 0.9 % Sodium 100.0 / 100.0 Chloride (Mini-Bag +) 100 ML @ 100 mls/hr IVPB DAILY [facility] Rx#: [id number] Zosyn 3.375 GM In 0.9 % Sodium 100 / 100 Chloride (Mini-Bag +) 100 ML @ 25 mls/hr IVPB Q8HR [facility] Rx#: [id number] Vancocin 1,000 MG In 0.9 % 250 / 250 Sodium Chloride 250 ML @ 166. 667 mls/hr IVPB Q24H [facility] Rx#: [id number] Tube Feeding 0 / 0 Blood Product 300 / 300 Rbcs Leuko Poor As-1 Unit 300 / 300 [id number] Output: Xochitl 1665 / 1665 2617 / 2617 2315 / 2315 Catheter 5 / 5 0 / 0 Gastric Drainage 50 / 50 Other: Weight 135.4 kg Blood Glucose* 180 201 211 Patient Weight 08/18/17 23:59 Weight 135.4 kg - General physical appearance other (sedated on vent) - Neck Neck exam: trachea midline - Respiratory other (on vent, diminished breath sounds b/l) - Cardiovascular Cardiovascular exam: Present: tachycardia, irregular rhythm (afib) - Abdomen Abdomen: Present: bowel sounds present (hypoactive), soft - Incision Incision: Present: draining, serous - Integumentary no rash - Neurologic other (sedated on vent) - Psychiatric other (sedated on vent) - Labs 08/18/17 03:20 08/18/17 03:20 Diabetes panel 08/18/17 Range/Units 03:20 Sodium 130 L (136-145) mEq/L Potassium 4.5 (3.5-5.1) mEq/L Chloride 99 (98-107) mEq/L Carbon Dioxide 25 (23-29) mEq/L BUN 38 H (6-20) mg/dL Creatinine 1.55 H (0.60-1.20) mg/dL Glucose 201 H (70-105) mg/dL Calcium 7.7 L (8.6-10.3) mg/dL Calcium panel 08/18/17 Range/Units 03:20 Calcium 7.7 L (8.6-10.3) mg/dL Phosphorus 3.4 (2.7-4.5) mg/dL Pituitary panel 08/18/17 Range/Units 03:20 Sodium 130 L (136-145) mEq/L Potassium 4.5 (3.5-5.1) mEq/L Chloride 99 (98-107) mEq/L Carbon Dioxide 25 (23-29) mEq/L BUN 38 H (6-20) mg/dL Creatinine 1.55 H (0.60-1.20) mg/dL Glucose 201 H (70-105) mg/dL Calcium 7.7 L (8.6-10.3) mg/dL Adrenal panel 08/18/17 Range/Units 03:20 Sodium 130 L (136-145) mEq/L Potassium 4.5 (3.5-5.1) mEq/L Chloride 99 (98-107) mEq/L Carbon Dioxide 25 (23-29) mEq/L BUN 38 H (6-20) mg/dL Creatinine 1.55 H (0.60-1.20) mg/dL Glucose 201 H (70-105) mg/dL Calcium 7.7 L (8.6-10.3) mg/dL - VTE Documentation of Mechanical Device: Intermittent pneumatic compression device Consult Discharge Plan - Plan Additional Instructions: Surgical instructions: #1 may shower starting 08/10/17, no tub bath for 2 weeks #2 wash incisions with soap and water and pat dry daily #3 no lifting, pushing, pulling more than 15 pounds for the next 4 weeks #4 no driving until off narcotics for 24 hours and able to safely react in the car #5 may climb stairs Follow-up appointment: Sunday, August 20, 2017 with Sonia Joe CNP in the outpatient surgical office (Medical office building, [address]) [facility] Diet After Saravanan Fundoplication Surgery This diet information is for patients who have recently had Saravanan Fundoplication Surgery to correct reflux disease or to repair various types of hernias, such as hiatal hernia and intrathoracic stomach. This diet may also be used for other gastrointestinal surgeries, such as Heller myotomy and repair of achalasia. The diet will help control diarrhea, excess gas and swallowing problems, which may occur after this type of surgery. Important Steps to Keep Your Stomach From Stretching Eat small, frequent meals (six to eight per day). This will help you consume the majority of the nutrients you need without causing your stomach to feel full or distended. Drinking large amounts of fluids with meals can stretch your stomach. You may drink fluids between meals as often as you like, but limit fluids to 1/2 cup (4 fluid ounces) with meals and one cup (8 fluid ounces) with snacks. Sit upright while eating and stay upright for 30 minutes after each meal. Gail can help food move through your digestive tract. Do not lie down after eating. Sit upright for 2 hours after your last meal or snack of the day. Eat very slowly. Take your time when eating. Take small bites and chew your food well to facility maintenance helper in swallowing and digestion. Avoid crusty breads and sticky, gummy foods, such as bananas, fresh doughy breads, rolls and doughnuts. These types of foods become sticky and difficult to swallow. Toasted breads tend to be better tolerated. Lastly, if you eat sweets, consume them at the end of your meal to avoid a group of symptoms referred to as dumping syndrome. This describes the rapid emptying of foods from the stomach to the small intestine. Sweetened beverages, candy and desserts move more rapidly and dump quickly into the intestines. This can cause symptoms of nausea, weakness, cold sweats, cramps, diarrhea and dizzy spells. Important Steps to Avoid Gas Do not drink through a straw, chew gum, or chew tobacco. These actions cause you to swallow air, which will produce excess gas in your stomach. Chew with your mouth closed and chew your food thoroughly. Avoid foods that cause stomach gas and distention. The foods include corn, dried beans, peas, lentils, onions, broccoli, cauliflower, and any food item from the cabbage family. Do not drink carbonated drinks, alcohol, citrus, or tomato products. What Will I Be Able To Eat and Drink After Surgery After Saravanan Fundoplication Surgery, your diet will be advanced slowly by your surgeon. Generally, you will be on a thin/clear liquid diet for the first 10 days. Then you will advance to the full liquid diet for 4 days and eventually to a Saravanan soft diet for 7 days. After any surgery, protein consumption is important for healing. To get enough protein, drink 3-4 [place] Instant Breakfast, Ensure, or equivalent daily. Reminder: carbonated beverages (such as sodas, energy drinks, flavored carbonated water), and alcohol are not permitted for the 1st 6 to 8 weeks after surgery. After this time you may attempt to reintroduce them in small amounts. Please note: dairy products such as milk, ice cream, and putting may cause diarrhea and some people after surgery. He may need to avoid milk products. If so you may substitute them with lactose free beverages, such as soy, rice, lactate, or almond milk. Please be aware that each patient's tolerance to food is different. Your doctor will advance your diet depending on how well you progress after surgery. Thin Liquid Diet The first diet after Saravanan Fundoplication Surgery is the thin liquids diet. Follow this diet for postoperative days 1-10 08/10/2017 - 08/19/2017. Thin liquids include: Apple, Cranberry, or Grape Juice (no citrus juice) Chicken Broth Beef Broth Flavored Gelatin (Jell-O) Decaffeinated Tea or Coffee Popsicles or Polish Ice Caffeinated Beverages Will Be Permitted Based upon Tolerance Dairy Thin Milkshakes (strawberry or vanilla flavored- No chocolate) Drink 3-4 Stevenson instant breakfast, Ensure, or equivalent daily. May be mixed with dairy for thin milkshakes Full Liquid Diet Follow this diet for postoperative days 11-14 08/20/2017- 08/23/2017. Full liquid diet includes anything in the thin liquid diet plus: Milk, Soy, Rice, and [place] (No Chocolate) Cream of Wheat, Cream of Rice, Grits Strained Creamed Soups (No Tomato Water Broccoli) Vanilla and [place] Flavored Ice Cream Sherbet Vanilla and Butterscotch Pudding (No Chocolate or Coconut) Continue 3-4 Stevenson Instant Breakfast, Ensure, or an Equivalent Daily. Maybe Next with Dairy for Thin Milkshakes. Saravanan Soft Diet Follow this diet for postoperative days 15-20 08/24/2017- 08/30/2017. (If you are consuming enough protein, you may stop the protein supplements). See Saravanan Diet handout for more specific information Referrals: Edyta Melgar, HE[employer] E[employer]IPMENT SUPERVISOR [Primary Care Provider] - <Galindo Márquez - Last Filed: 08/19/17 15:11> Date of Encounter: 08/18/17 Objective Vital Signs - Last 8 Hours Temp Pulse Resp BP Pulse Ox 08/19/17 14:00 76 30 155/47 92 08/19/17 13:00 66 30 103/38 90 08/19/17 12:16 68 08/19/17 12:00 67 30 105/50 87 08/19/17 11:24 30 102/50 88 08/19/17 11:00 96.6 F L 67 30 103/50 89 08/19/17 10:00 67 30 110/49 91 08/19/17 09:51 30 106/47 91 08/19/17 09:00 69 30 110/48 91 08/19/17 08:06 67 08/19/17 08:00 67 30 119/50 92 08/19/17 07:42 96.2 F L 68 30 142/54 08/19/17 07:39 96.2 F L Intake and Output 08/18/17 08/19/17 08/19/17 23:59 07:59 15:59 Intake Total 2062.4 / 2062.4 2422.6 / 2422.6 1878.6 / 1878.6 Output Total 2453 / 2453 1636 / 1636 2398 / 2398 Balance -390.6 / -390.6 786.6 / 786.6 -519.4 / -519.4 Intake: IV Fluids 1712.4 / 1712.4 1722.6 / 1722.6 1578.6 / 1578.6 PrismaSATE BGK 4/2.5 5,000 ML @ 0 / 0 0 / 0 2000 mls/hr CRRT [facility] Rx#: [id number] Vasostrict 40 UNIT In Dextrose 52.9 / 52.9 64.2 / 64.2 40.1 / 40.1 5% 100 ML @ 0.03 UNIT/MIN 4.59 mls/hr IV .[id number] [facility] Rx#: [id number] Amiodarone Drip Premix 360mg/ 290.1 / 290.1 127 / 127 200mL 360 mg In 200 ml @ 0.5 MG /MIN 16.667 mls/hr IVC CONT [facility] Rx#:[id number] Nimbex 200 MG In 0.9 % Sodium 199.9 / 199.9 281 / 281 243.0 / 243.0 Chloride 180 ML @ 3 MCG/KG/MIN 24.3 mls/hr IVC CONT [facility] Rx#: [id number] PRECEDEX Premix 400 mcg In 100 115.0 / 115.0 96 / 96 116.6 / 116.6 ml @ 0.2 MCG/KG/HR 6.415 mls/hr IVC .[id number] [facility] Rx#: [id number] FentaNYL (PF) 1,000 MCG In 0.9 126.0 / 126.0 130 / 130 144.0 / 144.0 % Sodium Chloride 80 ML @ 50 MCG/HR 5 mls/hr IVC CONT [facility] Rx #:[id number] Levophed 16 MG In Dextrose 5% 305.1 / 305.1 144 / 144 99.7 / 99.7 500 ML @ 5 MCG/MIN 9.67 mls/hr IVC CONT [facility] Rx#:[id number] Phenylephrine 50 MG In Dextrose 419.0 / 419.0 346 / 346 305.8 / 305.8 5% 250 ML @ 100 MCG/MIN 30.6 mls/hr IVC CONT [facility] Rx#: [id number] Diprivan 1,000 mg In 100 ml @ 5 76.8 / 76.8 62 / 62 16 / 16 MCG/KG/MIN 3.849 mls/hr IVC . Q24H [facility] Rx#:[id number] Sodium Bicarbonate 150 MEQ In 330 / 330 503.4 / 503.4 Dextrose 5% 1,000 ML @ 75 mls/ hr IVC .[id number] [facility] Rx#: [id number] Merrem 1,000 MG In Water for 10 / inj. (sterile) 10 ML @ 200 mls/ hr IVP Q8HR [facility] Rx#:[id number] Intralipid 20% 250 ML @ 21 mls/ 117.6 / 117.6 132.4 / 132.4 hr IVPB DAILY@1700 [facility] Rx#: [id number] Mycamine 100 MG In 0.9 % Sodium 100 / 100 Chloride (Mini-Bag +) 100 ML @ 100 mls/hr IVPB DAILY [facility] Rx#: [id number] Tube Feeding 0 / 0 0 / 0 Blood Product 350 / 350 700 / 700 300 / 300 Platelet Pheresis Lp Irr 2nd 0 / 0 350 / 350 Unit [id number] Rbcs Leuko Poor As-1 Unit 350 / 350 [id number] Rbcs Leuko Poor As-1 Unit 350 / 350 [id number] Rbcs Leuko Poor As-1 Unit 300 / 300 [id number] Output: Xochitl 2448 / 2448 1636 / 1636 2368 / 2368 Catheter 5 / 5 0 / 0 5 / 5 Gastric Drainage 0 / 0 25 / 25 Other: Weight 131.5 kg Blood Glucose* 160 131 61 Patient Weight 08/19/17 23:59 Weight 131.5 kg - Labs 08/19/17 10:00 08/19/17 10:00 Diabetes panel 08/18/17 08/19/17 08/19/17 Range/Units 20:51 03:00 10:00 Sodium 130 L 134 L 135 L (136-145) mEq/L Potassium 5.3 H 6.0 H 5.3 H (3.5-5.1) mEq/L Chloride 100 99 99 (98-107) mEq/L Carbon Dioxide 20 L 20 L 20 L (23-29) mEq/L BUN 34 H 32 H 30 H (6-20) mg/dL Creatinine 1.47 H 1.34 H 1.33 H (0.60-1.20) mg/dL Glucose 189 H 163 H 110 H (70-105) mg/dL Calcium 7.9 L 7.8 L 8.2 L (8.6-10.3) mg/dL Calcium panel 08/18/17 08/19/17 08/19/17 Range/Units 20:51 03:00 10:00 Calcium 7.9 L 7.8 L 8.2 L (8.6-10.3) mg/dL Phosphorus 5.0 H (2.7-4.5) mg/dL Pituitary panel 08/18/17 08/19/17 08/19/17 Range/Units 20:51 03:00 10:00 Sodium 130 L 134 L 135 L (136-145) mEq/L Potassium 5.3 H 6.0 H 5.3 H (3.5-5.1) mEq/L Chloride 100 99 99 (98-107) mEq/L Carbon Dioxide 20 L 20 L 20 L (23-29) mEq/L BUN 34 H 32 H 30 H (6-20) mg/dL Creatinine 1.47 H 1.34 H 1.33 H (0.60-1.20) mg/dL Glucose 189 H 163 H 110 H (70-105) mg/dL Calcium 7.9 L 7.8 L 8.2 L (8.6-10.3) mg/dL Adrenal panel 08/18/17 08/19/17 08/19/17 Range/Units 20:51 03:00 10:00 Sodium 130 L 134 L 135 L (136-145) mEq/L Potassium 5.3 H 6.0 H 5.3 H (3.5-5.1) mEq/L Chloride 100 99 99 (98-107) mEq/L Carbon Dioxide 20 L 20 L 20 L (23-29) mEq/L BUN 34 H 32 H 30 H (6-20) mg/dL Creatinine 1.47 H 1.34 H 1.33 H (0.60-1.20) mg/dL Glucose 189 H 163 H 110 H (70-105) mg/dL Calcium 7.9 L 7.8 L 8.2 L (8.6-10.3) mg/dL - Attending Attestation I examined this patient and my medical decision-making was reviewed with the Resident Physician. I agree with the documented findings, disposition and treatment plan as described except to the extent set forth below. The patient is seen and evaluated in the intensive care unit with the resident. She is critically ill. She is on renal ventilatory and blood pressure support at this point. She has tremendous third spacing of fluid. She continues to have difficulty with blood pressure and oxygenation. Her care is discussed with the intensive care unit pulmonology team. Nothing to had from a surgery standpoint. Galindo Márquez MD FACS
[2017-08-18 15:27] LABS: Hematocrit 21.8 % (35.3-44.9); Hemoglobin 6.8 g/dL (11.5-15.4)
[2017-08-18] MEDS: Meropenem 1,000 MG in Water for inj. (sterile) 20 ML 10 ML IVP SCH (16:19)
[2017-08-18] MEDS ORDERED: [UNRECOGNIZED DRUG - OTHER] IVC SCH (17:00)
[2017-08-18] MEDS ORDERED: PARENTERAL AMINO ACID 10% IVC SCH (17:00)
[2017-08-18] MEDS ORDERED: MVI IVC SCH (17:00)
[2017-08-18] MEDS ORDERED: CLINIMIX E IVC SCH (17:00)
[2017-08-18 20:51] LABS: ABG Base Excess -9 mEq/L (-2 to 3); ABG HCO3 21 mEq/L (21-27); ABG Oxygen Saturation 93 % (95-98); ABG PCO2 68 mmHg (35-45); ABG PH 7.09 pH Units (7.32-7.45); ABG PO2 94 mmHg (85-104); ABG TCO2 23 mEq/L (20-26); Blood Gas Modality ASSIST CONTROL; Blood Gas Respiration Rate 26; Blood Gas VT 400 cc
[2017-08-18] MEDS ORDERED: Neostigmine Methylsulfate 3 MG/3 ML SYRINGE IV ONE (21:03)
[2017-08-18 21:04] LABS: Red Cell Distribution Width 17.5 % (11.5-14.5)
[2017-08-18 21:06] LABS: Hematocrit 21.7 % (35.3-44.9); Hemoglobin 6.8 g/dL (11.5-15.4); Mean Corpuscular HGB Conc 31.3 g/dL (31.6-35.5); Mean Corpuscular Hemoglobin 31.3 pg (28.0-33.3); Nucleated Red Blood Cells 14.9 /100 WBC (0); Red Blood Count 2.17 M/mcL (3.82-4.97)
[2017-08-18 21:09] LABS: INR 1.1; Prothrombin Time 12.2 Seconds (9.4-12.1)
[2017-08-18 21:12] LABS: Activated Partial Thrombo Time 30.3 Seconds (26.0-36.0); Platelet Count 28 K/mcL (140-400)
[2017-08-18 21:34] LABS: Calcium 7.9 mg/dL (8.6-10.3); Potassium 5.3 mEq/L (3.5-5.1)
[2017-08-18 21:39] LABS: Lymphocytes # 2.6 K/mcL (0.6-4.6); Monocytes # 2.6 K/mcL (0.0-1.3); Neutrophils # 38.9 K/mcL (1.6-8.9)
[2017-08-18 21:46] LABS: Platelet Estimate Marked Decrease (Normal); Toxic Granulation Present (Not Present)
[2017-08-18 21:47] LABS: Smudge Cells Present (Not Present)
[2017-08-18 21:50] LABS: Anisocytosis 1+ (Not Present); Poikilocytosis 1+ (Not Present)
[2017-08-19] MEDS: Amiodarone Premix 360 MG/200 ML BAG IVC SCH (01:11)
[2017-08-19] MEDS: Phenylephrine 50 MG in D5% in Water 250 ML IVC SCH ×4 (01:12→18:00)
[2017-08-19 01:19] LABS: ABG Base Excess -8 mEq/L (-2 to 3); ABG HCO3 21 mEq/L (21-27); ABG Oxygen Saturation 93 % (95-98); ABG PCO2 66 mmHg (35-45); ABG PH 7.11 pH Units (7.32-7.45); ABG PO2 92 mmHg (85-104); ABG TCO2 23 mEq/L (20-26); Blood Gas Modality ASSIST CONTROL; Blood Gas PEEP 16 cm H2O; Blood Gas Respiration Rate 26; Blood Gas VT 400 cc
[2017-08-19] MEDS: *HR* Heparin 5,000 UNIT/ML VIAL IV PRN (01:34)
[2017-08-19] MEDS: Lacri-Lube 3.5 GM TUBE BOTH EYES SCH ×5 (01:35→15:17)
[2017-08-19] MEDS: Insulin LISPRO 300 UNITS/3 ML VIAL SQ SCH ×5 (01:35→15:17)
[2017-08-19] MEDS: 0.9 % Sodium Chloride 1,000 ML PRIME SCH ×3 (01:35→17:10)
[2017-08-19] MEDS: PrismaSATE BGK 4/2.5 5,000 ML CRRT SCH ×3 (01:36→05:07)
[2017-08-19] MEDS: Meropenem 1,000 MG in Water for inj. (sterile) 20 ML 10 ML IVP SCH ×2 (01:48→09:25)
[2017-08-19] MEDS: Hydrocortisone Sodium Succ 100 MG/2 ML VIAL IVP SCH ×4 (01:49→17:07)
[2017-08-19] MEDS: Dexmedetomidine HCl 400 MCG/100 ML MLS IVC SCH ×3 (02:50→16:43)
[2017-08-19 02:51] LABS: ABG Base Excess -11 mEq/L (-2 to 3); ABG HCO3 18 mEq/L (21-27); ABG Oxygen Saturation 100 % (95-98); ABG PCO2 59 mmHg (35-45); ABG PO2 227 mmHg (85-104); ABG TCO2 20 mEq/L (20-26)
[2017-08-19] MEDS: Sodium Bicarbonate 150 MEQ in D5% in Water 1,000 ML IVC SCH ×2 (02:51→16:54)
[2017-08-19] MEDS: FentaNYL (PF) 1,000 MCG in 0.9 % Sodium Chloride 80 ML IVC SCH ×4 (03:06→17:48)
[2017-08-19] MEDS: Cisatracurium 200 MG in 0.9 % Sodium Chloride 180 ML IVC SCH ×3 (03:07→16:43)
[2017-08-19 03:37] LABS: VBG Ionized Calcium 1.01 mmol/L (1.15-1.35)
[2017-08-19 03:46] LABS: Calcium 7.8 mg/dL (8.6-10.3); Magnesium 2.7 mg/dL (1.6-2.6)
[2017-08-19] MEDS: Vasopressin 40 UNIT in D5% in Water 100 ML IV SCH (04:11)
[2017-08-19] MEDS ORDERED: 0.9 % Sodium Chloride 250 ML ONE ×3 (04:19→17:07)
[2017-08-19 05:31] LABS: ABG Base Excess -15 mEq/L (-2 to 3); ABG HCO3 15 mEq/L (21-27); ABG Oxygen Saturation 92 % (95-98); ABG PCO2 56 mmHg (35-45); ABG PH 7.02 pH Units (7.32-7.45); ABG PO2 94 mmHg (85-104); ABG TCO2 16 mEq/L (20-26); Blood Gas Modality ASSIST CONTROL; Blood Gas PEEP 16 cm H2O; Blood Gas Respiration Rate 30; Blood Gas VT 400 cc
[2017-08-19] MEDS: 0.9 % Sodium Chloride 1,000 ML IVC SCH (05:39)
[2017-08-19] MEDS ORDERED: Insulin Human Regular 10 UNIT in 0.9 % Sodium Chloride 10 ML IV ONE (05:58)
[2017-08-19] MEDS ORDERED: *HR* Dextrose 50 % in Water (Syg) 50 ML SYRINGE IVP ONE (05:58)
[2017-08-19 06:00] LABS: Hematocrit 19.5 % (35.3-44.9); Mean Corpuscular HGB Conc 30.3 g/dL (31.6-35.5); Mean Corpuscular Hemoglobin 31.4 pg (28.0-33.3); Mean Corpuscular Volume 103.7 fL (83.0-100.0); Mean Platelet Volume 12.8 fL (9.4-12.4); Nucleated Red Blood Cells 15.8 /100 WBC (0); Red Blood Count 1.88 M/mcL (3.82-4.97); Red Cell Distribution Width 17.5 % (11.5-14.5)
[2017-08-19 06:04] LABS: Platelet Count 33 K/mcL (140-400)
[2017-08-19 06:06] LABS: Hemoglobin 5.9 g/dL (11.5-15.4)
[2017-08-19] MEDS: Levalbuterol Neb 1.25 MG/3 ML IH SCH ×2 (07:59→15:51)
--- NOTE | 2017-08-19 08:17 | Pulmonology Progress Note ---
<Nick Owens - Last Filed: 08/19/17 08:34> Date of Encounter: 08/19/17 Time of Encounter: 08:20 Assessment and Plan (1) Acute respiratory failure with hypoxia Status: Acute Acute hypoxic respiratory failure on 08/13/17 necessitating intubation. Moderate ARDS with PaO2/FiO2 ratio of 156. Patient previously prone, remains in supine position currently. ABG demonstrates mixed respiratory and metabolic acidosis. Respiratory rate increased to 30 (26), tidal volume increased to 450 (400) Daily ABG. Daily chest x-ray. Wean ventilatory support as tolerated. Condition critical. Overall prognosis poor. (2) Shock Status: Acute Suspect vasodilatory shock in the setting of systemic inflammatory response and ARDS. Hemodynamically labile with variable requirement of pressors. Currently on Levophed, Howard-Synephrine and vasopressin. Currently on vancomycin, meropenem and micafungin Concern for intra-abdominal etiology. Wound culture demonstrates gram- negative rods. Infectious disease will be consulted. Goal MAP>60 Previous echo demonstrating an EF 70%. (3) GERD (gastroesophageal reflux disease) Status: Chronic POD #10 Nisson fundoplication, exploratory laparotomy with oversewing hepatic and splenic veins. NPO Protonix daily Carafate discontinued mIVF w/ bicarb gtt Qualifiers: Esophagitis presence: without esophagitis Qualified Code(s): K21.9 - Gastro -esophageal reflux disease without esophagitis (4) Atrial fibrillation with RVR Status: Resolved Episode of atrial fibrillation on 08/17 which involves into unstable tachycardia requiring cardioversion. Patient was on amiodarone with 3 cardioversions yesterday. Sinus rhythm this morning on exam. (5) Acute kidney failure, unspecified Status: Acute Serum creatinine 1.34. Likely secondary to vasodilatory shock with pressor requirement. Nephrology consulted Currently on CRRT Daily BMP. Qualifiers: Acute renal failure type: unspecified Qualified Code(s): N17.9 - Acute kidney failure, unspecified (6) Anemia Status: Acute Hemoglobin 5.9, 2 units of blood ordered. Platelets of 33 with concern for evolving DIC scenario. Transfuse blood this morning with recheck in afternoon. Add on fibrinogen, coags. No obvious source of bleeding. Daily CBC and coags. Qualifiers: Anemia type: other cause Other causes of anemia: acute posthemorrhagic Qualified Code(s): D62 - Acute posthemorrhagic anemia (7) Elevated troponin Status: Resolved Troponins downtrending. Likely demand ischemia secondary to shock, tachycardia as well as renal insufficiency. Cardiology consulted. (8) Thrombocytopenia Status: Acute Platelets 33 this AM 2 of platelets have been ordered No obvious bleeding Hold Heparin prophylaxis (9) DVT prophylaxis Status: Acute Hold heparin due to thrombocytopenia. Subjective Principal diagnosis: Tachycardia Interval history: Overnight the patient had multiple desaturating events. She was also noted to be hemodynamically labile. There was concern that she was developing DIC and was ordered to of platelets and 2 PRBC. Reported mottling to the right leg, abdomen and left arm. Her respiratory rate on the ventilator was increased from 26-30. She was profoundly acidotic on her ABG this morning and was subsequently placed on a bicarbonate infusion as well as receiving multiple push doses of bicarbonate overnight. Hyperkalemia this morning treated with insulin, calcium. Plan to speak with surgery today given continued leukocytosis and fluid from her incision site. Objective PUL Vital signs: Last Vital Signs Temp 96.2 F L 08/19/17 07:42 Pulse 67 08/19/17 08:06 Resp 30 08/19/17 08:00 BP 121/49 08/19/17 08:00 Pulse Ox 95 08/19/17 08:00 General appearance: other (Intubated, sedated and paralyzed.) Eyes: nonicteric ENT: other (ET tube in place) Effort: other (Mechanically ventilated) Auscultation: bilateral: rhonchi Cardiovascular: regular rate and rhythm Gastrointestinal: other (Mottling periumbilical. Midline vertical incision with aren intact. Unable to express drainage from the site. Her lower abdomen is firm to palpation.) Integumentary: other (Ecchymosis to the right upper extremity in the antecubital region, forearm and hand.) Extremities: no cyanosis, no edema (Anasarca) Musculoskeletal: no deformities other (Intubated, sedated and paralyzed.) Ventilator Settings Ventilator Settings: Ventilator Settings, Last 8 Hours Ventilator Mode A/C Ventilator Mode A/C Ventilator Mode A/C Ventilator Mode A/C Ventilator Mode A/C Ventilator Mode A/C Ventilator Mode A/C Ventilator Mode A/C Ventilator Tidal Volume 450 Setting Ventilator Tidal Volume 400 Setting Ventilator Tidal Volume 400 Setting Ventilator Tidal Volume 400 Setting Ventilator Tidal Volume 400 Setting Ventilator Tidal Volume 400 Setting Ventilator Tidal Volume 400 Setting Ventilator Tidal Volume 400 Setting Ventilator Respiratory Rate 30 Setting Ventilator Respiratory Rate 30 Setting Ventilator Respiratory Rate 30 Setting Ventilator Respiratory Rate 30 Setting Ventilator Respiratory Rate 30 Setting Ventilator Respiratory Rate 26 Setting Ventilator Respiratory Rate 26 Setting Ventilator Respiratory Rate 26 Setting Actual Respiratory Rate 30 Actual Respiratory Rate 30 Actual Respiratory Rate 30 Actual Respiratory Rate 30 Actual Respiratory Rate 26 Actual Respiratory Rate 26 Positive End Expiratory 16 Pressure Positive End Expiratory 16 Pressure Positive End Expiratory 16 Pressure Positive End Expiratory 16 Pressure Positive End Expiratory 16 Pressure Positive End Expiratory 16 Pressure Positive End Expiratory 16 Pressure Positive End Expiratory 16 Pressure Peak Inspiratory Airway 39 Pressure Peak Inspiratory Airway 35 Pressure Peak Inspiratory Airway 35 Pressure Peak Inspiratory Airway 35 Pressure Peak Inspiratory Airway 37 Pressure Peak Inspiratory Airway 37 Pressure Results - Laboratory Findings CBC and BMP: 08/19/17 03:00 08/19/17 03:00 ABG ABG pH 7.02 pH Units (7.32-7.45) L* 08/19/17 05:20 ABG pCO2 56 mmHg (35-45) H 08/19/17 05:20 ABG pO2 94 mmHg (85-104) D 08/19/17 05:20 ABG O2 Saturation 92 % (95-98) L 08/19/17 05:20 PT/INR, D-dimer PT 12.2 Seconds (9.4-12.1) H 08/18/17 20:50 Abnormal lab findings: Abnormal lab results WBC 79.9 K/mcL (4.3-11.1) H* 08/19/17 03:00 RBC 1.88 M/mcL (3.82-4.97) L 08/19/17 03:00 Hgb 5.9 g/dL (11.5-15.4) L* 08/19/17 03:00 Hct 19.5 % (35.3-44.9) L 08/19/17 03:00 MCV 103.7 fL (83.0-100.0) H 08/19/17 03:00 MCHC 30.3 g/dL (31.6-35.5) L 08/19/17 03:00 RDW 17.5 % (11.5-14.5) H 08/19/17 03:00 Plt Count 33 K/mcL (140-400) L 08/19/17 03:00 MPV 12.8 fL (9.4-12.4) H 08/19/17 03:00 Band Neutrophils % 34.0 % (0-4) H 08/18/17 20:50 Metamyelocytes % 18.0 % (0) H 08/18/17 20:50 Myelocytes % 6.0 % (0) H 08/18/17 20:50 Promyelocytes % 1.0 % (0) H 08/18/17 20:50 Blast Cells % 8.0 % (0) H 08/18/17 20:50 Neutrophils # 38.9 K/mcL (1.6-8.9) H 08/18/17 20:50 Monocytes # 2.6 K/mcL (0.0-1.3) H 08/18/17 20:50 Basophils # 1.2 K/mcL (0.0-0.2) H 08/18/17 03:20 Nucleated RBCs/100 WBC 15.8 /100 WBC (0) H 08/19/17 03:00 Reactive Lymphocytes Present (Not Present) A 08/13/17 04:05 Smudge Cells Present (Not Present) A 08/18/17 20:50 Toxic Granulation Present (Not Present) A 08/18/17 20:50 Dohle Bodies Present (Not Present) A 08/17/17 10:59 Platelet Estimate Marked Decrease (Normal) L 08/18/17 20:50 Large Platelets Present (Not Present) A 08/16/17 03:50 Immature Plt Fraction 13.8 % (1.1-6.1) H 08/15/17 03:20 Polychromasia 1+ (Not Present) A 08/17/17 04:49 Poikilocytosis 1+ (Not Present) A 08/18/17 20:50 Anisocytosis 1+ (Not Present) A 08/18/17 20:50 PT 12.2 Seconds (9.4-12.1) H 08/18/17 20:50 Fibrinogen 885 mg/dL (169-393) H* 08/16/17 04:36 ABG pH 7.02 pH Units (7.32-7.45) L* 08/19/17 05:20 ABG pCO2 56 mmHg (35-45) H 08/19/17 05:20 ABG HCO3 15 mEq/L (21-27) L 08/19/17 05:20 ABG Total CO2 16 mEq/L (20-26) L 08/19/17 05:20 ABG O2 Saturation 92 % (95-98) L 08/19/17 05:20 ABG Base Excess -15 mEq/L (-2 to 3) L 08/19/17 05:20 VBG pH 7.17 pH Units (7.32-7.42) L* 08/16/17 04:09 VBG pO2 172 mmHg (25-50) H 08/14/17 08:55 VBG HCO3 16 mEq/L (21-27) L 08/14/17 08:55 Sodium 134 mEq/L (136-145) L 08/19/17 03:00 Potassium 6.0 mEq/L (3.5-5.1) H 08/19/17 03:00 Carbon Dioxide 20 mEq/L (23-29) L 08/19/17 03:00 BUN 32 mg/dL (6-20) H 08/19/17 03:00 Creatinine 1.34 mg/dL (0.60-1.20) H 08/19/17 03:00 Est GFR ( Amer) 51 (> 60) L 08/19/17 03:00 Est GFR (Non-Af Amer) 42 (> 60) L 08/19/17 03:00 Glucose 163 mg/dL (70-105) H 08/19/17 03:00 POC Glucose 160 mg/dL (70-99) H 08/18/17 21:30 Lactic Acid > 10.0 mmol/L (0.5-2.2) H* 08/19/17 03:00 Calcium 7.8 mg/dL (8.6-10.3) L 08/19/17 03:00 Venous Ioniz Calcium 1.01 mmol/L (1.15-1.35) L 08/19/17 03:34 Phosphorus 5.0 mg/dL (2.7-4.5) H 08/19/17 03:00 Magnesium 2.7 mg/dL (1.6-2.6) H 08/19/17 03:00 Total Bilirubin 1.2 mg/dL (0.3-1.0) H 08/16/17 11:35 Direct Bilirubin 0.6 mg/dL (0.0-0.2) H 08/14/17 09:41 AST 657 Units/L (13-39) H 08/16/17 11:35 ALT 258 Units/L (7-52) H 08/16/17 11:35 Troponin I 0.07 ng/mL (< 0.04) H* 08/13/17 22:10 Serum Total Protein 4.6 g/dL (6.4-8.9) L 08/16/17 11:35 Albumin 2.1 g/dL (3.5-5.7) L 08/16/17 11:35 Albumin/Globulin Ratio 0.8 (1.1-2.2) L 08/16/17 11:35 Prealbumin < 3.0 mg/dL (17.0-34.0) L 08/14/17 03:00 Vancomycin Trough 26 mcg/mL (5-10) H 08/14/17 12:00 - Microbiology Findings Microbiology Findings: Microbiology, Last 48 Hours 08/17/17 06:35 Wound Culture - Preliminary Abdomen Gram Negative Edi - Clinical Findings Intake & Output: Intake & Output 08/18/17 08/19/17 08/19/17 23:59 07:59 15:59 Intake Total 2062.4 / 2062.4 2422.6 / 2422.6 Output Total 2453 / 2453 1636 / 1636 Balance -390.6 / -390.6 786.6 / 786.6 - VTE Documentation of Mechanical Device: Intermittent pneumatic compression device Consult Discharge Plan - Plan Additional Instructions: Surgical instructions: #1 may shower starting 08/10/17, no tub bath for 2 weeks #2 wash incisions with soap and water and pat dry daily #3 no lifting, pushing, pulling more than 15 pounds for the next 4 weeks #4 no driving until off narcotics for 24 hours and able to safely react in the car #5 may climb stairs Follow-up appointment: Sunday, August 20, 2017 with Sonia oJe CNP in the outpatient surgical office (Medical office building, [address]) [place] [facility] Diet After Saravanan Fundoplication Surgery This diet information is for patients who have recently had Saravanan Fundoplication Surgery to correct reflux disease or to repair various types of hernias, such as hiatal hernia and intrathoracic stomach. This diet may also be used for other gastrointestinal surgeries, such as Heller myotomy and repair of achalasia. The diet will help control diarrhea, excess gas and swallowing problems, which may occur after this type of surgery. Important Steps to Keep Your Stomach From Stretching Eat small, frequent meals (six to eight per day). This will help you consume the majority of the nutrients you need without causing your stomach to feel full or distended. Drinking large amounts of fluids with meals can stretch your stomach. You may drink fluids between meals as often as you like, but limit fluids to 1/2 cup (4 fluid ounces) with meals and one cup (8 fluid ounces) with snacks. Sit upright while eating and stay upright for 30 minutes after each meal. [place] can help food move through your digestive tract. Do not lie down after eating. Sit upright for 2 hours after your last meal or snack of the day. Eat very slowly. Take your time when eating. Take small bites and chew your food well to chicken hatchery helper in swallowing and digestion. Avoid crusty breads and sticky, gummy foods, such as bananas, fresh doughy breads, rolls and doughnuts. These types of foods become sticky and difficult to swallow. Toasted breads tend to be better tolerated. Lastly, if you eat sweets, consume them at the end of your meal to avoid a group of symptoms referred to as dumping syndrome. This describes the rapid emptying of foods from the stomach to the small intestine. Sweetened beverages, candy and desserts move more rapidly and dump quickly into the intestines. This can cause symptoms of nausea, weakness, cold sweats, cramps, diarrhea and dizzy spells. Important Steps to Avoid Gas Do not drink through a straw, chew gum, or chew tobacco. These actions cause you to swallow air, which will produce excess gas in your stomach. Chew with your mouth closed and chew your food thoroughly. Avoid foods that cause stomach gas and distention. The foods include corn, dried beans, peas, lentils, onions, broccoli, cauliflower, and any food item from the cabbage family. Do not drink carbonated drinks, alcohol, citrus, or tomato products. What Will I Be Able To Eat and Drink After Surgery After Saravanan Fundoplication Surgery, your diet will be advanced slowly by your surgeon. Generally, you will be on a thin/clear liquid diet for the first 10 days. Then you will advance to the full liquid diet for 4 days and eventually to a Saravanan soft diet for 7 days. After any surgery, protein consumption is important for healing. To get enough protein, drink 3-4 [place] Instant Breakfast, Ensure, or equivalent daily. Reminder: carbonated beverages (such as sodas, energy drinks, flavored carbonated water), and alcohol are not permitted for the 1st 6 to 8 weeks after surgery. After this time you may attempt to reintroduce them in small amounts. Please note: dairy products such as milk, ice cream, and putting may cause diarrhea and some people after surgery. He may need to avoid milk products. If so you may substitute them with lactose free beverages, such as soy, rice, lactate, or almond milk. Please be aware that each patient's tolerance to food is different. Your doctor will advance your diet depending on how well you progress after surgery. Thin Liquid Diet The first diet after Saravanan Fundoplication Surgery is the thin liquids diet. Follow this diet for postoperative days 1-10 08/10/2017 - 08/19/2017. Thin liquids include: Apple, Cranberry, or Grape Juice (no citrus juice) Chicken Broth Beef Broth Flavored Gelatin (Jell-O) Decaffeinated Tea or Coffee Popsicles or Indonesian Ice Caffeinated Beverages Will Be Permitted Based upon Tolerance Dairy Thin Milkshakes (strawberry or vanilla flavored- No chocolate) Drink 3-4 [place] instant breakfast, Ensure, or equivalent daily. May be mixed with dairy for thin milkshakes Full Liquid Diet Follow this diet for postoperative days 11-14 08/20/2017- 08/23/2017. Full liquid diet includes anything in the thin liquid diet plus: Milk, Soy, Rice, and [place] (No Chocolate) Cream of Wheat, Cream of Rice, Grits Strained Creamed Soups (No Tomato Water Broccoli) Vanilla and [place] Flavored Ice Cream Sherbet Vanilla and Butterscotch Pudding (No Chocolate or Coconut) Continue 3-4 [place] Instant Breakfast, Ensure, or an Equivalent Daily. Maybe Next with Dairy for Thin Milkshakes. Saravanan Soft Diet Follow this diet for postoperative days 15-20 08/24/2017- 08/30/2017. (If you are consuming enough protein, you may stop the protein supplements). See Saravanan Diet handout for more specific information Referrals: Edyta Melgar CNP [Primary Care Provider] - <Erinn Rivera - Last Filed: 08/19/17 22:59> Date of Encounter: 08/19/17 Objective PUL Vital signs: Last Vital Signs Temp 96.6 F L 08/19/17 15:00 Pulse 70 08/19/17 18:00 Resp 30 08/19/17 18:00 BP 100/35 08/19/17 18:00 Pulse Ox 54 08/19/17 18:00 Ventilator Settings Ventilator Settings: Ventilator Settings, Last 8 Hours Ventilator Mode A/C Ventilator Mode A/C Ventilator Tidal Volume 500 Setting Ventilator Tidal Volume 500 Setting Ventilator Tidal Volume 500 Setting Ventilator Tidal Volume 500 Setting Ventilator Respiratory Rate 30 Setting Ventilator Respiratory Rate 30 Setting Ventilator Respiratory Rate 30 Setting Ventilator Respiratory Rate 30 Setting Actual Respiratory Rate 30 Actual Respiratory Rate 30 Positive End Expiratory 16 Pressure Positive End Expiratory 16 Pressure Positive End Expiratory 16 Pressure Positive End Expiratory 16 Pressure Peak Inspiratory Airway 42 Pressure Peak Inspiratory Airway 43 Pressure Peak Inspiratory Airway 43 Pressure Results - Laboratory Findings CBC and BMP: 08/19/17 10:00 08/19/17 10:00 ABG ABG pH 7.09 pH Units (7.32-7.45) L* 08/19/17 16:11 ABG pCO2 39 mmHg (35-45) 08/19/17 16:11 ABG pO2 81 mmHg (85-104) L 08/19/17 16:11 ABG O2 Saturation 90 % (95-98) L 08/19/17 16:11 PT/INR, D-dimer PT 13.7 Seconds (9.4-12.1) H 08/19/17 10:00 Abnormal lab findings: Abnormal lab results WBC 86.1 K/mcL (4.3-11.1) H* 08/19/17 10:00 RBC 2.44 M/mcL (3.82-4.97) L 08/19/17 10:00 Hgb 7.3 g/dL (11.5-15.4) L 08/19/17 10:00 Hct 24.3 % (35.3-44.9) L 08/19/17 10:00 MCHC 30.0 g/dL (31.6-35.5) L 08/19/17 10:00 RDW 18.8 % (11.5-14.5) H 08/19/17 10:00 Plt Count 32 K/mcL (140-400) L 08/19/17 10:00 Band Neutrophils % 20.0 % (0-4) H 08/19/17 10:00 Metamyelocytes % 6.0 % (0) H 08/19/17 10:00 Myelocytes % 40.0 % (0) H 08/19/17 10:00 Promyelocytes % 1.0 % (0) H 08/18/17 20:50 Blast Cells % 8.0 % (0) H 08/18/17 20:50 Neutrophils # 41.3 K/mcL (1.6-8.9) H 08/19/17 10:00 Lymphocytes # 5.2 K/mcL (0.6-4.6) H 08/19/17 10:00 Monocytes # 2.6 K/mcL (0.0-1.3) H 08/18/17 20:50 Basophils # 1.2 K/mcL (0.0-0.2) H 08/18/17 03:20 Nucleated RBCs/100 WBC 16.6 /100 WBC (0) H 08/19/17 10:00 Reactive Lymphocytes Present (Not Present) A 08/13/17 04:05 Smudge Cells Present (Not Present) A 08/18/17 20:50 Toxic Granulation Present (Not Present) A 08/18/17 20:50 Dohle Bodies Present (Not Present) A 08/17/17 10:59 Platelet Estimate Marked Decrease (Normal) L 08/19/17 10:00 Large Platelets Present (Not Present) A 08/16/17 03:50 Immature Plt Fraction 13.8 % (1.1-6.1) H 08/15/17 03:20 Polychromasia 1+ (Not Present) A 08/17/17 04:49 Poikilocytosis 1+ (Not Present) A 08/19/17 10:00 Anisocytosis 1+ (Not Present) A 08/19/17 10:00 Bassett Cells 1+ (Not Present) A 08/19/17 03:00 PT 13.7 Seconds (9.4-12.1) H 08/19/17 10:00 Fibrinogen 740 mg/dL (169-393) H* 08/19/17 10:00 ABG pH 7.09 pH Units (7.32-7.45) L* 08/19/17 16:11 ABG pO2 81 mmHg (85-104) L 08/19/17 16:11 ABG HCO3 12 mEq/L (21-27) L 08/19/17 16:11 ABG Total CO2 13 mEq/L (20-26) L 08/19/17 16:11 ABG O2 Saturation 90 % (95-98) L 08/19/17 16:11 ABG Base Excess -17 mEq/L (-2 to 3) L 08/19/17 16:11 VBG pH 7.17 pH Units (7.32-7.42) L* 08/16/17 04:09 VBG pO2 172 mmHg (25-50) H 08/14/17 08:55 VBG HCO3 16 mEq/L (21-27) L 08/14/17 08:55 Sodium 135 mEq/L (136-145) L 08/19/17 10:00 Potassium 5.3 mEq/L (3.5-5.1) H 08/19/17 10:00 Carbon Dioxide 20 mEq/L (23-29) L 08/19/17 10:00 BUN 30 mg/dL (6-20) H 08/19/17 10:00 Creatinine 1.33 mg/dL (0.60-1.20) H 08/19/17 10:00 Est GFR ( Amer) 52 (> 60) L 08/19/17 10:00 Est GFR (Non-Af Amer) 43 (> 60) L 08/19/17 10:00 Glucose 110 mg/dL (70-105) H 08/19/17 10:00 POC Glucose 160 mg/dL (70-99) H 08/18/17 21:30 Lactic Acid > 10.0 mmol/L (0.5-2.2) H* 08/19/17 10:07 Calcium 8.2 mg/dL (8.6-10.3) L 08/19/17 10:00 Venous Ioniz Calcium 1.08 mmol/L (1.15-1.35) L 08/19/17 08:59 Phosphorus 5.0 mg/dL (2.7-4.5) H 08/19/17 03:00 Magnesium 2.7 mg/dL (1.6-2.6) H 08/19/17 03:00 Total Bilirubin 1.2 mg/dL (0.3-1.0) H 08/16/17 11:35 Direct Bilirubin 0.6 mg/dL (0.0-0.2) H 08/14/17 09:41 AST 657 Units/L (13-39) H 08/16/17 11:35 ALT 258 Units/L (7-52) H 08/16/17 11:35 Troponin I 0.07 ng/mL (< 0.04) H* 08/13/17 22:10 Serum Total Protein 4.6 g/dL (6.4-8.9) L 08/16/17 11:35 Albumin 2.1 g/dL (3.5-5.7) L 08/16/17 11:35 Albumin/Globulin Ratio 0.8 (1.1-2.2) L 08/16/17 11:35 Prealbumin < 3.0 mg/dL (17.0-34.0) L 08/14/17 03:00 Vancomycin Trough 26 mcg/mL (5-10) H 08/14/17 12:00 - Microbiology Findings Microbiology Findings: Microbiology, Last 48 Hours 08/17/17 06:35 Wound Culture - Final Abdomen Pseudomonas aeruginosa - Clinical Findings Intake & Output: Intake & Output 08/19/17 08/19/17 08/19/17 07:59 15:59 23:59 Intake Total 2422.6 / 2422.6 / 2007. 1014.5 / 1014.5 Output Total 1636 / 1636 2805 / 2805 340 / 340 Balance 786.6 / 786.6 -796.9 / -796.9 674.5 / 674.5 Weight 131.5 kg - Attending Attestation I saw and evaluated this patient and my medical decision-making was reviewed with the Resident Physician. I agree with the documented findings, disposition and treatment plan as described except to the extent set forth below. We independently had [id number] contact with the patient I spent 35 minutes of Critical Care time with this patient. It involved decision making of high complexity to assess, manipulate, and support vital organ system failure and/or to prevent further life threatening deterioration of the patient's condition. The time involved in the performance of separately reportable procedures was not counted toward critical care time. Patient seen and examined at bedside Labs, radiology, chart personally reviewed. Management was reviewed during multidisciplinary critical care rounds. STOP ATTACHER:Patient is intubated and sedated not following commands most likely due to toxic and metabolic encephalopathy . Pulm: Patient has severe ARDS still requiring high PEEP and FIO2 had to go up on Tidal volume because of worsening metabolic acidosis Cards: Septic shock with three vasopressors FEN-GI: To follow nutrition recs . Patient has profound lactic acidosis secondary most likely due to ischemic bowel Renal: YOJANA on CRRT , with profound lactic acidosis ID: To continue broad spectrum antibitoics . ID consulted Heme/Onc: Leukemoid reaction Endo: Glucose Monitored Integ/MSK: Skin Care per routine ICU Nursing Protocol to prevent ulcers. Lines: All lines examined without evidence of infection : Dispo: Patient high chance of dying today . Family was updated about the unfortunate turn of events CODE:[id number] patient leaning towards to comfort care .
[2017-08-19 08:19] LABS: ABG Base Excess -12 mEq/L (-2 to 3); ABG HCO3 16 mEq/L (21-27); ABG Oxygen Saturation 90 % (95-98); ABG PCO2 48 mmHg (35-45); ABG PH 7.13 pH Units (7.32-7.45); ABG PO2 76 mmHg (85-104); ABG TCO2 18 mEq/L (20-26); Blood Gas Modality ASSIST CONTROL; Blood Gas PEEP 16 cm H2O; Blood Gas Respiration Rate 30; Blood Gas VT 450 cc
[2017-08-19 09:02] LABS: VBG Ionized Calcium 1.08 mmol/L (1.15-1.35)
[2017-08-19] MEDS ORDERED: Calcium Gluconate 2,700 MG in PrismaSATE BGK 2/0 5,000 ML IVPB SCH ×2 (09:15→12:30)
[2017-08-19 09:23] LABS: Lymphocytes # 3.2 K/mcL (0.6-4.6); Neutrophils # 33.6 K/mcL (1.6-8.9)
[2017-08-19 09:24] LABS: Anisocytosis 1+ (Not Present); Poikilocytosis 1+ (Not Present)
[2017-08-19 09:25] LABS: Platelet Estimate Marked Decrease (Normal)
[2017-08-19] MEDS: Famotidine 20 MG/2 ML VIAL IVP SCH (09:25)
[2017-08-19] MEDS: Micafungin 100 MG in 0.9 % Sodium Chloride Mini Bag 100 ML IVPB SCH (09:25)
[2017-08-19] MEDS: Chlorhexidine Rinse 15 ML MOUTHWASH MM SCH (09:25)
[2017-08-19 09:26] LABS: Burr Cells 1+ (Not Present)
--- NOTE | 2017-08-19 09:28 | Nephrology Progress Note ---
Date of Encounter: 08/19/17 Time of Encounter: 09:15 - Assessment and Plan (1) Acute kidney failure, unspecified Current Visit: Yes Status: Acute Recurrent YOJANA R/T respiratory failure, hypotension, acidisis, oliguric. CVVH- with current hypotension Goal -100 volume removal. No documented urine output WBC 79.9, Co2 20. LA > 10. Hgb 5.9, order to transfuse PRBC, K 6.0, CVVH changed 2K/2.5Ca++. Will continue to monitor. Qualifiers: Acute renal failure type: unspecified Qualified Code(s): N17.9 - Acute kidney failure, unspecified Subjective Principal diagnosis: Tachycardia Interval history: Intubated, sedated, 3 pressors. Paralytic. FIO2 60/peep 16. Supine position. Critically ill. Objective - Vital Signs Vital signs: Vital Signs Temp Pulse Resp BP Pulse Ox 08/19/17 09:00 69 30 110/48 91 08/19/17 08:06 67 08/19/17 08:00 67 30 119/50 92 08/19/17 07:42 96.2 F L 68 30 142/54 08/19/17 07:39 96.2 F L 08/19/17 07:00 67 30 162/58 96 08/19/17 06:00 61 30 117/57 96 08/19/17 05:21 30 94/40 96 08/19/17 05:02 96.3 F L 60 30 98/40 96 08/19/17 05:00 60 30 95/40 96 08/19/17 04:47 96 F L 60 30 92/39 95 08/19/17 04:00 60 30 98/41 96 08/19/17 03:24 30 137/57 100 08/19/17 03:00 65 30 146/46 98 08/19/17 02:00 95.6 F L 62 30 99/41 98 08/19/17 01:14 26 139/44 98 08/19/17 01:00 77 26 126/40 98 08/19/17 00:00 77 26 125/52 98 08/18/17 23:22 26 109/49 98 08/18/17 23:05 96.3 F L 111 26 115/45 08/18/17 23:00 109 26 121/48 98 08/18/17 22:50 96.5 F L 77 26 135/43 08/18/17 22:00 117 26 114/47 99 08/18/17 21:29 26 124/52 96 08/18/17 21:00 96.3 F L 123 26 117/48 99 08/18/17 20:00 118 26 78/40 99 08/18/17 19:33 26 87/33 97 08/18/17 19:00 110 26 85/49 99 08/18/17 18:00 108 26 99/44 98 08/18/17 17:52 26 99/44 98 08/18/17 17:00 120 26 99/48 98 08/18/17 16:00 116 26 103/47 97 08/18/17 15:37 26 106/46 96 08/18/17 15:02 117 08/18/17 15:00 97.9 F 116 26 106/46 96 08/18/17 14:00 123 26 85/50 97 08/18/17 13:11 26 97 08/18/17 13:00 138 26 86/49 97 08/18/17 12:00 160 26 94/60 99 08/18/17 11:08 138 08/18/17 11:00 97.8 F 163 26 126/80 100 08/18/17 10:14 26 129/87 100 08/18/17 10:00 143 26 121/83 100 Intake and Output 08/18/17 08/19/17 08/19/17 23:59 07:59 15:59 Intake Total 2062.4 / 2062.4 2422.6 / 2422.6 0 / 0 Output Total 2453 / 2453 1636 / 1636 739 / 739 Balance -390.6 / -390.6 786.6 / 786.6 -739 / -739 Intake: IV Fluids 1712.4 / 1712.4 1722.6 / 1722.6 PrismaSATE BGK 4/2.5 5,000 ML @ 0 / 0 0 / 0 2000 mls/hr CRRT CONT [facility] Rx#: [id number] Vasostrict 40 UNIT In Dextrose 52.9 / 52.9 64.2 / 64.2 5% 100 ML @ 0.03 UNIT/MIN 4.59 mls/hr IV .[id number] [facility] Rx#: [id number] Amiodarone Drip Premix 360mg/ 290.1 / 290.1 127 / 127 200mL 360 mg In 200 ml @ 0.5 MG /MIN 16.667 mls/hr IVC CONT [facility] Rx#:[id number] Nimbex 200 MG In 0.9 % Sodium 199.9 / 199.9 281 / 281 Chloride 180 ML @ 3 MCG/KG/MIN 24.3 mls/hr IVC CONT [facility] Rx#: [id number] PRECEDEX Premix 400 mcg In 100 115.0 / 115.0 96 / 96 ml @ 0.2 MCG/KG/HR 6.415 mls/hr IVC .[id number] [facility] Rx#: [id number] FentaNYL (PF) 1,000 MCG In 0.9 126.0 / 126.0 130 / 130 % Sodium Chloride 80 ML @ 50 MCG/HR 5 mls/hr IVC CONT [facility] Rx #:[id number] Levophed 16 MG In Dextrose 5% 305.1 / 305.1 144 / 144 500 ML @ 5 MCG/MIN 9.67 mls/hr IVC CONT [facility] Rx#:[id number] Phenylephrine 50 MG In Dextrose 419.0 / 419.0 346 / 346 5% 250 ML @ 100 MCG/MIN 30.6 mls/hr IVC CONT [facility] Rx#: [id number] Diprivan 1,000 mg In 100 ml @ 5 76.8 / 76.8 62 / 62 MCG/KG/MIN 3.849 mls/hr IVC . Q24H [facility] Rx#:[id number] Sodium Bicarbonate 150 MEQ In 330 / 330 Dextrose 5% 1,000 ML @ 75 mls/ hr IVC .[id number] [facility] Rx#: [id number] Merrem 1,000 MG In Water for 10 / 10 inj. (sterile) 10 ML @ 200 mls/ hr IVP Q8HR [facility] Rx#:[id number] Intralipid 20% 250 ML @ 21 mls/ 117.6 / 117.6 132.4 / 132.4 hr IVPB DAILY@1700 [facility] Rx#: [id number] Tube Feeding 0 / 0 0 / 0 Blood Product 350 / 350 700 / 700 Platelet Pheresis Lp Irr 2nd 0 / 0 350 / 350 Unit [id number] Rbcs Leuko Poor As-1 Unit 350 / 350 [id number] Rbcs Leuko Poor As-1 Unit 350 / 350 [id number] Output: Xochitl 2448 / 2448 1636 / 1636 739 / 739 Catheter 5 / 5 0 / 0 0 / 0 Gastric Drainage 0 / 0 0 / 0 Other: Weight 131.5 kg Blood Glucose* 160 131 101 Patient Weight 08/19/17 23:59 Weight 131.5 kg - General Appearance General appearance: Present: well-developed, well-nourished, appears started age , obese EENT: Present: mucous membranes moist Neck: Present: no JVD Respiratory: Present: rhonchi Cardiology: Present: edema, regular rate, regular rhythm Gastrointestinal: Present: absent bowel sounds Additional Comments: abdomen cyanotic Additional Comments: hands cyanotic - Lab 08/19/17 03:00 08/19/17 03:00 Most recent lab results ABG pH 7.13 pH Units (7.32-7.45) L* 08/19/17 08:10 ABG pCO2 48 mmHg (35-45) H 08/19/17 08:10 ABG pO2 76 mmHg (85-104) L 08/19/17 08:10 ABG HCO3 16 mEq/L (21-27) L 08/19/17 08:10 ABG O2 Saturation 90 % (95-98) L 08/19/17 08:10 Calcium 7.8 mg/dL (8.6-10.3) L 08/19/17 03:00 Phosphorus 5.0 mg/dL (2.7-4.5) H 08/19/17 03:00 Magnesium 2.7 mg/dL (1.6-2.6) H 08/19/17 03:00 - VTE Documentation of Mechanical Device: Intermittent pneumatic compression device Consult Discharge Plan - Plan Additional Instructions: Surgical instructions: #1 may shower starting 08/10/17, no tub bath for 2 weeks #2 wash incisions with soap and water and pat dry daily #3 no lifting, pushing, pulling more than 15 pounds for the next 4 weeks #4 no driving until off narcotics for 24 hours and able to safely react in the car #5 may climb stairs Follow-up appointment: Sunday, August 20, 2017 with Sonia Joe CNP in the outpatient surgical office (Medical office building, [address]) [facility] Diet After Saravanan Fundoplication Surgery This diet information is for patients who have recently had Saravanan Fundoplication Surgery to correct reflux disease or to repair various types of hernias, such as hiatal hernia and intrathoracic stomach. This diet may also be used for other gastrointestinal surgeries, such as Heller myotomy and repair of achalasia. The diet will help control diarrhea, excess gas and swallowing problems, which may occur after this type of surgery. Important Steps to Keep Your Stomach From Stretching Eat small, frequent meals (six to eight per day). This will help you consume the majority of the nutrients you need without causing your stomach to feel full or distended. Drinking large amounts of fluids with meals can stretch your stomach. You may drink fluids between meals as often as you like, but limit fluids to 1/2 cup (4 fluid ounces) with meals and one cup (8 fluid ounces) with snacks. Sit upright while eating and stay upright for 30 minutes after each meal. [place] can help food move through your digestive tract. Do not lie down after eating. Sit upright for 2 hours after your last meal or snack of the day. Eat very slowly. Take your time when eating. Take small bites and chew your food well to help desk analyst in swallowing and digestion. Avoid crusty breads and sticky, gummy foods, such as bananas, fresh doughy breads, rolls and doughnuts. These types of foods become sticky and difficult to swallow. Toasted breads tend to be better tolerated. Lastly, if you eat sweets, consume them at the end of your meal to avoid a group of symptoms referred to as dumping syndrome. This describes the rapid emptying of foods from the stomach to the small intestine. Sweetened beverages, candy and desserts move more rapidly and dump quickly into the intestines. This can cause symptoms of nausea, weakness, cold sweats, cramps, diarrhea and dizzy spells. Important Steps to Avoid Gas Do not drink through a straw, chew gum, or chew tobacco. These actions cause you to swallow air, which will produce excess gas in your stomach. Chew with your mouth closed and chew your food thoroughly. Avoid foods that cause stomach gas and distention. The foods include corn, dried beans, peas, lentils, onions, broccoli, cauliflower, and any food item from the cabbage family. Do not drink carbonated drinks, alcohol, citrus, or tomato products. What Will I Be Able To Eat and Drink After Surgery After Saravanan Fundoplication Surgery, your diet will be advanced slowly by your surgeon. Generally, you will be on a thin/clear liquid diet for the first 10 days. Then you will advance to the full liquid diet for 4 days and eventually to a Saravanan soft diet for 7 days. After any surgery, protein consumption is important for healing. To get enough protein, drink 3-4 [place] Instant Breakfast, Ensure, or equivalent daily. Reminder: carbonated beverages (such as sodas, energy drinks, flavored carbonated water), and alcohol are not permitted for the 1st 6 to 8 weeks after surgery. After this time you may attempt to reintroduce them in small amounts. Please note: dairy products such as milk, ice cream, and putting may cause diarrhea and some people after surgery. He may need to avoid milk products. If so you may substitute them with lactose free beverages, such as soy, rice, lactate, or almond milk. Please be aware that each patient's tolerance to food is different. Your doctor will advance your diet depending on how well you progress after surgery. Thin Liquid Diet The first diet after Saravanan Fundoplication Surgery is the thin liquids diet. Follow this diet for postoperative days 1-10 08/10/2017 - 08/19/2017. Thin liquids include: Apple, Cranberry, or Grape Juice (no citrus juice) Chicken Broth Beef Broth Flavored Gelatin (Jell-O) Decaffeinated Tea or Coffee Popsicles or [place] Ice Caffeinated Beverages Will Be Permitted Based upon Tolerance Dairy Thin Milkshakes (strawberry or vanilla flavored- No chocolate) Drink 3-4 [place] instant breakfast, Ensure, or equivalent daily. May be mixed with dairy for thin milkshakes Full Liquid Diet Follow this diet for postoperative days 11-14 08/20/2017- 08/23/2017. Full liquid diet includes anything in the thin liquid diet plus: Milk, Soy, Rice, and [place] (No Chocolate) Cream of Wheat, Cream of Rice, Grits Strained Creamed Soups (No Tomato Water Broccoli) Vanilla and [place] Flavored Ice Cream Sherbet Vanilla and Butterscotch Pudding (No Chocolate or Coconut) Continue 3-4 [place] Instant Breakfast, Ensure, or an Equivalent Daily. Maybe Next with Dairy for Thin Milkshakes. Saravanan Soft Diet Follow this diet for postoperative days 15-20 08/24/2017- 08/30/2017. (If you are consuming enough protein, you may stop the protein supplements). See Saravanan Diet handout for more specific information Referrals: Edyta Melgar, ICE HOUSE SUPERVISOR [Primary Care Provider] -
--- NOTE | 2017-08-19 10:17 | General Surgery Progress Note ---
Date of Encounter: 08/19/17 Time of Encounter: 10:00 - Assessment and Plan (1) GERD (gastroesophageal reflux disease) Current Visit: Yes Status: Chronic POD # 9 s/p Saravanan Fundoplication and subsequent ex lap with oversewing of hepatic and splenic veins with Dr. Abhinav SMITH NG tube to LIWS IV fluids- Bicarb gtt Continue TPN therapy for nutritional support via PICC line Supportive care and pain control- fentanyl and precedex gtt PPI added today due to risk for stress ulcer No concern for ongoing bleeding from a surgical standpoint Qualifiers: Esophagitis presence: without esophagitis Qualified Code(s): K21.9 - Gastro -esophageal reflux disease without esophagitis (2) ARDS (adult respiratory distress syndrome) Current Visit: Yes Status: Acute Patient on ventilator support Requiring 80% FiO2 and PEEP of 16 Patient is in the supine position at this time (flipped 08/15 at 1500) Management per pulmonary/critical care team (3) Acute respiratory failure Current Visit: Yes Status: Acute Patient on ventilator support Concern for severe ARDS Requiring 80% FiO2 and PEEP of 16 Patient is in the supine position (flipped 08/15 at 1500) Management per pulmonary/critical care team IV antibiotic therapy- Meropenem, Vancomycin, Micofungin Qualifiers: Respiratory failure complication: hypoxia Qualified Code(s): J96.01 - Acute respiratory failure with hypoxia (4) Chest pain Current Visit: No Status: Acute Cardiology consulted and signed off Appreciate recommendations Echo complete- LVEF 70% Qualifiers: Chest pain type: unspecified Qualified Code(s): R07.9 - Chest pain, unspecified (5) Acute kidney failure, unspecified Current Visit: Yes Status: Acute Cr- 1.71>1.70>1.47 Nephrology following LYNN management per pulmonary/critical care and nephrology Qualifiers: Acute renal failure type: unspecified Qualified Code(s): N17.9 - Acute kidney failure, unspecified (6) Anemia Current Visit: Yes Status: Acute Hgb- 7.8>6.8>6.8 No concern for ongoing bleeding from a surgical standpoint 4 units of PRBC ordered per critical care team Continue to monitor Qualifiers: Anemia type: other cause Other causes of anemia: acute posthemorrhagic Qualified Code(s): D62 - Acute posthemorrhagic anemia (7) Leukocytosis Current Visit: Yes Status: Acute WBC- 51.4>66>79.9 Suspect related to systemic inflammatory response Continue to monitor Qualifiers: Leukocytosis type: unspecified Qualified Code(s): D72.829 - Elevated white blood cell count, unspecified (8) Thrombocytopenia Current Visit: Yes Status: Acute Plt- 31>28>33 Transfuse 4 packs of platelets today (ordered per critical care team) (9) Atrial fibrillation with RVR Current Visit: Yes Status: Resolved S/P cardioversion 3 times 08/18/17 Amiodarone gtt stopped last night Continue to monitor (10) Shock Current Visit: Yes Status: Acute Suspect vasodilatory shock in the setting of systemic inflammatory response and ARDS Antibiotic coverage- Merpenem, Vancomycin as well as Micofungin Remains on pressor support with Levophed, Neosynephrine, and Vasopressin (11) DVT prophylaxis Current Visit: Yes Status: Acute Heparin 5,000 units SQ TID for DVT prophylaxis EPCDs to bilateral lower extremities for DVT prophylaxis Subjective Patient reports: afebrile, other (Patient paralyzed and sedated on ventilator support; On pressor support (levophed, neosynephrine, vasopressin); Patient on LYNN; Patient with significant hemodynamic instability last evening with rise in lactic acid >10) Objective Vital Signs - Last 8 Hours Temp Pulse Resp BP Pulse Ox 08/19/17 09:51 30 106/47 91 08/19/17 09:00 69 30 110/48 91 08/19/17 08:06 67 08/19/17 08:00 67 30 119/50 92 08/19/17 07:42 96.2 F L 68 30 142/54 08/19/17 07:39 96.2 F L 08/19/17 07:00 67 30 162/58 96 08/19/17 06:00 61 30 117/57 96 08/19/17 05:21 30 94/40 96 08/19/17 05:02 96.3 F L 60 30 98/40 96 08/19/17 05:00 60 30 95/40 96 08/19/17 04:47 96 F L 60 30 92/39 95 08/19/17 04:00 60 30 98/41 96 08/19/17 03:24 30 137/57 100 08/19/17 03:00 65 30 146/46 98 Intake and Output 04/2908/19/17 08/19/17 23:59 07:59 15:59 Intake Total 2062.4 / 2062.4 2422.6 / 2422.6 106 / 106 Output Total 2453 / 2453 1636 / 1636 739 / 739 Balance -390.6 / -390.6 786.6 / 786.6 -633 / -633 Intake: IV Fluids 1712.4 / 1712.4 1722.6 / 1722.6 106 / 106 PrismaSATE BGK 4/2.5 5,000 ML @ 0 / 0 0 / 0 2000 mls/hr CRRT CONT [facility] Rx#: [id number] Vasostrict 40 UNIT In Dextrose 52.9 / 52.9 64.2 / 64.2 5% 100 ML @ 0.03 UNIT/MIN 4.59 mls/hr IV .[id number] [facility] Rx#: [id number] Amiodarone Drip Premix 360mg/ 290.1 / 290.1 127 / 127 200mL 360 mg In 200 ml @ 0.5 MG /MIN 16.667 mls/hr IVC CONT [facility] Rx#:[id number] Nimbex 200 MG In 0.9 % Sodium 199.9 / 199.9 281 / 281 43 / 43 Chloride 180 ML @ 3 MCG/KG/MIN 24.3 mls/hr IVC CONT [facility] Rx#: [id number] PRECEDEX Premix 400 mcg In 100 115.0 / 115.0 96 / 96 19 / 19 ml @ 0.2 MCG/KG/HR 6.415 mls/hr IVC .[id number] [facility] Rx#: [id number] FentaNYL (PF) 1,000 MCG In 0.9 126.0 / 126.0 130 / 130 44 / 44 % Sodium Chloride 80 ML @ 50 MCG/HR 5 mls/hr IVC CONT [facility] Rx #:[id number] Levophed 16 MG In Dextrose 5% 305.1 / 305.1 144 / 144 500 ML @ 5 MCG/MIN 9.67 mls/hr IVC CONT [facility] Rx#:[id number] Phenylephrine 50 MG In Dextrose 419.0 / 419.0 346 / 346 5% 250 ML @ 100 MCG/MIN 30.6 mls/hr IVC CONT [facility] Rx#: [id number] Diprivan 1,000 mg In 100 ml @ 5 76.8 / 76.8 62 / 62 MCG/KG/MIN 3.849 mls/hr IVC . Q24H [facility] Rx#:[id number] Sodium Bicarbonate 150 MEQ In 330 / 330 Dextrose 5% 1,000 ML @ 75 mls/ hr IVC .[id number] [facility] Rx#: [id number] Merrem 1,000 MG In Water for 10 / 10 inj. (sterile) 10 ML @ 200 mls/ hr IVP Q8HR [facility] Rx#:[id number] Intralipid 20% 250 ML @ 21 mls/ 117.6 / 117.6 132.4 / 132.4 hr IVPB DAILY@1700 [facility] Rx#: [id number] Tube Feeding 0 / 0 0 / 0 Blood Product 350 / 350 700 / 700 Platelet Pheresis Lp Irr 2nd 0 / 0 350 / 350 Unit [id number] Rbcs Leuko Poor As-1 Unit 350 / 350 [id number] Rbcs Leuko Poor As-1 Unit 350 / 350 [id number] Output: [place] 2448 / 2448 1636 / 1636 739 / 739 Catheter 5 / 5 0 / 0 0 / 0 Gastric Drainage 0 / 0 0 / 0 Other: Weight 131.5 kg Blood Glucose* 160 131 101 Patient Weight 08/19/17 23:59 Weight 131.5 kg - General physical appearance other (Patient paralyzed and sedated on ventilator support; Pressor support) - ENT dry mucosa, atraumatic, normocephalic - Neck Neck exam: trachea midline - Respiratory other (Ventilator support; FiO2 of 80% with PEEP of 16) rales: bilateral - Cardiovascular Cardiovascular exam: Present: RRR - Abdomen Abdomen: Present: soft, wound (NG to LIWS with bilious drainage noted (minimal output noted)) - Incision Incision: Present: intact (I was able to express a scant amount of fluid from the upper incision consistent with old hematoma (no purulence evident); no surrounding erythema or induration) - Genitourinary other (mckinnon catheter to SD with no urine output documented) - Integumentary other (Mottling of skin noted; Anasarca noted) - Neurologic other (Unable to assess) - Musculoskeletal other (Unable to assess) - Psychiatric other (Unable to assess) - Labs 08/19/17 03:00 08/19/17 03:00 Diabetes panel 08/18/17 08/19/17 Range/Units 20:51 03:00 Sodium 130 L 134 L (136-145) mEq/L Potassium 5.3 H 6.0 H (3.5-5.1) mEq/L Chloride 100 99 (98-107) mEq/L Carbon Dioxide 20 L 20 L (23-29) mEq/L BUN 34 H 32 H (6-20) mg/dL Creatinine 1.47 H 1.34 H (0.60-1.20) mg/dL Glucose 189 H 163 H (70-105) mg/dL Calcium 7.9 L 7.8 L (8.6-10.3) mg/dL Calcium panel 08/18/17 08/19/17 Range/Units 20:51 03:00 Calcium 7.9 L 7.8 L (8.6-10.3) mg/dL Phosphorus 5.0 H (2.7-4.5) mg/dL Pituitary panel 08/18/17 08/19/17 Range/Units 20:51 03:00 Sodium 130 L 134 L (136-145) mEq/L Potassium 5.3 H 6.0 H (3.5-5.1) mEq/L Chloride 100 99 (98-107) mEq/L Carbon Dioxide 20 L 20 L (23-29) mEq/L BUN 34 H 32 H (6-20) mg/dL Creatinine 1.47 H 1.34 H (0.60-1.20) mg/dL Glucose 189 H 163 H (70-105) mg/dL Calcium 7.9 L 7.8 L (8.6-10.3) mg/dL Adrenal panel 08/18/17 08/19/17 Range/Units 20:51 03:00 Sodium 130 L 134 L (136-145) mEq/L Potassium 5.3 H 6.0 H (3.5-5.1) mEq/L Chloride 100 99 (98-107) mEq/L Carbon Dioxide 20 L 20 L (23-29) mEq/L BUN 34 H 32 H (6-20) mg/dL Creatinine 1.47 H 1.34 H (0.60-1.20) mg/dL Glucose 189 H 163 H (70-105) mg/dL Calcium 7.9 L 7.8 L (8.6-10.3) mg/dL - VTE Documentation of Mechanical Device: Intermittent pneumatic compression device Consult Discharge Plan - Plan Additional Instructions: Surgical instructions: #1 may shower starting 08/10/17, no tub bath for 2 weeks #2 wash incisions with soap and water and pat dry daily #3 no lifting, pushing, pulling more than 15 pounds for the next 4 weeks #4 no driving until off narcotics for 24 hours and able to safely react in the car #5 may climb stairs Follow-up appointment: Sunday, August 20, 2017 with Sonia Joe CNP in the outpatient surgical office (Medical office building, [address]) [place] Surgical Diet After Saravanan Fundoplication Surgery This diet information is for patients who have recently had Saravanan Fundoplication Surgery to correct reflux disease or to repair various types of hernias, such as hiatal hernia and intrathoracic stomach. This diet may also be used for other gastrointestinal surgeries, such as Heller myotomy and repair of achalasia. The diet will help control diarrhea, excess gas and swallowing problems, which may occur after this type of surgery. Important Steps to Keep Your Stomach From Stretching Eat small, frequent meals (six to eight per day). This will help you consume the majority of the nutrients you need without causing your stomach to feel full or distended. Drinking large amounts of fluids with meals can stretch your stomach. You may drink fluids between meals as often as you like, but limit fluids to 1/2 cup (4 fluid ounces) with meals and one cup (8 fluid ounces) with snacks. Sit upright while eating and stay upright for 30 minutes after each meal. [place] can help food move through your digestive tract. Do not lie down after eating. Sit upright for 2 hours after your last meal or snack of the day. Eat very slowly. Take your time when eating. Take small bites and chew your food well to hostler helper in swallowing and digestion. Avoid crusty breads and sticky, gummy foods, such as bananas, fresh doughy breads, rolls and doughnuts. These types of foods become sticky and difficult to swallow. Toasted breads tend to be better tolerated. Lastly, if you eat sweets, consume them at the end of your meal to avoid a group of symptoms referred to as dumping syndrome. This describes the rapid emptying of foods from the stomach to the small intestine. Sweetened beverages, candy and desserts move more rapidly and dump quickly into the intestines. This can cause symptoms of nausea, weakness, cold sweats, cramps, diarrhea and dizzy spells. Important Steps to Avoid Gas Do not drink through a straw, chew gum, or chew tobacco. These actions cause you to swallow air, which will produce excess gas in your stomach. Chew with your mouth closed and chew your food thoroughly. Avoid foods that cause stomach gas and distention. The foods include corn, dried beans, peas, lentils, onions, broccoli, cauliflower, and any food item from the cabbage family. Do not drink carbonated drinks, alcohol, citrus, or tomato products. What Will I Be Able To Eat and Drink After Surgery After Saravanan Fundoplication Surgery, your diet will be advanced slowly by your surgeon. Generally, you will be on a thin/clear liquid diet for the first 10 days. Then you will advance to the full liquid diet for 4 days and eventually to a Saravanan soft diet for 7 days. After any surgery, protein consumption is important for healing. To get enough protein, drink 3-4 [place] Instant Breakfast, Ensure, or equivalent daily. Reminder: carbonated beverages (such as sodas, energy drinks, flavored carbonated water), and alcohol are not permitted for the 1st 6 to 8 weeks after surgery. After this time you may attempt to reintroduce them in small amounts. Please note: dairy products such as milk, ice cream, and putting may cause diarrhea and some people after surgery. He may need to avoid milk products. If so you may substitute them with lactose free beverages, such as soy, rice, lactate, or almond milk. Please be aware that each patient's tolerance to food is different. Your doctor will advance your diet depending on how well you progress after surgery. Thin Liquid Diet The first diet after Saravanan Fundoplication Surgery is the thin liquids diet. Follow this diet for postoperative days 1-10 08/10/2017 - 08/19/2017. Thin liquids include: Apple, Cranberry, or Grape Juice (no citrus juice) Chicken Broth Beef Broth Flavored Gelatin (Jell-O) Decaffeinated Tea or Coffee Popsicles or [place] Ice Caffeinated Beverages Will Be Permitted Based upon Tolerance Dairy Thin Milkshakes (strawberry or vanilla flavored- No chocolate) Drink 3-4 [place] instant breakfast, Ensure, or equivalent daily. May be mixed with dairy for thin milkshakes Full Liquid Diet Follow this diet for postoperative days 11-14 08/20/2017- 08/23/2017. Full liquid diet includes anything in the thin liquid diet plus: Milk, Soy, Rice, and [place] (No Chocolate) Cream of Wheat, Cream of Rice, Grits Strained Creamed Soups (No Tomato Water Broccoli) Vanilla and [place] Flavored Ice Cream Sherbet Vanilla and Butterscotch Pudding (No Chocolate or Coconut) Continue 3-4 [place] Instant Breakfast, Ensure, or an Equivalent Daily. Maybe Next with Dairy for Thin Milkshakes. Saravanan Soft Diet Follow this diet for postoperative days 15-20 08/24/2017- 08/30/2017. (If you are consuming enough protein, you may stop the protein supplements). See Saravanan Diet handout for more specific information Referrals: Edyta Melgar, BEAD FILLER [Primary Care Provider] - - Attending Attestation For this encounter, I have reviewed the TRAINING DEVELOPMENT DIRECTOR or PA documentation, treatment plan, and medical decision making; and I have had face to face time with this patient.
[2017-08-19 10:43] LABS: Calcium 8.2 mg/dL (8.6-10.3); Potassium 5.3 mEq/L (3.5-5.1)
[2017-08-19 10:44] LABS: Mean Corpuscular Volume 99.6 fL (83.0-100.0); Red Cell Distribution Width 18.8 % (11.5-14.5)
[2017-08-19 10:46] LABS: Hematocrit 24.3 % (35.3-44.9); Hemoglobin 7.3 g/dL (11.5-15.4); Mean Corpuscular Hemoglobin 29.9 pg (28.0-33.3); Nucleated Red Blood Cells 16.6 /100 WBC (0); Red Blood Count 2.44 M/mcL (3.82-4.97)
[2017-08-19 10:54] LABS: Platelet Count 32 K/mcL (140-400)
[2017-08-19 10:56] LABS: INR 1.3; Prothrombin Time 13.7 Seconds (9.4-12.1)
[2017-08-19 10:57] LABS: Activated Partial Thrombo Time 34.9 Seconds (26.0-36.0)
[2017-08-19 11:24] LABS: Anisocytosis 1+ (Not Present); Lymphocytes # 5.2 K/mcL (0.6-4.6); Neutrophils # 41.3 K/mcL (1.6-8.9); Platelet Estimate Marked Decrease (Normal)
[2017-08-19 11:25] LABS: Poikilocytosis 1+ (Not Present)
[2017-08-19] MEDS: Norepinephrine 16 MG in D5% in Water 500 ML IVC SCH (12:03)
[2017-08-19] MEDS: *HR* Dextrose 50 % in Water (Syg) 50 ML SYRINGE IVP PRN ×2 (12:15→15:24)
--- NOTE | 2017-08-19 13:26 | Infectious Disease Consult ---
Date of Encounter: 08/19/17 Time of Encounter: 13:24 Assessment and Plan (1) MODS (multiple organ dysfunction syndrome) Status: Acute Assessment and plan: SVT requiring synchronized cardioversion, hypotension, leukocytosis, elevated lactic acid, Sj, thrombocytopenia, shock refractory to vasopressors, DIC. POD#10 s/p Saravanan fundoplication, exploratory laporotomy with oversewing of the hepatic and splenic veins. 08/19/17 blood cultures x2 pending 08/17/17 abdominal wound culture positive for Pseudomonas, horton sensitive creatinine clearance: 50 causative organism: unclear. plan: vancomycin day 7 goal trough ~15 micafungin day 3-continue for now. d/c if culture negative. stop Meropenem. Start zosyn-day 1 blood cultures X2 pending RIP, legionella ag, S.pneumo ag Pending LFT, amylase, lipase pending. recommend repeat CT chest, abdomen, pelvis. (2) Septic shock Status: Acute Assessment and plan: as above (3) Acute respiratory failure with hypoxia Status: Acute Assessment and plan: Secondary to ARDS. Plan as above. (4) Acute kidney failure, unspecified Status: Acute Assessment and plan: Recurrent oligouric Sj CVVH per nephroogy Qualifiers: Acute renal failure type: unspecified Qualified Code(s): N17.9 - Acute kidney failure, unspecified (5) Anemia Status: Acute Assessment and plan: s/p transfusion of 9 units RBCs, 3 units platelets. Qualifiers: Anemia type: other cause Other causes of anemia: acute posthemorrhagic Qualified Code(s): D62 - Acute posthemorrhagic anemia (6) Atrial fibrillation with RVR Status: Resolved Assessment and plan: Management per primary (7) Elevated troponin Status: Resolved Assessment and plan: And judgment per cardiology and primary team (8) Thrombocytopenia Status: Acute Assessment and plan: Infusion as needed per primary (9) GERD (gastroesophageal reflux disease) Status: Chronic Assessment and plan: POD#10 s/p Saravanan fundoplication, exploratory laporotomy with oversewing of the hepatic and splenic veins. protonix and carafate per primary Qualifiers: Esophagitis presence: without esophagitis Qualified Code(s): K21.9 - Gastro -esophageal reflux disease without esophagitis (10) Abdominal wound dehiscence Status: Acute Assessment and plan: Management per surgery and primary team. Qualifiers: Encounter type: initial encounter Qualified Code(s): T81.30XA - Disruption of wound, unspecified, initial encounter Infectious Disease HPI - Data of Consult Patient: new to practice Consult date: 08/19/17 Requesting Physician: Juno La DO Primary Care Provider: Edyta Melgar CNP - Consult Narrative Reason for consult: Sepsis, refractory shock, S/P Saravanan with positive wound cultures History of present illness: Infectious disease was consult it on 08/19/17 for sepsis, refractory shock. Ms. Will is a 46 year old female who arrived to the hospital on 08/09/17 to receive a robotic hiatal hernia repair with Saravanan fundoplication by Dr. La. After the surgery, patient became unstable and hypotensive and pale at PACU. 2 units of trauma blood were ordered and she was taken back to the OR the same day for exploratory laparotomy with oversewing of the hepatic and splenic vein, and then was taken to the ICU afterwards for close monitoring. On day of her surgery, she had wbc of 23, hemoglobin 8.5, platelet 124, 18.8 neutrophils. During her hospitalization, patient developed nonoliguric Sj for which nephrology was consulted. On POD #4, she developed new onset hypoxia and RUQ abdominal pain. Stat CT of the chest abdomen and pelvis was ordered, which showed no evidence of PE, small bilateral pleural effusions with extensive lower lobe atelectasis and consolidation, suspected partial small bowel obstruction with transition point along the right lower quadrant, small to moderate ascites, organized clot seen at the low pelvis, heterogeneous enhancement of the spleen along its superior and inferior polls, possibly related to splenic infarct or laceration. No free air in the peritoneum. At that time, consult to critical care team was made. ABG showed metabolic acidosis. And was initially placed on 15 L non-rebreather but was saturating at 89%, decision was made for intubation, and subsequently placed on a propofol and fentanyl drip. At that time, she was also placed on broad-spectrum antibiotics. She also required blood pressure support with Levophed. On the evening after intubation, patient became hypoxic despite being on 100% FiO2 with increasing PEEP. She also became more hypotensive with blood pressures as low as 50/30. Vasopressin was added, as well as Neosynephrine. At this point, there was concern that patient was developing ARDS, and was treated for such. On POD#5, she was started on LYNN after temporary dialysis catheter was placed for acute renal failure. She required continuous care for ARDS, shock, acute renal failure, and anemia. On POD#8, patient develops worsening tachycardia with concerns for SVT, requiring synchronized cardioversion with 50J , and she converted back to sinus rhythm. He was started on continuous amiodarone infusion. Total, she required 9 units of packed red blood cells and 3 units of platelets. But cultures were sent on 4 and are pending. Abdominal wound culture from 4/18 positive for Pseudomonas that his horton sensitive. Sections disease was consult it on recommendations regarding refractory septic shock. She is currently being treated with vancomycin, Meropenem, micafungin. She remains intubated and sedated. Subjective history could not be obtained due to endotracheal intubation. CC: Juno La, DO Past Med Surg Social Fam HX - Past Medical History Medical history: GERD, thyroid disease, other Psychiatric history: no psych history - Past Surgical History Surgical History: cholecystectomy, hysterectomy, other - Social History Smoking Status: Never smoker Smokeless Tobacco Status: No Alcohol use: none Drug use: none - Family History Father Hx Family Cardiac Disorders: Yes ([place]) Infectious Disease-CN:Meds Cholecalciferol (D-3) [Vitamin D] 1,000 unit PO DAILY 04/10/ [History] Vitamin E (Dl,Tocopheryl Acet) [Vitamin E] 400 unit PO DAILY 04/10/17 [History] Aspirin 81 mg PO DAILY #30 tab.chew 04/12/ [Rx] Nitroglycerin 0.4 mg SL Q5MIN PRN #14 tab.subl 04/12/ [Rx] Famotidine [Heartburn Prevention] 20 mg PO DAILY 06/17/17 [History] Pravastatin Sodium [Pravachol] 20 mg PO DAILY 06/17/17 [History] Ascorbic Acid [Vitamin C] 100 mg PO DAILY 08/09/17 [History] Docusate [Colace] 100 mg PO BID PRN #30 capsule 08/09/17 [Rx] Ibuprofen [Motrin] 600 mg PO Q6HR #40 tab 08/09/17 [Rx] Loratadine [Claritin] 10 mg PO DAILY 08/09/17 [History] Ondansetron ODT [Zofran ODT] 4 mg SL Q6HR PRN #30 tab.rapdis 08/09/17 [Rx] OxyCODONE/APAP 5/325 [Percocet 5/325 MG] 1 each PO Q6HR PRN 5 Days #20 tablet [Rx] 3 Allergy/AdvReac Type Severity Reaction Status Date / Time Sulfa (Sulfonamide Allergy Anaphylaxis Verified 08/09/17 09:33 Antibiotics) ROS unobtainable: due to endotracheal tube Exam - Constitutional Vitals: Temp Pulse Resp BP Pulse Ox 96.6 F L 66 30 103/38 90 08/19/17 11:00 08/19/17 13:00 08/19/17 13:00 08/19/17 13:00 08/19/17 13:00 General appearance: morbidly obese, no acute distress Exam: Patient is intubated and sedated - Head Head exam: Present: atraumatic - Respiratory Respiratory exam: Present: CTAB - Cardiovascular Cardiovascular exam: Present: RRR, +S1, +S2. Absent: systolic murmur - GI/Abdominal GI/Abdominal exam: Present: distended, firm Additional comments: Surgical incision clean, dry, intact - Extremities Exam Additional comments: +2 bilateral lower extremity pitting edema, +2 bilateral upper extremity pitting edema, significant bruising present on the right arm - Skin Additional comments: Mottling present on bilateral upper extremities, chest, abdomen Infectious Disease CN: Results - Labs CBC & Chem 7: 08/19/17 10:00 08/19/17 10:00 Cultures: Cultures 08/17/17 06:35 Wound Culture - Final Abdomen Pseudomonas aeruginosa - VTE Documentation of Mechanical Device: Intermittent pneumatic compression device Consult Discharge Plan - Plan Additional Instructions: Surgical instructions: #1 may shower starting 08/10/17, no tub bath for 2 weeks #2 wash incisions with soap and water and pat dry daily #3 no lifting, pushing, pulling more than 15 pounds for the next 4 weeks #4 no driving until off narcotics for 24 hours and able to safely react in the car #5 may climb stairs Follow-up appointment: Sunday, August 20, 2017 with Sonia Joe CNP in the outpatient surgical office (Medical office building, [address]) [facility] Diet After Saravanan Fundoplication Surgery This diet information is for patients who have recently had Saravanan Fundoplication Surgery to correct reflux disease or to repair various types of hernias, such as hiatal hernia and intrathoracic stomach. This diet may also be used for other gastrointestinal surgeries, such as Heller myotomy and repair of achalasia. The diet will help control diarrhea, excess gas and swallowing problems, which may occur after this type of surgery. Important Steps to Keep Your Stomach From Stretching Eat small, frequent meals (six to eight per day). This will help you consume the majority of the nutrients you need without causing your stomach to feel full or distended. Drinking large amounts of fluids with meals can stretch your stomach. You may drink fluids between meals as often as you like, but limit fluids to 1/2 cup (4 fluid ounces) with meals and one cup (8 fluid ounces) with snacks. Sit upright while eating and stay upright for 30 minutes after each meal. Wayne can help food move through your digestive tract. Do not lie down after eating. Sit upright for 2 hours after your last meal or snack of the day. Eat very slowly. Take your time when eating. Take small bites and chew your food well to retail helper in swallowing and digestion. Avoid crusty breads and sticky, gummy foods, such as bananas, fresh doughy breads, rolls and doughnuts. These types of foods become sticky and difficult to swallow. Toasted breads tend to be better tolerated. Lastly, if you eat sweets, consume them at the end of your meal to avoid a group of symptoms referred to as dumping syndrome. This describes the rapid emptying of foods from the stomach to the small intestine. Sweetened beverages, candy and desserts move more rapidly and dump quickly into the intestines. This can cause symptoms of nausea, weakness, cold sweats, cramps, diarrhea and dizzy spells. Important Steps to Avoid Gas Do not drink through a straw, chew gum, or chew tobacco. These actions cause you to swallow air, which will produce excess gas in your stomach. Chew with your mouth closed and chew your food thoroughly. Avoid foods that cause stomach gas and distention. The foods include corn, dried beans, peas, lentils, onions, broccoli, cauliflower, and any food item from the cabbage family. Do not drink carbonated drinks, alcohol, citrus, or tomato products. What Will I Be Able To Eat and Drink After Surgery After Saravanan Fundoplication Surgery, your diet will be advanced slowly by your surgeon. Generally, you will be on a thin/clear liquid diet for the first 10 days. Then you will advance to the full liquid diet for 4 days and eventually to a Saravanan soft diet for 7 days. After any surgery, protein consumption is important for healing. To get enough protein, drink 3-4 [place] Instant Breakfast, Ensure, or equivalent daily. Reminder: carbonated beverages (such as sodas, energy drinks, flavored carbonated water), and alcohol are not permitted for the 1st 6 to 8 weeks after surgery. After this time you may attempt to reintroduce them in small amounts. Please note: dairy products such as milk, ice cream, and putting may cause diarrhea and some people after surgery. He may need to avoid milk products. If so you may substitute them with lactose free beverages, such as soy, rice, lactate, or almond milk. Please be aware that each patient's tolerance to food is different. Your doctor will advance your diet depending on how well you progress after surgery. Thin Liquid Diet The first diet after Saravanan Fundoplication Surgery is the thin liquids diet. Follow this diet for postoperative days 1-10 08/10/2017 - 08/19/2017. Thin liquids include: Apple, Cranberry, or Grape Juice (no citrus juice) Chicken Broth Beef Broth Flavored Gelatin (Jell-O) Decaffeinated Tea or Coffee Popsicles or Kiswahili Ice Caffeinated Beverages Will Be Permitted Based upon Tolerance Dairy Thin Milkshakes (strawberry or vanilla flavored- No chocolate) Drink 3-4 Oakley instant breakfast, Ensure, or equivalent daily. May be mixed with dairy for thin milkshakes Full Liquid Diet Follow this diet for postoperative days 11-14 08/20/2017- 08/23/2017. Full liquid diet includes anything in the thin liquid diet plus: Milk, Soy, Rice, and Kenna (No Chocolate) Cream of Wheat, Cream of Rice, Grits Strained Creamed Soups (No Tomato Water Broccoli) Vanilla and Rincon Flavored Ice Cream Sherbet Vanilla and Butterscotch Pudding (No Chocolate or Coconut) Continue 3-4 [place] Instant Breakfast, Ensure, or an Equivalent Daily. Maybe Next with Dairy for Thin Milkshakes. Saravanan Soft Diet Follow this diet for postoperative days 15-20 08/24/2017- 08/30/2017. (If you are consuming enough protein, you may stop the protein supplements). See Saravanan Diet handout for more specific information Referrals: Edyta Melgar, COMMERCIAL HVAC TECHNICIAN [Primary Care Provider] - - Attending Attestation I examined this patient and my medical decision-making was reviewed with the Resident Physician. I agree with the documented findings, disposition and treatment plan as described except to the extent set forth below. Patient is a 46 year old woman with past medical history mentioned below was admitted for elective hiatal hernia repair and Saravanan fundoplication on 08/09. Post op patient became hypotensive and was taken back to surgery where she was noted to have lacerations of hepatic and splenic vein. Patients veins were sutured and patient sent to the ICU. At that time, patient was not intubated or on pressors. Patient had a fever on August 10. She also had leukocytosis, tachydaria and elevated lactic acid and end organ damage. A CXR on 08/12 revealed bilateral effusions with underlying airspace opacities potentially representing atelectasis vs pneumonia. No blood cultures were obtained. On 08/13: patient became hypotensive, hypoxic with abdominal pain. She also was febrile and WBC jumped form 17.6 to 41 thousand on 08/14 with 39% bands. Patient was intubated, sedated and started on vancomycin/zosyn. A CT chest abdomen and pelvis revealed small bilateral pleural effusions with extensive lower lobe atelectasis and/or consolidation. Suspected partial small bowel obstruction, with transition point along the right lower quadrant. Heterogeneous enhancement of the spleen, particularly along its superior and inferior poles. This is favored to be related to a splenic infarct, with splenic laceration a less likely possibility. Mild thickening of the peritoneal lining, which can be seen with peritonitis. Patient went into acute renal failure. And required lynn that was started on . On August 17, patient went into A fib with RVR requiring cardioversion. Patient at that time also had wound dehiscence and was having drainage. Wound cultures were obtained and they grew Pseudomonas aeruginosa horton sensitive. Patient continues to require multiple pressors, and vent support with PEEP 15 FiO2 of 90%. Patient has also been having leukomoid reactions with WBC of 86.1 with bandemia at 20%. Thrombocytopenia and Fibrinogen of 800 and a lactic acid over 10. Vancomycin 08/13 current Zosyn 08/13-08/18 Meropenem 08/18 current Micafungin 08/17 - current We were asked to evaluated the patient and make further recommendations. A/P: Septic shock requiring 3 pressors Acute respiratory failure requiring high O2 Pneumonia causative organism not clear DIC Acute renal failure on lynn A fib RVR requiring cardioversion and amiodarone Shock liver Recommendations Blood cultures x 2 Peripheral smear on 08/18 revealing toxic granulocytes Respiratory infectious panel Urine legionella and strep pneumo antigen Check LFTs Check lipase amylase Repeat lactic acid level Repeat CT chest abdomen and pelvis with IV contrast if patient is stable Continue vancomycin with goal around 15 Continue micafungin and d/c if cultures are negative d/c meropenem start zosyn prognosis very poor.
[2017-08-19 13:31] LABS: ABG Base Excess -16 mEq/L (-2 to 3); ABG HCO3 13 mEq/L (21-27); ABG Oxygen Saturation 89 % (95-98); ABG PCO2 45 mmHg (35-45); ABG PH 7.07 pH Units (7.32-7.45); ABG PO2 78 mmHg (85-104); ABG TCO2 14 mEq/L (20-26); Blood Gas Modality ASSIST CONTROL; Blood Gas PEEP 16 cm H2O; Blood Gas Respiration Rate 30; Blood Gas VT 450 cc
[2017-08-19] MEDS ORDERED: Sodium Bicarbonate 50 MEQ/50 ML VIAL IVP ONE (13:56)
[2017-08-19] MEDS ORDERED: *HR* Heparin 5,000 UNIT/ML VIAL ONE ×2 (15:26→18:33)
[2017-08-19 16:17] LABS: ABG Base Excess -17 mEq/L (-2 to 3); ABG HCO3 12 mEq/L (21-27); ABG Oxygen Saturation 90 % (95-98); ABG PCO2 39 mmHg (35-45); ABG PH 7.09 pH Units (7.32-7.45); ABG PO2 81 mmHg (85-104); ABG TCO2 13 mEq/L (20-26); Blood Gas Modality ASSIST CONTROL; Blood Gas PEEP 16 cm H2O; Blood Gas Respiration Rate 30; Blood Gas VT 500 cc
[2017-08-19 18:02] VITALS: BP 100/35
[2017-08-19] MEDS ORDERED: Aminoglycoside Consult 1 EACH MC ONE (18:49)
--- NOTE | 2017-08-19 18:58 | Death Note ---
<Nick Owens - Last Filed: 08/19/17 18:52> Discharge Sum: Summary - Date and Time Date of admission: 08/09/17 16:06 Date of : 08/19/17 Time of : 18:50 - Summary Details: 46-year-old female originally admitted status post Saravanan fundoplication. During her hospitalization after several days she remained persistently tachycardic and then developed acute respiratory failure necessitating emergent intubation. Her clinical course was further worsened by increasing ventilatory settings and ARDS. The extent of her ventilatory support necessitated prone positioning for hypoxia despite maximum settings. During this time the patient developed refractory shock felt to be vasodilatory requiring multiple pressors for support. She also suffered from end-stage renal disease likely secondary to hypoperfusion and shock which necessitated dialysis. As her clinical course worsened she continued to develop worsening signs of end organ damage including concern for DIC on 08/18/17. She developed atrial fibrillation that was refractory to cardioversion on numerous occasions. Her clinical course continued to deteriorate. With worsening labs including worsening leukocytosis and lactic acidosis over 10. Despite increased ventilatory support and triple vasopressor the patient continued to decline hemodynamically. On 08/19/17 the family elected to compassionately extubate. The patient soon deteriorated with time of at 18:50. Family present at bedside. - Additional Data Confirmation of as documented by pronouncing clinician: no pulse, no respirations Family: at bedside Attending/PCP notified?: No Attending physician: Juno La, DO Was code activated?: No Discharge Sum: Diag - PCOD Probable Cause of : Cardiac arrest Discharge Sum: Prov - Provider Primary care physician: Edyta Melgar CNP Admitting clinician: Juno La Consults: 08/11/17 11:27 Consult to Nephrology [CONS] Routine Consulting Provider: Kidney & HTN [facility] Reason for Consult: Low urine output, worsenign kidney function, electrolyte abnormalities. Call Completed: Yes 08/12/17 10:12 Consult to Cardiology [CONS] Routine Comment: Consulting Provider: Card[facility] [place] Reason for Consult: Tachycardia Time Notified: 10:12 Call Completed: Yes 08/13/17 11:03 Consult to Pulmonology [CONS] Routine Consulting Provider: Pulm Crit Care & Sleep [place] Reason for Consult: acute respiratory failure Time Notified: 11:00 Call Completed: Yes 08/13/17 12:00 Consult to Invasive Line Access Team [CONS] Routine Reason for Consult: Picc Line Insertion Line Type: PICC PICC line indications: Parental nutrition Time Notified: 12:01 Call Completed: Yes 08/14/17 09:45 Consult to Interventional Radiology [CONS] Stat Consulting Provider: Radiology Interventional [facility] Reason for Consult: HD line Time Notified: 09:35 Call Completed: Yes 08/15/17 11:12 consult to tile sorter [Consult to Nutrition] [CONS] Routine Comment: Consulting Provider: NUTRITION Reason for Dietary Consult: TPN Start and Manage 08/19/17 08:33 Consult to Infectious Diseases [CONS] Routine Consulting Provider: Infectious Disease [place] Reason for Consult: Sepsis, refractory shock, s/p saravanan with +wound cx Time Notified: 08:34 Call Completed: Yes 08/19/17 11:46 Consult to PICC team [Consult to Invasive Line Access Team] [CONS] Stat Reason for Consult: IV ACCESS Line Type: EPIV Time Notified: 11:47 Call Completed: Yes 08/19/17 11:48 Consult to Invasive Line Access Team [CONS] Routine Reason for Consult: midline Line Type: Midline Pronouncing clinician: Nick Owens <Erinn Rivera - Last Filed: 08/19/17 22:49> Discharge Sum: Summary - Date and Time Date of admission: 08/09/17 16:06 - Summary Details: Patient developed post operative complications by saravanan fundoplication ended up with severe septic shock and ARDS towards the end she developed ischemic bowel with profound lactic acidosis then family decided to compassionately extubated her . - Additional Data Attending physician: Juno La, DO Discharge Sum: Prov - Provider Primary care physician: Edyta Melgar CNP Consults: 08/11/17 11:27 Consult to Nephrology [CONS] Routine Consulting Provider: Kidney & HTN [facility] Reason for Consult: Low urine output, worsenign kidney function, electrolyte abnormalities. Call Completed: Yes 08/12/17 10:12 Consult to Cardiology [CONS] Routine Comment: Consulting Provider: [facility] [place] Reason for Consult: Tachycardia Time Notified: 10:12 Call Completed: Yes 08/13/17 11:03 Consult to Pulmonology [CONS] Routine Consulting Provider: Pulm Crit [facility] [place] Reason for Consult: acute respiratory failure Time Notified: 11:00 Call Completed: Yes 08/13/17 12:00 Consult to Invasive Line Access Team [CONS] Routine Reason for Consult: Picc Line Insertion Line Type: PICC PICC line indications: Parental nutrition Time Notified: 12:01 Call Completed: Yes 08/14/17 09:45 Consult to Interventional Radiology [CONS] Stat Consulting Provider: Radiology Interventional Cols Reason for Consult: HD line Time Notified: 09:35 Call Completed: Yes 08/15/17 11:12 consult to tile sorter [Consult to Nutrition] [CONS] Routine Comment: Consulting Provider: NUTRITION Reason for Dietary Consult: TPN Start and Manage 08/19/17 08:33 Consult to Infectious Diseases [CONS] Routine Consulting Provider: Infectious Disease [place] Reason for Consult: Sepsis, refractory shock, s/p saravanan with +wound cx Time Notified: 08:34 Call Completed: Yes 08/19/17 11:46 Consult to PICC team [Consult to Invasive Line Access Team] [CONS] Stat Reason for Consult: IV ACCESS Line Type: EPIV Time Notified: 11:47 Call Completed: Yes 08/19/17 11:48 Consult to Invasive Line Access Team [CONS] Routine Reason for Consult: midline Line Type: Midline - Attending Attestation I agree with documentation as documented by the resident.
[2017-08-20] MEDS ORDERED: Piperacillin/Tazobactam 3.375 GM in 0.9 % Sodium Chloride Mini Bag 100 ML IVPB SCH
[2017-08-20] MEDS ORDERED: Vancomycin 1 EACH in EMPTY BAG 1 EACH IVPB SCH (09:00)
--- NOTE | 2017-08-20 16:01 | Electrocardiograph Report ---
[place] [id number] Test Date: 2017-08-17 Pat Name: Shanell Will Department: 109 Room: [facility] Gender: F Invoice Coder: KARI : [id number] Requested By: Nick Owens Order Number: [id number] Reading MD: Karri Subramanian Measurements Intervals [place] Rate: 169 P: UT: 0 QRS: 53 QRSD: 110 T: 37 QT: 263 QTc: 355 Interpretive Statements ATRIAL FIBRILLATION WITH RAPID VENTRICULAR RESPONSE NONSPECIFIC T-WAVE ABNORMALITY ABNORMAL RHYTHM ECG Electronically Signed On 08-20-2017 16:00:02 EDT by Karri Subramanian
== END 2017-08-19 18:50 | disposition expired | DRG 326 ==
LOC: SAMDAY 08:56 → ICNU 08:56
PROVIDERS: ADMIT Surgery; ATTEND Surgery